=== PATIENT | female | born 1970 | race Caucasian/White ===

== ENCOUNTER 2019-03-20 18:59 | Inpatient (IN) | payer OTHER ==
--- NOTE | 2019-03-20 19:02 | PDOC ---
Rapid Medical Evaluation Time Seen by Provider: 03/20/19 19:00 Medical Evaluation: Allergies Allergy/AdvReac Type Severity Reaction Status Date / Time bacitracin Allergy Rash Verified 08/23/12 06:50 [From Neosporin ([id number])] 03/20/19 19:00 HPI: rectal bleeding PE: No gross deficits ORERS: Labs Discharge Disposition - Diagnosis GI bleed - Referrals - Patient Instructions - Post Discharge Activity
[2019-03-20] MEDS ORDERED: SODIUM CHLORIDE 1,000 ML IV STA (21:18)
[2019-03-20] MEDS ORDERED: PANTOPRAZOLE SODIUM 40 MG in SODIUM CHLORIDE 100 ML IVPB ONE (21:18)
[2019-03-20] MEDS ORDERED: PANTOPRAZOLE SODIUM 40 MG/100 ML BAG IVPB ONE (21:37)
--- NOTE | 2019-03-20 21:47 | PDOC ---
History of Present Illness - General Chief Complaint: Rectal Bleed Stated Complaint: RECTAL BLEED Time Seen by Provider: 03/20/19 19:00 History Source: Patient Exam Limitations: No Limitations - History of Present Illness Initial Comments: Andreea Jaffe is a 48 yo F with a hx of diverticulosis and hemorrhoids who presents to the [facility] via private auto with the chief complaint of bright red blood per rectum. The patient states that last night she experienced a frankly bloody bowel movement. When she looked down at the toilet there was nothing but blood in the toilet. She states this happened again today close to ten times. She states her bowel movements are not painful. She states she has a hx of hemorrhoidal bleeding but her prior experiences with hemorrhoidal bleeding are nothing like what has been happening to her over the past day as her hemorrhoidal bleeding episodes have a much lower quantity of blood and they are painful. She reports that Dr. Barakat is her GI doctor and she was told when she had her last colonoscopy that she has diverticulosis. She denies having abdominal pain, recent fevers, chills, infections, back pain, recent Abx, back pain, chest pain, SOB, difficulty breathing, headache, blurry vision, neck pain, joint pain, or decreased PO intake. PCP: Dr. Mishra GI: Dr. Barakat PSH: , bladder lift, addenoidectomy/tonsillectomy Social Hx: Denies smoking, drinking, or other substance usage. Allergies: Bacitracin per chart Past History - Past Medical History Allergies/Adverse Reactions: Allergies Allergy/AdvReac Type Severity Reaction Status Date / Time bacitracin Allergy Rash Verified 03/20/19 19:00 [From Neosporin ([id number])] Home Medications: Ambulatory Orders Aspirin/Acetaminophen/Caffeine [Excedrin Migraine Caplet] 1 each PO DAILY Fluoxetine HCl [Sarafem] 10 mg PO DAILY 03/20/19 Anemia: No Asthma: No Cancer: No Cardiac Disorders: No CVA: No COPD: No CHF: No Dementia: No Diabetes: No GI Disorders: No Disorders: No HTN: No Hypercholesterolemia: No Liver Disease: No Seizures: No Thyroid Disease: No (benign cyst) - Surgical History Abdominal Surgery: No Appendectomy: No Cardiac Surgery: No Cholecystectomy: No Lung Surgery: No Neurologic Surgery: No - Suicide/Smoking/Psychosocial Hx Smoking History: Unknown if ever smoked Have you smoked in the past 12 months: Yes Number of Cigarettes Smoked Daily: 2 'Breaking Loose' booklet given: 07/31/12 Hx Alcohol Use: Yes (SOCIAL) Substance Use Type: None Hx Substance Use Treatment: No Review of Systems - Review of Systems Able to Perform ROS?: Yes Comments:: CONSTITUTIONAL: Absent: fever, chills, diaphoresis, generalized weakness, malaise, loss of appetite HEENT: Absent: rhinorrhea, nasal congestion, throat pain, throat swelling, difficulty swallowing, mouth swelling, ear pain, eye pain, visual Changes CARDIOVASCULAR: Absent: chest pain, syncope, palpitations, irregular heart rate, lightheadedness , peripheral edema RESPIRATORY: Absent: cough, shortness of breath, dyspnea with exertion, orthopnea, wheezing, stridor, hemoptysis GASTROINTESTINAL: Present: diarrhea, hematochezia Absent: abdominal pain, abdominal distension, nausea, vomiting, constipation, melena GENITOURINARY: Absent: dysuria, frequency, urgency, hesitancy, hematuria, flank pain, genital pain MUSCULOSKELETAL: Absent: myalgia, arthralgia, joint swelling SKIN: Absent: rash, itching, pallor HEMATOLOGIC/IMMUNOLOGIC: Absent: easy bleeding, easy bruising, lymphadenopathy, frequent infections ENDOCRINE: Absent: unexplained weight gain, unexplained weight loss, heat intolerance, cold intolerance NEUROLOGIC: Absent: headache, focal weakness or paresthesias, dizziness, unsteady gait, seizure, mental status changes, bladder or bowel incontinence PSYCHIATRIC: Absent: anxiety, depression, suicidal or homicidal ideation, hallucinations. *Physical Exam - Vital Signs Last Vital Signs Temp Pulse Resp BP Pulse Ox 99.3 F 89 18 132/77 100 03/20/19 19:03 03/20/19 19:03 03/20/19 19:03 03/20/19 19:03 03/20/19 19:03 - Physical Exam Comments: GENERAL: Well developed, well nourished. Awake and alert. No acute distress. HEENT: Normocephalic, atraumatic. PERRLA, EOMI. No conjunctival pallor. Sclera are non- icteric. Moist mucous membranes. Oropharynx is clear. NECK: Supple. Full ROM. No JVD. CARDIOVASCULAR: Regular rate and rhythm. No murmurs, rubs, or gallops. Distal pulses are 2+ and symmetric. PULMONARY: No evidence of respiratory distress. Lungs clear to auscultation bilaterally. No wheezing, rales or rhonchi. ABDOMINAL: Soft. Non-tender. Non-distended. No rebound or guarding. No organomegaly. Normoactive bowel sounds. MUSCULOSKELETAL Normal range of motion at all joints. No bony deformities or tenderness. No CVA tenderness. EXTREMITIES: No cyanosis. No clubbing. No edema. No calf tenderness. SKIN: Warm and dry. Normal capillary refill. No rashes. No jaundice. NEUROLOGICAL: Alert, awake, appropriate. Cranial nerves 2-12 intact. No deficits to light touch in face, upper extremities and lower extremities. No motor deficits in the in face, upper extremities and lower extremities. Normal speech. Gait is normal without ataxia. PSYCHIATRIC: Cooperative. Good eye contact. Appropriate mood and affect. Rectal Exam: positive: normal rectal tone, heme positive stool, hemorrhoids. negative: melena, decreased tone ED Treatment Course - LABORATORY CBC & Chemistry Diagram: 03/20/19 21:10 03/20/19 21:10 Medical Decision Making - Medical Decision Making Andreea Jaffe is a 48 yo F with a hx of diverticulosis and hemorrhoids who presents to the [facility] via private auto with the chief complaint of bright red blood per rectum. The patient states that last night she experienced a frankly bloody bowel movement. When she looked down at the toilet there was nothing but blood in the toilet. She states this happened again today close to ten times. She states her bowel movements are not painful. She states she has a hx of hemorrhoidal bleeding but her prior experiences with hemorrhoidal bleeding are nothing like what has been happening to her over the past day as her hemorrhoidal bleeding episodes have a much lower quantity of blood and they are painful. She reports that Dr. Barakat is her GI doctor and she was told when she had her last colonoscopy that she has diverticulosis. Vital Signs Temp Pulse Resp BP Pulse Ox 99.3 F 89 18 132/77 100 03/20/19 19:03 03/20/19 19:03 03/20/19 19:03 03/20/19 19:03 03/20/19 19:03 DDx IBNLT: GI bleed - likely lower, less likely upper. Diverticular bleed, hemorrhoidal bleed, colon cancer, angiodysplasia, infectious colitis Plan: Labs, Urine, EKG, IV hydration, GI consult, Admit to hospital Labs: CBC - unremarkable. Normal Hb. CMP - Mild elevation in BUN Urine: 1+ ketonuria Disposition: Admit to hospital for BRBPR and further disposition and care. - Signing patient out to night resident to complete admission to hospital. *DC/Admit/Observation/Transfer Diagnosis at time of Disposition: GI bleed, BRBPR (bright red blood per rectum) - Discharge Dispostion Condition at time of disposition: Stable Decision to Admit order: Yes - Referrals - Patient Instructions Printed Discharge Instructions: DI for Rectal Bleeding - Post Discharge Activity
[2019-03-20 21:48] LABS: BASO % 0.6 % (0-2.0); EOS % 0.2 % (0-4.5); HEMOGLOBIN 12.7 GM/dL (10.7-15.3); LYMPH % 19.2 % (8-40); MCH 31.2 pg (25.7-33.7); MCHC 33.4 g/dl (32.0-36.0); MEAN CELL VOLUME 93.3 fl (80-96); MEAN PLT VOLUME 8.4 fl (7.5-11.1); MONO % 5.5 % (3.8-10.2); NEUT % 74.5 % (42.8-82.8); PLATELET COUNT 284 K/MM3 (134-434); RBC 4.07 M/mm3 (3.60-5.2); RDW 13.9 % (11.6-15.6); RETICULOCYTES 1.47 % (0.5-1.5); WHITE BLOOD COUNT 10.3 K/mm3 (4.0-10.0)
[2019-03-20 22:07] LABS: INR 1.02 (0.83-1.09)
[2019-03-20 22:21] LABS: ALBUMIN 3.9 g/dl (3.4-5.0); BILIRUBIN,TOTAL 0.8 mg/dL (0.2-1); BLOOD UREA NITROGEN 18.3 mg/dL (7-18); CALCIUM 8.7 mg/dL (8.5-10.1); CREATININE 0.9 mg/dL (0.55-1.3); POTASSIUM 3.9 mmol/L (3.5-5.1); TOT PROT 6.4 g/dl (6.4-8.2)
--- NOTE | 2019-03-20 22:27 | PDOC ---
Documentation entered by Keren Lawton SCRIBE, acting as scribe for Lucas Lucero MD. Lucas Lucero MD: This documentation has been prepared by the scribe, Keren Lawton SCRIBE, under my direction and personally reviewed by me in its entirety. I confirm that the documentation accurately reflects all work, treatment, procedures, and medical decision making performed by me. Attending Attestation - Resident Resident Name: Marcel Orozco - ED Attending Attestation I have performed the following: I have examined & evaluated the patient, The case was reviewed & discussed with the resident, I agree w/resident's findings & plan, Exceptions are as noted - HPI HPI: 03/20/19 21:37 The patient is a 48-year-old female, with a past medical history of diverticulosis and hemorrhoids, who presents to the ED with bright red blood per rectum today. The patient reports having 10 episodes with zoran blood in the toilet. Bowel movements are not painful. - Physicial Exam PE: 03/20/19 22:23 Patient is awake and alert, well-nourished, in no distress Normocephalic, atraumatic PERRLA, EOMI, conjunctiva pink CTA RRR Abdomen is soft, nontender, nondistended - Medical Decision Making 03/20/19 22:26 Patient is a 48-year-old female with history of diverticulosis and hemorrhoids in the past presents with numerous painless episodes of bright red blood and urine blood per rectum. In the ER, patient is hemodynamically stable with normal vital signs. Initial CBC reveals no evidence of significant anemia. Patient's symptoms are consistent with recurrent diverticular bleeding. Patient will be admitted for serial hematocrits and GI consultation. 03/21/19 01:42 Patient had another bloody bowel movement. Remains hemodynamically stable. No indication for packed RBCs at this time. Will continue to hydrate. Awaiting transfer to [facility] [place].
[2019-03-20 22:29] LABS: URINE APPEARANCE CLEAR; URINE BILIRUBIN NEGATIVE (NEGATIVE); URINE COLOR YELLOW; URINE GLUCOSE (UA) NEGATIVE (NEGATIVE); URINE KETONE 1+ (NEGATIVE); URINE LEUK ESTERASE NEGATIVE (NEGATIVE); URINE NITRITE NEGATIVE (NEGATIVE); URINE PROTEIN NEGATIVE (NEGATIVE); URINE UROBILINOGEN 0.2 mg/dL (0.2-1.0)
[2019-03-20 22:30] LABS: HCG,QUALITATIVE URINE Negative
--- NOTE | 2019-03-21 00:03 | PN ---
Teaching Attending Note Name of Resident: Gianni Edouard ATTENDING PHYSICIAN STATEMENT I saw and evaluated the patient. I reviewed the resident's note and discussed the case with the resident. I agree with the resident's findings and plan as documented. SUBJECTIVE: Seen and examined; please see resident note for further discussion of HPI/PMH/ PSH/FH/SH/ROS. Briefly, this is a 48 y/o female with history of hemorrhoids and diverticulosis (OP C-scope/EGD several years ago; vague hx upper GI ulcer no treatment given) presenting with multiple episodes of BRBPR w/ loose stool; H /H and HR are wnl. Follows with Dr. Barakat. OBJECTIVE: NAD, AAO, resting comfortably in bed NC AT EOMI PERRLA RRR s1/2 no mgr Lungs CTAB, w/ sym exp NT ND +BS CN2-12 wnl, no fnd Normal mood, appropriate behavior EKG reviewed CBC with very mild leukocytosis to 10.3; BMP with mildly elevated BUN to 18.3 ( ULN is 18.0) ASSESSMENT AND PLAN: Patient with history of diverticulosis presents with multiple episodes of BRBPR ; h/h stable and not tachy. Admitting to medicine with GI consult. # BRBPR # Hx Diverticulosis # Hx ?duodenal ulcer Large ddx for bleeding including diverticular, infectious diarrhea, meckles, etc. She will be placed on IV PPI (80 then 40 BID) and kept NPO and placed on isotonic fluids. Holding off on abx. Check stool studies.
[2019-03-21] MEDS ORDERED: LACTATED RINGERS SOLUTION 1,000 ML/1,000 ML INFUS.BAG IV SCH (01:00)
--- NOTE | 2019-03-21 01:14 | HP ---
CHIEF COMPLAINT: PCP: Dr Mishra HISTORY OF PRESENT ILLNESS: 48F with pmh of diverticulosis, hemorrhoids, ?gastric/duodenal ulcer presents to [facility] with complaint of bloody bowel movements x 8 with blood in the water, blood/clots in the stool. Denies straining. Denies rectal pain. Has had a colonoscopy and upper endoscopy in 2010 for abd pain. Noted diverticulosis and colonic polyps x2; gastric ulcer but did not get any antibiotics/antacids/PPI; no known history of H pylori. Has had hemorrhoids since , 9ys prior with 2 episodes of scant rectal bleed since initial dx. Denies dizziness, BRAVO. No sick contacts ER course was notable for: (1) hgb 12.7 (2) pantoprazole (3) FOBT Recent Travel: PAST MEDICAL HISTORY: diverticulosis, hemorrhoids PAST SURGICAL HISTORY: bladder lift, , addenoidectomy Social History: Smoking: denies Alcohol: social Drugs: denies Family History: mother with hiatal hernia Allergies bacitracin [From Neosporin ([id number])] Allergy (Verified 03/20/19 19:00) Rash SWELLING HOME MEDICATIONS: Home Medications Medication Instructions Recorded Aspirin/Acetaminophen/Caffeine 1 each PO DAILY 03/20/19 [Excedrin Migraine Caplet] Fluoxetine HCl [Sarafem] 10 mg PO DAILY 03/20/19 REVIEW OF SYSTEMS CONSTITUTIONAL: Absent: fever, chills, diaphoresis, generalized weakness, malaise, loss of appetite, weight change HEENT: Absent: rhinorrhea, difficulty swallowing CARDIOVASCULAR: Absent: chest pain, syncope, palpitations, irregular heart rate, lightheadedness , peripheral edema RESPIRATORY: Absent: cough, shortness of breath GASTROINTESTINAL: hematochezia Absent: abdominal pain, abdominal distension, nausea, vomiting, diarrhea, constipation, melena GENITOURINARY: Absent: dysuria, frequency, urgency, hesitancy, hematuria, flank pain, genital pain MUSCULOSKELETAL: Absent: myalgia, arthralgia, joint swelling, back pain, neck pain SKIN: Absent: rash, itching, pallor HEMATOLOGIC/IMMUNOLOGIC: Absent: easy bleeding, easy bruising, lymphadenopathy, frequent infections ENDOCRINE: Absent: unexplained weight gain, unexplained weight loss NEUROLOGIC: Absent: headache, focal weakness or paresthesias, dizziness, unsteady gait, seizure, mental status changes, bladder or bowel incontinence PSYCHIATRIC: Absent: anxiety, depression, suicidal or homicidal ideation, hallucinations. PHYSICAL EXAMINATION Vital Signs - 24 hr 03/20/19 19:03 Temperature 99.3 F Pulse Rate 89 Respiratory 18 Rate Blood Pressure 132/77 O2 Sat by Pulse 100 Oximetry (%) GENERAL: Awake, alert, and fully oriented, in no acute distress. HEAD: Normal with no signs of trauma. No temporal wasting EYES: extraocular movements intact, sclera anicteric, conjunctiva clear. EARS, NOSE, THROAT: Ears normal, nares patent. Moist mucous membranes. NECK: Normal range of motion, supple without lymphadenopathy, JVD, or masses. LUNGS: Breath sounds equal, clear to auscultation bilaterally. No wheezes, and no crackles. No accessory muscle use. HEART: Regular rate and rhythm, normal S1 and S2 without murmur, rub or gallop. ABDOMEN: Soft, nontender, not distended, no guarding, no rebound, no masses. RECTAL: excessive external mucosal folds at 12'oclock, internal hemrrhoid at 9' oclock; blood on glove MUSCULOSKELETAL: Normal range of motion at all joints. No bony deformities or tenderness. UPPER EXTREMITIES: warm, well-perfused. No cyanosis. No peripheral edema. LOWER EXTREMITIES: No peripheral edema. NEUROLOGICAL: Normal speech. Moves all four extremities spontaneously PSYCHIATRIC: Cooperative. Good eye contact. Appropriate mood and affect. SKIN: Warm, dry, normal turgor, no rashes or lesions noted, normal capillary refill. Laboratory Results - last 24 hr 03/20/19 03/20/19 03/20/19 21:10 21:10 21:10 WBC 10.3 H RBC 4.07 Hgb 12.7 Hct 38.0 MCV 93.3 MCH 31.2 MCHC 33.4 RDW 13.9 Plt Count 284 MPV 8.4 Absolute Neuts (auto) 7.7 Neutrophils % 74.5 Lymphocytes % 19.2 Monocytes % 5.5 Eosinophils % 0.2 Basophils % 0.6 Nucleated RBC % 0 Retic Count 1.47 PT with INR 12.00 INR 1.02 Sodium 139 Potassium 3.9 Chloride 108 H Carbon Dioxide 24 Anion Gap 7 L BUN 18.3 H Creatinine 0.9 Est GFR (CKD-EPI)AfAm 87.63 Est GFR (CKD-EPI)NonAf 75.61 Random Glucose 95 Calcium 8.7 Total Bilirubin 0.8 AST 17 ALT 30 Alkaline Phosphatase 49 Total Protein 6.4 Albumin 3.9 Urine Color Urine Appearance Urine pH Ur Specific [place] Urine Protein Urine Glucose (UA) Urine Ketones Urine Blood Urine Nitrite Urine Bilirubin Urine Urobilinogen Ur Leukocyte Esterase Urine HCG, Qual Blood Type Antibody Screen 03/20/19 03/20/19 21:10 22:10 WBC RBC Hgb Hct MCV MCH MCHC RDW Plt Count MPV Absolute Neuts (auto) Neutrophils % Lymphocytes % Monocytes % Eosinophils % Basophils % Nucleated RBC % Retic Count PT with INR INR Sodium Potassium Chloride Carbon Dioxide Anion Gap BUN Creatinine Est GFR (CKD-EPI)AfAm Est GFR (CKD-EPI)NonAf Random Glucose Calcium Total Bilirubin AST ALT Alkaline Phosphatase Total Protein Albumin Urine Color Yellow Urine Appearance Clear Urine pH 5.0 Ur Specific [place] 1.013 Urine Protein Negative Urine Glucose (UA) Negative Urine Ketones 1+ H Urine Blood Negative Urine Nitrite Negative Urine Bilirubin Negative Urine Urobilinogen 0.2 Ur Leukocyte Esterase Negative Urine HCG, Qual Negative Blood Type B POSITIVE Antibody Screen Negative ASSESSMENT/PLAN: 48F with pmh of diverticulosis, hemorrhoids, ?gastric/duodenal ulcer presenting with BRBPR possibly 2/2 hemrrhoids vs diverticulosis; less likely UGIB. # Blood per rectum > FOBT - pending - NPO - GI consult: r/o upper GIB - fu CT A/P - final read pending - q8 H/H - fu stool studies Gianni Boyer DO PGY-1 Medicine, PM-Float [id number] 03/21/19 Visit type - Emergency Visit Emergency Visit: Yes ED Registration Date: 03/20/19 Care time: The patient presented to the Emergency Department on the above date and was hospitalized for further evaluation of their emergent condition. - New Patient This patient is new to me today: Yes Date on this admission: 03/21/19 - Critical Care Critical Care patient: No ATTENDING PHYSICIAN STATEMENT I saw and evaluated the patient. I reviewed the resident's note and discussed the case with the resident. I agree with the resident's findings and plan as documented. SUBJECTIVE: OBJECTIVE: ASSESSMENT AND PLAN:
[2019-03-21] MEDS: PANTOPRAZOLE SODIUM 40 MG VIAL IVPUSH SCH ×2 (01:26→09:31)
[2019-03-21] MEDS ORDERED: PANTOPRAZOLE SODIUM 40 MG/100 ML BAG IVPB ONE (01:28)
[2019-03-21] MEDS ORDERED: ACETAMINOPHEN 1000 MG/100 ML VIAL (NON FORMULARY) IVPB ONE (01:42)
[2019-03-21] MEDS ORDERED: ACETAMINOPHEN INJECTION 100 ML IVPB ONE (01:48)
[2019-03-21 02:02] LABS: HEMATOCRIT 30.6 % (32.4-45.2); HEMOGLOBIN 10.3 GM/dL (10.7-15.3); MCH 31.2 pg (25.7-33.7); MCHC 33.6 g/dl (32.0-36.0); MEAN CELL VOLUME 92.8 fl (80-96); MEAN PLT VOLUME 8.1 fl (7.5-11.1); PLATELET COUNT 236 K/MM3 (134-434); RDW 14.1 % (11.6-15.6); WHITE BLOOD COUNT 9.8 K/mm3 (4.0-10.0)
[2019-03-21 03:06] VITALS: BMI 30.5
[2019-03-21 07:08] LABS: BASO % 0.6 % (0-2.0); EOS % 0.8 % (0-4.5); HEMATOCRIT 28.4 % (32.4-45.2); HEMOGLOBIN 9.5 GM/dL (10.7-15.3); LYMPH % 24.1 % (8-40); MCH 31.4 pg (25.7-33.7); MCHC 33.6 g/dl (32.0-36.0); MEAN CELL VOLUME 93.7 fl (80-96); MEAN PLT VOLUME 8.3 fl (7.5-11.1); MONO % 6.2 % (3.8-10.2); NEUT % 68.3 % (42.8-82.8); PLATELET COUNT 227 K/MM3 (134-434); RBC 3.03 M/mm3 (3.60-5.2); RDW 13.7 % (11.6-15.6); WHITE BLOOD COUNT 8.1 K/mm3 (4.0-10.0)
[2019-03-21 07:24] LABS: BILIRUBIN,TOTAL 0.6 mg/dL (0.2-1); BLOOD UREA NITROGEN 13.3 mg/dL (7-18); CALCIUM 7.6 mg/dL (8.5-10.1); CREATININE 0.7 mg/dL (0.55-1.3)
[2019-03-21] MEDS ORDERED: PANTOPRAZOLE SODIUM 40 MG VIAL IVPUSH SCH (10:00)
[2019-03-21] MEDS ORDERED: PANTOPRAZOLE 40 MG TABLET (FP) PO SCH (10:00)
--- NOTE | 2019-03-21 12:22 | CON.GI ---
Consult Consult Specialty:: GI Referred by:: Marcel Boogie Reason for Consultation:: rectal bleed - History of Present Illness Chief Complaint: blood in stool History of Present Illness: 48F with pmh of diverticulosis, hemorrhoids, ?gastric/duodenal ulcer presents to [facility] [place] with complaint of bloody bowel movements x 8 with blood in the water, blood/clots in the stool. Denies straining. Denies rectal pain. Has had a colonoscopy and upper endoscopy in 2010 for abd pain. Noted diverticulosis and colonic polyps x2; gastric ulcer but did not get any antibiotics/antacids/PPI; no known history of H pylori. Has had hemorrhoids since , 9ys prior with 2 episodes of scant rectal bleed since initial dx. Denies dizziness, BRAVO. No sick contacts all symptoms started 2 days ago around 7 pm with bright blood with stool , some dark stool and some clots , she reports 8-10 times diarrhea , she had salad that afternoon , and she had coffee latte that morning that cause her gases all day (lactose intolerance ) she denies any fever , chills, N/V , denies any chest pain , but reports some palpitation she reports acid reflux , lower and left lower quadrant abdominal pain denies any urinary symptoms denies any lower ext pain but reports worsening migraine headache last week and has been on Excedrin daily. pt reportsfamily history of acide reflux , colon cancer great aunt and rectal cancer in 2nd cousin, peptic ulcer her mother and her brother. 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 No: Ascites Renal/: No: Hematuria ...LMP: 05/24/12 Psych: Yes: Anxiety, Other (pre menstrual syndrome ) Musculoskeletal: Yes: Chronic low back pain Endocrine: Yes: Other (benign thyroid cyst ) - Past Surgical History Past Surgical History: Yes: , Cystectomy (thyroid ), Tonsillectomy Additional Surgical History: bladder lift - Alcohol/Substance Use Hx Alcohol Use: Yes (SOCIAL) Number of Drinks Daily: 2 History of Substance Use: reports: None - Smoking History Smoking history: Smoker current status UNK Have you smoked in the past 12 months: Yes Aproximately how many cigarettes per day: 2 - Social History ADL: Independent [facility] of : [facility] History of Recent Travel: Yes ([facility]) <Andrea Strickland - Last Filed: 03/21/19 16:02> Referred by:: Dr. Marcel Boogie - Past Medical History Gastrointestinal: Yes: Constipation, Diverticulosis (mild universal diverticulosis at 2012 colonoscopy), Peptic Ulcer Disease (1998 EGD suggested a DU scar), Other (hepatic flexure hyperplastic polyp rmoeved at last colonoscopy in 2011) Reproductive: Yes: Other (left ovarian cyst) - Past Surgical History Additional Surgical History: urethral diverticulum resection - Social History Usual Living Arrangement: Alone <Corona Barakat - Last Filed: 03/21/19 17:49> Home Medications <Andrea Strickland - Last Filed: 03/21/19 16:02> <Corona Barakat - Last Filed: 03/21/19 17:49> - Allergies Allergies/Adverse Reactions: Allergies Allergy/AdvReac Type Severity Reaction Status Date / Time bacitracin Allergy Rash Verified 03/20/19 19:00 [From Neosporin ([id number])] - Home Medications Home Medications: Ambulatory Orders Aspirin/Acetaminophen/Caffeine [Excedrin Migraine Caplet] 1 each PO DAILY Fluoxetine HCl [Sarafem] 10 mg PO DAILY 03/20/19 Family Disease History - Family Disease History Family Disease History: Heart Disease: Father (stent x 2 , HTN , stoke , prostate cancer , skin cancer , testicle cancer ), Other: Grandparent (great aunt colon cancer ), Mother (GERD , Gastric ulcer , hiatal hernia , 1/2 thyroid removed ), Brother (gastric ulcer from heroin over dose @ age of 45 year ) Other Family History: 2nd cousin with rectal cancer diagnosed @ 61 and @ 67 <Andrea Strickland - Last Filed: 03/21/19 16:02> - Family Disease History Family Disease History: Heart Disease: Father Other Family History: paul pham had colon cancer in her late 60s <Corona Barakat - Last Filed: 03/21/19 17:49> Review of Systems - Review of Systems Constitutional: reports: Lethargy. denies: Fever, Night Sweats Eyes: reports: No Symptoms HENT: reports: No Symptoms Neck: reports: No Symptoms Cardiovascular: reports: Palpitations. denies: Chest Pain, Edema, Shortness of Breath Respiratory: reports: No Symptoms Gastrointestinal: reports: Abdominal Pain (lower and left lower Q), Diarrhea ( 10 times since admssion bloody), Rectal Bleeding Genitourinary: reports: No Symptoms Breasts: reports: No Symptoms Reported Musculoskeletal: reports: Back Pain Neurological: reports: Headache (migrain), Other (light headedness when she get up of bed now). denies: Numbness, Parasthesia Endocrine: reports: No Symptoms, Other (thyroid cystectomy) Psychiatric: reports: Anxiety <Andrea Strickland - Last Filed: 03/21/19 16:02> Physical Exam-GI Vital Signs: Vital Signs Temperature 98.6 F 03/21/19 06:00 Pulse Rate 82 03/21/19 06:00 Respiratory Rate 20 03/21/19 06:00 Blood Pressure 108/62 03/21/19 06:00 O2 Sat by Pulse Oximetry (%) 98 03/21/19 03:31 Constitutional: Yes: Well Nourished, No Distress, Calm Eyes: Yes: Conjunctiva Clear HENT: Yes: Atraumatic, Normocephalic Neck: Yes: Supple Cardiovascular: Yes: Regular Rate and Rhythm Respiratory: Yes: CTA Bilaterally Gastrointestinal Inspection: No: Ascites, Distention ...Auscultate: Yes: Normoactive Bowel Sounds ...Palpate: Yes: Tenderness (lower abdomen and left Loweer Quadrant). No: Firm/ Rigid, Guarding ...Percussion: Yes: Tympanitic (normal sph) ...Rectal Exam: Yes: Guaiac Positive, Hemorrhoids/External, Hemorrhoids/Internal , Sphincter Tone Normal Edema: No Peripheral Pulses WNL: Yes Neurological: Yes: Alert, Oriented ...Motor Strength: WNL Psychiatric: Yes: Alert, Oriented Labs: CBC, BMP 03/21/19 06:45 03/21/19 06:45 INR, PTT INR 1.02 (0.83-1.09) 03/20/19 21:10 <Andrea Strickland - Last Filed: 03/21/19 16:02> Vital Signs: Vital Signs Temperature 99.2 F 03/21/19 15:25 Pulse Rate 88 03/21/19 15:25 Respiratory Rate 20 03/21/19 15:25 Blood Pressure 114/59 L 03/21/19 15:25 O2 Sat by Pulse Oximetry (%) 98 03/21/19 09:00 CBC,CMP WBC 9.1 K/mm3 (4.0-10.0) 03/21/19 15:10 RBC 2.61 M/mm3 (3.60-5.2) L 03/21/19 15:10 Hgb 8.3 GM/dL (10.7-15.3) L 03/21/19 15:10 Hct 24.3 % (32.4-45.2) L 03/21/19 15:10 MCV 93.1 fl (80-96) 03/21/19 15:10 MCH 31.7 pg (25.7-33.7) 03/21/19 15:10 MCHC 34.0 g/dl (32.0-36.0) 03/21/19 15:10 RDW 14.0 % (11.6-15.6) 03/21/19 15:10 Plt Count 232 K/MM3 (134-434) 03/21/19 15:10 MPV 8.4 fl (7.5-11.1) 03/21/19 15:10 Absolute Neuts (auto) 7.6 K/mm3 (1.5-8.0) 03/21/19 15:10 Neutrophils % 83.2 % (42.8-82.8) H D 03/21/19 15:10 Lymphocytes % 11.7 % (8-40) D 03/21/19 15:10 Monocytes % 4.6 % (3.8-10.2) 03/21/19 15:10 Eosinophils % 0.0 % (0-4.5) D 03/21/19 15:10 Basophils % 0.5 % (0-2.0) 03/21/19 15:10 Nucleated RBC % 0 % (0-0) 03/21/19 15:10 ESR 4 mm/hr (0-20) 03/21/19 01:50 Retic Count 1.47 % (0.5-1.5) 03/20/19 21:10 Sodium 141 mmol/L (136-145) 03/21/19 06:45 Potassium 4.0 mmol/L (3.5-5.1) 03/21/19 06:45 Chloride 112 mmol/L (98-107) H 03/21/19 06:45 Carbon Dioxide 24 mmol/L (21-32) 03/21/19 06:45 Anion Gap 4 MMOL/L (8-16) L 03/21/19 06:45 BUN 13.3 mg/dL (7-18) 03/21/19 06:45 Creatinine 0.7 mg/dL (0.55-1.3) 03/21/19 06:45 Est GFR (CKD-EPI)AfAm 118.74 03/21/19 06:45 Est GFR (CKD-EPI)NonAf 102.45 03/21/19 06:45 Random Glucose 98 mg/dL (74-106) 03/21/19 06:45 Calcium 7.6 mg/dL (8.5-10.1) L 03/21/19 06:45 Total Bilirubin 0.6 mg/dL (0.2-1) 03/21/19 06:45 AST 11 U/L (15-37) L 03/21/19 06:45 ALT 22 U/L (13-61) 03/21/19 06:45 Alkaline Phosphatase 38 U/L (45-117) L 03/21/19 06:45 C-Reactive Protein < 0.3 MG/DL (0.00-0.3) 03/21/19 01:50 Total Protein 5.0 g/dl (6.4-8.2) L 03/21/19 06:45 Albumin 3.0 g/dl (3.4-5.0) L 03/21/19 06:45 Current Medications Generic Name Dose Route Start Last Admin Trade Name Freq PRN Reason Stop Dose Admin Acetaminophen 1,000 mg 03/21/19 13:26 03/21/19 13:56 Ofirmev Injection - IVPB 1,000 mg Q6H PRN Administration HEADACHE Pantoprazole Sodium 80 mg/ 100 mls @ 10 mls/hr 03/21/19 17:30 Sodium Chloride IVPB Q10H PRASANNA 8 MG/HR Lactated Ringer's 1,000 ml in 1,000 mls @ 125 mls/hr 03/21/19 17:21 Lactated Ringers Solution IV ASDIR PRASANNA Labs: CBC, BMP 03/21/19 15:10 03/21/19 06:45 INR, PTT INR 1.02 (0.83-1.09) 03/20/19 21:10 <Corona Barakat - Last Filed: 03/21/19 17:49> Imaging - Results Cat Scan: Report Reviewed <RocriaBlaynei - Last Filed: 03/21/19 16:02> Problem List - Problems (1) BRBPR (bright red blood per rectum) Code(s): K62.5 - HEMORRHAGE OF ANUS AND RECTUM (2) GI bleed Code(s): K92.2 - GASTROINTESTINAL HEMORRHAGE, UNSPECIFIED <Marco AAndrea - Last Filed: 03/21/19 16:02> - Problems (1) Acute blood loss anemia Assessment/Plan: Differential include diverticular hemorrhage, NSAID ulcer, vascular ectasias, infectious or ischemic colitis, Meckel's diverticulum among other possibilities Code(s): D62 - ACUTE POSTHEMORRHAGIC ANEMIA (2) Hematochezia Code(s): K92.1 - MELENA (3) Diverticulosis of colon with hemorrhage Code(s): K57.31 - DVRTCLOS OF LG INT W/O PERFORATION OR ABSCESS W BLEEDING (4) Migraine Code(s): G43.909 - MIGRAINE, UNSP, NOT INTRACTABLE, WITHOUT STATUS MIGRAINOSUS (5) Ovarian cyst Code(s): N83.209 - UNSPECIFIED OVARIAN CYST, UNSPECIFIED SIDE (6) History of colon polyps Code(s): Z86.010 - PERSONAL HISTORY OF COLONIC POLYPS (7) Constipation Code(s): K59.00 - CONSTIPATION, UNSPECIFIED <Corona Barakat - Last Filed: 03/21/19 17:49> Assessment/Plan # Lower GI bleed , 2/2 diverticulosis vs internal hemorrhoids R.O upper GI bleed as pt has been on Excedrin daily during last week but less likely * NPO * Monitor H/H Q 8hr * type and screen , * 2 large IV pores * Normal transfusion threshold (Hgb below 8 ) * avoid NSAIDS : Motrin , Advil, Ibuprofen * Fobt positive * CT scan with colonic diverticulosis , umbilical hernia , , 2 cm left ovarian cyst * PPI IV 40 BID * stool cx pending ' * UCX pending * cont IV fluids RL @ 100 CC/hr * orthostatic BP * repeat cbc 8.3 will wait till next cbc at 10 pm if blow 8 will transfer her 1- 2 PRBC * Dr Avilez is division plant engineer tonight please reach out to him. * bowel prep for colonoscopy and endoscopy tomorrow by Dr Barakat . * risk and benifit was explained to the pt inculding but not limited to infection , worsening bleeding , perforation , blood transfusion and anesthesia side effects as well and pt agree to proceed for EGD/Colonscopy. <Andrea Strickland - Last Filed: 03/21/19 16:02> ATTENDING PHYSICIAN STATEMENT I saw and evaluated the patient. I reviewed the resident's note and discussed the case with the resident. I agree with the resident's findings and plan as documented. SUBJECTIVE: Rectal bleeding past 24 hours without severe cramps or fever. Has been taking extra strength excedrin daily for the past week for migraine headaches aggravated by menses. Colonoscopy in 2011 led to hyperplastic polyp removed and revealed mild universal diverticulosis. Has chronic constipation with paradoxical diarrhea. Has significant Hb drop, Had orthostatic symptoms on last trip to toilet. Had 3 bloody BMs today OBJECTIVE: Awake and alert in NAD Neck: no adenopathy Lungs: clear Cor: RR, nl S1S2 Abd: BS normoactive, nontender, healed Pfannensteil incision Rectal: no masses, hemorrhoids, zoran blood ASSESSMENT AND PLAN: -- The pattern of bleeding and symptoms are most suggestive of a diverticular bleed but a bleeding NSAID ulcer cannot be absolutely excluded. Plans for an EGD and colonoscopy will be amended to EGD only as the patient requires blood and fluid resuscitation before she can undergo a bowel prep. The prep could aggravate her bleeding at this time. She could alternatively be bleeding from vascular ectasias, infectious or ischemic colitis, a Meckels diverticulum or a small bowel NSAID induced ulcer among other considerations -- H/O Diverticulosis -- H/O Hemorrhoidal bleeding Plan: -- Transfuse -- PPI drip -- NPO, no bowel prep -- EGD tomorrow -- Colonoscopy time to be determined <Corona Barakat - Last Filed: 03/21/19 17:49>
[2019-03-21] MEDS: ACETAMINOPHEN 1000 MG/100 ML VIAL (NON FORMULARY) IVPB PRN ×2 (13:56→22:22)
--- NOTE | 2019-03-21 15:25 | PN ---
Progress Note, Physician Chief Complaint: Ms Jaffe says she feels hungry. She still is having BRBPR. Denies cp and sob. - Current Medication List Current Medications: Active Medications Acetaminophen (Ofirmev Injection -) 1,000 mg IVPB Q6H PRN PRN Reason: HEADACHE Last Admin: 03/21/19 13:56 Dose: 1,000 mg Lactated Ringer's (Lactated Ringers Solution) 1,000 ml in 1,000 mls @ 100 mls/ hr IV ASDIR [facility] Last Admin: 03/21/19 01:22 Dose: 100 mls/hr Pantoprazole Sodium (Protonix Iv) 40 mg IVPUSH BID [facility] Last Admin: 03/21/19 09:31 Dose: 40 mg - Objective Vital Signs: Vital Signs Temperature 37.0 C 03/21/19 06:00 Pulse Rate 82 03/21/19 06:00 Respiratory Rate 20 03/21/19 06:00 Blood Pressure 108/62 03/21/19 06:00 O2 Sat by Pulse Oximetry (%) 98 03/21/19 09:00 Constitutional: Yes: Well Nourished, No Distress, Calm Cardiovascular: Yes: Regular Rate and Rhythm. No: Gallop, Murmur, Rub Respiratory: Yes: Regular, CTA Bilaterally. No: Rales, Rhonchi, Wheezes Gastrointestinal: Yes: Normal Bowel Sounds, Soft. No: Distention, Tenderness Extremities: Yes: WNL Edema: No Labs: CBC, BMP 03/21/19 06:45 03/21/19 06:45 INR, PTT INR 1.02 (0.83-1.09) 03/20/19 21:10 Problem List - Problems (1) GI bleed Assessment/Plan: -suspect patient has a diverticular bleed -GI consulted -suspect will need colonoscopy, defer to Dr Barakat -has questionable history of duodenal ulcer but very low suspicion for UGIB Code(s): K92.2 - GASTROINTESTINAL HEMORRHAGE, UNSPECIFIED (2) Acute blood loss anemia Assessment/Plan: -cbc q6h -transfusion as needed Code(s): D62 - ACUTE POSTHEMORRHAGIC ANEMIA
[2019-03-21 15:36] LABS: BASO % 0.5 % (0-2.0); HEMATOCRIT 24.3 % (32.4-45.2); HEMOGLOBIN 8.3 GM/dL (10.7-15.3); LYMPH % 11.7 % (8-40); MCH 31.7 pg (25.7-33.7); MEAN CELL VOLUME 93.1 fl (80-96); MEAN PLT VOLUME 8.4 fl (7.5-11.1); MONO % 4.6 % (3.8-10.2); NEUT % 83.2 % (42.8-82.8); RBC 2.61 M/mm3 (3.60-5.2); WHITE BLOOD COUNT 9.1 K/mm3 (4.0-10.0)
[2019-03-21 15:55] LABS: PLATELET COUNT 232 K/MM3 (134-434)
[2019-03-21] MEDS ORDERED: BISACODYL 5 MG TABLET.DR (FP) PO ONE (15:58)
[2019-03-21] MEDS ORDERED: PEG 3350/NA SULF BICARB CL/KCL 4000 ML SOLN.RECON PO ONE (17:00)
--- NOTE | 2019-03-21 17:05 | EKG ---
Test Reason : Blood Pressure : / mmHG Vent. Rate : 077 BPM Atrial Rate : 077 BPM P-R Int : 142 ms QRS Dur : 068 ms QT Int : 390 ms P-R-T Axes : 052 007 000 degrees QTc Int : 441 ms NORMAL SINUS RHYTHM LOW VOLTAGE QRS BORDERLINE ECG WHEN COMPARED WITH ECG OF 31-JUL-2012 11:23, QT HAS LENGTHENED Confirmed by CIRO ROBERTSON MD ([id number]) on 03/21/2019 5:05:19 PM Referred By: Confirmed By:CIRO ROBERTSON MD
[2019-03-21] MEDS: LACTATED RINGERS SOLUTION 1,000 ML/1,000 ML INFUS.BAG IV SCH (18:19)
[2019-03-21] MEDS: PANTOPRAZOLE SODIUM 80 MG in SODIUM CHLORIDE 100 ML IVPB SCH (19:00)
[2019-03-22 01:34] LABS: BASO % 0.2 % (0-2.0); EOS % 0.3 % (0-4.5); HEMOGLOBIN 8.9 GM/dL (10.7-15.3); LYMPH % 16.2 % (8-40); MCH 31.5 pg (25.7-33.7); MCHC 34.1 g/dl (32.0-36.0); MEAN CELL VOLUME 92.2 fl (80-96); MEAN PLT VOLUME 8.5 fl (7.5-11.1); NEUT % 77.3 % (42.8-82.8); PLATELET COUNT 194 K/MM3 (134-434); RBC 2.82 M/mm3 (3.60-5.2); RDW 13.8 % (11.6-15.6); WHITE BLOOD COUNT 10.4 K/mm3 (4.0-10.0)
[2019-03-22] MEDS: PANTOPRAZOLE SODIUM 80 MG in SODIUM CHLORIDE 100 ML IVPB SCH (04:21)
[2019-03-22 07:19] LABS: BASO % 0.6 % (0-2.0); EOS % 0.3 % (0-4.5); HEMATOCRIT 24.8 % (32.4-45.2); HEMOGLOBIN 8.6 GM/dL (10.7-15.3); LYMPH % 13.9 % (8-40); MCH 31.8 pg (25.7-33.7); MCHC 34.7 g/dl (32.0-36.0); MEAN CELL VOLUME 91.9 fl (80-96); MEAN PLT VOLUME 8.3 fl (7.5-11.1); NEUT % 80.2 % (42.8-82.8); PLATELET COUNT 199 K/MM3 (134-434); RDW 13.9 % (11.6-15.6); WHITE BLOOD COUNT 10.2 K/mm3 (4.0-10.0)
[2019-03-22 07:53] LABS: BLOOD UREA NITROGEN 7.3 mg/dL (7-18); CALCIUM 7.5 mg/dL (8.5-10.1); CREATININE 0.6 mg/dL (0.55-1.3); MAGNESIUM 1.9 mg/dL (1.8-2.4); PHOSPHOROUS 2.3 mg/dL (2.5-4.9)
[2019-03-22] MEDS: ACETAMINOPHEN 1000 MG/100 ML VIAL (NON FORMULARY) IVPB PRN ×2 (08:51→21:00)
--- NOTE | 2019-03-22 10:43 | PN ---
Progress Note (short form) - Note Progress Note: GI procedure note: Please see scanned EGD report. No UGI bleeding seen. Suspect diverticular bleed. Given persistent bleeding will obtain CTA and surgical consultation. Dr. Rodriguez will be covering this weekend. Problem List - Problems (1) Acute blood loss anemia Code(s): D62 - ACUTE POSTHEMORRHAGIC ANEMIA (2) Hematochezia Code(s): K92.1 - MELENA (3) Diverticulosis of colon with hemorrhage Code(s): K57.31 - DVRTCLOS OF LG INT W/O PERFORATION OR ABSCESS W BLEEDING (4) Migraine Code(s): G43.909 - MIGRAINE, UNSP, NOT INTRACTABLE, WITHOUT STATUS MIGRAINOSUS (5) Ovarian cyst Code(s): N83.209 - UNSPECIFIED OVARIAN CYST, UNSPECIFIED SIDE (6) History of colon polyps Code(s): Z86.010 - PERSONAL HISTORY OF COLONIC POLYPS (7) Constipation Code(s): K59.00 - CONSTIPATION, UNSPECIFIED
[2019-03-22] MEDS ORDERED: ONDANSETRON 4 MG/2 ML VIAL IVPUSH ONE (14:30)
--- NOTE | 2019-03-22 15:17 | PN.GI ---
GI Progress Note Subjective: GI Note: CTA revealed a focus of bleeding in the mid-transverse colon. I discussed the finding with Dr Ceja and then with Andreea who just underwent mesenteric angiography with the intent of embolizing the bleeding focus. During angiography no overt bleeding was found however so after discussion with Dr. Ceja no no embolization was done. Andreea appears pale but tells me that her abdominal cramps have subsided. - Objective Vital Signs: Vital Signs Temperature 99.3 F 03/22/19 11:17 Pulse Rate 68 03/22/19 14:40 Respiratory Rate 16 03/22/19 14:40 Blood Pressure 108/65 03/22/19 14:40 O2 Sat by Pulse Oximetry (%) 100 03/22/19 14:40 Laboratory Tests 03/21/19 03/21/19 03/21/19 01:50 06:45 15:10 Hgb 10.3 L 9.5 L 8.3 L 03/22/19 03/22/19 00:30 06:50 Hgb 8.9 L 8.6 L Constitutional: Anxious, Other (pale) ...Auscultate: Yes: Hyperactive Bowel Sounds ...Palpate: Yes: Soft, Other (nontender) ...Percussion: Yes: Tympanitic Labs: CBC, BMP 03/22/19 06:50 03/22/19 06:50 INR, PTT INR 1.02 (0.83-1.09) 03/20/19 21:10 Assessment/Plan ASSESSMENT AND PLAN: -- Diverticular bleed is most likely given the mid-transverse colon location - appears to have stopped on angiography -- H/O Diverticulosis -- H/O Hemorrhoidal bleeding Plan: -- Discussed with Dr Latham -- Transfuse another unit PRBC -- PPI IVPB -- NPO with ice chips -- Colonoscopy time to be determined, if bleeding stops will defer to outpatient status Dr Rodriguez will be covering this weekend. Problem List - Problems (1) Acute blood loss anemia Code(s): D62 - ACUTE POSTHEMORRHAGIC ANEMIA (2) Hematochezia Code(s): K92.1 - MELENA (3) Diverticulosis of colon with hemorrhage Code(s): K57.31 - DVRTCLOS OF LG INT W/O PERFORATION OR ABSCESS W BLEEDING (4) Migraine Code(s): G43.909 - MIGRAINE, UNSP, NOT INTRACTABLE, WITHOUT STATUS MIGRAINOSUS (5) Ovarian cyst Code(s): N83.209 - UNSPECIFIED OVARIAN CYST, UNSPECIFIED SIDE (6) History of colon polyps Code(s): Z86.010 - PERSONAL HISTORY OF COLONIC POLYPS (7) Constipation Code(s): K59.00 - CONSTIPATION, UNSPECIFIED (8) Gastritis Code(s): K29.70 - GASTRITIS, UNSPECIFIED, WITHOUT BLEEDING
[2019-03-22 16:16] LABS: BASO % 0.2 % (0-2.0); HEMATOCRIT 23.4 % (32.4-45.2); HEMOGLOBIN 7.8 GM/dL (10.7-15.3); LYMPH % 8.4 % (8-40); MCH 30.9 pg (25.7-33.7); MCHC 33.4 g/dl (32.0-36.0); MEAN CELL VOLUME 92.6 fl (80-96); MEAN PLT VOLUME 8.8 fl (7.5-11.1); MONO % 4.3 % (3.8-10.2); NEUT % 87.1 % (42.8-82.8); PLATELET COUNT 211 K/MM3 (134-434); RBC 2.53 M/mm3 (3.60-5.2); RDW 13.8 % (11.6-15.6); WHITE BLOOD COUNT 11.3 K/mm3 (4.0-10.0)
--- NOTE | 2019-03-22 17:08 | CONSULT ---
Consult Consult Specialty:: General Surgery Referred by:: Louann Barakat Reason for Consultation:: LGIB - History of Present Illness Chief Complaint: bleeding per rectum History of Present Illness: 48yo F with known diverticulosis, PMS, h/o menstrual headaches requiring Excedrin migraine, h/o hemorrhoidal bleeding in past, was in [place], [place] Monday for work, when she had a [employer] latte (she is lactose-intolerant), and later started having cramps and then diarrhea. When she wiped, she saw blood , and thought she might still be menstruating (had period from 02/09 for about a week, heavy), but then looked in bowl and saw much more blood than she had ever seen before. She had several more episodes of bloody loose bowel movements that day, and again the next day, at which point, she called her GI Dr. Barakat, and made arrangements to take the train home early, as she did not want to go to an ER in [place], away from home. While going to the train, she did have an episode of lightheadedness, sweating, weakness and had to sit down early and get assistance to the train. She also had been having significant headaches, not just from the start of her menses, but continuing over the last week, even after her period stopped. She has taken an Excedrin migraine daily for the last week. She also indicates that her stools are often loose. She came to the ER here Monday night, where her initial Hb was 12, but she was still having bloody diarrhea. Since then, she was admitted to medicine, given IV fluids, and was going to be prepped for EGD and colonoscopy, but then prep for lower scope was deferred, as her Hb dropped to the 8s, and she got one unit of blood yesterday. Today she had EGD, showing only gastritis. She was sent for CT angiogram, and surgery was asked to assess. She is seen and examined in bed, on the floor, having just returned from attempted IR embolization of bleeding identifed on the CTA as being in the mid- transverse colon. On angiogram, however, no active bleeding was identified, so no embolization was actually done. She is lying flat for the next 6 hours and getting one more unit of blood, just starting. She reports no abdominal pain. She had some nausea with the angiogram, but it responded to medication. She feels a bit bloated, and still has occasional crampiness, attributed to the diarrhea from the residual blood. No BM yet since coming back upstairs, but she does feel like she could both void and defecate. Her is also at bedside. - History Source History Provided By: Patient Limitations to Obtaining History: No Limitations - Past Medical History GRINDER LAP: Yes: Migraine (menstrual headaches) Gastrointestinal: Yes: Constipation, Diverticulosis (mild universal diverticulosis at 2011 colonoscopy), Hemorrhoids, Peptic Ulcer Disease (1998 EGD suggested a DU scar), Other (hepatic flexure hyperplastic polyp removed at last colonoscopy in 2011) ...LMP: 02/09/19 (lasted about a week, heavy) ...: No Psych: Yes: Anxiety, Other (pre menstrual syndrome ) Musculoskeletal: Yes: Chronic low back pain Endocrine: Yes: Other (benign thyroid cyst ) - Past Surgical History Past Surgical History: Yes: Colonoscopy, , Cystectomy (thyroid ), Tonsillectomy (with adenoids), Upper Endoscopy Additional Surgical History: bladder sling possibly with mesh; urethral diverticulum resection - Alcohol/Substance Use Hx Alcohol Use: Yes (SOCIAL) History of Substance Use: reports: None, Marijuana (daily) - Smoking History Smoking history: Never smoked (no tobacco) Have you smoked in the past 12 months: Yes Aproximately how many cigarettes per day: 0 (marijuana only) - Social History Usual Living Arrangement: With Spouse ADL: Independent History of Recent Travel: Yes ([facility] (24 hr trip )) Home Medications - Allergies Allergies/Adverse Reactions: Allergies Allergy/AdvReac Type Severity Reaction Status Date / Time bacitracin Allergy Rash Verified 03/20/19 19:00 [From Neosporin ([id number])] - Home Medications Home Medications: Ambulatory Orders Aspirin/Acetaminophen/Caffeine [Excedrin Migraine Caplet] 1 each PO DAILY Fluoxetine HCl [Sarafem] 10 mg PO DAILY 03/20/19 Home Medications (free text): pt does not use the fluoxetine daily, has not taken in last week, takes sometimes Family Disease History - Family Disease History Family Disease History: Heart Disease: Father, Other: Grandparent (great aunt colon cancer ), Mother (GERD , Gastric ulcer , hiatal hernia , 1/2 thyroid removed ), Brother (gastric ulcer from heroin over dose @ age of 45 year ) Other Family History: great aunt had colon cancer in her late 60s Review of Systems - Review of Systems Constitutional: reports: Chills (with hpi), Diaphoresis (with hpi), Weakness ( with hpi). denies: Fever Eyes: reports: Other (contact lenses, glasses for reading and when not using contacts). denies: Blurred Vision, Recent Change in Vision HENT: denies: Difficult Swallowing, Throat Pain Neck: denies: Swollen Glands, Tenderness Cardiovascular: reports: Palpitations (gets flutter sometimes, when anxious). denies: Chest Pain Respiratory: reports: Cough (at times, chronic). denies: SOB, SOB on Exertion Gastrointestinal: reports: Bloating, Diarrhea (with hpi), Nausea (little, with hpi), Rectal Bleeding (with hpi). denies: Abdominal Pain, Constipation, Vomiting Genitourinary: denies: Burning, Dysuria Musculoskeletal: reports: Back Pain (at times). denies: Joint Pain, Muscle Pain Integumentary: reports: Other (right wrist tattoo 3 weeks ago). denies: Change in Color, Rash Neurological: reports: Headache (since onset of menses 02/09, with hpi). denies: Dizziness, Unsteady Gait Psychiatric: reports: Anxiety (at times). denies: Depression Physical Exam Vital Signs: Vital Signs Temperature 99.4 F 03/22/19 14:40 Pulse Rate 73 03/22/19 14:40 Respiratory Rate 18 03/22/19 14:40 Blood Pressure 129/59 L 03/22/19 14:40 O2 Sat by Pulse Oximetry (%) 100 03/22/19 14:40 Constitutional: Yes: Well Nourished, No Distress, Calm, Pallor (somewhat pale) Eyes: Yes: Conjunctiva Clear, EOM Intact HENT: Yes: Atraumatic, Normocephalic Neck: Yes: Supple, Trachea Midline Cardiovascular: Yes: Regular Rate and Rhythm Respiratory: Yes: Regular, CTA Bilaterally Gastrointestinal: Yes: Normal Bowel Sounds, Soft, Other (well-healed pfannenstiel scar). No: Distention, Tenderness, Tenderness, Epigastrium ...Rectal Exam: Yes: Deferred (has been documented by other providers) Renal/: No: CVA Tenderness - Left, CVA Tenderness - Right Musculoskeletal: No: Joint Stiffness, Joint Swelling Extremities: Yes: Cool (fingers/hands). No: Cyanosis Edema: No Peripheral Pulses WNL: Yes Integumentary: Yes: Body Piercing (old, healed over, supraumbilical), Tattoos ( small new one inside right wrist). No: Jaundice, Rash Wound/Incision: Yes: Dressing Dry and Intact (right groin). No: Dressing Removed Neurological: Yes: Alert, Oriented Psychiatric: Yes: Alert, Oriented Labs: CBC, BMP 03/22/19 15:45 03/22/19 06:50 CMP Sodium 141 mmol/L (136-145) 03/22/19 06:50 Potassium 4.0 mmol/L (3.5-5.1) 03/22/19 06:50 Chloride 112 mmol/L (98-107) H 03/22/19 06:50 Carbon Dioxide 22 mmol/L (21-32) 03/22/19 06:50 Anion Gap 7 MMOL/L (8-16) L 03/22/19 06:50 BUN 7.3 mg/dL (7-18) 03/22/19 06:50 Creatinine 0.6 mg/dL (0.55-1.3) 03/22/19 06:50 Est GFR (CKD-EPI)AfAm 124.92 03/22/19 06:50 Est GFR (CKD-EPI)NonAf 107.78 03/22/19 06:50 Random Glucose 74 mg/dL (74-106) 03/22/19 06:50 Calcium 7.5 mg/dL (8.5-10.1) L 03/22/19 06:50 Phosphorus 2.3 mg/dL (2.5-4.9) L 03/22/19 06:50 Magnesium 1.9 mg/dL (1.8-2.4) 03/22/19 06:50 Ferritin 24.9 ng/ml (8-388) 03/22/19 06:50 Total Bilirubin 0.6 mg/dL (0.2-1) 03/21/19 06:45 AST 11 U/L (15-37) L 03/21/19 06:45 ALT 22 U/L (13-61) 03/21/19 06:45 Alkaline Phosphatase 38 U/L (45-117) L 03/21/19 06:45 C-Reactive Protein < 0.3 MG/DL (0.00-0.3) 03/21/19 01:50 Total Protein 5.0 g/dl (6.4-8.2) L 03/21/19 06:45 Albumin 3.0 g/dl (3.4-5.0) L 03/21/19 06:45 INR, PTT INR 1.02 (0.83-1.09) 03/20/19 21:10 Urine Test Results Urine Color Yellow 03/20/19 22:10 Urine Appearance Clear 03/20/19 22:10 Urine pH 5.0 (5.0-8.0) 03/20/19 22:10 Ur Specific [place] 1.013 (1.010-1.035) 03/20/19 22:10 Urine Protein Negative (NEGATIVE) 03/20/19 22:10 Urine Glucose (UA) Negative (NEGATIVE) 03/20/19 22:10 Urine Ketones 1+ (NEGATIVE) H 03/20/19 22:10 Urine Blood Negative (NEGATIVE) 03/20/19 22:10 Urine Nitrite Negative (NEGATIVE) 03/20/19 22:10 Urine Bilirubin Negative (NEGATIVE) 03/20/19 22:10 Ur Leukocyte Esterase Negative (NEGATIVE) 03/20/19 22:10 Hb 12-10 - 8.9 - 8.3 - 8.6 - 7.8 (above) getting 1 unit PRBC now had 1 unit yesterday (total 2 so far) Imaging - Results Cat Scan: Report Reviewed, Image Reviewed (images reviewed - active extravasation of contrast on CTA noted in mid-transverse colon - possibly toward left side of middle?) Other: Report Reviewed (attempted angiographic embolization noted - no active bleeding visualized, so no embolism performed) Problem List - Problems (1) Diverticulosis of colon with hemorrhage Assessment/Plan: admitted to medicine recent events noted gastritis only on EGD known h/o pandiverticulosis and localization of bleeding in transverse colon suggests diverticular bleeding as source no bleeding at time of angiogram identified - may have stopped agree with NPO except ice chips for now transfuse as indicated maintenance IVF to continue after blood transfusion trend H/H frequently monitor Ca/lytes monitor stool output - anticipate further bloody stools until colon is evacuated would NOT advance po until Hb stable for 24 hrs AND would not give more than clears UNTIL BMs are no longer red or black avoid ASA/NSAIDs GI/DVT prophylaxis discussed with Dr. Seay and Dr. Barakat if active bleeding recurs, would recommend reattempting IR embolization discussed with pt and that surgery would be a last option, if bleeding recurred and could not be controlled with embolization or colonoscopy since transverse colon is affected, would anticipate operative intervention including extended left hemicolectomy, with possibility of ostomy also discussed pt has known diverticulosis throughout colon, however, and hemicolectomy would not necessarily protect against future bleeding from tics in residual colon Thank you for the opportunity to participate in the care of this patient. Code(s): K57.31 - DVRTCLOS OF LG INT W/O PERFORATION OR ABSCESS W BLEEDING (2) Acute blood loss anemia Code(s): D62 - ACUTE POSTHEMORRHAGIC ANEMIA (3) BRBPR (bright red blood per rectum) Code(s): K62.5 - HEMORRHAGE OF ANUS AND RECTUM (4) Headache, menstrual migraine Assessment/Plan: per pt, tylenol does not manage her headaches well pt to discuss alternatives to NSAIDs with PMD or consider referral to neurologist after d/c Code(s): G43.829 - MENSTRUAL MIGRAINE, NOT INTRACTABLE, W/O STATUS MIGRAINOSUS Qualifiers: Status migrainosus presence: without status migrainosus Intractability: intractable Qualified Code(s): G43.839 - Menstrual migraine, intractable, without status migrainosus
--- NOTE | 2019-03-22 18:43 | PN ---
Progress Note, Physician Chief Complaint: Ms Jaffe is without complaint except that she needs to use the restroom. Denies cp, sob, n/v. - Current Medication List Current Medications: Active Medications Acetaminophen (Ofirmev Injection -) 1,000 mg IVPB Q6H PRN PRN Reason: HEADACHE Last Admin: 03/21/19 22:22 Dose: 1,000 mg Lactated Ringer's (Lactated Ringers Solution) 1,000 ml in 1,000 mls @ 125 mls/ hr IV ASDIR [facility] Last Admin: 03/21/19 18:19 Dose: 125 mls/hr Pantoprazole Sodium (Protonix Iv) 40 mg IVPUSH BID PRASANNA - Objective Vital Signs: Vital Signs Temperature 37.4 C 03/22/19 14:40 Pulse Rate 73 03/22/19 14:40 Respiratory Rate 18 03/22/19 14:40 Blood Pressure 129/59 L 03/22/19 14:40 O2 Sat by Pulse Oximetry (%) 100 03/22/19 14:40 Constitutional: Yes: No Distress, Calm, Obese Cardiovascular: Yes: Regular Rate and Rhythm. No: Gallop, Murmur, Rub Respiratory: Yes: Regular, CTA Bilaterally. No: Rales, Rhonchi, Wheezes Gastrointestinal: Yes: Normal Bowel Sounds, Soft. No: Distention, Tenderness Extremities: Yes: WNL Edema: No Labs: CBC, BMP 03/22/19 15:45 03/22/19 06:50 INR, PTT INR 1.02 (0.83-1.09) 03/20/19 21:10 Problem List - Problems (1) GI bleed Code(s): K92.2 - GASTROINTESTINAL HEMORRHAGE, UNSPECIFIED (2) Acute blood loss anemia Code(s): D62 - ACUTE POSTHEMORRHAGIC ANEMIA Assessment/Plan (1) GI bleed Assessment/Plan: -case d/w Dr Barakat -EGD performed and negative -sent for CTA and was positive -d/w Dr Ceja, went for embolization -did not find a source -case d/w Dr Latham -if bleeding recurs she recommends retrial of embolization Code(s): K92.2 - GASTROINTESTINAL HEMORRHAGE, UNSPECIFIED (2) Acute blood loss anemia Assessment/Plan: -continues to decrease -transfuse today Code(s): D62 - ACUTE POSTHEMORRHAGIC ANEMIA
[2019-03-22 20:56] LABS: BASO % 0.4 % (0-2.0); EOS % 0.1 % (0-4.5); HEMOGLOBIN 8.1 GM/dL (10.7-15.3); LYMPH % 11.8 % (8-40); MCH 30.5 pg (25.7-33.7); MCHC 33.8 g/dl (32.0-36.0); MEAN CELL VOLUME 90.2 fl (80-96); MEAN PLT VOLUME 8.7 fl (7.5-11.1); NEUT % 82.7 % (42.8-82.8); PLATELET COUNT 191 K/MM3 (134-434); RBC 2.66 M/mm3 (3.60-5.2); RDW 15.5 % (11.6-15.6)
[2019-03-22 21:31] LABS: HEMATOCRIT 24.6 % (32.4-45.2); HEMOGLOBIN 8.2 GM/dL (10.7-15.3); MCH 30.1 pg (25.7-33.7); MCHC 33.2 g/dl (32.0-36.0); MEAN CELL VOLUME 90.6 fl (80-96); MEAN PLT VOLUME 8.5 fl (7.5-11.1); PLATELET COUNT 184 K/MM3 (134-434); RBC 2.72 M/mm3 (3.60-5.2); RDW 15.3 % (11.6-15.6); WHITE BLOOD COUNT 11.7 K/mm3 (4.0-10.0)
[2019-03-22] MEDS: PANTOPRAZOLE SODIUM 40 MG VIAL IVPUSH SCH (22:09)
[2019-03-23] MEDS: LACTATED RINGERS SOLUTION 1,000 ML/1,000 ML INFUS.BAG IV SCH ×2 (02:34→19:18)
[2019-03-23 04:08] LABS: SERUM IRON SATURATION 31 % (15-55); TOTAL IRON BINDING CAPACITY 258 ug/dL (250-450)
[2019-03-23 08:08] LABS: BLOOD UREA NITROGEN 5.1 mg/dL (7-18); CALCIUM 7.6 mg/dL (8.5-10.1); CREATININE 0.6 mg/dL (0.55-1.3); MAGNESIUM 1.8 mg/dL (1.8-2.4); PHOSPHOROUS 2.7 mg/dL (2.5-4.9); POTASSIUM 3.6 mmol/L (3.5-5.1)
[2019-03-23 08:17] LABS: BASO % 0.4 % (0-2.0); EOS % 0.8 % (0-4.5); HEMATOCRIT 22.2 % (32.4-45.2); HEMOGLOBIN 7.8 GM/dL (10.7-15.3); LYMPH % 13.4 % (8-40); MCH 31.2 pg (25.7-33.7); MCHC 34.9 g/dl (32.0-36.0); MEAN CELL VOLUME 89.5 fl (80-96); MEAN PLT VOLUME 8.6 fl (7.5-11.1); MONO % 4.9 % (3.8-10.2); NEUT % 80.5 % (42.8-82.8); RBC 2.48 M/mm3 (3.60-5.2); RDW 15.3 % (11.6-15.6); WHITE BLOOD COUNT 9.2 K/mm3 (4.0-10.0)
[2019-03-23 09:11] LABS: PLATELET COUNT 178 K/MM3 (134-434)
[2019-03-23] MEDS: PANTOPRAZOLE SODIUM 40 MG VIAL IVPUSH SCH ×2 (09:49→23:11)
[2019-03-23] MEDS: ACETAMINOPHEN 1000 MG/100 ML VIAL (NON FORMULARY) IVPB PRN (10:21)
--- NOTE | 2019-03-23 12:16 | PN ---
Progress Note, Physician Chief Complaint: Ms Jaffe is without complaint today. Says last bowel movement was yesterday with minimal blood. Denies cp, sob, n/v. - Current Medication List Current Medications: Active Medications Acetaminophen (Tylenol -) 325 mg PO ONCE ONE Stop: 03/23/19 12:14 Diphenhydramine HCl (Benadryl Injection -) 12.5 mg IVPUSH ONCE ONE Stop: 03/23/19 12:14 Furosemide (Lasix Injection -) 20 mg IVPUSH ONCE ONE Stop: 03/23/19 12:13 Lactated Ringer's (Lactated Ringers Solution) 1,000 ml in 1,000 mls @ 125 mls/ hr IV ASDIR [facility] Last Admin: 03/23/19 02:34 Dose: 125 mls/hr Pantoprazole Sodium (Protonix Iv) 40 mg IVPUSH BID [facility] Last Admin: 03/23/19 09:49 Dose: 40 mg - Objective Vital Signs: Vital Signs Temperature 36.8 C 03/23/19 06:28 Pulse Rate 79 03/23/19 06:28 Respiratory Rate 18 03/23/19 06:28 Blood Pressure 109/61 03/23/19 06:28 O2 Sat by Pulse Oximetry (%) 100 03/22/19 21:00 Constitutional: Yes: Well Nourished, No Distress, Calm Cardiovascular: Yes: Regular Rate and Rhythm. No: Gallop, Murmur, Rub Respiratory: Yes: Regular, CTA Bilaterally. No: Rales, Rhonchi, Wheezes Gastrointestinal: Yes: Normal Bowel Sounds, Soft. No: Distention, Tenderness Extremities: Yes: WNL Edema: No Labs: CBC, BMP 03/23/19 06:13 03/23/19 06:13 INR, PTT INR 1.02 (0.83-1.09) 03/20/19 21:10 Problem List - Problems (1) GI bleed Code(s): K92.2 - GASTROINTESTINAL HEMORRHAGE, UNSPECIFIED (2) Acute blood loss anemia Code(s): D62 - ACUTE POSTHEMORRHAGIC ANEMIA Assessment/Plan (1) GI bleed Assessment/Plan: -appears to have stopped for the moment -GI following -will await recommendations on possibility of colonoscopy -monitor for bleeding Code(s): K92.2 - GASTROINTESTINAL HEMORRHAGE, UNSPECIFIED (2) Acute blood loss anemia Assessment/Plan: -will transfuse 2 units today -stable, but lost significant amount of blood -also if bleeds again want patient to have reserve so she does not become symptomatic Code(s): D62 - ACUTE POSTHEMORRHAGIC ANEMIA
[2019-03-23] MEDS ORDERED: ACETAMINOPHEN 325 MG TABLET (FP) ONE (13:01)
[2019-03-23] MEDS ORDERED: ACETAMINOPHEN 325 MG TABLET (FP) PO ONE (13:15)
[2019-03-23] MEDS ORDERED: FUROSEMIDE 40 MG/4 ML INJECTABLE VIAL IVPUSH ONE (13:15)
--- NOTE | 2019-03-23 14:40 | PN.GI ---
GI Progress Note Subjective: coverage for Dr Barakat no rectal bleeding since 8:45 pm,patient is very hungry,HGb 7.8 , geeting transfused - Objective Vital Signs: Vital Signs Temperature 98.6 F 03/23/19 10:00 Pulse Rate 79 03/23/19 10:00 Respiratory Rate 18 03/23/19 10:00 Blood Pressure 109/56 L 03/23/19 10:00 O2 Sat by Pulse Oximetry (%) 100 03/22/19 21:00 Constitutional: Well Nourished Eyes: Yes: Conjunctiva Clear HENT: Yes: Atraumatic Neck: Yes: Supple Cardiovascular: Yes: Regular Rate and Rhythm Respiratory: Yes: CTA Bilaterally ...Palpate: Yes: Soft. No: Firm/Rigid, Guarding, Hepatomegaly, Mass, Pulsatile Mass, Splenomegaly, Tenderness Labs: CBC, BMP 03/23/19 06:13 03/23/19 06:13 INR, PTT INR 1.02 (0.83-1.09) 03/20/19 21:10 Problem List - Problems (1) Hemorrhage of large intestine due to diverticular disease Assessment/Plan: --resolving R> may have water and broth advance diet tomorrow *pm if no bleeding noted Code(s): K57.31 - DVRTCLOS OF LG INT W/O PERFORATION OR ABSCESS W BLEEDING
[2019-03-23] MEDS ORDERED: FUROSEMIDE 40 MG/4 ML INJECTABLE VIAL ONE (18:43)
[2019-03-24] MEDS: PANTOPRAZOLE SODIUM 80 MG in SODIUM CHLORIDE 100 ML IVPB SCH (07:10)
[2019-03-24] MEDS: LACTATED RINGERS SOLUTION 1,000 ML/1,000 ML INFUS.BAG IV SCH ×2 (07:35→19:30)
[2019-03-24 08:17] LABS: BASO % 0.5 % (0-2.0); EOS % 2.3 % (0-4.5); HEMATOCRIT 32.6 % (32.4-45.2); HEMOGLOBIN 11.3 GM/dL (10.7-15.3); LYMPH % 11.7 % (8-40); MCH 31.2 pg (25.7-33.7); MCHC 34.6 g/dl (32.0-36.0); MEAN CELL VOLUME 90.3 fl (80-96); MEAN PLT VOLUME 8.5 fl (7.5-11.1); MONO % 6.5 % (3.8-10.2); RBC 3.61 M/mm3 (3.60-5.2); RDW 15.5 % (11.6-15.6); WHITE BLOOD COUNT 8.4 K/mm3 (4.0-10.0)
[2019-03-24 08:39] LABS: PLATELET COUNT 203 K/MM3 (134-434)
[2019-03-24] MEDS: PANTOPRAZOLE SODIUM 40 MG VIAL IVPUSH SCH ×2 (10:37→22:22)
[2019-03-24] MEDS ORDERED: MAGNESIUM CITRATE 300 ML BOTTLE PO ONE (14:30)
[2019-03-24] MEDS ORDERED: SODIUM PHOSPHATE/NA BIPHOS 133 ML ENEMA PR ONE (15:04)
--- NOTE | 2019-03-24 15:06 | PN.GI ---
GI Progress Note Subjective: moderate rectal bleeding at 1:45 pm, repeat Hgb 11, no LOC, no CP, no syncope - Objective Vital Signs: Vital Signs Temperature 98.2 F 03/24/19 05:21 Pulse Rate 72 03/24/19 05:21 Respiratory Rate 18 03/24/19 05:21 Blood Pressure 113/61 03/24/19 05:21 O2 Sat by Pulse Oximetry (%) 96 03/23/19 21:00 Constitutional: Well Nourished, Poor Hygeine HENT: Yes: Atraumatic Neck: Yes: Supple Cardiovascular: Yes: Regular Rate and Rhythm Respiratory: Yes: CTA Bilaterally ...Palpate: Yes: Soft. No: Firm/Rigid, Guarding, Hepatomegaly, Mass, Pulsatile Mass, Splenomegaly, Tenderness Labs: CBC, BMP 03/24/19 07:00 03/23/19 06:13 INR, PTT INR 1.02 (0.83-1.09) 03/20/19 21:10 Problem List - Problems (1) Hemorrhage of large intestine due to diverticular disease Assessment/Plan: R> bowel preparation ordered, OR team informed Code(s): K57.31 - DVRTCLOS OF LG INT W/O PERFORATION OR ABSCESS W BLEEDING
--- NOTE | 2019-03-24 15:54 | PN ---
Progress Note, Physician Chief Complaint: Ms Jaffe had a bloody bowel movement. Very teary on exam. Denies cp, sob, n/ v. Patient reassured. - Current Medication List Current Medications: Active Medications Lactated Ringer's (Lactated Ringers Solution) 1,000 ml in 1,000 mls @ 125 mls/ hr IV ASDIR [facility] Last Admin: 03/24/19 07:35 Dose: 125 mls/hr Pantoprazole Sodium (Protonix Iv) 40 mg IVPUSH BID [facility] Last Admin: 03/24/19 10:37 Dose: 40 mg - Objective Vital Signs: Vital Signs Temperature 37.2 C 03/24/19 14:49 Pulse Rate 80 03/24/19 14:49 Respiratory Rate 18 03/24/19 14:49 Blood Pressure 153/74 03/24/19 14:49 O2 Sat by Pulse Oximetry (%) 96 03/23/19 21:00 Constitutional: Yes: Obese Cardiovascular: Yes: Regular Rate and Rhythm. No: Gallop, Murmur, Rub Respiratory: Yes: Regular, CTA Bilaterally. No: Rales, Rhonchi, Wheezes Gastrointestinal: Yes: Normal Bowel Sounds, Soft. No: Distention, Tenderness Extremities: Yes: WNL Edema: No Labs: CBC, BMP 03/24/19 07:00 03/23/19 06:13 INR, PTT INR 1.02 (0.83-1.09) 03/20/19 21:10 Problem List - Problems (1) GI bleed Code(s): K92.2 - GASTROINTESTINAL HEMORRHAGE, UNSPECIFIED (2) Acute blood loss anemia Code(s): D62 - ACUTE POSTHEMORRHAGIC ANEMIA Assessment/Plan (1) GI bleed Assessment/Plan: -bleeding has recurred -case d/w Dr Rodriguez -planning for colonoscopy tomorrow Code(s): K92.2 - GASTROINTESTINAL HEMORRHAGE, UNSPECIFIED (2) Acute blood loss anemia Assessment/Plan: -s/p 2 units with proper response -now bleeding -check cbc at 6pm -as above Code(s): D62 - ACUTE POSTHEMORRHAGIC ANEMIA
[2019-03-24] MEDS ORDERED: ONDANSETRON 4 MG/2 ML VIAL IVPUSH PRN (19:01)
[2019-03-25 00:16] LABS: HEMATOCRIT 34.2 % (32.4-45.2); HEMOGLOBIN 11.8 GM/dL (10.7-15.3); MCH 31.5 pg (25.7-33.7); MCHC 34.4 g/dl (32.0-36.0); MEAN CELL VOLUME 91.4 fl (80-96); MEAN PLT VOLUME 8.8 fl (7.5-11.1); PLATELET COUNT 249 K/MM3 (134-434); RBC 3.74 M/mm3 (3.60-5.2); RDW 15.7 % (11.6-15.6); WHITE BLOOD COUNT 11.8 K/mm3 (4.0-10.0)
[2019-03-25] MEDS: LACTATED RINGERS SOLUTION 1,000 ML/1,000 ML INFUS.BAG IV SCH (06:32)
--- NOTE | 2019-03-25 08:24 | PN ---
Progress Note, Physician Chief Complaint: Ms Jaffe is s/p embolization last night without complaint. No cp, sob, n/v. No further bleeding - Current Medication List Current Medications: Active Medications Ondansetron HCl (Zofran Injection) 4 mg IVPUSH Q6H PRN PRN Reason: NAUSEA AND/OR VOMITING Pantoprazole Sodium (Protonix Iv) 40 mg IVPUSH BID [facility] Last Admin: 03/24/19 22:22 Dose: 40 mg - Objective Vital Signs: Vital Signs Temperature 37.3 C 03/25/19 07:15 Pulse Rate 75 03/25/19 07:15 Respiratory Rate 20 03/25/19 07:15 Blood Pressure 94/42 L 03/25/19 07:15 O2 Sat by Pulse Oximetry (%) 95 03/24/19 21:00 Constitutional: Yes: Well Nourished, No Distress, Calm Cardiovascular: Yes: Regular Rate and Rhythm. No: Gallop, Murmur, Rub Respiratory: Yes: Regular, CTA Bilaterally. No: Rales, Rhonchi, Wheezes Gastrointestinal: Yes: Normal Bowel Sounds, Soft. No: Distention, Tenderness Extremities: Yes: WNL Edema: No Labs: INR, PTT INR 1.02 (0.83-1.09) 03/20/19 21:10 Problem List - Problems (1) GI bleed Code(s): K92.2 - GASTROINTESTINAL HEMORRHAGE, UNSPECIFIED (2) Acute blood loss anemia Code(s): D62 - ACUTE POSTHEMORRHAGIC ANEMIA Assessment/Plan (1) GI bleed Assessment/Plan: -s/p embolization -advance diet -observe over 24 hours -recheck cbc in am -if no bleeding and stable, discharge tomorrow Code(s): K92.2 - GASTROINTESTINAL HEMORRHAGE, UNSPECIFIED (2) Acute blood loss anemia Assessment/Plan: -no longer bleeding -stable Code(s): D62 - ACUTE POSTHEMORRHAGIC ANEMIA
[2019-03-25 08:25] LABS: BASO % 0.3 % (0-2.0); HEMATOCRIT 30.4 % (32.4-45.2); HEMOGLOBIN 10.6 GM/dL (10.7-15.3); MCH 31.5 pg (25.7-33.7); MCHC 34.9 g/dl (32.0-36.0); MEAN CELL VOLUME 90.3 fl (80-96); MONO % 4.3 % (3.8-10.2); NEUT % 87.4 % (42.8-82.8); PLATELET COUNT 255 K/MM3 (134-434); RBC 3.37 M/mm3 (3.60-5.2); RDW 15.5 % (11.6-15.6); WHITE BLOOD COUNT 9.6 K/mm3 (4.0-10.0)
[2019-03-25 09:07] LABS: CALCIUM 8.2 mg/dL (8.5-10.1); CREATININE 0.6 mg/dL (0.55-1.3); MAGNESIUM 2.3 mg/dL (1.8-2.4); PHOSPHOROUS 3.3 mg/dL (2.5-4.9)
[2019-03-25 09:20] LABS: BLOOD UREA NITROGEN 2.6 mg/dL (7-18)
[2019-03-25] MEDS: PANTOPRAZOLE SODIUM 40 MG VIAL IVPUSH SCH ×2 (11:19→22:14)
--- NOTE | 2019-03-25 12:28 | PN.GI ---
GI Progress Note Subjective: GI NOte: No bleeding since Dr Rodriguez endoclipped the tx colon bleeding diverticulum. His efforts are greatly appreciated. - Objective Vital Signs: Vital Signs Temperature 99.1 F 03/25/19 10:00 Pulse Rate 75 03/25/19 10:00 Respiratory Rate 20 03/25/19 10:00 Blood Pressure 94/42 L 03/25/19 10:00 O2 Sat by Pulse Oximetry (%) 95 03/24/19 21:00 Laboratory Tests 03/23/19 03/24/19 03/24/19 06:13 07:00 23:00 Hgb 7.8 L 11.3 11.8 03/25/19 08:05 Hgb 10.6 L Constitutional: Calm ...Auscultate: Yes: Normoactive Bowel Sounds ...Palpate: Yes: Soft, Other (nontender) Labs: CBC, BMP 03/25/19 08:05 03/25/19 08:05 INR, PTT INR 1.02 (0.83-1.09) 03/20/19 21:10 Assessment/Plan ASSESSMENT AND PLAN: -- Diverticular bleed from proximal-transverse colon location appears to have been controlled by Dr Rodriguez's endoclipping -- H/O Diverticulosis -- H/O Hemorrhoidal bleeding Plan: -- Agree with trial of solids -- Colonoscopy time to be determined on followup in the office to remove the polyp seen by Dr Rodriguez. -- NO GI objections to discharge in AM if no further bleeding. Problem List - Problems (1) Acute blood loss anemia Code(s): D62 - ACUTE POSTHEMORRHAGIC ANEMIA (2) Hematochezia Code(s): K92.1 - MELENA (3) Diverticulosis of colon with hemorrhage Code(s): K57.31 - DVRTCLOS OF LG INT W/O PERFORATION OR ABSCESS W BLEEDING (4) Migraine Code(s): G43.909 - MIGRAINE, UNSP, NOT INTRACTABLE, WITHOUT STATUS MIGRAINOSUS (5) Ovarian cyst Code(s): N83.209 - UNSPECIFIED OVARIAN CYST, UNSPECIFIED SIDE (6) History of colon polyps Code(s): Z86.010 - PERSONAL HISTORY OF COLONIC POLYPS (7) Constipation Code(s): K59.00 - CONSTIPATION, UNSPECIFIED (8) Gastritis Code(s): K29.70 - GASTRITIS, UNSPECIFIED, WITHOUT BLEEDING
--- NOTE | 2019-03-25 14:19 | PN ---
Progress Note, Physician History of Present Illness: Pt with diverticular bleeding, weekend events noted. She was stable Monday, but had recurrence of bleeding yesterday. She was quickly prepped and taken for colonoscopy with Dr. Rodriguez, where a bleeding diverticulum was endoclipped with cessation of bleeding. She has since had several bowel movements without blood in them, and just started regular diet for lunch today, which she is tolerating. Hb after transfusions over the weekend was up to 11.8, now 10.6. Hemodynamics have been stable. She is seen and examined in bed, with cousin at bedside. She feels much better, headache has resolved, and she is ambulating better as well. - Current Medication List Current Medications: Active Medications Melatonin (Melatonin) 3 mg PO HS PRASANNA Ondansetron HCl (Zofran Injection) 4 mg IVPUSH Q6H PRN PRN Reason: NAUSEA AND/OR VOMITING Pantoprazole Sodium (Protonix Iv) 40 mg IVPUSH BID PRASANNA Last Admin: 03/25/19 11:19 Dose: 40 mg - Objective Vital Signs: Vital Signs Temperature 99.1 F 03/25/19 10:00 Pulse Rate 75 03/25/19 10:00 Respiratory Rate 20 03/25/19 10:00 Blood Pressure 94/42 L 03/25/19 10:00 O2 Sat by Pulse Oximetry (%) 95 03/24/19 21:00 Constitutional: Yes: Well Nourished, No Distress, Calm. No: Pallor (more color in her face) Eyes: Yes: Conjunctiva Clear, EOM Intact HENT: Yes: Atraumatic, Normocephalic Gastrointestinal: Yes: Soft, Distention (mild). No: Tenderness ...Rectal Exam: Yes: Deferred Extremities: No: Cool, Cyanosis Integumentary: No: Jaundice, Rash Neurological: Yes: Alert, Oriented Labs: CBC, BMP 03/25/19 08:05 03/25/19 08:05 Hb 7.8 - 2 units - 11.3 - 11.8 - 10.6 (today) - ....Imaging Other: Report Reviewed (endoscopy report and images reviewed - clipping noted), Image Reviewed Problem List - Problems (1) Diverticulosis of colon with hemorrhage Assessment/Plan: diverticular recurrent bleeding, now controlled with endoscopic clipping BMs with no further bleeding just starting regular diet Hb stable trend tonight and in am if no bleeding in 24 hrs, agree with GI on likely ok for d/c home to f/u with PMD and GI no surgical followup needed at this time discussed with Dr. Seay Code(s): K57.31 - DVRTCLOS OF LG INT W/O PERFORATION OR ABSCESS W BLEEDING (2) Acute blood loss anemia Assessment/Plan: resolved Code(s): D62 - ACUTE POSTHEMORRHAGIC ANEMIA (3) BRBPR (bright red blood per rectum) Assessment/Plan: resolved Code(s): K62.5 - HEMORRHAGE OF ANUS AND RECTUM (4) Headache, menstrual migraine Assessment/Plan: per pt, tylenol does not manage her headaches well pt to discuss alternatives to NSAIDs with PMD or consider referral to neurologist after d/c currently resolved Code(s): G43.829 - MENSTRUAL MIGRAINE, NOT INTRACTABLE, W/O STATUS MIGRAINOSUS Qualifiers: Status migrainosus presence: without status migrainosus Intractability: intractable Qualified Code(s): G43.839 - Menstrual migraine, intractable, without status migrainosus
--- NOTE | 2019-03-25 14:25 | PN ---
HC Provider Note Provider Note: Anesthesia Post Op Note Pt seen s/p GA for colonoscopy Pt awake and alert in bed, reports feeling well Pt denies n/v, h/a, SOB, puritis, urinary retention VSS no apparent anesthesia complications Candelaria Layton.
--- NOTE | 2019-03-25 18:12 | PATH ---
Surgical Pathology Report Patient Name: PATRICIO ANDRE Med. Rec. #: [id number] /Age/Gender: 1970 (Age: 48) / F Account: [id number] Location: [address] [place] [address] Taken: 03/22/2019 Received: 03/22/2019 Reported: 03/25/2019 Physicians: Corona Barakat M.D. Specimen(s) Received A: DUODENUM, SECOND PORTION AND BULB B: ANTRUM Clinical History GI bleed, rule out ulcer Postoperative diagnosis: erosive gastritis Final Diagnosis A. DUODENUM, SECOND PORTION AND BULB, BIOPSY: DUODENAL MUCOSA WITHOUT SIGNIFICANT PATHOLOGIC FINDINGS. B. STOMACH, ANTRUM, BIOPSY: GASTRIC ANTRAL MUCOSA WITH MILD CHRONIC GASTRITIS. IMMUNOHISTOCHEMICAL STAIN FOR H. PYLORI IS NEGATIVE. Electronically Signed Radha Gambino M.D. Gross Description A. Received in formalin, labeled "biopsy second portion of duodenum and bulb" are 3 altamirano, irregular portions of soft tissue averaging 0.4 cm. in greatest dimension. The specimens are submitted in toto in one cassette. B. Received in formalin, labeled "biopsy antrum" are 2 altamirano, irregular portions of soft tissue measuring 0.2 and 0.3 cm. in greatest dimension. The specimens are submitted in toto in one cassette. /03/22/2019 [facility]03/22/2019
[2019-03-25 20:32] LABS: HEMATOCRIT 31.5 % (32.4-45.2); HEMOGLOBIN 10.8 GM/dL (10.7-15.3); MCH 31.5 pg (25.7-33.7); MCHC 34.4 g/dl (32.0-36.0); MEAN CELL VOLUME 91.7 fl (80-96); MEAN PLT VOLUME 8.4 fl (7.5-11.1); PLATELET COUNT 310 K/MM3 (134-434); RBC 3.43 M/mm3 (3.60-5.2); RDW 16.1 % (11.6-15.6); WHITE BLOOD COUNT 9.3 K/mm3 (4.0-10.0)
[2019-03-25] MEDS ORDERED: MELATONIN 1 MG TABLET PO SCH (22:00)
[2019-03-26 07:46] LABS: HEMATOCRIT 32.4 % (32.4-45.2); HEMOGLOBIN 11.1 GM/dL (10.7-15.3); MCH 31.5 pg (25.7-33.7); MCHC 34.2 g/dl (32.0-36.0); MEAN PLT VOLUME 8.1 fl (7.5-11.1); RBC 3.52 M/mm3 (3.60-5.2); RDW 15.9 % (11.6-15.6); WHITE BLOOD COUNT 7.8 K/mm3 (4.0-10.0)
[2019-03-26] MEDS ORDERED: ACETAMINOPHEN 325 MG TABLET (FP) PO PRN (08:33)
[2019-03-26 09:13] LABS: PLATELET COUNT 282 K/MM3 (134-434)
[2019-03-26 09:58] VITALS: BP 114/68; PULSE 73; TEMP 98.6
[2019-03-26] MEDS: PANTOPRAZOLE SODIUM 40 MG VIAL IVPUSH SCH (10:33)
--- NOTE | 2019-03-26 12:14 | PN ---
Progress Note, Physician History of Present Illness: Pt with diverticular bleeding, s/p endoclipping Monday with cessation of bleeding. She is having nonbloody BMs and tolerating regular diet. H/H 11.1, hemodynamics have been stable. She is seen and examined in bed, c/o sore throat today. Overall feeling better. - Current Medication List Current Medications: Active Medications Acetaminophen (Tylenol -) 650 mg PO Q6H PRN PRN Reason: FEVER Last Admin: 03/26/19 08:51 Dose: 650 mg Melatonin (Melatonin) 3 mg PO HS [facility] Last Admin: 03/25/19 22:53 Dose: 3 mg Ondansetron HCl (Zofran Injection) 4 mg IVPUSH Q6H PRN PRN Reason: NAUSEA AND/OR VOMITING Pantoprazole Sodium (Protonix Iv) 40 mg IVPUSH BID [facility] Last Admin: 03/26/19 10:33 Dose: 40 mg - Objective Vital Signs: Vital Signs Temperature 98.6 F 03/26/19 09:00 Pulse Rate 73 03/26/19 09:00 Respiratory Rate 18 03/26/19 09:00 Blood Pressure 114/68 03/26/19 09:00 O2 Sat by Pulse Oximetry (%) 99 03/25/19 21:00 Constitutional: Yes: Well Nourished, No Distress, Calm. No: Pallor Eyes: Yes: Conjunctiva Clear, EOM Intact HENT: Yes: Atraumatic, Normocephalic Gastrointestinal: Yes: Soft. No: Distention, Tenderness ...Rectal Exam: Yes: Deferred Extremities: No: Cool, Cyanosis Integumentary: No: Jaundice, Rash Neurological: Yes: Alert, Oriented Labs: CBC, BMP 03/26/19 06:20 03/25/19 08:05 Hb from 10.8 yesterday Problem List - Problems (1) Diverticulosis of colon with hemorrhage Assessment/Plan: diverticular recurrent bleeding, controlled with endoscopic clipping normal BMs with no further bleeding tolerating regular diet Hb stable, asymptomatic ok for d/c home to f/u with PMD and GI no surgical followup needed at this time Code(s): K57.31 - DVRTCLOS OF LG INT W/O PERFORATION OR ABSCESS W BLEEDING (2) Acute blood loss anemia Assessment/Plan: resolved Code(s): D62 - ACUTE POSTHEMORRHAGIC ANEMIA (3) BRBPR (bright red blood per rectum) Assessment/Plan: resolved Code(s): K62.5 - HEMORRHAGE OF ANUS AND RECTUM (4) Headache, menstrual migraine Assessment/Plan: per pt, tylenol does not manage her headaches well pt to discuss alternatives to NSAIDs with PMD or consider referral to neurologist after d/c currently resolved Code(s): G43.829 - MENSTRUAL MIGRAINE, NOT INTRACTABLE, W/O STATUS MIGRAINOSUS Qualifiers: Status migrainosus presence: without status migrainosus Intractability: intractable Qualified Code(s): G43.839 - Menstrual migraine, intractable, without status migrainosus
--- NOTE | 2019-03-26 13:23 | DS ---
Physical Exam: SUBJECTIVE: Patient seen and examined, reports some sore throat, tolerating diet well. no dark or bloody stools, had 1 BM overnight. OBJECTIVE: Vital Signs Period Temp Pulse Resp BP Sys/Ren Pulse Ox Last 24 Hr 98.2 F-98.7 F 70-90 18-20 94-114/47-78 99 Intake & Output 03/23/19 03/24/19 03/25/19 03/26/19 23:59 23:59 23:59 23:59 Intake Total 3150 3625 1200 Balance 3150 3625 1200 PHYSICAL EXAM GENERAL:sitting in bed in no acuter distress HEENT: no pallor, EOMI, no pharyngeal erythema, discharge or swelling noted Neck: soft, supple, no JVD Chest: CTAB, no rales or wheezing Abdomen:Soft, NT, ND, pos bowel sounds Extremities: no edema LABS Laboratory Results - last 24 hr 03/20/19 03/25/19 03/26/19 21:10 19:25 06:20 WBC 9.3 7.8 RBC 3.43 L 3.52 L Hgb 10.8 11.1 Hct 31.5 L 32.4 MCV 91.7 92.0 MCH 31.5 31.5 MCHC 34.4 34.2 RDW 16.1 H 15.9 H Plt Count 310 D 282 MPV 8.4 8.1 Blood Type B POSITIVE Antibody Screen Negative Crossmatch See Detail CT A/ 03/21/2019: IMPRESSION: Diverticulosis coli without evidence of acute diverticulitis. 2 cm left ovarian cyst/dominant follicle. Small fat-containing umbilical hernia. Otherwise, there is no CT evidence of an acute process in the abdomen and pelvis. L5-S1 minimal central disc bulge without gross nerve root impingement. CTA A/P:03/22/2019 FINDINGS: Active extravasation of contrast media into the mid transverse colon was noted on arterial and delayed images. The appendix appears normal. Bowel loops are normal caliber. There is no evidence of bowel obstruction. No free air /fluid is identified. Diverticulosis throughout the colon noted with no evidence to suggest acute diverticulitis. Fat-containing paraumbilical hernia is present with no stranding. The heart appears normal size. Lung bases are clear with some dependent atelectasis noted. The liver appears homogeneous. No gallstones seen. Bile ducts are not dilated. The pancreas, spleen, adrenals, and kidneys appear unremarkable. There is symmetrical renal enhancement. The abdominal aorta is normal caliber with no dissection or aneurysm. Separate origin of the hepatic artery and splenic artery noted. SMA and AUBRIE are patent. No retroperitoneal adenopathy is seen. A left adnexal cyst is noted measuring 3.2 cm. The uterus was identified. The bladder is physiologically distended. No aggressive bone lesions seen. IMPRESSION: Active extravasation in the mid transverse colon as described above. Additional comments noted above. XA embolization VAS: IMPRESSION: Selective catheterization of the SMA. Subselective catheterization of the middle colic artery with no active extravasation as was seen on CT. No embolization was performed. HOSPITAL COURSE: Date of Admission:03/20/19 Date of Discharge: 03/26/19 Minutes to complete discharge: 40 Discharge Summary Reason For Visit: GASTROINTESTINAL HEMORRHAGE,BRIGHT RED BLOOD PER Current Active Problems Acute blood loss anemia (Acute) BRBPR (bright red blood per rectum) (Acute) Constipation (Acute) Diverticulosis of colon with hemorrhage (Acute) GI bleed (Acute) Gastritis (Acute) Headache, menstrual migraine (Acute) Hematochezia (Acute) Hemorrhage of large intestine due to diverticular disease (Acute) History of colon polyps (Acute) Migraine (Acute) Ovarian cyst (Acute) Hospital Course: 48 yof with PMHx of Diverticulosis, haemorrhoids, vague h/o ?Gastric ulcer admitted with hematochezia. She had EGD with gastritis but no active bleed. She had CT abdomen/pelvis as above showing active extravasation in mid tranverse colon. She had IR guided catheterization of SMA and middle colic artery with no active extravasation, so no embolization was done. She had colonscopy with bleeding diverticula in transverse colon that was endoclipped, she was also noted with polyp which will need repeat colonoscopy outpatient. She received 2 units PRBC. Her CBC is stable with no further bleed concerns. She is tolerating diet well and will be discharged in stable condition with outpatient GI follow up.She is advised to avoid ASA or NSAIDs and continue protonix. Condition: Stable - Instructions Diet, Activity, Other Instructions: You were admitted with diverticular bleeding in the colon and had endoclipping down. You also had upper endoscopy showing gastritis. 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 Maintain high fiber diet and laxatives as needed as constipation can increase risk of diverticular bleed Avoid Aspirin, or any other NSAIDs including ibuprofen, motrin etc. Protonix 40 mg daily till further instructed You will need repeat outpatient colonoscopy with Dr. Barakat to address the polyp that was seen. FOLLOW UP: With Dr. Barakat in 1 week (discuss timing for repeat colonoscopy) Blood test CBC in 1 week with your doctor With Dr. Acosta in 1 week. If you notice new belly pain, dark or bloody stools, dizziness or any new concerns, please call 911 or come to ED right away. Referrals: Corona Barakat MD [Staff Physician] - Steve Acosta MD [Staff Physician] - - Home Medications Comprehensive Discharge Medication List: Ambulatory Orders Fluoxetine HCl [Sarafem] 10 mg PO DAILY 03/20/19 Pantoprazole Sodium [Protonix] 40 mg PO DAILY #30 tablet. 03/26/19 This patient is new to me today: Yes Date on this admission: 03/26/19 Emergency Visit: Yes ED Registration Date: 03/20/19 Care time: The patient presented to the Emergency Department on the above date and was hospitalized for further evaluation of their emergent condition. Critical Care patient: No - Discharge Referral Referred to [facility] No
== END 2019-03-26 14:30 | disposition home or self-care (01) | DRG 378 ==
LOC: JER 18:59 → JERBED 22:16 → J5S 03-21 02:37
PROVIDERS: ADMIT Internal Medicine; ATTEND Hospitalist
PROC: 30233N1 Transfusion of Nonautologous Red Blood Cells into Peripheral Vein, Percutaneous Approach (ICD-10-PCS; 2019-03-21)
PROC: 04H Lower Arteries, Insertion (ICD-10-PCS; 2019-03-22)
PROC: 0W3P8ZZ Control Bleeding in Gastrointestinal Tract, Via Natural or Artificial Opening Endoscopic (ICD-10-PCS; principal; 2019-03-24 17:00)
PROC: 0DB68ZX Excision of Stomach, Via Natural or Artificial Opening Endoscopic, Diagnostic (ICD-10-PCS; 2019-03-25)
DX: K57.31 Diverticulosis of large intestine without perforation or abscess with bleeding (principal); D62 Acute posthemorrhagic anemia; E04.1 Nontoxic single thyroid nodule; K21.9 Gastro-esophageal reflux disease without esophagitis; M54.5 Low back pain; K44.9 Diaphragmatic hernia without obstruction or gangrene; K64.8 Other hemorrhoids; K59.00 Constipation, unspecified; N83.209 Unspecified ovarian cyst, unspecified side; Z86.010 Personal history of colon polyps; K29.70 Gastritis, unspecified, without bleeding; F41.9 Anxiety disorder, unspecified; G43.839 Menstrual migraine, intractable, without status migrainosus
CPT/HCPCS: 36415; 36430; 36511; 37244; 74174-TC; 74176-TC; 76937-TC; 80048; 80053; 81003; 82272; 82728; 83540; 83550; 83631; 83735; 84100; 84703; 85025; 85027; 85044; 85610; 85651; 86140; 86850; 86900; 86901; 86922; 87045; 87046; 87086; 87186; 87205; 88305-TC; 93005; 93010; 94760; 99284-25; C1769; C1887; C1894; J0131; J7030; P9038; P9058

== ENCOUNTER 2019-07-22 08:02 | Day surgery (SDC) | payer OTHER ==
[2019-07-19 16:09] VITALS: BMI 31.1
[2019-07-22 08:30] VITALS: TEMP 97.7
[2019-07-22 10:24] VITALS: BP 109/65; PULSE 60
--- NOTE | 2019-07-22 12:12 | CON.GI ---
Consult Consult Specialty:: Gastroenterology Referred by:: Dr. Acosta Reason for Consultation:: postcolonoscopy pain - History of Present Illness Chief Complaint: abdominal pain of sudden onset after colonoscopy History of Present Illness: 49F underwent an ambulatory colonoscopy with me today to remove a descending colon polyp that was seen during her 03/24/[address] Rodriguez to control a diverticular bleed. She had three polyp removed today : a 1.5cm mid- distal transverse colon sessile polyp and 1.2cm and 1mm descending colon polyps. The larger polyps were removed using snare electrocautery. The procedure also revealed universal diverticulosis and a residual endoclip in the proximal transverse colon. She had no pain after the procedure and was able to eat a bran muffin. She developed pain over 1 hour after the procedure when at home. It is central in location. No vomiting or chills. The pain is persistent. She presented to [facility] with GI bleeding on 03/22/19 with hematemesis that required 4 units of PRBCs and and had EGD that revealed nonbleeding erosive gastritis. When she continued to bleed on the weekend with Dr Rodriguez was covering he did an emergent colonoscopy that revealed a bleeding proximal transverse colon diverticulum which he endoclipped. - History Source History Provided By: Patient Limitations to Obtaining History: No Limitations - Past Medical History METABOLIC SPECIALIST: Yes: Migraine (menstrual headaches) Gastrointestinal: Yes: Constipation, Diverticulosis (mild universal diverticulosis at 2011 colonoscopy), Hemorrhoids, Peptic Ulcer Disease (1998 EGD suggested a DU scar), Other (hepatic flexure hyperplastic polyp removed at last colonoscopy in 2011) ...LMP: 02/09/19 ...: No Psych: Yes: Anxiety, Other (pre menstrual syndrome ) Musculoskeletal: Yes: Chronic low back pain Endocrine: Yes: Other (benign thyroid cyst ) - Past Surgical History Past Surgical History: Yes: Colonoscopy, , Cystectomy (thyroid ), Tonsillectomy (with adenoids), Upper Endoscopy - Alcohol/Substance Use Hx Alcohol Use: Yes (SOCIAL) Number of Drinks Daily: 2 History of Substance Use: reports: None, Marijuana (daily) - Smoking History Smoking history: Never smoked Have you smoked in the past 12 months: No Aproximately how many cigarettes per day: 0 - Social History Usual Living Arrangement: With Spouse ADL: Independent 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 03/26/19 Family Medical History Family Hx Cardiac Disorders: Father (OR) Family Hx Gastrointestinal Disorder: Mother (gastroparesis, GB surgery) Other Family History: great aunt had colon cancer Review of Systems - Review of Systems Constitutional: reports: Diaphoresis Eyes: reports: No Symptoms HENT: reports: No Symptoms Neck: reports: No Symptoms Cardiovascular: reports: No Symptoms Respiratory: reports: No Symptoms Gastrointestinal: reports: Abdominal Pain Physical Exam-GI Vital Signs: Vital Signs Temperature 97.7 F 07/22/19 09:24 Pulse Rate 60 07/22/19 10:23 Respiratory Rate 14 07/22/19 10:23 Blood Pressure 109/65 07/22/19 10:23 O2 Sat by Pulse Oximetry (%) 100 07/22/19 10:23 Constitutional: Yes: Anxious, Moderate Distress Eyes: Yes: Conjunctiva Clear HENT: Yes: Atraumatic Neck: Yes: Trachea Midline Cardiovascular: Yes: Tachycardia Respiratory: Yes: CTA Bilaterally Gastrointestinal Inspection: Yes: Distention, Scars (healed Pfannensteil incision) ...Auscultate: Yes: Hypoactive Bowel Sounds ...Palpate: Yes: Tenderness (epigastrium and periumbilically) Problem List - Problems (1) Abdominal pain Code(s): R10.9 - UNSPECIFIED ABDOMINAL PAIN (3) Hemorrhage of large intestine due to diverticular disease Code(s): K57.31 - DVRTCLOS OF LG INT W/O PERFORATION OR ABSCESS W BLEEDING (4) History of colon polyps Code(s): Z86.010 - PERSONAL HISTORY OF COLONIC POLYPS Assessment/Plan Assessment: - The delayed but early onset of pain suggests a perforation at the transverse colon polypectomy site given that she is just s/p colonoscopic polypectomy with cautery. This could alternatively be serositis at the cautery site - Diverticular disease, s/p recent bleed - H/O erosive gastritis Plan: - Referred to the ER for stat bloods and CT scan. I discussed the case with the ER physician and with Dr. Acosta her PMD. I await the results which will dictate further decisions.
--- NOTE | 2019-07-23 08:46 | PN ---
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 POD#1 vss, aaox3, pain well controlled with sewing teacher, no complaints. No anesthesia complications. Will continue sewing teacher.
--- NOTE | 2019-07-24 10:48 | PATH ---
Surgical Pathology Report Patient Name: PATRICIO ANDRE [facility]. Rec. #: [id number] /Age/Gender: 1970 (Age: 49) / F Account: [id number] Location: ASU-ENDOSCOPY Taken: 07/22/2019 Received: 07/22/2019 Reported: 07/24/2019 Physicians: Corona Barakat M.D. Specimen(s) Received A: BX DESCENDING COLON POLYP #1 B: DISTAL TRANSVERSE COLON POLYP C: DESCENDING COLON POLYP #2 (HOT SNARE) Clinical History History of colon polyp Postoperative diagnosis: Diverticulosis, polyp Final Diagnosis A. DESCENDING COLON, POLYP #1, BIOPSY: HYPERPLASTIC POLYP. B. DISTAL TRANSVERSE COLON, POLYP, POLYPECTOMY: HYPERPLASTIC POLYP WITH BENIGN/REACTIVE LYMPHOID AGGREGATE, AND MARKED CAUTERY ARTIFACT. C. DESCENDING COLON, POLYP #2, POLYPECTOMY: HYPERPLASTIC POLYP, WITH MARKED CAUTERY ARTIFACT. (SEE NOTE). Note: Scant portion of smooth muscle and fibroadipose tissue is present. Electronically Signed Nae Hung M.D. Addendum Reported: 07/25/2019 Addendum Diagnosis Case discussed with on 07/25/19. Nae Hung M.D. Gross Description A. Received in formalin, labeled "biopsy descending colon polyp #1" is a altamirano, irregular portion of soft tissue measuring 0.3 cm. in greatest dimension. The specimen is submitted in toto in one cassette. B. Received in formalin, labeled "distal transverse colon polyp" is a altamirano, polypoid portion of soft tissue measuring 0.8 cm. in greatest dimension. The specimen is submitted in toto in one cassette. C. Received in formalin, labeled "descending colon polyp #2" are 2 altamirano, irregular portions of soft tissue measuring 0.3 and 0.4 cm. in greatest dimension. The specimens are submitted in toto in one cassette. 07/22/201907/22/2019
== END 2019-07-22 10:24 | disposition home or self-care (01) ==
LOC: JASU-ENDO 08:02
PROVIDERS: ATTEND Internal Medicine Gastroenterology
PROC: 0DBL8ZX Excision of Transverse Colon, Via Natural or Artificial Opening Endoscopic, Diagnostic (ICD-10-PCS; 2019-07-22)
PROC: 0DBM8ZX Excision of Descending Colon, Via Natural or Artificial Opening Endoscopic, Diagnostic (ICD-10-PCS; principal; 2019-07-22 08:45)
DX: D12.4 Benign neoplasm of descending colon (principal); D12.3 Benign neoplasm of transverse colon; K57.30 Diverticulosis of large intestine without perforation or abscess without bleeding; K64.8 Other hemorrhoids
CPT/HCPCS: 81025; 88305-TC

== ENCOUNTER 2019-07-22 12:16 | Inpatient (IN) | payer OTHER ==
[2019-07-22] MEDS ORDERED: morphine CARPU-JECT 4 MG/1 ML DISP.SYRIN IVPUSH ONE (12:40)
--- NOTE | 2019-07-22 12:40 | PDOC ---
History of Present Illness - General Stated Complaint: PAIN Time Seen by Provider: 07/22/19 12:32 - History of Present Illness Initial Comments: 07/22/19 13:20 49F with p,h of diverticulitis coming in today following recent colonoscopic polypectomy with cautery today which ended 2 hours before presentation. Patient states that she was having breakfast after the procedure and felt a sudden 10/ 10 abdominal pain that made her "double over" with profuse sweating. The pain has not remitted since then. Dr. Barakat sent her to [facility] Emergency Department with the note "delayed but early onset of pain suggests a perforation at the transverse colon polypectomy site given that she is just s/p colonoscopic polypectomy with cautery. This could alternatively be serositis at the cautery site." Patient is very uncomfortable and vomited once in our ED. Past History - Past Medical History Allergies/Adverse Reactions: Allergies Allergy/AdvReac Type Severity Reaction Status Date / Time bacitracin Allergy Rash Verified 07/22/19 12:44 [From Neosporin ([id number])] Home Medications: Ambulatory Orders Pantoprazole Sodium [Protonix] 40 mg PO DAILY #30 tablet. 03/26/19 Anemia: No Asthma: No Cancer: No Cardiac Disorders: No CVA: No COPD: No CHF: No Dementia: No Diabetes: No GI Disorders: Yes (Diverticular hemorrhage, Erosive NSAID gastritis, Hemorrhoids ) Disorders: No HTN: No Hypercholesterolemia: No Liver Disease: No Seizures: No Thyroid Disease: No (benign cyst) - Surgical History Abdominal Surgery: No Appendectomy: No Cardiac Surgery: No Cholecystectomy: No Lung Surgery: No Neurologic Surgery: No - Psycho Social/Smoking Cessation Hx Smoking History: Never smoked Have you smoked in the past 12 months: Yes Number of Cigarettes Smoked Daily: 0 'Breaking Loose' booklet given: 07/31/12 Hx Alcohol Use: Yes (SOCIAL) Drug/Substance Use Hx: No Substance Use Type: None Hx Substance Use Treatment: No Review of Systems - Review of Systems Able to Perform ROS?: Yes Is the patient limited Bur[place]ian proficient: No Constitutional: No: Symptoms Reported HEENTM: No: Symptoms Reported Respiratory: No: Symptoms reported Cardiac (ROS): No: Symptoms Reported ABD/GI: Yes: See HPI : No: Symptoms Reported Musculoskeletal: No: Symptoms Reported All Other Systems: Reviewed and Negative *Physical Exam - Physical Exam General Appearance: Yes: Nourished, Appropriately Dressed, Severe Distress HEENT: positive: EOMI, DEWAYNE, Normal ENT Inspection Respiratory/Chest: positive: Lungs Clear, Normal Breath Sounds. negative: Chest Tender, Respiratory Distress Cardiovascular: positive: Regular Rhythm, Regular Rate, S1, S2 Gastrointestinal/Abdominal: positive: Tender (diffuse, exquisitely tender, worse in lower abdomen. ), Soft. negative: Distended Extremity: positive: Normal Capillary Refill, Normal Inspection, Normal Range of Motion Integumentary: positive: Normal Color, Dry, Warm Neurologic: positive: Fully Oriented, Alert, Normal Mood/Affect ED Treatment Course - LABORATORY CBC & Chemistry Diagram: 07/22/19 13:30 07/22/19 13:30 Medical Decision Making - Medical Decision Making 07/22/19 13:30 49F with pmh of diverticulitis coming in today with abdominal pain following recent colonoscopic polypectomy with cautery today. - Will give pain control - xray to rule out perforation. - Pre-op labs - Confirmatory Ct abdomen and pelvis pending. - Surgery consult. 07/22/19 13:57 No sign of pneumoperitoneum on xray. Labs and scan pending. 07/22/19 17:18 CT read: In comparison to an exam of 03/22/2019 development of a 2 x 1 cm focus of pneumoperitoneum is seen abutting the posterior inferior border of the mid transverse colon. There is contiguous mild surrounding mesenteric edema. Interval development of a small amount of free fluid is seen within the cul-de- sac and right pericolic space. Spoke to Dr. Child who will come see the patient 07/22/19 18:02 Patient admitted to Med/Surg Discharge - Discharge Information Problems reviewed: Yes Clinical Impression/Diagnosis: Perforation of colon as colonoscopy complication - Admission Yes - Follow up/Referral Referrals: Steve Acosta MD [Primary Care Provider] - - Patient Discharge Instructions - Post Discharge Activity
[2019-07-22 12:44] VITALS: BMI 30.6
[2019-07-22] MEDS ORDERED: morphine SULFATE 4 MG/ML VIAL ONE (12:48)
[2019-07-22] MEDS ORDERED: ONDANSETRON 4 MG/2 ML VIAL IVPUSH ONE (13:34)
[2019-07-22] MEDS ORDERED: ONDANSETRON 4 MG/2 ML VIAL ONE (13:37)
[2019-07-22] MEDS ORDERED: LACTATED RINGERS SOLUTION 1,000 ML/1,000 ML INFUS.BAG IV SCH ×2 (13:45→22:02)
[2019-07-22 13:46] LABS: BASO % 0.7 % (0-2.0); EOS % 0.3 % (0-4.5); HEMATOCRIT 40.8 % (32.4-45.2); HEMOGLOBIN 13.2 GM/dL (10.7-15.3); MCH 26.2 pg (25.7-33.7); MCHC 32.4 g/dl (32.0-36.0); MEAN CELL VOLUME 80.8 fl (80-96); MEAN PLT VOLUME 8.3 fl (7.5-11.1); MONO % 3.7 % (3.8-10.2); NEUT % 85.3 % (42.8-82.8); PLATELET COUNT 350 K/MM3 (134-434); RBC 5.05 M/mm3 (3.60-5.2); RDW 18.4 % (11.6-15.6); WHITE BLOOD COUNT 9.8 K/mm3 (4.0-10.0)
[2019-07-22 14:02] LABS: INR 0.99 (0.83-1.09); PROTHROMBIN TIME (PATIENT) 11.7 SEC (9.7-13.0)
[2019-07-22 14:05] LABS: ACTIVATED PTT 27.2 SECONDS (25.2-36.5)
[2019-07-22 14:15] LABS: ALBUMIN 4.2 g/dl (3.4-5.0); BILIRUBIN,TOTAL 0.6 mg/dL (0.2-1); BLOOD UREA NITROGEN 8.8 mg/dL (7-18); CALCIUM 9.1 mg/dL (8.5-10.1); CREATININE 0.9 mg/dL (0.55-1.3); POTASSIUM 3.4 mmol/L (3.5-5.1); TOT PROT 7.4 g/dl (6.4-8.2)
[2019-07-22] MEDS ORDERED: LACTATED RINGERS SOLUTION 1,000 ML/1,000 ML INFUS.BAG IV STA (17:19)
[2019-07-22] MEDS ORDERED: PROPOFOL 20 ML ONE ×3 (17:48)
[2019-07-22 17:49] LABS: EPI CELLS 1.3 /HPF (0-5/HPF); HYALINE CASTS 0 /lpf (0-8); URINE APPEARANCE CLEAR; URINE BILIRUBIN NEGATIVE (NEGATIVE); URINE COLOR YELLOW; URINE GLUCOSE (UA) TRACE (NEGATIVE); URINE KETONE 1+ (NEGATIVE); URINE LEUK ESTERASE NEGATIVE (NEGATIVE); URINE NITRITE NEGATIVE (NEGATIVE); URINE PROTEIN NEGATIVE (NEGATIVE); URINE RBC 3 /hpf (0-4); URINE UROBILINOGEN 0.2 mg/dL (0.2-1.0); URINE WBC 1 /hpf (0-5)
[2019-07-22] MEDS ORDERED: ROCURONIUM BROMIDE 50 MG/5 ML SYRINGE ONE ×2 (17:49→20:44)
[2019-07-22] MEDS ORDERED: MIDAZOLAM HCL 2 MG/2 ML SINGLE DOSE VIAL ONE (17:49)
--- NOTE | 2019-07-22 17:51 | PN ---
Teaching Attending Note Name of Resident: Gianni Boyer ATTENDING PHYSICIAN STATEMENT I saw and evaluated the patient. I reviewed the resident's note and discussed the case with the resident. I agree with the resident's findings and plan as documented with exceptions below. SUBJECTIVE: 49 yof with PMhx of Diverticulosis, haemorrhoids, erosive gastritis, Diverticular bleed/blood loss anemia 03/2019, s/p endoclipping of bleeding diverticulum, also EGD with erosive gastritis, had ambulatory colonoscopy with Dr. Barakat today s/p 3 polyp removal and larger polyp with snare electrocautery. 1 hour after procedure, she started reporting worsening generalized abdominal pain, and was sent to ED by Dr. Barakat with concerns for perforation. In ED, she had CT A/P showing 2x1 cm colonic perforation in posterior inferior aspect of mid transverse colon, surgeon notified. Currently patient with generalized abdominal pain, asking if can drink. 12 point ROS done, no c/o nausea/vomiting, fevers, chills, chest pain, palpitations, exertional chest pain or dsypnea, orthopnea, PND, leg swelling Actively working with good functional capacity at baseline. OBJECTIVE: Vital Signs Period Temp Pulse Resp BP Sys/Ren Pulse Ox Last 24 Hr 97.1 F 58-73 16-24 136-139/71-78 100-100 Intake & Output 07/19/19 07/20/19 07/21/19 07/22/19 23:59 23:59 23:59 23:59 Weight 162 lb GENERAL: Awake, alert, and fully oriented, in no acute distress,well groomed, no acute distress. HEAD: Normal with no signs of trauma. EYES: Pupils equal, round and reactive to light, extraocular movements intact, sclera anicteric, conjunctiva clear. No lid lag. EARS, NOSE, THROAT: Ears normal, nares patent, oropharynx clear without exudates. Mildy dry mucous membranes. NECK: Normal range of motion, supple, no JVD noted LUNGS: Breath sounds equal, clear to auscultation bilaterally. No wheezes, and no crackles. No accessory muscle use. HEART: Regular rate and rhythm, normal S1 and S2 , no murmur, rub or gallop ABDOMEN: Soft, obese, generalized abdominal tenderness, voluntary guarding in per-umbilical region LUQ/epigastrium/Right lateral quadrant, no rigidity appreciated, pos bowel sounds MUSCULOSKELETAL: Normal range of motion at all joints. No bony deformities or tenderness. No CVA tenderness. UPPER EXTREMITIES: 2+ pulses, warm, well-perfused. No cyanosis. No clubbing. No peripheral edema. LOWER EXTREMITIES: 2+ pulses, warm, well-perfused. No calf tenderness. No peripheral edema. NEUROLOGICAL: AAOx3, Cranial nerves II-XII intact. Normal speech. gait not observed PSYCHIATRIC: Cooperative. Good eye contact. Appropriate mood and affect. SKIN: Warm, dry, normal turgor, no rashes or lesions noted, normal capillary refill. Home Medications Medication Instructions Recorded Pantoprazole Sodium [Protonix] 40 mg PO DAILY #30 tablet. 03/26/19 Active Medications Lactated Ringer's (Lactated Ringers Solution) 1,000 ml in 1,000 mls @ 125 mls/ hr IV ASDIR [facility] Last Admin: 07/22/19 13:42 Dose: 125 mls/hr Lactated Ringer's (Lactated Ringers Solution) 1,000 ml in 1,000 mls @ 1,000 mls /hr IV ONCE STA Stop: 07/22/19 18:18 Last Admin: 07/22/19 17:45 Dose: 1,000 mls/hr Dextrose/Lactated Ringer's (D5-Lr -) 1,000 mls @ 150 mls/hr IV ASDIR [facility] Piperacillin Sod/Tazobactam (Sod 4.5 gm/ Dextrose) 100 mls @ 200 mls/hr IVPB ONCE ONE; Protocol Stop: 07/22/19 18:21 Pantoprazole Sodium (Protonix Iv) 40 mg IVPUSH DAILY [facility] Laboratory Results - last 24 hr 07/22/19 07/22/19 07/22/19 13:30 13:30 13:30 WBC 9.8 RBC 5.05 Hgb 13.2 Hct 40.8 D MCV 80.8 MCH 26.2 D MCHC 32.4 RDW 18.4 H Plt Count 350 D MPV 8.3 Absolute Neuts (auto) 8.4 H Neutrophils % 85.3 H Lymphocytes % 10.0 D Monocytes % 3.7 L Eosinophils % 0.3 D Basophils % 0.7 Nucleated RBC % 0 PT with INR INR PTT (Actin FS) Sodium 141 Potassium 3.4 L Chloride 109 H Carbon Dioxide 24 Anion Gap 8 BUN 8.8 Creatinine 0.9 Est GFR (CKD-EPI)AfAm 87.02 Est GFR (CKD-EPI)NonAf 75.08 Random Glucose 113 H Lactic Acid 2.3 H* Calcium 9.1 Total Bilirubin 0.6 AST 12 L ALT 16 Alkaline Phosphatase 68 Total Protein 7.4 Albumin 4.2 Urine Color Urine Appearance Urine pH Ur Specific [place] Urine Protein Urine Glucose (UA) Urine Ketones Urine Blood Urine Nitrite Urine Bilirubin Urine Urobilinogen Ur Leukocyte Esterase Urine WBC (Auto) Urine RBC (Auto) Urine Casts (Auto) U Epithel Cells (Auto) Urine Bacteria (Auto) Urine HCG, Qual Blood Type Antibody Screen 07/22/19 07/22/19 07/22/19 13:30 13:30 17:20 WBC RBC Hgb Hct MCV MCH MCHC RDW Plt Count MPV Absolute Neuts (auto) Neutrophils % Lymphocytes % Monocytes % Eosinophils % Basophils % Nucleated RBC % PT with INR 11.70 INR 0.99 PTT (Actin FS) 27.2 Sodium Potassium Chloride Carbon Dioxide Anion Gap BUN Creatinine Est GFR (CKD-EPI)AfAm Est GFR (CKD-EPI)NonAf Random Glucose Lactic Acid Calcium Total Bilirubin AST ALT Alkaline Phosphatase Total Protein Albumin Urine Color Yellow Urine Appearance Clear Urine pH 8.0 D Ur Specific [place] 1.030 Urine Protein Negative Urine Glucose (UA) Trace Urine Ketones 1+ H Urine Blood 2+ H Urine Nitrite Negative Urine Bilirubin Negative Urine Urobilinogen 0.2 Ur Leukocyte Esterase Negative Urine WBC (Auto) 1 Urine RBC (Auto) 3 Urine Casts (Auto) 0 U Epithel Cells (Auto) 1.3 Urine Bacteria (Auto) 49.0 Urine HCG, Qual Blood Type B POSITIVE Antibody Screen Negative 07/22/19 17:20 WBC RBC Hgb Hct MCV MCH MCHC RDW Plt Count MPV Absolute Neuts (auto) Neutrophils % Lymphocytes % Monocytes % Eosinophils % Basophils % Nucleated RBC % PT with INR INR PTT (Actin FS) Sodium Potassium Chloride Carbon Dioxide Anion Gap BUN Creatinine Est GFR (CKD-EPI)AfAm Est GFR (CKD-EPI)NonAf Random Glucose Lactic Acid Calcium Total Bilirubin AST ALT Alkaline Phosphatase Total Protein Albumin Urine Color Urine Appearance Urine pH Ur Specific [place] Urine Protein Urine Glucose (UA) Urine Ketones Urine Blood Urine Nitrite Urine Bilirubin Urine Urobilinogen Ur Leukocyte Esterase Urine WBC (Auto) Urine RBC (Auto) Urine Casts (Auto) U Epithel Cells (Auto) Urine Bacteria (Auto) Urine HCG, Qual Negative Blood Type Antibody Screen CT A/P results reviewed ASSESSMENT AND PLAN: 49 yof with PMhx of Diverticulosis, haemorrhoids, erosive gastritis, Diverticular bleed/blood loss anemia 03/2019, s/p endoclipping of bleeding diverticulum, also EGD with erosive gastritis, admitted with mid tranverse colonic perforation, after ambulatory colonoscopy today. -Mid transverse colonic perforation post colonoscopy -Colonic polyps s/p resection and larger polyp with snare/electrocautery -Dehydration -lactic acidosis -Colonic diverticulosis -Haemorrhoids -Diverticular bleed/blood loss anemia 03/2019, s/p endoclipping of bleeding diverticulum -Erosive gastritis Plan: Dr. Barakat input noted Surgeon Dr. Child contacted, waiting final plan, follow up recs. Pain control, NPO, aggressive IV hydration, serial abdominal exam Emperic zosyn Protonix IV DVTPPX per surgery Dispo admit to med surgery Plan discussed with patient and at bedside in detail, all questions answered Dr. Child contacted, care co-ordinated with ED total admit time spent 65 min.
[2019-07-22] MEDS ORDERED: PIPERACILLIN/TAZOB 4.5 GM 4.5 GM in DEXTROSE 5%-WATER 100 ML IVPB ONE (17:52)
[2019-07-22] MEDS ORDERED: PIPERACILLIN/TAZOB 4.5 GM 4.5 GM/100 ML BAG IVPB ONE (17:58)
[2019-07-22] MEDS ORDERED: PANTOPRAZOLE SODIUM 40 MG VIAL IVPUSH SCH ×2 (18:00→22:00)
[2019-07-22] MEDS ORDERED: DEXTROSE 5%-LACTATED RINGERS 1,000 ML IV SCH (18:00)
[2019-07-22] MEDS ORDERED: PIPERACILLIN/TAZOB 4.5 GM 4.5 GM in DEXTROSE 5%-WATER 100 ML IVPB SCH (18:15)
[2019-07-22] MEDS ORDERED: PANTOPRAZOLE SODIUM 40 MG VIAL ONE (18:16)
--- NOTE | 2019-07-22 18:41 | HP ---
CHIEF COMPLAINT: diffuse abdominal pain PCP: Karla HISTORY OF PRESENT ILLNESS: 49F w/ pmh of diverticulosis, hemorrhoids, colonic polyps sent in to [facility]ED by GI(Yuval) s/p colonoscopy(07/22/19) complicated by possible intraoperative perforation during polypectomy. Complains of diffuse abdominal pain w/o radiation. Endorses thirst, nausea, vomiting in ED. Denies fever, chills, appetite. Had hospitalization in March 2019 for LGIB that prompted colonoscopy finding a bleeding diverticula in the proximal transverse colon s/p clipping, descending colon polyp noted with plan for fu colonoscopy in Jul 2019. Received IR cath(03/22/19) of SMA and middle colic artery but no bleeding was noted, no embolization was done. 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 ER course was notable for: (1) EKG: NSR, QTc 422 (2) morphine 4mg, zofran 4mg, LR 1L x2 (3) CXR w/o acute path (4) upright KUB w/o pneumoperitoneum (5) CT A/P w/ IV contrast(07/22/19): extraluminal air abutting midtransverse colon, free fluid in pelvis and Right paracolic space; Left hepatic lobe cyst ~ 1.3cm (6) lactate 2.6 Recent Travel: none PAST MEDICAL HISTORY: diverticulosis, hemorrhoids, colonic polyps PAST SURGICAL HISTORY: bladder lift, , addenoidectomy Social History: Smoking: denies Alcohol: social Drugs: denies Allergies bacitracin [From Neosporin ([id number])] Allergy (Verified 07/22/19 12:44) Rash SWELLING HOME MEDICATIONS: Home Medications Medication Instructions Recorded Pantoprazole Sodium [Protonix] 40 mg PO DAILY #30 tablet. 03/26/19 REVIEW OF SYSTEMS CONSTITUTIONAL: loss of appetite Absent: fever, chills, diaphoresis, generalized weakness, malaise, weight change CARDIOVASCULAR: Absent: chest pain, palpitations, irregular heart rate RESPIRATORY: Absent: cough, shortness of breath, dyspnea with exertion, orthopnea GASTROINTESTINAL: abdominal pain, nausea, vomiting Absent: abdominal distension, diarrhea, constipation, melena, hematochezia GENITOURINARY: Absent: dysuria, frequency, urgency, hesitancy, hematuria, flank pain, genital pain PHYSICAL EXAMINATION Vital Signs - 24 hr 07/22/19 07/22/19 07/22/19 12:20 12:45 13:35 Temperature 97.1 F L Pulse Rate 58 L Pulse Rate [ 73 Left Radial] Respiratory 16 24 H Rate Blood Pressure 139/78 Blood Pressure 136/71 [Left Arm] O2 Sat by Pulse 100 100 100 Oximetry (%) GENERAL: Mild distress. Cooperative HEAD: NC/AT EYES: sclera anicteric, conjunctiva clear EARS, NOSE, THROAT: Ears normal, nares patent. Moist mucous membranes. NECK: Normal range of motion, supple without lymphadenopathy LUNGS: Breath sounds equal, clear to auscultation bilaterally. No wheezes, and no crackles. No accessory muscle use. HEART: Regular rate and rhythm, normal S1 and S2 without murmur, rub or gallop. ABDOMEN: normal bowel softs. Soft, ND, diffusely TTP in all four quadrants, involuntary guarding w/ palpation UPPER EXTREMITIES: 2+ pulses, warm, well-perfused. No cyanosis. No clubbing. No peripheral edema. LOWER EXTREMITIES: 2+ pulses, warm, well-perfused. No calf tenderness. No peripheral edema. NEUROLOGICAL: Normal speech SKIN: Warm, dry, normal turgor, no rashes or lesions noted, normal capillary refill. Laboratory Results - last 24 hr 07/22/19 07/22/19 07/22/19 13:30 13:30 13:30 WBC 9.8 RBC 5.05 Hgb 13.2 Hct 40.8 D MCV 80.8 MCH 26.2 D MCHC 32.4 RDW 18.4 H Plt Count 350 D MPV 8.3 Absolute Neuts (auto) 8.4 H Neutrophils % 85.3 H Lymphocytes % 10.0 D Monocytes % 3.7 L Eosinophils % 0.3 D Basophils % 0.7 Nucleated RBC % 0 PT with INR INR PTT (Actin FS) Sodium 141 Potassium 3.4 L Chloride 109 H Carbon Dioxide 24 Anion Gap 8 BUN 8.8 Creatinine 0.9 Est GFR (CKD-EPI)AfAm 87.02 Est GFR (CKD-EPI)NonAf 75.08 Random Glucose 113 H Lactic Acid 2.3 H* Calcium 9.1 Total Bilirubin 0.6 AST 12 L ALT 16 Alkaline Phosphatase 68 Total Protein 7.4 Albumin 4.2 Urine Color Urine Appearance Urine pH Ur Specific [place] Urine Protein Urine Glucose (UA) Urine Ketones Urine Blood Urine Nitrite Urine Bilirubin Urine Urobilinogen Ur Leukocyte Esterase Urine WBC (Auto) Urine RBC (Auto) Urine Casts (Auto) U Epithel Cells (Auto) Urine Bacteria (Auto) Urine HCG, Qual Blood Type Antibody Screen 07/22/19 07/22/19 07/22/19 13:30 13:30 17:20 WBC RBC Hgb Hct MCV MCH MCHC RDW Plt Count MPV Absolute Neuts (auto) Neutrophils % Lymphocytes % Monocytes % Eosinophils % Basophils % Nucleated RBC % PT with INR 11.70 INR 0.99 PTT (Actin FS) 27.2 Sodium Potassium Chloride Carbon Dioxide Anion Gap BUN Creatinine Est GFR (CKD-EPI)AfAm Est GFR (CKD-EPI)NonAf Random Glucose Lactic Acid Calcium Total Bilirubin AST ALT Alkaline Phosphatase Total Protein Albumin Urine Color Yellow Urine Appearance Clear Urine pH 8.0 D Ur Specific [place] 1.030 Urine Protein Negative Urine Glucose (UA) Trace Urine Ketones 1+ H Urine Blood 2+ H Urine Nitrite Negative Urine Bilirubin Negative Urine Urobilinogen 0.2 Ur Leukocyte Esterase Negative Urine WBC (Auto) 1 Urine RBC (Auto) 3 Urine Casts (Auto) 0 U Epithel Cells (Auto) 1.3 Urine Bacteria (Auto) 49.0 Urine HCG, Qual Blood Type B POSITIVE Antibody Screen Negative 07/22/19 17:20 WBC RBC Hgb Hct MCV MCH MCHC RDW Plt Count MPV Absolute Neuts (auto) Neutrophils % Lymphocytes % Monocytes % Eosinophils % Basophils % Nucleated RBC % PT with INR INR PTT (Actin FS) Sodium Potassium Chloride Carbon Dioxide Anion Gap BUN Creatinine Est GFR (CKD-EPI)AfAm Est GFR (CKD-EPI)NonAf Random Glucose Lactic Acid Calcium Total Bilirubin AST ALT Alkaline Phosphatase Total Protein Albumin Urine Color Urine Appearance Urine pH Ur Specific [place] Urine Protein Urine Glucose (UA) Urine Ketones Urine Blood Urine Nitrite Urine Bilirubin Urine Urobilinogen Ur Leukocyte Esterase Urine WBC (Auto) Urine RBC (Auto) Urine Casts (Auto) U Epithel Cells (Auto) Urine Bacteria (Auto) Urine HCG, Qual Negative Blood Type Antibody Screen ASSESSMENT/PLAN: 49F w/ pmh of diverticulosis, hemorrhoids, colonic polyps sent in to [facility]-ED by [facility]) s/p colonoscopy(07/22/19) complicated by possible intraoperative perforation during polypectomy. CT A/P showing extraluminal free air consistent with perforation. # severe abdominal pain --likely 2/2 perforated colon > upright KUB(07/22/19): pneumoperitoneum > CT A/P w/ IV contrast(07/22/19): extraluminal air abutting midtransverse colon , free fluid in pelvis and Right paracolic space; Left hepatic lobe cyst ~1.3cm > lactate 2.3 - s/p morphine 4mg, zofran 4mg, LR 1L x2 - pain control: morphine 2mg q4h - Surgery(Child) consulted - NPO - zosyn - mIVF - fu lactate # elevated lactic acid --likely 2/2 dehydration from colonoscopy - IVF(s/p LR 1L x2, mIVF) - fu rpt lactic acid # Left hepatic lobe cyst ~1.3cm - fu as outpt FEN - D5LR @150 - NPO DVT - hold DVT ppx in case of surgery Family Medical History Family Hx Congestive Heart Failure: Father (stroke, CT) Family Hx Gastrointestinal Disorder: Mother (gastritis, hiatal hernia) Visit type - Emergency Visit Emergency Visit: Yes ED Registration Date: 07/22/19 Care time: The patient presented to the Emergency Department on the above date and was hospitalized for further evaluation of their emergent condition. - New Patient This patient is new to me today: Yes Date on this admission: 07/22/19 - Critical Care Critical Care patient: No ATTENDING PHYSICIAN STATEMENT I saw and evaluated the patient. I reviewed the resident's note and discussed the case with the resident. I agree with the resident's findings and plan as documented. SUBJECTIVE: OBJECTIVE: ASSESSMENT AND PLAN:
--- NOTE | 2019-07-22 18:53 | PDOC ---
Documentation entered by Ubaldo Slade SCRIBE, acting as scribe for Kristel Solares MD. Kristel Solares MD: This documentation has been prepared by the [place] goldstein Daniel, SCRIBE, under my direction and personally reviewed by me in its entirety. I confirm that the documentation accurately reflects all work, treatment, procedures, and medical decision making performed by me. Attending Attestation - Resident Resident Name: Kathy Alleny - ED Attending Attestation I have performed the following: I have examined & evaluated the patient, The case was reviewed & discussed with the resident, I agree w/resident's findings & plan, Exceptions are as noted - HPI HPI: 07/22/19 17:00 The patient is a 49 year old female with a past medical history of diverticulosis c/b hemorrhage 1 year ago sent to the ED by Dr. Griggs for evaluation of abdominal pain. The patient reports that she received a colonoscopy today around 9:15 AM and had a large polyp removed. After recovery, she reports that she was eating an egg in the cafeteria when she had a sudden onset of extreme diffuse abdominal pain. She also notes associated nausea, 4 episodes of NBNB vomiting, and diaphoresis. Per Dr. Barakat patient had a large polyp removed from her transverse colon. She is sent to the emergency department to rule out post procedural pneumoperitoneum Patient denies headache, lightheadedness. Denies fever, chills. Denies chest pain, shortness of breath. Denies diarrhea. Allergies: bacitracin PCP: Steve Acosta - Physicial Exam PE: 07/22/19 17:03 GENERAL: Awake, alert, and fully oriented, in no acute distress EYES: PERRLA, EOMI, sclera anicteric, conjunctiva clear ENT: Oropharynx clear without exudates. Moist mucosa NECK: Normal ROM, supple, no lymphadenopathy, JVD, or masses LUNGS: Breath sounds equal, clear to auscultation bilaterally. No wheezes, and no crackles HEART: Regular rate and rhythm, normal S1 and S2, no murmurs, rubs or gallops ABDOMEN: +diffusely tender to mild palpation. Soft, normoactive bowel sounds. No guarding, no rebound. No masses EXTREMITIES: Normal range of motion, no edema. No cords, erythema, or tenderness NEUROLOGICAL: Normal speech, cranial nerves intact, equal strength and sensation b/l SKIN: Warm, Dry, normal turgor, no rashes or lesions noted. - Medical Decision Making 07/22/19 18:50 49-year-old female presents to the emergency department with sudden onset diffuse abdominal pain after colonoscopy this morning. Exam with soft, nonacute abdomen, but diffuse mild tenderness to palpation. Patient was taken to x-ray immediately which was negative for pneumoperitoneum. Pain responded to morphine. Labs within normal limits. CT scan was obtained due to persistent mild pain and clinical history, which revealed a 2 cm perforation in the transverse colon. Patient was given Zosyn and surgery was consulted. Pt has been seen by Dr. Child and will be taken to the OR today. Dr. Barakat from GI has been updated. Patient is NPO. She has been admitted to the hospitalist Dr. Brink for further mgmt. Case discussed in detail with admitting physician including history, physical exam and ancillary studies by Dr. Allen. Admitting physician has assumed care for the patient, will follow all pending diagnostics and will complete the evaluation and treatment. Heart Score/ECG Review #1 07/22/19 18:49 Twelve-lead EKG was performed and reviewed by me. Normal sinus rhythm, rate 62. Normal axis and intervals. No ST elevations. Isolated T wave inversion in lead III.
[2019-07-22] MEDS ORDERED: MORPHINE SULFATE 2 MG/ML VIAL IVPUSH PRN (18:57)
--- NOTE | 2019-07-22 19:14 | CONSULT ---
- Consultation REQUESTING PROVIDER: Yuval ATKINSON CONSULT REQUEST: We have been asked to surgically evaluate this patient for a colonic perforation after colonoscopy and polypectomy. PCP:Demarcus Brink MD HISTORY OF PRESENT ILLNESS: 49 y/o W/female had colonoscopy and polypectomy and after eating developed acute onsent of generalized abdominal pain; she was sent to the ER and imaging w/u rvealed pneumoperitoneum most likely from the site of the polypectomy in the transverse colon; she c/o pain; she vomited up all the food she had after the colonoscopy. PMHx: LGIB/GERD PSHx: C-S Home Medications Medication Instructions Recorded Pantoprazole Sodium [Protonix] 40 mg PO DAILY #30 tablet. 03/26/19 Allergies Allergy/AdvReac Type Severity Reaction Status Date / Time bacitracin Allergy Rash Verified 07/22/19 12:44 [From Neosporin ([id number])] REVIEW OF SYSTEMS: CONSTITUTIONAL: Absent: fever, chills, diaphoresis, generalized weakness, malaise, loss of appetite, weight change CARDIOVASCULAR: Absent: chest pain, syncope, palpitations, irregular heart rate, lightheadedness , peripheral edema RESPIRATORY: Absent: cough, shortness of breath, dyspnea with exertion, wheezing, stridor, hemoptysis GASTROINTESTINAL: Present: abdominal pain, abdominal distension, nausea, vomiting, hematochezia GENITOURINARY: Absent: dysuria, frequency, urgency, hesitancy, hematuria, flank pain, genital pain MUSCULOSKELETAL: Absent: myalgia, arthralgia, joint swelling, back pain, neck pain SKIN: Absent: rash, itching, pallor HEMATOLOGIC/IMMUNOLOGIC: Absent: easy bleeding, easy bruising, lymphadenopathy NEUROLOGIC: Absent: headache, focal weakness, paresthesias, dizziness, unsteady gait, seizure, mental status changes, bladder or bowel incontinence PSYCHIATRIC: Absent: anxiety, depression, suicidal or homicidal ideation, hallucinations. PHYSICAL EXAM: GENERAL: Awake, alert, and fully oriented, in no acute distress. HEAD: Normal with no signs of trauma. EYES: PERRL, sclera anicteric, conjunctiva clear. NECK: Normal ROM, supple without lymphadenopathy, JVD, or masses. ABDOMEN: Soft, tender, distended, absent bowel sounds, guarding and rebound are present, no masses. No organomegaly. No hernias. Healed C-S scar. MUSCULOSKELETAL: Normal ROM at all joints. No bony deformities or tenderness. No CVA tenderness. UPPER EXTREMITIES: 2+ pulses, warm, well-perfused. No cyanosis. Cap refill <2 seconds. No peripheral edema. LOWER EXTREMITIES: 2+ pulses, warm, well-perfused. No calf tenderness. No peripheral edema. NEUROLOGICAL: Normal speech, gait not observed. PSYCH: Cooperative. Good eye contact. Appropriate mood and affect. SKIN: Warm, dry, normal turgor, no rashes or lesions noted. Vital Signs Temperature 99 F 07/22/19 18:11 Pulse Rate 78 07/22/19 18:11 Respiratory Rate 18 07/22/19 18:11 Blood Pressure 116/65 07/22/19 18:11 O2 Sat by Pulse Oximetry (%) 99 07/22/19 18:11 Lab Results WBC 9.8 K/mm3 (4.0-10.0) 07/22/19 13:30 RBC 5.05 M/mm3 (3.60-5.2) 07/22/19 13:30 Hgb 13.2 GM/dL (10.7-15.3) 07/22/19 13:30 Hct 40.8 % (32.4-45.2) D 07/22/19 13:30 MCV 80.8 fl (80-96) 07/22/19 13:30 MCHC 32.4 g/dl (32.0-36.0) 07/22/19 13:30 RDW 18.4 % (11.6-15.6) H 07/22/19 13:30 Plt Count 350 K/MM3 (134-434) D 07/22/19 13:30 Sodium 141 mmol/L (136-145) 07/22/19 13:30 Potassium 3.4 mmol/L (3.5-5.1) L 07/22/19 13:30 Chloride 109 mmol/L (98-107) H 07/22/19 13:30 Carbon Dioxide 24 mmol/L (21-32) 07/22/19 13:30 Anion Gap 8 MMOL/L (8-16) 07/22/19 13:30 BUN 8.8 mg/dL (7-18) 07/22/19 13:30 Creatinine 0.9 mg/dL (0.55-1.3) 07/22/19 13:30 Random Glucose 113 mg/dL (74-106) H 07/22/19 13:30 Calcium 9.1 mg/dL (8.5-10.1) 07/22/19 13:30 Blood Type B POSITIVE 07/22/19 13:30 Antibody Screen Negative 07/22/19 13:30 INR 0.99 (0.83-1.09) 07/22/19 13:30 CT scan a/p reviewed; case d/w Dr. Brad Barakat; findings c/w perforation at the site of the transverse colon polypectomy. IMP: colon perforation; most likely at the site of the transverse colon polypectomy PLAN: Patient will need exploration in the OR and resection of the site of the polypectomy and ostomy; r/b/t/a's d/w the patient and her and informed consent obtained; explained why the perforation cannot simply be closed. All questions answered. Silvano Child MD FACS
[2019-07-22] MEDS ORDERED: fentaNYL CITRATE 250 MCG/5 ML VIAL ONE (19:35)
[2019-07-22] MEDS ORDERED: BUPIVACAINE HCL/PF 0.25% (2.5MG/ML) 10 ML VIAL ONE (19:38)
[2019-07-22] MEDS ORDERED: HYDROmorphone HCl 2 MG/ML VIAL ONE (21:02)
[2019-07-22] MEDS ORDERED: NEOSTIGMINE METHYLSULFATE 0.5 MG/ML - 10 ML MDV ONE (21:33)
--- NOTE | 2019-07-22 21:55 | OP ---
Operative Note - Note: Operative Date: 07/22/19 Pre-Operative Diagnosis: pneumoperitoneum Operation: segmental transverse colon resection and end colostomy Findings: transverse colon perforation Post-Operative Diagnosis: Same as Pre-op Surgeon: Silvano Child Flipping Machine Operator: Leonor Perkins Anesthesiologist/SECURITY SYSTEM ENGINEER: Js Palumbo Anesthesia: General Specimens Removed: portion of transverse colon Estimated Blood Loss (mls): 150
[2019-07-22] MEDS ORDERED: ONDANSETRON 4 MG/2 ML VIAL IVPUSH PRN ×2 (22:02→22:08)
--- NOTE | 2019-07-22 22:04 | SURG ---
Surgery Peer Financial Counselor Note Peer Financial Counselor: Leonor Perkins PA-C (Suzy) Date of Service: 07/22/19 Diagnosis: pneumoperitoneum Procedure: Operation: segmental transverse colon resection and end colostomy I was present for the entirety of the operative procedure. For further detail, please refer to operative report. Visit type - Case Type Case Type: ED Admission - Emergency Emergency Visit: Yes ED Registration Date: 07/22/19 Care time: The patient presented to the Emergency Department on the above date and was hospitalized for further evaluation of their emergent condition. - New patient This patient is new to me today: Yes Date on this admission: 07/22/19 - Critical Care Critical Care patient: No
[2019-07-22] MEDS ORDERED: HYDROmorphone *PCA* 10MG/50ML DISP.SYRIN ONE (22:05)
[2019-07-22] MEDS: HYDROmorphone *PCA* 10MG/50ML DISP.SYRIN PCA SCH ×2 (22:10→22:15)
[2019-07-22] MEDS ORDERED: ACETAMINOPHEN 1000 MG/100 ML VIAL (NON FORMULARY) IVPB PRN (22:15)
--- NOTE | 2019-07-22 22:30 | PN ---
Progress Note (short form) - Note Progress Note: GI NOte: Please see earlier consultation note ( done this AM). Findings discussed earlier with Dr Child. His intervention is appreciated. Andreea is awake in the PACU. NG in place. Aware that she has a colostomy. Getting analgesia. Postop care as per Dr Child.
[2019-07-22] MEDS ORDERED: ACETAMINOPHEN INJECTION 100 ML IVPB ONE (22:47)
[2019-07-22] MEDS ORDERED: ACETAMINOPHEN 1000 MG/100 ML VIAL (NON FORMULARY) IVPB ONE (22:50)
[2019-07-22] MEDS: LACTATED RINGERS SOLUTION 1,000 ML IV SCH (23:39)
[2019-07-23] MEDS ORDERED: DEXTROSE 5%-WATER 100 ML IVPB ONE ×2 (01:47→09:29)
[2019-07-23] MEDS ORDERED: PIPERACILLIN/TAZOBACTAM 4.5 GM VIAL IVPB ONE ×2 (01:47→09:28)
[2019-07-23] MEDS: PIPERACILLIN/TAZOB 4.5 GM 4.5 GM in DEXTROSE 5%-WATER 100 ML IVPB SCH ×2 (01:55→09:34)
[2019-07-23] MEDS: HEPARIN NA (PORCINE) 5,000 UNITS/ML 1ML VIAL SQ SCH ×3 (06:40→21:21)
[2019-07-23] MEDS: LACTATED RINGERS SOLUTION 1,000 ML IV SCH (06:56)
[2019-07-23 08:42] LABS: BASO % 0.2 % (0-2.0); HEMATOCRIT 34.3 % (32.4-45.2); HEMOGLOBIN 11.1 GM/dL (10.7-15.3); LYMPH % 5.5 % (8-40); MCH 26.4 pg (25.7-33.7); MCHC 32.5 g/dl (32.0-36.0); MEAN CELL VOLUME 81.3 fl (80-96); MEAN PLT VOLUME 8.6 fl (7.5-11.1); MONO % 5.2 % (3.8-10.2); NEUT % 89.1 % (42.8-82.8); PLATELET COUNT 294 K/MM3 (134-434); RBC 4.22 M/mm3 (3.60-5.2); RDW 17.9 % (11.6-15.6); WHITE BLOOD COUNT 16.8 K/mm3 (4.0-10.0)
--- NOTE | 2019-07-23 08:56 | PN ---
Progress Note (short form) - Note Progress Note: SURGERY 49yo F s/p Mcdaniels's POD 1, Pt seen and examined at bedside. Pt denies fever, chills, n/v, cp, sob. Denies any gas or stool in her colostomy. Last Vital Signs Temp Pulse Resp BP Pulse Ox 98.3 F 76 18 100/57 L 96 07/23/19 05:39 07/23/19 05:39 07/23/19 05:39 07/23/19 05:39 07/23/19 01:00 CBC, BMP 07/23/19 08:10 PE Gen: A&O x3 Resp: breathing comfortably Abd: soft, nondistended, mild diffuse tenderness, Colostomy in place no gas or stool, midline dressing in place. Ext: no edema Problem List - Problems (1) Perforation of colon as colonoscopy complication Assessment/Plan: Plan -keep NPO until flatus or stool in bag, will continue NGT for now, will reevaluate output later today. -abx -IVF -DVT and GI ppx -encourage OOB/ambulate Case discussed with Dr. Child who agrees with plan Code(s): K63.1 - PERFORATION OF INTESTINE (NONTRAUMATIC); K91.71 - ACCIDENTAL PNCTR & LAC OF A DGSTV SYS ORG DUR DGSTV SYS PROC
[2019-07-23 09:07] LABS: BLOOD UREA NITROGEN 6.3 mg/dL (7-18); CREATININE 0.7 mg/dL (0.55-1.3); POTASSIUM 3.4 mmol/L (3.5-5.1); TOT PROT 5.5 g/dl (6.4-8.2)
[2019-07-23] MEDS: PANTOPRAZOLE SODIUM 40 MG VIAL IVPUSH SCH (09:34)
--- NOTE | 2019-07-23 09:53 | EKG ---
Test Reason : Blood Pressure : / mmHG Vent. Rate : 062 BPM Atrial Rate : 062 BPM P-R Int : 144 ms QRS Dur : 074 ms QT Int : 416 ms P-R-T Axes : 048 029 009 degrees QTc Int : 422 ms NORMAL SINUS RHYTHM NORMAL ECG WHEN COMPARED WITH ECG OF 20-MAR-2019 23:08, NO SIGNIFICANT CHANGE WAS FOUND Confirmed by MD BERNICE, FARZANA ([id number]) on 07/23/2019 9:53:35 AM Referred By: Confirmed By:FARZANA QUEEN MD
[2019-07-23 11:11] LABS: MAGNESIUM 1.7 mg/dL (1.8-2.4); PHOSPHOROUS 3.1 mg/dL (2.5-4.9)
[2019-07-23] MEDS ORDERED: TETRACAINE/BENZOCAINE/BUTAMBEN 20 GM SPR TP PRN (11:25)
[2019-07-23] MEDS: KCL 10 MEQ IVPB 10 MEQ/100 ML INFUS.BAG IVPB SCH ×4 (11:51→22:52)
[2019-07-23] MEDS ORDERED: BENZOCAINE/MENTH/CETYLPYRD CL 1 EACH LOZENGE MM PRN (12:40)
[2019-07-23] MEDS ORDERED: MAGNESIUM SULF 50% (8.12 MEQ/2 ML-1 GM VIAL) IVPB ONE ×2 (15:50→21:00)
--- NOTE | 2019-07-23 15:51 | PN ---
Teaching Attending Note Name of Resident: Gianni Boyer ATTENDING PHYSICIAN STATEMENT I saw and evaluated the patient. I reviewed the resident's note and discussed the case with the resident. I agree with the resident's findings and plan as documented with exceptions below. SUBJECTIVE: Patient seen and examined. reports throat discomfort from the NG tube. No nausea , vomiting. Abdominal pain around surgical site. No gas or BM in the colostomy. OBJECTIVE: Vital Signs Period Temp Pulse Resp BP Sys/Ren Pulse Ox Last 24 Hr 98.0 F-99 F 57-79 12-18 100-128/54-70 96-100 Intake & Output 07/20/19 07/21/19 07/22/19 07/23/19 23:59 23:59 23:59 23:59 Intake Total 2800 800 Output Total 1150 Balance 1650 800 Weight 162 lb 162 lb General: lying in bed, no acute distress HEENT: NG tube in place Neck: soft, supple Chest: decreased effort, no rales or wheezing Abdomen:Soft, midline surgical dressing, right colostomy with pink stoma, no stool noted, pos bowel sounds, tenderness around the surgical site Extremities: no edema Home Medications Medication Instructions Recorded Pantoprazole Sodium [Protonix] 40 mg PO DAILY #30 tablet. 03/26/19 Active Medications Acetaminophen (Ofirmev Injection -) 1,000 mg IVPB Q6H PRN PRN Reason: PAIN Benzocaine/Butamben/Tetracaine HCl (Cetacaine [place] -) 1 spray TP DAILY PRN PRN Reason: PAIN Benzocaine/Menthol (Cepacol Lozenge -) 1 each MM Q6H PRN PRN Reason: SORE THROAT Heparin Sodium (Porcine) (Heparin -) 5,000 unit SQ TID [facility] Last Admin: 07/23/19 14:59 Dose: 5,000 unit Hydromorphone HCl (Hydromorphone 10 Mg/50 Ml-Ns) 10 mg MACHINE WELDER MACHINE WELDER [facility]; Protocol Stop: 07/23/19 22:14 Last Admin: 07/22/19 22:10 Dose: 10 mg Lactated Ringer's (Lactated Ringers Solution) 1,000 mls @ 125 mls/hr IV ASDIR [facility] Last Admin: 07/23/19 06:56 Dose: 125 mls/hr Piperacillin Sod/Tazobactam (Sod 3.375 gm/ Dextrose) 50 mls @ 100 mls/hr IVPB Q8H-IV PRASANNA; Protocol Potassium Chloride (Potassium Chloride 10 Meq Premix Ivpb -) 10 meq in 100 mls @ 100 mls/hr IVPB Q60M PRASANNA Stop: 07/23/19 18:59 Magnesium Sulfate (Magnesium Sulfate) 1 gm IVPB ONCE ONE Stop: 07/23/19 15:51 Ondansetron HCl (Zofran Injection) 4 mg IVPUSH Q6H PRN PRN Reason: NAUSEA Ondansetron HCl (Zofran Injection) 4 mg IVPUSH Q6H PRN PRN Reason: NAUSEA AND/OR VOMITING Pantoprazole Sodium (Protonix Iv) 40 mg IVPUSH DAILY PRASANNA Last Admin: 07/23/19 09:34 Dose: 40 mg Laboratory Results - last 24 hr 07/22/19 07/22/19 07/22/19 17:20 17:20 18:45 WBC RBC Hgb Hct MCV MCH MCHC RDW Plt Count MPV Absolute Neuts (auto) Neutrophils % Lymphocytes % Monocytes % Eosinophils % Basophils % Nucleated RBC % Sodium Potassium Chloride Carbon Dioxide Anion Gap BUN Creatinine Est GFR (CKD-EPI)AfAm Est GFR (CKD-EPI)NonAf Random Glucose Lactic Acid 3.1 H* Calcium Phosphorus Magnesium Total Bilirubin AST ALT Alkaline Phosphatase Total Protein Albumin Urine Color Yellow Urine Appearance Clear Urine pH 8.0 D Ur Specific [place] 1.030 Urine Protein Negative Urine Glucose (UA) Trace Urine Ketones 1+ H Urine Blood 2+ H Urine Nitrite Negative Urine Bilirubin Negative Urine Urobilinogen 0.2 Ur Leukocyte Esterase Negative Urine WBC (Auto) 1 Urine RBC (Auto) 3 Urine Casts (Auto) 0 U Epithel Cells (Auto) 1.3 Urine Bacteria (Auto) 49.0 Urine HCG, Qual Negative 07/23/19 07/23/19 07/23/19 08:10 08:10 09:00 WBC 16.8 H RBC 4.22 Hgb 11.1 Hct 34.3 D MCV 81.3 MCH 26.4 MCHC 32.5 RDW 17.9 H Plt Count 294 MPV 8.6 Absolute Neuts (auto) 15.0 H Neutrophils % 89.1 H Lymphocytes % 5.5 L D Monocytes % 5.2 Eosinophils % 0.0 D Basophils % 0.2 Nucleated RBC % 0 Sodium 137 Potassium 3.4 L Chloride 106 Carbon Dioxide 24 Anion Gap 6 L BUN 6.3 L Creatinine 0.7 Est GFR (CKD-EPI)AfAm 117.91 Est GFR (CKD-EPI)NonAf 101.74 Random Glucose 120 H Lactic Acid 1.0 Calcium 8.0 L Phosphorus 3.1 Magnesium 1.7 L Total Bilirubin 1.0 AST 13 L ALT 11 L Alkaline Phosphatase 48 Total Protein 5.5 L Albumin 3.0 L Urine Color Urine Appearance Urine pH Ur Specific [place] Urine Protein Urine Glucose (UA) Urine Ketones Urine Blood Urine Nitrite Urine Bilirubin Urine Urobilinogen Ur Leukocyte Esterase Urine WBC (Auto) Urine RBC (Auto) Urine Casts (Auto) U Epithel Cells (Auto) Urine Bacteria (Auto) Urine HCG, Qual ASSESSMENT AND PLAN: 49 yof with PMhx of Diverticulosis, haemorrhoids, erosive gastritis, Diverticular bleed/blood loss anemia 03/2019, s/p endoclipping of bleeding diverticulum, also EGD with erosive gastritis, admitted with mid tranverse colonic perforation, after ambulatory colonoscopy today. -Mid transverse colonic perforation post colonoscopy s/p emergent ex-lap with mid transerve resection/right colostomy 07/22 -Colonic polyps s/p resection and larger polyp with snare/electrocautery -Leucocytosis, ?Stress induced from above, monitor for infection -Dehydration -Lactic acidosis -Hypomagnesemia -Colonic diverticulosis -Haemorrhoids -Diverticular bleed/blood loss anemia 03/2019, s/p endoclipping of bleeding diverticulum -Erosive gastritis Plan: NPO, NG drainage, serial abdominal exam. Surgery input noted, plan for PO once +gas or BM in colostomy. On dilaudid MACHINE WELDER Incentive spirometry, patient advised OOB and ambulation with assist as able. Emperic zosyn per surgery recs. ID input. Lactate normalized. Replete K/Mg. Monitor WBC/h/h DVTPPX per surgery PPI IV Dispo pending clinical improvement and per surgery Plan discussed with patient in detail, all questions answered.
--- NOTE | 2019-07-23 16:24 | PROC ---
Procedure Note Procedure: NGT tube removed by surgery team. Patient tolerated the procedure well.
[2019-07-23] MEDS ORDERED: ACETAMINOPHEN 1000 MG/100 ML VIAL (NON FORMULARY) IVPB PRN (16:26)
--- NOTE | 2019-07-23 16:29 | PN ---
Physical Exam: SUBJECTIVE: Patient seen and examined POD#1. Endorses burning sensation in throat. dull midline abd pain, worse with sitting upright, moving around. Denies flatus. No appetite. OBJECTIVE: Vital Signs Period Temp Pulse Resp BP Sys/Ren Pulse Ox Last 24 Hr 98.0 F-99 F 57-79 12-18 100-128/54-70 96-100 GENERAL: A&Ox3, NAD, . HEAD: NC/AT. EYES: sclera anicteric, conjunctiva clear. No ptosis. ENT: Ears normal, moist mucous membranes. NGT in place w/ bright bilious fluid NECK: Trachea midline, full range of motion, supple. LUNGS: Breath sounds equal, clear to auscultation bilaterally, no wheezes, no crackles, no accessory muscle use. HEART: Regular rate and rhythm, S1, S2 without murmur, rub or gallop. ABDOMEN: Midline surgical dressing in place with overlying ABD pad, no strikethrough. RLQ with pink, patent stoma. Ostomy bag w/o gas in bag, scant ss fluid. Hypoactive BS throughout abd. Mild paraincisional TTP. EXTREMITIES: 2+ pulses, warm, well-perfused, no edema. NEUROLOGICAL: Normal speech, gait not observed. PSYCH: mildly upset SKIN: Warm, dry, normal turgor, no rashes or lesions noted Laboratory Results - last 24 hr 07/22/19 07/22/19 07/22/19 17:20 17:20 18:45 WBC RBC Hgb Hct MCV MCH MCHC RDW Plt Count MPV Absolute Neuts (auto) Neutrophils % Lymphocytes % Monocytes % Eosinophils % Basophils % Nucleated RBC % Sodium Potassium Chloride Carbon Dioxide Anion Gap BUN Creatinine Est GFR (CKD-EPI)AfAm Est GFR (CKD-EPI)NonAf Random Glucose Lactic Acid 3.1 H* Calcium Phosphorus Magnesium Total Bilirubin AST ALT Alkaline Phosphatase Total Protein Albumin Urine Color Yellow Urine Appearance Clear Urine pH 8.0 D Ur Specific [place] 1.030 Urine Protein Negative Urine Glucose (UA) Trace Urine Ketones 1+ H Urine Blood 2+ H Urine Nitrite Negative Urine Bilirubin Negative Urine Urobilinogen 0.2 Ur Leukocyte Esterase Negative Urine WBC (Auto) 1 Urine RBC (Auto) 3 Urine Casts (Auto) 0 U Epithel Cells (Auto) 1.3 Urine Bacteria (Auto) 49.0 Urine HCG, Qual Negative 07/23/19 07/23/19 07/23/19 08:10 08:10 09:00 WBC 16.8 H RBC 4.22 Hgb 11.1 Hct 34.3 D MCV 81.3 MCH 26.4 MCHC 32.5 RDW 17.9 H Plt Count 294 MPV 8.6 Absolute Neuts (auto) 15.0 H Neutrophils % 89.1 H Lymphocytes % 5.5 L D Monocytes % 5.2 Eosinophils % 0.0 D Basophils % 0.2 Nucleated RBC % 0 Sodium 137 Potassium 3.4 L Chloride 106 Carbon Dioxide 24 Anion Gap 6 L BUN 6.3 L Creatinine 0.7 Est GFR (CKD-EPI)AfAm 117.91 Est GFR (CKD-EPI)NonAf 101.74 Random Glucose 120 H Lactic Acid 1.0 Calcium 8.0 L Phosphorus 3.1 Magnesium 1.7 L Total Bilirubin 1.0 AST 13 L ALT 11 L Alkaline Phosphatase 48 Total Protein 5.5 L Albumin 3.0 L Urine Color Urine Appearance Urine pH Ur Specific [place] Urine Protein Urine Glucose (UA) Urine Ketones Urine Blood Urine Nitrite Urine Bilirubin Urine Urobilinogen Ur Leukocyte Esterase Urine WBC (Auto) Urine RBC (Auto) Urine Casts (Auto) U Epithel Cells (Auto) Urine Bacteria (Auto) Urine HCG, Qual Active Medications Generic Name Dose Route Start Last Admin Trade Name Ladarius PRN Reason Stop Dose Admin Acetaminophen 1,000 mg 07/22/19 22:15 Ofirmev Injection - IVPB Q6H PRN PAIN Benzocaine/Butamben/Tetracaine HCl 1 spray 07/23/19 11:25 Cetacaine [place] - TP DAILY PRN PAIN Benzocaine/Menthol 1 each 07/23/19 12:40 Cepacol Lozenge - MM Q6H PRN SORE THROAT Heparin Sodium (Porcine) 5,000 unit 07/23/19 06:00 07/23/19 14:59 Heparin - SQ 5,000 unit TID PRASANNA Administration Hydromorphone HCl 10 mg 07/22/19 22:15 07/22/19 22:10 Hydromorphone 10 Mg/50 Ml-Ns DIRECTOR OF SOCIAL WORK 07/23/19 22:14 10 mg DIRECTOR OF SOCIAL WORK PRASANNA Administration Protocol Lactated Ringer's 1,000 mls @ 125 mls/hr 07/22/19 22:15 07/23/19 06:56 Lactated Ringers Solution IV 125 mls/hr ASDIR PRASANNA Administration Piperacillin Sod/Tazobactam 50 mls @ 100 mls/hr 07/23/19 18:00 Sod 3.375 gm/ Dextrose IVPB Q8H-IV PRASANNA Protocol Potassium Chloride 10 meq in 100 mls @ 100 mls/hr 07/23/19 16:00 Potassium Chloride 10 Meq Premix Ivpb - IVPB 07/23/19 18:59 Q60M PRASANNA Magnesium Sulfate 1 gm 07/23/19 15:50 Magnesium Sulfate IVPB 07/23/19 15:51 ONCE ONE Ondansetron HCl 4 mg 07/22/19 22:02 Zofran Injection IVPUSH Q6H PRN NAUSEA Ondansetron HCl 4 mg 07/22/19 22:08 Zofran Injection IVPUSH Q6H PRN NAUSEA AND/OR VOMITING Pantoprazole Sodium 40 mg 07/23/19 10:00 07/23/19 09:34 Protonix Iv IVPUSH 40 mg DAILY PRASANNA Administration ASSESSMENT/PLAN: 49F w/ pmh of diverticulosis, hemorrhoids, colonic polyps sent in to [facility] by [facility]) s/p colonoscopy(07/22/19) complicated by possible intraoperative perforation during polypectomy. CT A/P showing extraluminal free air consistent with perforation. S/p ex-lap, partial transverse colon resection w/ creation of end colostomy([facility], 07/22/19). POD#1. Pain control via dPCA. Awaiting ROBF. # severe abdominal pain --likely 2/2 perforated colon --s/p ex-lap, partial transverse colon resection w/ creation of end colostomy([facility], 07/22/19) > upright KUB(07/22/19): pneumoperitoneum > CT A/P w/ IV contrast(07/22/19): extraluminal air abutting midtransverse colon , free fluid in pelvis and Right paracolic space; Left hepatic lobe cyst ~1.3cm - s/p morphine 4mg, zofran 4mg, LR 1L x2 - pain control: dPCA 0.2mg q6min, ofirmev - NPO - zosyn - mIVF # leukocystosis --likely 2/2 reactive > WBC 16 - monitor # end colostomy --awaiting ROBF - monitor ostomy output - may require fluid replacements # throat pain --2/2 to NGT - cepacol lozenge PRN - cetacaine PRN # elevated lactic acid --likely 2/2 dehydration from colonoscopy --resolved > lactate 2.3, 3.1, 1.0 - IVF(s/p LR 1L x2, mIVF) # Left hepatic lobe cyst ~1.3cm - fu as outpt - #2 - LR @125 - NPO DVT - subqHep Visit type - Emergency Visit Emergency Visit: No - New Patient This patient is new to me today: No - Critical Care Critical Care patient: No ATTENDING PHYSICIAN STATEMENT I saw and evaluated the patient. I reviewed the resident's note and discussed the case with the resident. I agree with the resident's findings and plan as documented. SUBJECTIVE: OBJECTIVE: ASSESSMENT AND PLAN:
--- NOTE | 2019-07-23 16:35 | CON.ID ---
Consult Reason for Consultation:: antibiotic prophylaxis following pneumoperitoneum and colon resection - History of Present Illness Chief Complaint: abdominal pain History of Present Illness: Ms. Jaffe is a 49y/o female with diverticulosis, hemorrhoids, and colonic polyps who presents following polypectomy. Pt experienced abdominal pain and vomiting while eating following procedure and was found to have pneumoperitoneum on CT. A transverse colectomy with colostomy placement was performed, and pt was placed on Zosyn. She currently denies fever, chills, nausea, or vomiting. She is having abdominal "soreness" that is 8/10 but is controlled with pain medication. - History Source History Provided By: Patient Limitations to Obtaining History: No Limitations - Past Medical History IMAGING SERVICES DIRECTOR: Yes: Migraine (menstrual headaches) Gastrointestinal: Yes: Constipation, Diverticulosis (mild universal diverticulosis at 2011 colonoscopy), GI Bleed (summer 2018, required 4 units blood), Hemorrhoids, Peptic Ulcer Disease (1998 EGD suggested a DU scar), Other (hepatic flexure hyperplastic polyp removed at last colonoscopy in 2011) ...LMP: 07/18/19 ...: No Psych: Yes: Anxiety, Other (pre menstrual syndrome ) Musculoskeletal: Yes: Chronic low back pain Endocrine: Yes: Other (benign thyroid cyst ) - Past Surgical History Past Surgical History: Yes: Colonoscopy, , Cystectomy (thyroid ), Tonsillectomy (with adenoids), Upper Endoscopy - Alcohol/Substance Use Hx Alcohol Use: Yes (SOCIAL) Number of Drinks Daily: 2 History of Substance Use: reports: None, Marijuana (daily) - Smoking History Smoking history: Never smoked Have you smoked in the past 12 months: No Aproximately how many cigarettes per day: 0 - Social History Usual Living Arrangement: With Spouse ADL: Independent History of Recent Travel: Yes ([facility] (24 hr trip )) Home Medications - Allergies Allergies/Adverse Reactions: Allergies Allergy/AdvReac Type Severity Reaction Status Date / Time bacitracin Allergy Rash Verified 07/22/19 12:44 [From Neosporin ([id number])] - Home Medications Home Medications: Ambulatory Orders Pantoprazole Sodium [Protonix] 40 mg PO DAILY #30 tablet. 03/26/19 Family Medical History Other Family History: family hx of colonic polyps Review of Systems - Review of Systems Constitutional: denies: Chills, Fever Cardiovascular: denies: Chest Pain Gastrointestinal: reports: Abdominal Pain. denies: Nausea, Vomiting Physical Exam Vital Signs: Vital Signs Temperature 98.5 F 07/23/19 13:34 Pulse Rate 57 L 07/23/19 13:34 Respiratory Rate 18 07/23/19 13:34 Blood Pressure 116/63 07/23/19 13:34 O2 Sat by Pulse Oximetry (%) 96 07/23/19 09:00 Constitutional: Yes: Well Nourished, No Distress Eyes: Yes: Conjunctiva Clear, EOM Intact HENT: Yes: Atraumatic, Normocephalic Neck: Yes: Supple, Trachea Midline Cardiovascular: Yes: Regular Rate and Rhythm. No: Murmur Respiratory: Yes: CTA Bilaterally Gastrointestinal: Yes: Normal Bowel Sounds, Tenderness, Other (colostomy with no stool or gas, pink stoma, no erythema surrounding) Labs: CBC, BMP 07/23/19 08:10 07/23/19 08:10 Imaging - Results Cat Scan: Report Reviewed (2cm x 1cm focus of pneumoperitoneum abutting posterior inferior border of mid transverse colon with surrounding edema and small amount of free air), Image Reviewed EKG: Report Reviewed (NSR HR 62 QTc 422), Image Reviewed Assessment/Plan Ms. Jaffe is a 49y/o female with diverticulosis, hemorrhoids, and colonic polyps who presents following polypectomy. Pt experienced abdominal pain and vomiting while eating following procedure and was found to have pneumoperitoneum on CT and lactic acidosis. POD 1 from transverse colon resection with right colostomy placement. Pt is hemodynamically stable, afebrile , with leukocytosis. #sepsis -continue Zosyn 3.375mg Q8H -blood cultures for leukocytosis, although most likely reactive -CBC
--- NOTE | 2019-07-23 17:26 | PN ---
Teaching Attending Note Name of Resident: Celine Gordon ATTENDING PHYSICIAN STATEMENT I saw and evaluated the patient. I reviewed the resident's note and discussed the case with the resident. I agree with the resident's findings and plan as documented. SUBJECTIVE: OBJECTIVE: ASSESSMENT AND PLAN: POST OP HEMICOLECTOMY/ COLOSTOMY LEUKOCYTOSIS OBTAIN BC EMPIRIC ZOSYN
[2019-07-23] MEDS ORDERED: PIPERACILLIN/TAZOB 3.375 GM 3.375 GM in DEXTROSE 5%-WATER - 50 ML IVPB SCH (18:00)
[2019-07-23] MEDS ORDERED: DEXTROSE 5%-WATER - 50 ML IVPB ONE (18:12)
[2019-07-23] MEDS ORDERED: PIPERACILLIN/TAZOBACTAM 3.375 GM VIAL IVPB ONE (18:12)
[2019-07-23] MEDS: PIPERACILLIN/TAZOB 3.375 GM 3.375 GM in DEXTROSE 5%-WATER - 50 ML IVPB SCH (18:27)
--- NOTE | 2019-07-23 19:56 | PN.GI ---
GI Progress Note Subjective: GI NOte: Having the expected postop pain. NG is out. No colostomy gas yet. I answered Andreea's and her 's questions. - Objective Vital Signs: Vital Signs Temperature 99.1 F 07/23/19 19:02 Pulse Rate 71 07/23/19 19:02 Respiratory Rate 18 07/23/19 13:34 Blood Pressure 118/78 07/23/19 19:02 O2 Sat by Pulse Oximetry (%) 96 07/23/19 09:00 Laboratory Tests 07/22/19 07/22/19 07/22/19 13:30 13:30 18:45 WBC 9.8 Hgb 13.2 Potassium Lactic Acid 3.1 H* Total Bilirubin Albumin 4.2 07/23/19 07/23/19 07/23/19 08:10 08:10 09:00 WBC 16.8 H Hgb 11.1 Potassium 3.4 L Lactic Acid 1.0 Total Bilirubin 1.0 Albumin 3.0 L Constitutional: Anxious Gastrointestinal Inspection: Yes: Other (inactive RUQ colostomy, bandage midline incision ( not removed)) ...Auscultate: Yes: Hypoactive Bowel Sounds Labs: CBC, BMP 07/23/19 08:10 07/23/19 08:10 INR, PTT INR 0.99 (0.83-1.09) 07/22/19 13:30 Assessment/Plan Assessment; - Stable day #1 postop with RUQ colostomy and anticipated ileus - Polyp pathologies pending - Diverticular disease Plan: - ID consult appreciated - Postop care as per Dr Child Case discussed briefly with Dr Acosta, her PMD who visited today Problem List - Problems (1) Colostomy present Code(s): Z93.3 - COLOSTOMY STATUS (2) S/P partial colectomy Code(s): Z90.49 - ACQUIRED ABSENCE OF OTHER SPECIFIED PARTS OF DIGESTIVE TRACT (3) Colon polyps Code(s): K63.5 - POLYP OF COLON (4) Perforation of colon as colonoscopy complication Code(s): K63.1 - PERFORATION OF INTESTINE (NONTRAUMATIC); K91.71 - ACCIDENTAL PNCTR & LAC OF A DGSTV SYS ORG DUR DGSTV SYS PROC
[2019-07-23] MEDS: D5-1/2NS+10 MEQ KCL - 10 MEQ/1,000 ML INFUS.BAG IV SCH (20:14)
[2019-07-24] MEDS: KCL 10 MEQ IVPB 10 MEQ/100 ML INFUS.BAG IVPB SCH ×3 (00:10→08:17)
[2019-07-24] MEDS ORDERED: PIPERACILLIN/TAZOBACTAM 3.375 GM VIAL IVPB ONE ×3 (01:23→17:46)
[2019-07-24] MEDS ORDERED: DEXTROSE 5%-WATER - 50 ML IVPB ONE ×3 (01:23→17:47)
[2019-07-24] MEDS: PIPERACILLIN/TAZOB 3.375 GM 3.375 GM in DEXTROSE 5%-WATER - 50 ML IVPB SCH ×3 (01:48→18:02)
[2019-07-24] MEDS: D5-1/2NS+10 MEQ KCL - 10 MEQ/1,000 ML INFUS.BAG IV SCH ×2 (05:45→14:40)
[2019-07-24] MEDS: HEPARIN NA (PORCINE) 5,000 UNITS/ML 1ML VIAL SQ SCH ×3 (05:46→21:26)
[2019-07-24 08:26] LABS: BASO % 0.3 % (0-2.0); EOS % 0.2 % (0-4.5); HEMATOCRIT 33.9 % (32.4-45.2); HEMOGLOBIN 11.2 GM/dL (10.7-15.3); LYMPH % 7.9 % (8-40); MCH 26.9 pg (25.7-33.7); MCHC 32.9 g/dl (32.0-36.0); MEAN CELL VOLUME 81.7 fl (80-96); MEAN PLT VOLUME 8.8 fl (7.5-11.1); MONO % 5.9 % (3.8-10.2); NEUT % 85.7 % (42.8-82.8); PLATELET COUNT 275 K/MM3 (134-434); RBC 4.15 M/mm3 (3.60-5.2); RDW 17.9 % (11.6-15.6); WHITE BLOOD COUNT 9.7 K/mm3 (4.0-10.0)
[2019-07-24 08:51] LABS: BLOOD UREA NITROGEN 3.6 mg/dL (7-18); CALCIUM 7.9 mg/dL (8.5-10.1); CREATININE 0.6 mg/dL (0.55-1.3); PHOSPHOROUS 1.9 mg/dL (2.5-4.9)
--- NOTE | 2019-07-24 08:55 | PN ---
Progress Note (short form) - Note Progress Note: GENERAL SURGERY POD #2 Alert. Supine in bed. Hasn't been oob yet. C/o incisional tenderness. Adequate pain control via CASING IN LINE FEEDER . Denies n/v/f/c, CP, palpitatios, SOB or ARRIAGA. Denies any flatus in the bag. Last Vital Signs Temp Pulse Resp BP Pulse Ox 98.9 F 76 18 127/73 95 07/24/19 06:19 07/24/19 06:19 07/24/19 06:19 07/24/19 06:19 07/23/19 21:00 CBC, BMP 07/24/19 07:26 07/24/19 07:26 Gen: nad ABD: midline incision open from below xiphoid to periumbilicus (umbilcal miguelito for approximation. Wound irriagted, deep fascia intact. RUQ ostomy viable (pink, slight protrusion, not producing yet) : Hoang (UOP>30mL/hr) LE: SCDs bilat. Soft. NT. Negative swelling/edema Problem List - Problems (1) Perforation of colon as colonoscopy complication Assessment/Plan: POD #2 s/p s/p segmental transverse colon resection and end colostomy GOALS FOR TODAY DC hoang and begin TOV OOB to chair as well as begin ambulating Incentive spirometer CASING IN LINE FEEDER --> begin to transition to PO pain meds tomorrow CBC, BMP in AM Dressing changed while on rounds. --> daily dressing changes ordered Surgery to cont following Code(s): K63.1 - PERFORATION OF INTESTINE (NONTRAUMATIC); K91.71 - ACCIDENTAL PNCTR & LAC OF A DGSTV SYS ORG DUR DGSTV SYS PROC (2) Colon polyps Code(s): K63.5 - POLYP OF COLON
[2019-07-24] MEDS ORDERED: SODIUM PHOSPHATE - 20 MM in DEXTROSE 5%-WATER - 250 ML IVPB ONE (10:00)
[2019-07-24] MEDS: PANTOPRAZOLE SODIUM 40 MG VIAL IVPUSH SCH (10:26)
--- NOTE | 2019-07-24 11:44 | PN ---
Teaching Attending Note Name of Resident: Gianni Boyer ATTENDING PHYSICIAN STATEMENT I saw and evaluated the patient. I reviewed the resident's note and discussed the case with the resident. I agree with the resident's findings and plan as documented with exceptions below. SUBJECTIVE: Patient seen and examined. still with abdominal pain, no nausea, vomiting, fevers or chills, no flatus or BM in the colostomy yet. OBJECTIVE: Vital Signs Period Temp Pulse Resp BP Sys/Ren Pulse Ox Last 24 Hr 98.3 F-99.1 F 57-78 16-18 116-127/62-78 95 Intake & Output 07/21/19 07/22/19 07/23/19 07/24/19 23:59 23:59 23:59 23:59 Intake Total 2800 2875 1750 Output Total 1150 2000 1100 Balance 1650 875 650 Weight 162 lb 162 lb General: sitting in chair, no acute distress chest: CTAB, no rales or wheezing Abdomen:soft, distension around the surgical site, no voluntary or involuntary guarding or rigidity, pink stoma with no stool, pos bowel sounds Extremities: no edema Home Medications Medication Instructions Recorded Pantoprazole Sodium [Protonix] 40 mg PO DAILY #30 tablet. 03/26/19 Active Medications Acetaminophen (Ofirmev Injection -) 1,000 mg IVPB Q6H PRN PRN Reason: PAIN LEVEL 6-10 Benzocaine/Butamben/Tetracaine HCl (Cetacaine [place] -) 1 spray TP DAILY PRN PRN Reason: PAIN Benzocaine/Menthol (Cepacol Lozenge -) 1 each MM Q6H PRN PRN Reason: SORE THROAT Heparin Sodium (Porcine) (Heparin -) 5,000 unit SQ TID PRASANNA Last Admin: 07/24/19 05:46 Dose: 5,000 unit Piperacillin Sod/Tazobactam (Sod 3.375 gm/ Dextrose) 50 mls @ 100 mls/hr IVPB Q8H-IV PRASANNA; Protocol Last Admin: 07/24/19 10:26 Dose: 100 mls/hr Potassium Chloride/Dextrose/Sod Cl (D5-1/2ns+10 Meq Kcl -) 10 meq in 1,000 mls @ 125 mls/hr IV ASDIR PRASANNA Last Admin: 07/24/19 05:45 Dose: 125 mls/hr Sodium Phosphate 20 mm/ (Dextrose) 256.6667 mls @ 64.16 mls/hr IVPB ONCE ONE Stop: 07/24/19 14:00 Ondansetron HCl (Zofran Injection) 4 mg IVPUSH Q6H PRN PRN Reason: NAUSEA Ondansetron HCl (Zofran Injection) 4 mg IVPUSH Q6H PRN PRN Reason: NAUSEA AND/OR VOMITING Pantoprazole Sodium (Protonix Iv) 40 mg IVPUSH DAILY PRASANNA Last Admin: 07/24/19 10:26 Dose: 40 mg Laboratory Results - last 24 hr 07/24/19 07/24/19 07:26 07:26 WBC 9.7 RBC 4.15 Hgb 11.2 Hct 33.9 MCV 81.7 MCH 26.9 MCHC 32.9 RDW 17.9 H Plt Count 275 MPV 8.8 Absolute Neuts (auto) 8.3 H Neutrophils % 85.7 H Lymphocytes % 7.9 L D Monocytes % 5.9 Eosinophils % 0.2 D Basophils % 0.3 Nucleated RBC % 0 Sodium 137 Potassium 4.0 Chloride 107 Carbon Dioxide 26 Anion Gap 4 L BUN 3.6 L Creatinine 0.6 Est GFR (CKD-EPI)AfAm 124.05 Est GFR (CKD-EPI)NonAf 107.03 Random Glucose 115 H Calcium 7.9 L Phosphorus 1.9 L Magnesium 2.0 Microbiology 07/22/19 17:20 Urine - Urine Clean Catch Urine Culture - Final NO GROWTH OBTAINED ASSESSMENT AND PLAN: 49 yof with PMhx of Diverticulosis, haemorrhoids, erosive gastritis, Diverticular bleed/blood loss anemia 03/2019, s/p endoclipping of bleeding diverticulum, also EGD with erosive gastritis, admitted with mid tranverse colonic perforation, after ambulatory colonoscopy today. -Mid transverse colonic perforation post colonoscopy s/p emergent ex-lap with mid transerve resection/right colostomy 07/22 -Colonic polyps s/p resection and larger polyp with snare/electrocautery -Leucocytosis, ?Stress induced from above, monitor for infection -Dehydration -Lactic acidosis -Hypomagnesemia -Colonic diverticulosis -Haemorrhoids -Diverticular bleed/blood loss anemia 03/2019, s/p endoclipping of bleeding diverticulum -Erosive gastritis Plan: NPO, serial abdominal exam. NG tube removed, plan per surgery. Surgery input noted, Plan for PO once +gas or BM in colostomy. 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 Incentive spirometry, patient advised aggressive OOB and ambulation with assist as able. JASMIN Arzola input noted. WBC normalized. Replete K/Mg prn. DVTPPX per surgery PPI IV Dispo pending clinical improvement and per surgery Plan discussed with patient in detail, all questions answered.
--- NOTE | 2019-07-24 11:55 | PN ---
Physical Exam: SUBJECTIVE: Patient seen and examined NAEON. Had NGT removed by surgical team. Endorses midline abd pain, overlying dressing in place w/o strikethrough. Denies appetite. Denies flatus. dPCA at bedside OBJECTIVE: Vital Signs Period Temp Pulse Resp BP Sys/Ren Pulse Ox Last 24 Hr 98.3 F-99.1 F 57-78 16-18 116-127/62-78 95 GENERAL: A&Ox3, NAD HEAD: NC/AT. EYES: sclera anicteric, conjunctiva clear. No ptosis. ENT: Ears normal, moist mucous membranes. NECK: Trachea midline, full range of motion, supple. LUNGS: Breath sounds equal, clear to auscultation bilaterally, no wheezes, no crackles, no accessory muscle use. IS ~1200ml HEART: Regular rate and rhythm, S1, S2 without murmur, rub or gallop. ABDOMEN: Midline surgical dressing in place with overlying ABD pad, no strikethrough. RLQ with pink, patent stoma. Ostomy bag w/o gas in bag, scant ss fluid. Hypoactive BS throughout abd. Mild paraincisional TTP. EXTREMITIES: 2+ pulses, warm, well-perfused, no edema. NEUROLOGICAL: Normal speech, gait not observed. PSYCH: mildly upset SKIN: Warm, dry, normal turgor, no rashes or lesions noted Laboratory Results - last 24 hr 07/24/19 07/24/19 07:26 07:26 WBC 9.7 RBC 4.15 Hgb 11.2 Hct 33.9 MCV 81.7 MCH 26.9 MCHC 32.9 RDW 17.9 H Plt Count 275 MPV 8.8 Absolute Neuts (auto) 8.3 H Neutrophils % 85.7 H Lymphocytes % 7.9 L D Monocytes % 5.9 Eosinophils % 0.2 D Basophils % 0.3 Nucleated RBC % 0 Sodium 137 Potassium 4.0 Chloride 107 Carbon Dioxide 26 Anion Gap 4 L BUN 3.6 L Creatinine 0.6 Est GFR (CKD-EPI)AfAm 124.05 Est GFR (CKD-EPI)NonAf 107.03 Random Glucose 115 H Calcium 7.9 L Phosphorus 1.9 L Magnesium 2.0 Active Medications Generic Name Dose Route Start Last Admin Trade Name Freq PRN Reason Stop Dose Admin Acetaminophen 1,000 mg 07/23/19 16:26 Ofirmev Injection - IVPB Q6H PRN PAIN LEVEL 6-10 Benzocaine/Butamben/Tetracaine HCl 1 spray 07/23/19 11:25 Cetacaine [place] - TP DAILY PRN PAIN Benzocaine/Menthol 1 each 07/23/19 12:40 Cepacol Lozenge - MM Q6H PRN SORE THROAT Heparin Sodium (Porcine) 5,000 unit 07/23/19 06:00 07/24/19 05:46 Heparin - SQ 5,000 unit TID PRASANNA Administration Piperacillin Sod/Tazobactam 50 mls @ 100 mls/hr 07/23/19 18:00 07/24/19 10:26 Sod 3.375 gm/ Dextrose IVPB 100 mls/hr Q8H-IV PRASANNA Administration Protocol Potassium Chloride/Dextrose/Sod Cl 10 meq in 1,000 mls @ 125 mls/hr 07/23/19 20:00 07/24/19 05:45 D5-1/2ns+10 Meq Kcl - IV 125 mls/hr ASDIR PRASANNA Administration Sodium Phosphate 20 mm/ 256.6667 mls @ 64.16 mls/hr 07/24/19 10:00 Dextrose IVPB 07/24/19 14:00 ONCE ONE 20 MM/4 HR Ondansetron HCl 4 mg 07/22/19 22:02 Zofran Injection IVPUSH Q6H PRN NAUSEA Ondansetron HCl 4 mg 07/22/19 22:08 Zofran Injection IVPUSH Q6H PRN NAUSEA AND/OR VOMITING Pantoprazole Sodium 40 mg 07/23/19 10:00 07/24/19 10:26 Protonix Iv IVPUSH 40 mg DAILY PRASANNA Administration ASSESSMENT/PLAN: 49F w/ pmh of diverticulosis, hemorrhoids, colonic polyps sent in to [facility] by GI(Yuval) s/p colonoscopy(07/22/19) complicated by possible intraoperative perforation during polypectomy. CT A/P showing extraluminal free air consistent with perforation. S/p ex-lap, partial transverse colon resection w/ creation of end colostomy(Danyell, 07/22/19). POD#2. Pain control via dPCA, will transition to dilaudid IV PRN then possible PO tomorrow. Awaiting ROBF. # severe abdominal pain --likely 2/2 perforated colon --s/p ex-lap, partial transverse colon resection w/ creation of end colostomy(Child, 07/22/19) > upright KUB(07/22/19): pneumoperitoneum > CT A/P w/ IV contrast(07/22/19): extraluminal air abutting midtransverse colon , free fluid in pelvis and Right paracolic space; Left hepatic lobe cyst ~1.3cm - s/p morphine 4mg, zofran 4mg, LR 1L x2 - pain control: dPCA 0.2mg q6min, ofirmev --> dilaudid 2mg q4h PRN, ofirmev PRN - PT eval --pending - Activity: OOB, activity as tolerated - NPO - IV abx: --ID(Sky) consult: --cw zosyn --day 3 > fu BCX(07/23/19) --NGTD - mIVF # leukocystosis --likely 2/2 reactive to surgery --resolved > WBC 16, 9.7 - monitor # end colostomy --awaiting ROBF - monitor ostomy output - may require fluid replacements # throat pain --2/2 to NGT - cepacol lozenge PRN - cetacaine PRN # elevated lactic acid --likely 2/2 dehydration from colonoscopy --resolved > lactate 2.3, 3.1, 1.0 - IVF(s/p LR 1L x2, mIVF) # Left hepatic lobe cyst ~1.3cm - fu as outpt - day #2 -- to be dc'd today - D5 1/2NS @125 - NPO DVT - subqHep TID Visit type - Emergency Visit Emergency Visit: No - New Patient This patient is new to me today: No - Critical Care Critical Care patient: No ATTENDING PHYSICIAN STATEMENT I saw and evaluated the patient. I reviewed the resident's note and discussed the case with the resident. I agree with the resident's findings and plan as documented. SUBJECTIVE: OBJECTIVE: ASSESSMENT AND PLAN:
[2019-07-24] MEDS ORDERED: HYDROmorphone HCl 2 MG/ML VIAL IVPUSH PRN (13:23)
[2019-07-24] MEDS ORDERED: PT OWN MED DRAWER 7, Y5N ONE (13:45)
[2019-07-24] MEDS ORDERED: ACETAMINOPHEN 1000 MG/100 ML VIAL (NON FORMULARY) IVPB PRN (14:10)
--- NOTE | 2019-07-24 14:38 | PN ---
Progress Note (short form) - Note Progress Note: ANesthesia /pain management follow up DIABETES EDUCATOR discontinued, patient doing well.
[2019-07-24] MEDS ORDERED: HYDROmorphone HCl 2 MG/ML VIAL IVPB PRN (15:18)
--- NOTE | 2019-07-24 16:03 | PN ---
<Celine Gordon - Last Filed: 07/24/19 18:08> Progress Note, Physician Chief Complaint: colon resection with colectomy History of Present Illness: Ms. Jaffe is a 49y/o female with diverticulosis, hemorrhoids, and colonic polyps who presents following polypectomy. Pt experienced abdominal pain and vomiting while eating following procedure and was found to have pneumoperitoneum on CT. A transverse colectomy with colostomy placement was performed, and pt was placed on Zosyn. She currently denies fever, chills, nausea, or vomiting. Her abdominal pain is improving (6/10) and is more prominent on the lateral aspects of the abdomen. She reports being ambulatory. - Current Medication List Current Medications: Active Medications Acetaminophen (Ofirmev Injection -) 1,000 mg IVPB Q6H PRN PRN Reason: PAIN LEVEL 1-5 Benzocaine/Butamben/Tetracaine HCl (Cetacaine [place] -) 1 spray TP DAILY PRN PRN Reason: PAIN Benzocaine/Menthol (Cepacol Lozenge -) 1 each MM Q6H PRN PRN Reason: SORE THROAT Heparin Sodium (Porcine) (Heparin -) 5,000 unit SQ TID [facility] Last Admin: 07/24/19 14:40 Dose: 5,000 unit Hydromorphone HCl (Dilaudid Vial -) 1 mg IVPB Q4H PRN PRN Reason: PAIN LEVEL 6-10 Piperacillin Sod/Tazobactam (Sod 3.375 gm/ Dextrose) 50 mls @ 100 mls/hr IVPB Q8H-IV PRASANNA; Protocol Last Admin: 07/24/19 10:26 Dose: 100 mls/hr Potassium Chloride/Dextrose/Sod Cl (D5-1/2ns+10 Meq Kcl -) 10 meq in 1,000 mls @ 125 mls/hr IV ASDIR [facility] Last Admin: 07/24/19 14:40 Dose: 125 mls/hr Ondansetron HCl (Zofran Injection) 4 mg IVPUSH Q6H PRN PRN Reason: NAUSEA Ondansetron HCl (Zofran Injection) 4 mg IVPUSH Q6H PRN PRN Reason: NAUSEA AND/OR VOMITING Pantoprazole Sodium (Protonix Iv) 40 mg IVPUSH DAILY [facility] Last Admin: 07/24/19 10:26 Dose: 40 mg - Objective Vital Signs: Vital Signs Temperature 98.0 F 07/24/19 14:00 Pulse Rate 85 07/24/19 14:00 Respiratory Rate 18 07/24/19 14:00 Blood Pressure 123/69 07/24/19 14:00 O2 Sat by Pulse Oximetry (%) 98 07/24/19 09:00 Constitutional: Yes: Well Nourished, No Distress Eyes: Yes: Conjunctiva Clear, EOM Intact HENT: Yes: Atraumatic, Normocephalic Neck: Yes: Supple, Trachea Midline Cardiovascular: Yes: Regular Rate and Rhythm. No: Murmur Respiratory: Yes: CTA Bilaterally Gastrointestinal: Yes: Normal Bowel Sounds, Soft, Other (right side ostomy with small amount clear/brown fluid) Edema: No Wound/Incision: Yes: Other (pink stoma with no erythema surrounding stoma or incision) Neurological: Yes: Alert, Oriented Labs: CBC, BMP 07/24/19 07:26 07/24/19 07:26 INR, PTT INR 0.99 (0.83-1.09) 07/22/19 13:30 Impression/Plan Impression/Plan: Ms. Jaffe is a 49y/o female with diverticulosis, hemorrhoids, and colonic polyps who presents following polypectomy. Pt experienced abdominal pain and vomiting while eating following procedure and was found to have pneumoperitoneum on CT and lactic acidosis. POD 2 from transverse colon resection with right colostomy placement. Afebrile. Leukocytosis resolved, most likely from stress reaction. Lactic acidosis resolved. #sepsis, resolved #post-op prophylaxis -Zosyn 3.375mg Q8H (day 2) -blood cultures pending -CBC Visit type - Emergency Visit Emergency Visit: Yes ED Registration Date: 07/22/19 Care time: The patient presented to the Emergency Department on the above date and was hospitalized for further evaluation of their emergent condition. - New Patient This patient is new to me today: No - Critical Care Critical Care patient: No - Discharge Referral Referred to [facility] Med P.C.: No ATTENDING PHYSICIAN STATEMENT I saw and evaluated the patient. I reviewed the resident's note and discussed the case with the resident. I agree with the resident's findings and plan as documented. SUBJECTIVE: OBJECTIVE: ASSESSMENT AND PLAN: <Rg Swanson - Last Filed: 07/25/19 00:10> Progress Note, Physician - Current Medication List Current Medications: Active Medications Acetaminophen (Ofirmev Injection -) 1,000 mg IVPB Q6H PRN PRN Reason: PAIN LEVEL 1-5 Last Admin: 07/24/19 18:52 Dose: 1,000 mg Benzocaine/Butamben/Tetracaine HCl (Cetacaine [place] -) 1 spray TP DAILY PRN PRN Reason: PAIN Benzocaine/Menthol (Cepacol Lozenge -) 1 each MM Q6H PRN PRN Reason: SORE THROAT Heparin Sodium (Porcine) (Heparin -) 5,000 unit SQ TID PRASANNA Last Admin: 07/24/19 21:26 Dose: 5,000 unit Hydromorphone HCl (Dilaudid Vial -) 0.5 mg IVPB Q4H PRN PRN Reason: PAIN LEVEL 6-10 Last Admin: 07/24/19 20:07 Dose: 0.5 mg Piperacillin Sod/Tazobactam (Sod 3.375 gm/ Dextrose) 50 mls @ 100 mls/hr IVPB Q8H-IV PRASANNA; Protocol Last Admin: 07/24/19 18:02 Dose: 100 mls/hr Potassium Chloride/Dextrose/Sod Cl (D5-1/2ns+10 Meq Kcl -) 10 meq in 1,000 mls @ 125 mls/hr IV ASDIR PRASANNA Last Admin: 07/24/19 14:40 Dose: 125 mls/hr Ondansetron HCl (Zofran Injection) 4 mg IVPUSH Q6H PRN PRN Reason: NAUSEA Ondansetron HCl (Zofran Injection) 4 mg IVPUSH Q6H PRN PRN Reason: NAUSEA AND/OR VOMITING Pantoprazole Sodium (Protonix Iv) 40 mg IVPUSH DAILY [facility] Last Admin: 07/24/19 10:26 Dose: 40 mg - Objective Vital Signs: Vital Signs Temperature 98.0 F 07/24/19 14:00 Pulse Rate 85 07/24/19 14:00 Respiratory Rate 18 07/24/19 14:00 Blood Pressure 123/69 07/24/19 14:00 O2 Sat by Pulse Oximetry (%) 98 07/24/19 09:00 Labs: CBC, BMP 07/24/19 07:26 07/24/19 07:26 INR, PTT INR 0.99 (0.83-1.09) 07/22/19 13:30 ATTENDING PHYSICIAN STATEMENT I saw and evaluated the patient. I reviewed the resident's note and discussed the case with the resident. I agree with the resident's findings and plan as documented. SUBJECTIVE: OBJECTIVE: ASSESSMENT AND PLAN: S/P TRANSVERSE COLON RESECTION, COLOSTOMY LEUKOCYTOSIS IMPROVED LACTIC ACIDOSIS RESOLVED AWAIT C/S CONTINUE EMPIRIC ZOSYN
--- NOTE | 2019-07-24 19:18 | PN.GI ---
GI Progress Note Subjective: GI NOte: Got up and walked and climbed stairs today./ Viera out. No ostomy output however. CARE ASST stopped. I informed Andreea that her polyp path was benign - Objective Vital Signs: Vital Signs Temperature 98.0 F 07/24/19 14:00 Pulse Rate 85 07/24/19 14:00 Respiratory Rate 18 07/24/19 14:00 Blood Pressure 123/69 07/24/19 14:00 O2 Sat by Pulse Oximetry (%) 98 07/24/19 09:00 Laboratory Tests 07/23/19 07/24/19 07/24/19 08:10 07:26 07:26 WBC 16.8 H 9.7 Potassium 4.0 Constitutional: Calm Gastrointestinal Inspection: Yes: Other (no ostomy output) ...Auscultate: Yes: Hypoactive Bowel Sounds ...Palpate: Yes: Other Labs: CBC, BMP 07/24/19 07:26 07/24/19 07:26 INR, PTT INR 0.99 (0.83-1.09) 07/22/19 13:30 Assessment/Plan Assessment; - Stable day #2 postop with RUQ colostomy. Ileus improving - Polyp pathologies pending - Diverticular disease Plan: - Postop care as per Dr Child Problem List - Problems (1) Colostomy present Code(s): Z93.3 - COLOSTOMY STATUS (2) S/P partial colectomy Code(s): Z90.49 - ACQUIRED ABSENCE OF OTHER SPECIFIED PARTS OF DIGESTIVE TRACT (3) Colon polyps Code(s): K63.5 - POLYP OF COLON (4) Perforation of colon as colonoscopy complication Code(s): K63.1 - PERFORATION OF INTESTINE (NONTRAUMATIC); K91.71 - ACCIDENTAL PNCTR & LAC OF A DGSTV SYS ORG DUR DGSTV SYS PROC
[2019-07-24] MEDS: HYDROmorphone HCl 2 MG/ML VIAL IVPB PRN (20:07)
[2019-07-25] MEDS ORDERED: DEXTROSE 5%-WATER - 50 ML IVPB ONE ×3 (01:54→17:21)
[2019-07-25] MEDS ORDERED: PIPERACILLIN/TAZOBACTAM 3.375 GM VIAL IVPB ONE ×3 (01:54→17:21)
[2019-07-25] MEDS: PIPERACILLIN/TAZOB 3.375 GM 3.375 GM in DEXTROSE 5%-WATER - 50 ML IVPB SCH ×3 (01:56→17:22)
[2019-07-25] MEDS: HYDROmorphone HCl 2 MG/ML VIAL IVPB PRN ×3 (03:14→21:49)
[2019-07-25] MEDS: HEPARIN NA (PORCINE) 5,000 UNITS/ML 1ML VIAL SQ SCH ×3 (06:36→21:54)
[2019-07-25 08:57] LABS: BASO % 0.3 % (0-2.0); HEMATOCRIT 34.4 % (32.4-45.2); HEMOGLOBIN 11.2 GM/dL (10.7-15.3); LYMPH % 12.2 % (8-40); MCH 26.3 pg (25.7-33.7); MCHC 32.5 g/dl (32.0-36.0); MEAN CELL VOLUME 81.1 fl (80-96); MEAN PLT VOLUME 8.4 fl (7.5-11.1); MONO % 5.1 % (3.8-10.2); NEUT % 81.4 % (42.8-82.8); PLATELET COUNT 319 K/MM3 (134-434); RBC 4.24 M/mm3 (3.60-5.2); WHITE BLOOD COUNT 6.5 K/mm3 (4.0-10.0)
--- NOTE | 2019-07-25 09:09 | PN ---
Progress Note (short form) - Note Progress Note: POD 3, s/p segmental transverse colon resection and end colostomy Pt seen and examined. Reports she is feeling "okay". Has some pain, controlled by current pain regimen. Was oob to restroom multiple times yesterday. NPO. Voiding without issue. Denies cp/sob, n/v/d. Vital Signs Temp 98.4 F 07/25/19 05:38 Pulse 72 07/25/19 05:38 Resp 18 07/25/19 05:38 BP 133/74 07/25/19 05:38 Pulse Ox 97 07/24/19 21:00 Intake & Output 07/24/19 07/24/19 07/25/19 11:59 23:59 11:59 Intake Total 1750 1225 600 Output Total 1100 1400 Balance 650 -175 600 Intake: IV 1500 875 500 D5-1/2NS+10 MEQ KCL - 10 1500 875 500 meq In 1,000 ml @ 125 mls /hr IV ASDIR PRASANNA Rx#: [id number] IVPB 250 350 100 Oral 0 0 0 Output: Urine 1100 1400 Viera 1100 Void 1400 Other: Voiding Method Indwelling Catheter Toilet # Unmeasured Voids Void 1 2 Bowel Movement No CBC, BMP 07/25/19 08:10 Gen: awake, alert, nad Resp: Unlabored on RA ABdo: soft, +ttp diffusely, no rebound or guarding. Dressing removed. Proximal portion of wound intact, miguelito intact, distal incision with granulation tissue present, no erythema. Scant serous drainage. No foul odor. Repacked with damp to dry gauze, covered with 4x4s and abd pads. Colostomy viable with small amount of liquid stool in bag. A/P: 49 y/o F w/ PMHx diverticulosis, hemorrhoids, colonic polyps admitted on after being sent by [facility]) s/p colonoscopy(07/22/19) complicated by intraoperative perforation during polypectomy, now POD 3, s/p segmental transverse colon resection and end colostomy. Afebrile, VSS Labs stable -Continue oob and ambulating -Incentive spirometer -Pain regimen per anesthesia -Ostomy care per orders -Continue NPO, minimal function of ostomy, will likely advance diet to clears tomorrow pending ostomy output -Monitor i&os -VS per protocol -Remainder of care per primary team pt seen and examined with attending Dr Child
[2019-07-25 09:19] LABS: BLOOD UREA NITROGEN 3.9 mg/dL (7-18); CALCIUM 8.3 mg/dL (8.5-10.1); CREATININE 0.6 mg/dL (0.55-1.3); MAGNESIUM 2.2 mg/dL (1.8-2.4); POTASSIUM 3.6 mmol/L (3.5-5.1)
[2019-07-25] MEDS: PANTOPRAZOLE SODIUM 40 MG VIAL IVPUSH SCH (09:29)
[2019-07-25] MEDS ORDERED: HYDROmorphone HCl 2 MG/ML VIAL IVPUSH PRN (10:09)
[2019-07-25] MEDS ORDERED: HYDROmorphone HCl 2 MG/ML VIAL IVPB PRN (10:26)
--- NOTE | 2019-07-25 10:50 | OP ---
DATE OF OPERATION: 07/22/2019 PREOPERATIVE DIAGNOSIS: Pneumoperitoneum. POSTOPERATIVE DIAGNOSIS: Pneumoperitoneum secondary to iatrogenic transverse colon perforation during colonoscopy and polypectomy. PROCEDURE: Segmental transverse colon resection and end colostomy. SURGEON: Silvano Child MD JAVA WEB ARCHITECT: ALONSO Finn ANESTHESIA: General. OPERATIVE FINDINGS: There was an anterior perforation at the mid transverse colon consisting of a thermal injury by history from polypectomy. There was extension of the injury into the mesentery for a short distance. There was no evidence of intra-abdominal abscess. There was minimal contamination. The rest of the findings were unremarkable. DESCRIPTION OF PROCEDURE: The patient was placed on the operating room table in supine position. After the induction of general anesthesia and placement of a Viera catheter and sequential compression devices on the patient's lower extremities, the abdomen was prepped with ChloraPrep and draped in a sterile fashion. A time- out was taken, and the peritoneal cavity was entered through a midline incision. The previously noted findings were observed. The greater omentum proximal and distal and at the perforation were mobilized and excised using the LigaSure device. The colon was then isolated proximally and distally and resected using ISIAH stapling device. The mesentery was subsequently divided using a LigaSure device. The excised portion of the colon was sent for pathological examination. Next, the right colon and hepatic flexure were mobilized using the LigaSure device until enough length was obtained to bring up the proximal transverse colon through the right side of the abdominal wall for the colostomy. Next, an opening in the abdominal wall was made below the right costal margin and the proximal colon brought through this and temporarily held in place with [place] clamps. Hemostasis was checked for and noted to be good and then the abdomen was copiously irrigated and the distal segment involving the distal transverse colon and remainder of the left colon were dropped back into the peritoneal cavity. The peritoneal cavity was then closed in a single layer using continuous looped Maxon suture. The area around the umbilicus was reapproximated with surgical miguelito are the wound was copiously irrigated with sterile saline. The colostomy was then matured by excising the suture line and suturing the end of the colon to the abdominal wall with interrupted 3-0 Vicryl sutures. At this point, the mucosa was noted to be viable. The ostomy appliance and bag were placed, and the wound was packed with iodoform gauze and dressed with 4 x 4's and Medipore tape and the patient aroused from general anesthesia and transferred to the post anesthesia care unit in stable condition awake and alert. ESTIMATED BLOOD LOSS: 150 mL. REPLACEMENTS: Crystalloid. DRAINS: None. SPECIMEN: Segmental portion of transverse colon to Pathology. I, Silvano Child, was physically present in the operating room from the time the patient was placed on the operating room table until she was transferred to the post anesthesia care unit in [employer] MD DON Whittaker/[id number] MTDD
[2019-07-25] MEDS: D5-1/2NS+10 MEQ KCL - 10 MEQ/1,000 ML INFUS.BAG IV SCH ×2 (12:00→20:00)
--- NOTE | 2019-07-25 15:00 | PN ---
Teaching Attending Note Name of Resident: Gianni Boyer ATTENDING PHYSICIAN STATEMENT I saw and evaluated the patient. I reviewed the resident's note and discussed the case with the resident. I agree with the resident's findings and plan as documented with exceptions below. SUBJECTIVE: Patient seen and examined. still with no gas or BM in colostomy. No nausea, vomiting, fevers, chills or concerns. OBJECTIVE: Vital Signs Period Temp Pulse Resp BP Sys/Ren Pulse Ox Last 24 Hr 97.8 F-99.4 F 70-79 18-20 129-139/71-81 96-97 Intake & Output 07/22/19 07/23/19 07/24/19 07/25/19 23:59 23:59 23:59 23:59 Intake Total 2800 2875 2975 600 Output Total 1150 2000 2500 Balance 1650 875 475 600 Weight 162 lb 162 lb General: sitting in chair in no acute distress Chest: CTAB, no rales or wheezing Abdomen:soft, mild tenderness around surgical site, stoma pink, pos bowel sounds Extremities: no edema Home Medications Medication Instructions Recorded Pantoprazole Sodium [Protonix] 40 mg PO DAILY #30 tablet. 03/26/19 Active Medications Acetaminophen (Ofirmev Injection -) 1,000 mg IVPB Q6H PRN PRN Reason: PAIN LEVEL 1-5 Last Admin: 07/24/19 18:52 Dose: 1,000 mg Benzocaine/Butamben/Tetracaine HCl (Cetacaine [place] -) 1 spray TP DAILY PRN PRN Reason: PAIN Benzocaine/Menthol (Cepacol Lozenge -) 1 each MM Q6H PRN PRN Reason: SORE THROAT Heparin Sodium (Porcine) (Heparin -) 5,000 unit SQ TID PRASANNA Last Admin: 07/25/19 13:57 Dose: 5,000 unit Hydromorphone HCl (Dilaudid Vial -) 0.5 mg IVPB Q4H PRN PRN Reason: PAIN LEVEL 6-10 Last Admin: 07/25/19 11:59 Dose: 0.5 mg Piperacillin Sod/Tazobactam (Sod 3.375 gm/ Dextrose) 50 mls @ 100 mls/hr IVPB Q8H-IV PRASANNA; Protocol Last Admin: 07/25/19 09:29 Dose: 100 mls/hr Potassium Chloride/Dextrose/Sod Cl (D5-1/2ns+10 Meq Kcl -) 10 meq in 1,000 mls @ 125 mls/hr IV ASDIR [facility] Last Admin: 07/25/19 12:00 Dose: 125 mls/hr Ondansetron HCl (Zofran Injection) 4 mg IVPUSH Q6H PRN PRN Reason: NAUSEA Ondansetron HCl (Zofran Injection) 4 mg IVPUSH Q6H PRN PRN Reason: NAUSEA AND/OR VOMITING Pantoprazole Sodium (Protonix Iv) 40 mg IVPUSH DAILY [facility] Last Admin: 07/25/19 09:29 Dose: 40 mg Laboratory Results - last 24 hr 07/25/19 07/25/19 08:10 08:10 WBC 6.5 RBC 4.24 Hgb 11.2 Hct 34.4 MCV 81.1 MCH 26.3 MCHC 32.5 RDW 18.0 H Plt Count 319 MPV 8.4 Absolute Neuts (auto) 5.3 Neutrophils % 81.4 Lymphocytes % 12.2 D Monocytes % 5.1 Eosinophils % 1.0 D Basophils % 0.3 Nucleated RBC % 0 Sodium 139 Potassium 3.6 Chloride 106 Carbon Dioxide 27 Anion Gap 6 L BUN 3.9 L Creatinine 0.6 Est GFR (CKD-EPI)AfAm 124.05 Est GFR (CKD-EPI)NonAf 107.03 Random Glucose 92 Calcium 8.3 L Phosphorus 3.0 Magnesium 2.2 Microbiology 07/23/19 21:00 Blood - Peripheral Venous Blood Culture - Preliminary NO GROWTH OBTAINED AFTER 24 HOURS, INCUBATION TO CONTINUE FOR 4 DAYS. 07/23/19 18:30 Blood - Peripheral Venous Blood Culture - Preliminary NO GROWTH OBTAINED AFTER 24 HOURS, INCUBATION TO CONTINUE FOR 4 DAYS. 07/22/19 17:20 Urine - Urine Clean Catch Urine Culture - Final NO GROWTH OBTAINED ASSESSMENT AND PLAN: 49 yof with PMhx of Diverticulosis, haemorrhoids, erosive gastritis, Diverticular bleed/blood loss anemia 03/2019, s/p endoclipping of bleeding diverticulum, also EGD with erosive gastritis, admitted with mid tranverse colonic perforation, after ambulatory colonoscopy today. -Mid transverse colonic perforation post colonoscopy s/p emergent ex-lap with mid transerve resection/right colostomy 07/22 -Colonic polyps s/p resection and larger polyp with snare/electrocautery -Leucocytosis, ?Stress induced from above, monitor for infection -Dehydration -Lactic acidosis -Hypomagnesemia -Colonic diverticulosis -Haemorrhoids -Diverticular bleed/blood loss anemia 03/2019, s/p endoclipping of bleeding diverticulum -Erosive gastritis Plan: NPO, serial abdominal exam. NG tube removed, no c/o nausea/vomiting or abdominal distension. Surgery input noted, Plan for PO once +gas or BM in colostomy. Off Dilaudid PORTER USED CAR LOT. Dilaudid IV prn low dose, transition to PO as bowels recover. Incentive spirometry, patient advised aggressive OOB and ambulation with assist as able,working with PT. JASMIN Arzola input noted. WBC normalized. Replete K/Mg prn. DVTPPX per surgery PPI IV Dispo pending clinical improvement and per surgery Plan discussed with patient in detail, all questions answered.
[2019-07-25] MEDS ORDERED: ACETAMINOPHEN 1000 MG/100 ML VIAL (NON FORMULARY) IVPB PRN (15:26)
--- NOTE | 2019-07-25 15:28 | PN ---
<Celine Gordon - Last Filed: 07/25/19 18:23> Progress Note, Physician Chief Complaint: colon resection with colectomy History of Present Illness: Ms. Jaffe is a 49y/o female with diverticulosis, hemorrhoids, and colonic polyps who presents following polypectomy. Pt experienced abdominal pain and vomiting while eating following procedure and was found to have pneumoperitoneum on CT. A transverse colectomy with colostomy placement was performed, and pt was placed on Zosyn. She currently denies fever, chills, nausea, vomiting, cough, or wheezing. Her abdominal pain is still moderate but pt is comfortable. She is able to ambulate. - Current Medication List Current Medications: Active Medications Acetaminophen (Ofirmev Injection -) 1,000 mg IVPB Q6H PRN PRN Reason: PAIN LEVEL 1-5 Last Admin: 07/24/19 18:52 Dose: 1,000 mg Benzocaine/Butamben/Tetracaine HCl (Cetacaine [place] -) 1 spray TP DAILY PRN PRN Reason: PAIN Benzocaine/Menthol (Cepacol Lozenge -) 1 each MM Q6H PRN PRN Reason: SORE THROAT Heparin Sodium (Porcine) (Heparin -) 5,000 unit SQ TID PRASANNA Last Admin: 07/25/19 13:57 Dose: 5,000 unit Hydromorphone HCl (Dilaudid Vial -) 0.5 mg IVPB Q4H PRN PRN Reason: PAIN LEVEL 6-10 Last Admin: 07/25/19 11:59 Dose: 0.5 mg Piperacillin Sod/Tazobactam (Sod 3.375 gm/ Dextrose) 50 mls @ 100 mls/hr IVPB Q8H-IV PRASANNA; Protocol Last Admin: 07/25/19 09:29 Dose: 100 mls/hr Potassium Chloride/Dextrose/Sod Cl (D5-1/2ns+10 Meq Kcl -) 10 meq in 1,000 mls @ 125 mls/hr IV ASDIR PRASANNA Last Admin: 07/25/19 12:00 Dose: 125 mls/hr Ondansetron HCl (Zofran Injection) 4 mg IVPUSH Q6H PRN PRN Reason: NAUSEA Ondansetron HCl (Zofran Injection) 4 mg IVPUSH Q6H PRN PRN Reason: NAUSEA AND/OR VOMITING Pantoprazole Sodium (Protonix Iv) 40 mg IVPUSH DAILY PRASANNA Last Admin: 07/25/19 09:29 Dose: 40 mg - Objective Vital Signs: Vital Signs Temperature 98.0 F 07/25/19 13:00 Pulse Rate 70 07/25/19 13:00 Respiratory Rate 20 07/25/19 13:00 Blood Pressure 139/81 07/25/19 13:00 O2 Sat by Pulse Oximetry (%) 96 07/25/19 09:00 Constitutional: Yes: Well Nourished, No Distress Eyes: Yes: Conjunctiva Clear, EOM Intact HENT: Yes: Atraumatic, Normocephalic Neck: Yes: Supple, Trachea Midline Cardiovascular: Yes: Regular Rate and Rhythm. No: Murmur Respiratory: Yes: CTA Bilaterally Gastrointestinal: Yes: Soft, Hypoactive Bowel Sounds (R>L), Other (colostomy with small amount of brownish/clear stool; abdominal incision bandaged). No: Distention, Tenderness Edema: No Neurological: Yes: Alert, Oriented Labs: CBC, BMP 07/25/19 08:10 07/25/19 08:10 INR, PTT INR 0.99 (0.83-1.09) 07/22/19 13:30 Impression/Plan Impression/Plan: Ms. Jaffe is a 49y/o female with diverticulosis, hemorrhoids, and colonic polyps who presents following polypectomy. Pt experienced abdominal pain and vomiting while eating following procedure and was found to have pneumoperitoneum on CT and lactic acidosis. POD 3 from transverse colon resection with right colostomy placement. Afebrile. Leukocytosis resolved, most likely from stress reaction. Lactic acidosis resolved. #sepsis, resolved #post-op prophylaxis -Zosyn 3.375mg Q8H (day 3) -blood cultures prelim negative -CBC Visit type - Emergency Visit Emergency Visit: Yes ED Registration Date: 07/22/19 Care time: The patient presented to the Emergency Department on the above date and was hospitalized for further evaluation of their emergent condition. - New Patient This patient is new to me today: No - Critical Care Critical Care patient: No - Discharge Referral Referred to [facility] No ATTENDING PHYSICIAN STATEMENT I saw and evaluated the patient. I reviewed the resident's note and discussed the case with the resident. I agree with the resident's findings and plan as documented. SUBJECTIVE: OBJECTIVE: ASSESSMENT AND PLAN: <Rg Swanson Ventura - Last Filed: 07/26/19 17:52> Progress Note, Physician - Current Medication List Current Medications: Active Medications Acetaminophen (Tylenol -) 1,000 mg PO Q6H PRN PRN Reason: PAIN Benzocaine/Butamben/Tetracaine HCl (Cetacaine [place] -) 1 spray TP DAILY PRN PRN Reason: PAIN Benzocaine/Menthol (Cepacol Lozenge -) 1 each MM Q6H PRN PRN Reason: SORE THROAT Heparin Sodium (Porcine) (Heparin -) 5,000 unit SQ TID PRASANNA Last Admin: 07/26/19 14:05 Dose: 5,000 unit Piperacillin Sod/Tazobactam (Sod 3.375 gm/ Dextrose) 50 mls @ 100 mls/hr IVPB Q8H-IV PRASANNA; Protocol Last Admin: 07/26/19 17:18 Dose: 100 mls/hr Potassium Chloride/Dextrose/Sod Cl (D5-1/2ns+10 Meq Kcl -) 10 meq in 1,000 mls @ 125 mls/hr IV ASDIR PRASANNA Last Admin: 07/26/19 14:59 Dose: 125 mls/hr Ondansetron HCl (Zofran Injection) 4 mg IVPUSH Q6H PRN PRN Reason: NAUSEA Pantoprazole Sodium (Protonix -) 40 mg PO DAILY PRASANNA Tramadol HCl (Ultram -) 50 mg PO Q4H PRN PRN Reason: PAIN LEVEL 4 - 6 - Objective Vital Signs: Vital Signs Temperature 98.7 F 07/26/19 14:00 Pulse Rate 69 07/26/19 14:00 Respiratory Rate 20 07/26/19 14:00 Blood Pressure 118/76 07/26/19 14:00 O2 Sat by Pulse Oximetry (%) 95 07/26/19 09:00 Labs: CBC, BMP 07/26/19 07:15 07/26/19 07:15 INR, PTT INR 0.99 (0.83-1.09) 07/22/19 13:30 ATTENDING PHYSICIAN STATEMENT I saw and evaluated the patient. I reviewed the resident's note and discussed the case with the resident. I agree with the resident's findings and plan as documented. SUBJECTIVE: OBJECTIVE: ASSESSMENT AND PLAN: POST OP TRANSVERSE COLON RESECTION/ COLOSTOMY S/P PNEUMOPERITONEUM CONTINUE ZOSYN
--- NOTE | 2019-07-25 16:49 | PATH ---
Surgical Pathology Report Patient Name: PATRICIO ANDRE Med. Rec. #: [id number] /Age/Gender: 1970 (Age: 49) / F Account: [id number] Location: [address] [place] [address]/[facility] Taken: 07/22/2019 Received: 07/23/2019 Reported: 07/25/2019 Physicians: Silvano Child MD Specimen(s) Received PORTION OF TRANSVERSE COLON Clinical History Perforated bowel Final Diagnosis PORTION OF TRANSVERSE COLON, RESECTION: PORTION OF COLON WITH SEROSAL DISCONTINUATION, MUCOSAL NECROSIS WITH HEMORRHAGE AND ACUTE INFLAMMATION, AND ACUTE SEROSITIS, CONSISTENT WITH CLINICAL IMPRESSION OF PERFORATED BOWEL. VIABLE MARGINS WITH FOCAL SUBMUCOSAL EDEMA. Electronically Signed Robert Blandon M.D. Gross Description Received in formalin labeled "portion of transverse colon," is a 3.3 cm in length portion of bowel with 2 stapled mucosal margins and abundant attached pericolonic adipose tissue. The serosa is altamirano-pink with a focal transmural defect, which measures 0.2cm in greatest dimension. The mucosa is alt[place]ano with normal folds. No mucosal masses are identified. [employer] sections are submitted in 4 cassettes as follows: 2-7-[id number] stapled mucosal margins; 1-0-fggrqqoj from defect. /07/23/2019 saudi07/23/2019
--- NOTE | 2019-07-25 18:26 | PN ---
Physical Exam: SUBJECTIVE: Patient seen and examined NAEON: Pain in midline abd. Getting dilaudid IVPB. Had wound dressing changed by Surgical PAs. Walked with PT, walked independently to bathroom. Endorses thirst. No appetite. No output in colostomy bag. No mucus per rectum OBJECTIVE: Vital Signs Period Temp Pulse Resp BP Sys/Ren Pulse Ox Last 24 Hr 97.8 F-99.4 F 70-79 18-20 129-139/71-81 96-97 GENERAL: A&Ox3, NAD HEAD: NC/AT. EYES: sclera anicteric, conjunctiva clear. No ptosis. ENT: Ears normal, moist mucous membranes. NECK: Trachea midline, full range of motion, supple. LUNGS: Breath sounds equal, clear to auscultation bilaterally, no wheezes, no crackles, no accessory muscle use. IS ~1500ml HEART: Regular rate and rhythm, S1, S2 without murmur, rub or gallop. ABDOMEN: Midline surgical dressing in place with overlying ABD pad, no strikethrough. Midline surgical wound closed with miguelito, loosely approximated in upper incision, WTD guaze in place. RUQ with pink, patent stoma. Ostomy bag w /o gas in bag, scant ss fluid. Hypoactive BS throughout abd. Mild paraincisional TTP. EXTREMITIES: 2+ pulses, warm, well-perfused, no edema. NEUROLOGICAL: Normal speech, gait not observed. PSYCH: mildly upset SKIN: Warm, dry, normal turgor, no rashes or lesions noted Laboratory Results - last 24 hr 07/25/19 07/25/19 08:10 08:10 WBC 6.5 RBC 4.24 Hgb 11.2 Hct 34.4 MCV 81.1 MCH 26.3 MCHC 32.5 RDW 18.0 H Plt Count 319 MPV 8.4 Absolute Neuts (auto) 5.3 Neutrophils % 81.4 Lymphocytes % 12.2 D Monocytes % 5.1 Eosinophils % 1.0 D Basophils % 0.3 Nucleated RBC % 0 Sodium 139 Potassium 3.6 Chloride 106 Carbon Dioxide 27 Anion Gap 6 L BUN 3.9 L Creatinine 0.6 Est GFR (CKD-EPI)AfAm 124.05 Est GFR (CKD-EPI)NonAf 107.03 Random Glucose 92 Calcium 8.3 L Phosphorus 3.0 Magnesium 2.2 Active Medications Generic Name Dose Route Start Last Admin Trade Name Freq PRN Reason Stop Dose Admin Acetaminophen 1,000 mg 07/25/19 15:26 07/25/19 15:45 Ofirmev Injection - IVPB 1,000 mg Q6H PRN Administration PAIN LEVEL 4 - 6 Benzocaine/Butamben/Tetracaine HCl 1 spray 07/23/19 11:25 Cetacaine [place] - TP DAILY PRN PAIN Benzocaine/Menthol 1 each 07/23/19 12:40 Cepacol Lozenge - MM Q6H PRN SORE THROAT Heparin Sodium (Porcine) 5,000 unit 07/23/19 06:00 07/25/19 13:57 Heparin - SQ 5,000 unit TID PRASANNA Administration Hydromorphone HCl 0.5 mg 07/25/19 15:26 Dilaudid Vial - IVPB Q4H PRN PAIN LEVEL 7 - 10 Piperacillin Sod/Tazobactam 50 mls @ 100 mls/hr 07/23/19 18:00 07/25/19 17:22 Sod 3.375 gm/ Dextrose IVPB 100 mls/hr Q8H-IV PRASANNA Administration Protocol Potassium Chloride/Dextrose/Sod Cl 10 meq in 1,000 mls @ 125 mls/hr 07/23/19 20:00 07/25/19 12:00 D5-1/2ns+10 Meq Kcl - IV 125 mls/hr ASDIR PRASANNA Administration Ondansetron HCl 4 mg 07/22/19 22:02 Zofran Injection IVPUSH Q6H PRN NAUSEA Ondansetron HCl 4 mg 07/22/19 22:08 Zofran Injection IVPUSH Q6H PRN NAUSEA AND/OR VOMITING Pantoprazole Sodium 40 mg 07/23/19 10:00 07/25/19 09:29 Protonix Iv IVPUSH 40 mg DAILY PRASANNA Administration ASSESSMENT/PLAN: 49F w/ pmh of diverticulosis, hemorrhoids, colonic polyps sent in to [facility] by GI(Yuval) s/p colonoscopy(07/22/19) complicated by possible intraoperative perforation during polypectomy. CT A/P showing extraluminal free air consistent with perforation. S/p ex-lap, partial transverse colon resection w/ creation of end colostomy(Danyell, 07/22/19). POD#3. Pain control via dilaudid IVPG, plan to transition to PO. Awaiting ROBF. # severe abdominal pain --likely 2/2 perforated colon # s/p ex-lap, partial transverse colon resection w/ creation of end colostomy( Child, 07/22/19) > upright KUB(07/22/19): pneumoperitoneum > CT A/P w/ IV contrast(07/22/19): extraluminal air abutting midtransverse colon , free fluid in pelvis and Right paracolic space; Left hepatic lobe cyst ~1.3cm > pathology: -- 0.2cm defect w/ transverse colon - s/p morphine 4mg, zofran 4mg, LR 1L x2 - pain control: dPCA 0.2mg q6min, ofirmev --> dilaudid 2mg q4h PRN, ofirmev PRN - PT eval --pending - Activity: OOB, activity as tolerated - NPO - IV abx: --ID(Sky) consult: --cw zosyn --day 4 > fu BCX(07/23/19) --NGTD - mIVF # leukocystosis --likely 2/2 reactive to surgery --resolved > WBC 16, 9.7 - monitor # end colostomy --awaiting ROBF - Surgery: -- possible CLD, pending ostomy output - monitor ostomy output - may require fluid replacements # throat pain --2/2 to NGT --resolved - cepacol lozenge PRN - cetacaine PRN # elevated lactic acid --likely 2/2 dehydration from colonoscopy --resolved > lactate 2.3, 3.1, 1.0 - IVF(s/p LR 1L x2, mIVF) # Left hepatic lobe cyst ~1.3cm - fu as outpt FEN - Viera --dc'd on Day 2 - D5 1/2NS @125 - NPO DVT - subqHep TID Visit type - Emergency Visit Emergency Visit: No - New Patient This patient is new to me today: No - Critical Care Critical Care patient: No ATTENDING PHYSICIAN STATEMENT I saw and evaluated the patient. I reviewed the resident's note and discussed the case with the resident. I agree with the resident's findings and plan as documented. SUBJECTIVE: OBJECTIVE: ASSESSMENT AND PLAN:
--- NOTE | 2019-07-25 21:09 | PN.GI ---
GI Progress Note Subjective: GI NOte: Has been up and walking. Hear some gas from her ostomy. Afebrile. - Objective Vital Signs: Vital Signs Temperature 98.0 F 07/25/19 13:00 Pulse Rate 70 07/25/19 13:00 Respiratory Rate 20 07/25/19 13:00 Blood Pressure 139/81 07/25/19 13:00 O2 Sat by Pulse Oximetry (%) 96 07/25/19 09:00 Constitutional: Calm Gastrointestinal Inspection: Yes: Other (ostomy has some gaseous distension and sersanguinous fluid) ...Auscultate: Yes: Normoactive Bowel Sounds ...Palpate: Yes: Soft, Other Labs: CBC, BMP 07/25/19 08:10 07/25/19 08:10 INR, PTT INR 0.99 (0.83-1.09) 07/22/19 13:30 Assessment/Plan Assessment; - Stable day #3 postop with RUQ colostomy. Ileus improving , BC are NG - Polyp pathologies are benign= hyperplastic - Diverticular disease Plan: - Postop care as per Dr Child Problem List - Problems (1) Colostomy present Code(s): Z93.3 - COLOSTOMY STATUS (2) S/P partial colectomy Code(s): Z90.49 - ACQUIRED ABSENCE OF OTHER SPECIFIED PARTS OF DIGESTIVE TRACT (3) Colon polyps Code(s): K63.5 - POLYP OF COLON (4) Perforation of colon as colonoscopy complication Code(s): K63.1 - PERFORATION OF INTESTINE (NONTRAUMATIC); K91.71 - ACCIDENTAL PNCTR & LAC OF A DGSTV SYS ORG DUR DGSTV SYS PROC
[2019-07-26] MEDS ORDERED: DEXTROSE 5%-WATER - 50 ML IVPB ONE ×3 (02:02→17:11)
[2019-07-26] MEDS ORDERED: PIPERACILLIN/TAZOBACTAM 3.375 GM VIAL IVPB ONE ×3 (02:02→17:11)
[2019-07-26] MEDS: D5-1/2NS+10 MEQ KCL - 10 MEQ/1,000 ML INFUS.BAG IV SCH ×3 (02:11→20:00)
[2019-07-26] MEDS: PIPERACILLIN/TAZOB 3.375 GM 3.375 GM in DEXTROSE 5%-WATER - 50 ML IVPB SCH ×3 (02:12→17:18)
[2019-07-26] MEDS: HYDROmorphone HCl 2 MG/ML VIAL IVPB PRN ×2 (02:12→08:02)
[2019-07-26] MEDS: HEPARIN NA (PORCINE) 5,000 UNITS/ML 1ML VIAL SQ SCH ×3 (06:35→22:02)
--- NOTE | 2019-07-26 08:20 | PN ---
Progress Note (short form) - Note Progress Note: POD 4, s/p segmental transverse colon resection and end colostomy Pt seen and examined. Reports she is feeling "okay". Has some pain, controlled by current pain regimen. Was oob to restroom multiple times yesterday. NPO. Voiding without issue. Reports lots of gas from below as well as ostomy output. Denies cp/sob, n/v/d. Vital Signs Temp 98.9 F 07/26/19 05:51 Pulse 65 07/26/19 05:51 Resp 18 07/26/19 05:51 BP 115/66 07/26/19 05:51 Pulse Ox 96 07/25/19 21:00 Intake & Output 07/25/19 07/25/19 07/26/19 11:59 23:59 11:59 Intake Total 650 0 1500 Balance 650 0 1500 Intake: IV 500 1500 D5-1/2NS+10 MEQ KCL - 10 500 1500 meq In 1,000 ml @ 125 mls /hr IV ASDIR PRASANNA Rx#: [id number] IVPB 150 Oral 0 0 Other: Voiding Method Toilet Toilet # Unmeasured Voids Void 2 1 Bowel Movement No CBC, BMP 07/25/19 08:10 07/25/19 08:10 Gen: awake, alert, nad Resp: Unlabored on RA ABdo: soft, +ttp diffusely, no rebound or guarding. Dressing removed. Proximal portion of wound intact, miguelito intact, distal incision with granulation tissue present, no erythema. Scant serous drainage. No foul odor. Repacked with Iodoform, covered with 4x4s and abd pads. Colostomy viable with moderate amount of liquid stool in bag. A/P: 49 y/o F w/ PMHx diverticulosis, hemorrhoids, colonic polyps admitted on after being sent by GI (Yuval) s/p colonoscopy(07/22/19) complicated by intraoperative perforation during polypectomy, now POD 4, s/p segmental transverse colon resection and end colostomy. Afebrile, VSS -Advance to clears this morning (ordered) -Continue oob and ambulating -Incentive spirometer -Pain regimen per anesthesia -Ostomy care per orders -Monitor i&os -VS per protocol -IV abx -Remainder of care per primary team pt seen and examined with attending Dr Child
[2019-07-26 08:30] LABS: HEMATOCRIT 33.4 % (32.4-45.2); HEMOGLOBIN 10.8 GM/dL (10.7-15.3); MCH 26.1 pg (25.7-33.7); MCHC 32.2 g/dl (32.0-36.0); MEAN CELL VOLUME 80.9 fl (80-96); MEAN PLT VOLUME 8.1 fl (7.5-11.1); PLATELET COUNT 313 K/MM3 (134-434); RBC 4.13 M/mm3 (3.60-5.2); RDW 17.4 % (11.6-15.6); WHITE BLOOD COUNT 4.4 K/mm3 (4.0-10.0)
[2019-07-26 08:49] LABS: BLOOD UREA NITROGEN 4.3 mg/dL (7-18); CALCIUM 8.4 mg/dL (8.5-10.1); CREATININE 0.6 mg/dL (0.55-1.3); MAGNESIUM 2.2 mg/dL (1.8-2.4); PHOSPHOROUS 3.1 mg/dL (2.5-4.9); POTASSIUM 3.6 mmol/L (3.5-5.1)
[2019-07-26] MEDS: PANTOPRAZOLE SODIUM 40 MG VIAL IVPUSH SCH (09:27)
[2019-07-26] MEDS ORDERED: ACETAMINOPHEN 325 MG TABLET (FP) PO PRN (10:25)
[2019-07-26] MEDS ORDERED: oxyCODONE HCL 5 MG TABLET PO PRN (10:26)
--- NOTE | 2019-07-26 10:28 | PN ---
Teaching Attending Note Name of Resident: Gianni Boyer ATTENDING PHYSICIAN STATEMENT I saw and evaluated the patient. I reviewed the resident's note and discussed the case with the resident. I agree with the resident's findings and plan as documented with exceptions below. SUBJECTIVE: Patient seen and examined. ongoing green stool in colostomy bag, pain better, no nausea, vomiting or new complaints. Working with PT. OBJECTIVE: Vital Signs Period Temp Pulse Resp BP Sys/Ren Pulse Ox Last 24 Hr 98.0 F-98.9 F 65-73 18-20 115-141/66-81 96 Intake & Output 07/23/19 07/24/19 07/25/19 07/26/19 23:59 23:59 23:59 23:59 Intake Total 2875 2975 650 1500 Output Total 2000 2500 Balance 875 732 884 7016 Weight 162 lb General: sitting in bed in no acute distress Neck: soft, supple Chest: CTAB, no rales or wheezing Abdomen: soft, tenderness around surgical site, colostomy with with greenish watery stool, pos bowel sounds Extremities: no edema Home Medications Medication Instructions Recorded Pantoprazole Sodium [Protonix] 40 mg PO DAILY #30 tablet. 03/26/19 Active Medications Acetaminophen (Tylenol -) 650 mg PO Q4H PRN PRN Reason: PAIN LEVEL 1-5 Benzocaine/Butamben/Tetracaine HCl (Cetacaine [place] -) 1 spray TP DAILY PRN PRN Reason: PAIN Benzocaine/Menthol (Cepacol Lozenge -) 1 each MM Q6H PRN PRN Reason: SORE THROAT Heparin Sodium (Porcine) (Heparin -) 5,000 unit SQ TID PRASANNA Last Admin: 07/26/19 06:35 Dose: 5,000 unit Piperacillin Sod/Tazobactam (Sod 3.375 gm/ Dextrose) 50 mls @ 100 mls/hr IVPB Q8H-IV PRASANNA; Protocol Last Admin: 07/26/19 09:27 Dose: 100 mls/hr Potassium Chloride/Dextrose/Sod Cl (D5-1/2ns+10 Meq Kcl -) 10 meq in 1,000 mls @ 125 mls/hr IV ASDIR PRASANNA Last Admin: 07/26/19 02:11 Dose: 125 mls/hr Ondansetron HCl (Zofran Injection) 4 mg IVPUSH Q6H PRN PRN Reason: NAUSEA Oxycodone HCl (Roxicodone -) 5 mg PO Q6H PRN PRN Reason: PAIN LEVEL 6-10 Pantoprazole Sodium (Protonix -) 40 mg PO DAILY [facility] Laboratory Results - last 24 hr 07/26/19 07/26/19 07/26/19 07:15 07:15 07:15 WBC 4.4 RBC 4.13 Hgb 10.8 Hct 33.4 MCV 80.9 MCH 26.1 MCHC 32.2 RDW 17.4 H Plt Count 313 MPV 8.1 Sodium 138 Potassium 3.6 Chloride 106 Carbon Dioxide 26 Anion Gap 6 L BUN 4.3 L Creatinine 0.6 Est GFR (CKD-EPI)AfAm 124.05 Est GFR (CKD-EPI)NonAf 107.03 Random Glucose 97 Calcium 8.4 L Phosphorus 3.1 Magnesium 2.2 Iron 22 L TIBC 280 Iron Saturation 7 L Unsaturated IBC 258 Ferritin 57.0 Microbiology 07/23/19 21:00 Blood - Peripheral Venous Blood Culture - Preliminary NO GROWTH OBTAINED AFTER 48 HOURS, INCUBATION TO CONTINUE FOR 3 DAYS. 07/23/19 18:30 Blood - Peripheral Venous Blood Culture - Preliminary NO GROWTH OBTAINED AFTER 48 HOURS, INCUBATION TO CONTINUE FOR 3 DAYS. 07/22/19 17:20 Urine - Urine Clean Catch Urine Culture - Final NO GROWTH OBTAINED ASSESSMENT AND PLAN: 49 yof with PMhx of Diverticulosis, haemorrhoids, erosive gastritis, Diverticular bleed/blood loss anemia 03/2019, s/p endoclipping of bleeding diverticulum, also EGD with erosive gastritis, admitted with mid tranverse colonic perforation, after ambulatory colonoscopy today. -Mid transverse colonic perforation post colonoscopy s/p emergent ex-lap with mid transerve resection/right colostomy 07/22 -Colonic polyps s/p resection and larger polyp with snare/electrocautery -Leucocytosis, suspect Stress induced from above, resolved -Dehydration, resolved -Lactic acidosis, resolved -Hypomagnesemia -Colonic diverticulosis -Haemorrhoids -Diverticular bleed/blood loss anemia 03/2019, s/p endoclipping of bleeding diverticulum -Erosive gastritis Plan: Pos BM, surgery input noted. PO clears Advance as tolerated Change meds to PO. Ongoing incentive spirometry, ambulation. Emperic rosa cordero in 24 hours if no concerns. discussed with CM, plan for home VNS for colostomy care education replete jez prn Dispo dc in 24-48 hours if tolerating diet well, no new concerns Discussed with patient, all questions answered.
--- NOTE | 2019-07-26 10:37 | PN ---
Physical Exam: SUBJECTIVE: Patient seen and examined NAEON Ambulated w/ PT(100ft). IS ~1500. Endorses gas and thin output via colostomy. Endorses thirst, no appetite. Has burping, no NV. OBJECTIVE: Vital Signs Period Temp Pulse Resp BP Sys/Ren Pulse Ox Last 24 Hr 98.0 F-98.9 F 65-73 18-20 115-141/66-81 96 GENERAL: A&Ox3, NAD HEAD: NC/AT. EYES: sclera anicteric, conjunctiva clear. No ptosis. ENT: Ears normal, moist mucous membranes. NECK: Trachea midline, full range of motion, supple. LUNGS: Breath sounds equal, clear to auscultation bilaterally, no wheezes, no crackles, no accessory muscle use. IS ~1500ml HEART: Regular rate and rhythm, S1, S2 without murmur, rub or gallop. ABDOMEN: Midline surgical dressing in place with overlying ABD pad, no strikethrough. Midline surgical wound closed with miguelito, loosely approximated in upper incision, WTD guaze in place. RUQ with pink, patent stoma. Ostomy bag w / gas in bag, thin-watery dark green fluid. Hypoactive BS throughout abd. Mild paraincisional TTP. EXTREMITIES: 2+ pulses, warm, well-perfused, no edema. NEUROLOGICAL: Normal speech, gait not observed. PSYCH: mildly upset SKIN: Warm, dry, normal turgor, no rashes or lesions noted Laboratory Results - last 24 hr 07/26/19 07/26/19 07/26/19 07:15 07:15 07:15 WBC 4.4 RBC 4.13 Hgb 10.8 Hct 33.4 MCV 80.9 MCH 26.1 MCHC 32.2 RDW 17.4 H Plt Count 313 MPV 8.1 Sodium 138 Potassium 3.6 Chloride 106 Carbon Dioxide 26 Anion Gap 6 L BUN 4.3 L Creatinine 0.6 Est GFR (CKD-EPI)AfAm 124.05 Est GFR (CKD-EPI)NonAf 107.03 Random Glucose 97 Calcium 8.4 L Phosphorus 3.1 Magnesium 2.2 Iron 22 L TIBC 280 Iron Saturation 7 L Unsaturated IBC 258 Ferritin 57.0 Active Medications Generic Name Dose Route Start Last Admin Trade Name Freq PRN Reason Stop Dose Admin Acetaminophen 650 mg 07/26/19 10:25 Tylenol - PO Q4H PRN PAIN LEVEL 1-5 Benzocaine/Butamben/Tetracaine HCl 1 spray 07/23/19 11:25 Cetacaine [place] - TP DAILY PRN PAIN Benzocaine/Menthol 1 each 07/23/19 12:40 Cepacol Lozenge - MM Q6H PRN SORE THROAT Heparin Sodium (Porcine) 5,000 unit 07/23/19 06:00 07/26/19 06:35 Heparin - SQ 5,000 unit TID PRASANNA Administration Piperacillin Sod/Tazobactam 50 mls @ 100 mls/hr 07/23/19 18:00 07/26/19 09:27 Sod 3.375 gm/ Dextrose IVPB 100 mls/hr Q8H-IV PRASANNA Administration Protocol Potassium Chloride/Dextrose/Sod Cl 10 meq in 1,000 mls @ 125 mls/hr 07/23/19 20:00 07/26/19 02:11 D5-1/2ns+10 Meq Kcl - IV 125 mls/hr ASDIR PRASANNA Administration Ondansetron HCl 4 mg 07/22/19 22:02 Zofran Injection IVPUSH Q6H PRN NAUSEA Oxycodone HCl 5 mg 07/26/19 10:26 Roxicodone - PO Q6H PRN PAIN LEVEL 6-10 Pantoprazole Sodium 40 mg 07/27/19 10:00 Protonix - PO DAILY PRASANNA ASSESSMENT/PLAN: 49F w/ pmh of diverticulosis, hemorrhoids, colonic polyps sent in to [facility] by [facility]) s/p colonoscopy(07/22/19) complicated by possible intraoperative perforation during polypectomy. CT A/P showing extraluminal free air consistent with perforation. S/p ex-lap, partial transverse colon resection w/ creation of end colostomy([facility], 07/22/19). POD#4. Pain control via dilaudid IVPG, then oxycodone 5mg. PO started on POD4 after ostomy output. Started CLD, with # severe abdominal pain --likely 2/2 perforated colon # s/p ex-lap, partial transverse colon resection w/ creation of end colostomy( [facility], 07/22/19) > upright KUB(07/22/19): pneumoperitoneum > CT A/P w/ IV contrast(07/22/19): extraluminal air abutting midtransverse colon , free fluid in pelvis and Right paracolic space; Left hepatic lobe cyst ~1.3cm > pathology: -- 0.2cm defect w/ transverse colon - s/p morphine 4mg, zofran 4mg, LR 1L x2 - pain control: dPCA 0.2mg q6min, ofirmev --> dilaudid 2mg q4h PRN, ofirmev PRN --> acetaminophen, oxycodone - PT eval --100Ft + stairs - Activity: OOB, activity as tolerated - Diet: CLD - IV abx: --ID(Sky) consult: --cw zosyn --day 5 > fu BCX(07/23/19) --NGTD # leukocystosis --likely 2/2 reactive to surgery --resolved > WBC 16, 9.7 - monitor # end colostomy --awaiting ROBF - Surgery: -- CLD -- daily midline dressing changes as per Surgery - monitor ostomy output - may require fluid replacements # throat pain --2/2 to NGT --resolved - cepacol lozenge PRN - cetacaine PRN # elevated lactic acid --likely 2/2 dehydration from colonoscopy --resolved > lactate 2.3, 3.1, 1.0 - IVF(s/p LR 1L x2, mIVF) # Left hepatic lobe cyst ~1.3cm - fu as outpt FEN - Viera --dc'd on Day 2 - D5 1/2NS @125 --will reduce once adequate PO - CLD DVT - subqHep TID Visit type - Emergency Visit Emergency Visit: No - New Patient This patient is new to me today: No - Critical Care Critical Care patient: No ATTENDING PHYSICIAN STATEMENT I saw and evaluated the patient. I reviewed the resident's note and discussed the case with the resident. I agree with the resident's findings and plan as documented. SUBJECTIVE: OBJECTIVE: ASSESSMENT AND PLAN:
[2019-07-26] MEDS ORDERED: traMADol HCL 50 MG TABLET PO PRN ×2 (14:33→14:55)
--- NOTE | 2019-07-26 16:57 | PN ---
<Celine Gordon - Last Filed: 07/26/19 17:02> Progress Note, Physician Chief Complaint: colon resection with colectomy History of Present Illness: Ms. Jaffe is a 49y/o female with diverticulosis, hemorrhoids, and colonic polyps who presents following polypectomy. Pt experienced abdominal pain and vomiting while eating following procedure and was found to have pneumoperitoneum on CT. A transverse colectomy with colostomy placement was performed, and pt was placed on Zosyn. She currently denies fever, chills, nausea, vomiting, cough, wheezing, or difficulty urinating. Pt tolerating liquid diet. Pain is well-controlled with medication. She is able to ambulate. - Current Medication List Current Medications: Active Medications Acetaminophen (Tylenol -) 1,000 mg PO Q6H PRN PRN Reason: PAIN Benzocaine/Butamben/Tetracaine HCl (Cetacaine [place] -) 1 spray TP DAILY PRN PRN Reason: PAIN Benzocaine/Menthol (Cepacol Lozenge -) 1 each MM Q6H PRN PRN Reason: SORE THROAT Heparin Sodium (Porcine) (Heparin -) 5,000 unit SQ TID PRASANNA Last Admin: 07/26/19 14:05 Dose: 5,000 unit Piperacillin Sod/Tazobactam (Sod 3.375 gm/ Dextrose) 50 mls @ 100 mls/hr IVPB Q8H-IV PRASANNA; Protocol Last Admin: 07/26/19 09:27 Dose: 100 mls/hr Potassium Chloride/Dextrose/Sod Cl (D5-1/2ns+10 Meq Kcl -) 10 meq in 1,000 mls @ 125 mls/hr IV ASDIR PRASANNA Last Admin: 07/26/19 14:59 Dose: 125 mls/hr Ondansetron HCl (Zofran Injection) 4 mg IVPUSH Q6H PRN PRN Reason: NAUSEA Pantoprazole Sodium (Protonix -) 40 mg PO DAILY PRASANNA Tramadol HCl (Ultram -) 50 mg PO Q4H PRN PRN Reason: PAIN LEVEL 4 - 6 - Objective Vital Signs: Vital Signs Temperature 98.7 F 07/26/19 14:00 Pulse Rate 69 07/26/19 14:00 Respiratory Rate 20 07/26/19 14:00 Blood Pressure 118/76 07/26/19 14:00 O2 Sat by Pulse Oximetry (%) 95 07/26/19 09:00 Constitutional: Yes: Well Nourished, No Distress Eyes: Yes: Conjunctiva Clear, EOM Intact HENT: Yes: Atraumatic, Normocephalic Neck: Yes: Supple, Trachea Midline Cardiovascular: Yes: Regular Rate and Rhythm. No: Murmur Respiratory: Yes: CTA Bilaterally Gastrointestinal: Yes: Normal Bowel Sounds, Other (colostomy in place with brown /green liquid stool). No: Tenderness Edema: No Neurological: Yes: Alert, Oriented Labs: CBC, BMP 07/26/19 07:15 07/26/19 07:15 INR, PTT INR 0.99 (0.83-1.09) 07/22/19 13:30 Impression/Plan Impression/Plan: Ms. Jaffe is a 49y/o female with diverticulosis, hemorrhoids, and colonic polyps who presents following polypectomy. Pt experienced abdominal pain and vomiting while eating following procedure and was found to have pneumoperitoneum on CT and lactic acidosis. POD 4 from transverse colon resection with right colostomy placement. Afebrile. Leukocytosis resolved, most likely from stress reaction. Lactic acidosis resolved. #sepsis, resolved #post-op prophylaxis -Zosyn 3.375mg Q8H (day 4) -blood cultures negative -when tolerating solid diet, will switch to PO- Augmentin Visit type - Emergency Visit Emergency Visit: Yes ED Registration Date: 07/22/19 Care time: The patient presented to the Emergency Department on the above date and was hospitalized for further evaluation of their emergent condition. - New Patient This patient is new to me today: No - Critical Care Critical Care patient: No - Discharge Referral Referred to [facility] No ATTENDING PHYSICIAN STATEMENT I saw and evaluated the patient. I reviewed the resident's note and discussed the case with the resident. I agree with the resident's findings and plan as documented. SUBJECTIVE: OBJECTIVE: ASSESSMENT AND PLAN: <Rg Swanson - Last Filed: 07/26/19 17:49> Progress Note, Physician - Current Medication List Current Medications: Active Medications Acetaminophen (Tylenol -) 1,000 mg PO Q6H PRN PRN Reason: PAIN Benzocaine/Butamben/Tetracaine HCl (Cetacaine [place] -) 1 spray TP DAILY PRN PRN Reason: PAIN Benzocaine/Menthol (Cepacol Lozenge -) 1 each MM Q6H PRN PRN Reason: SORE THROAT Heparin Sodium (Porcine) (Heparin -) 5,000 unit SQ TID PRASANNA Last Admin: 07/26/19 14:05 Dose: 5,000 unit Piperacillin Sod/Tazobactam (Sod 3.375 gm/ Dextrose) 50 mls @ 100 mls/hr IVPB Q8H-IV PRASANNA; Protocol Last Admin: 07/26/19 17:18 Dose: 100 mls/hr Potassium Chloride/Dextrose/Sod Cl (D5-1/2ns+10 Meq Kcl -) 10 meq in 1,000 mls @ 125 mls/hr IV ASDIR PRASANNA Last Admin: 07/26/19 14:59 Dose: 125 mls/hr Ondansetron HCl (Zofran Injection) 4 mg IVPUSH Q6H PRN PRN Reason: NAUSEA Pantoprazole Sodium (Protonix -) 40 mg PO DAILY PRASANNA Tramadol HCl (Ultram -) 50 mg PO Q4H PRN PRN Reason: PAIN LEVEL 4 - 6 - Objective Vital Signs: Vital Signs Temperature 98.7 F 07/26/19 14:00 Pulse Rate 69 07/26/19 14:00 Respiratory Rate 20 07/26/19 14:00 Blood Pressure 118/76 07/26/19 14:00 O2 Sat by Pulse Oximetry (%) 95 07/26/19 09:00 Labs: CBC, BMP 07/26/19 07:15 07/26/19 07:15 INR, PTT INR 0.99 (0.83-1.09) 07/22/19 13:30 ATTENDING PHYSICIAN STATEMENT I saw and evaluated the patient. I reviewed the resident's note and discussed the case with the resident. I agree with the resident's findings and plan as documented. SUBJECTIVE: FEELING BETTER NO C/O ABDOMINAL PAIN TOLERATING LIQUIDS OSTOMY FUNCTIONING NO F/C OBJECTIVE: COR S1S2 LUNGS CLEAR ABDO SOFT MILD TENDERNESS OSTOMY WITH LIQUID STOOL ASSESSMENT AND PLAN: POST OP TRANSVERSE COLECTOMY/ COLOSTOMY CONTINUE ZOSYN SUBSTITUTE PO AUGMENTIN NEXT 24-48H
--- NOTE | 2019-07-26 17:07 | PN.GI ---
GI Progress Note Subjective: GI NOte: Colostomy is functioning. Tolerated clear liquids. - Objective Vital Signs: Vital Signs Temperature 98.7 F 07/26/19 14:00 Pulse Rate 69 07/26/19 14:00 Respiratory Rate 20 07/26/19 14:00 Blood Pressure 118/76 07/26/19 14:00 O2 Sat by Pulse Oximetry (%) 95 07/26/19 09:00 Constitutional: Calm Gastrointestinal Inspection: Yes: Other (healing incision is clean, RUQ colostomy is functioning) ...Auscultate: Yes: Hypoactive Bowel Sounds ...Palpate: Yes: Other (nontender) Labs: CBC, BMP 07/26/19 07:15 07/26/19 07:15 INR, PTT INR 0.99 (0.83-1.09) 07/22/19 13:30 Assessment/Plan Assessment; - Stable day #4 postop with RUQ colostomy. Ileus resolved - Polyp pathologies are benign= hyperplastic - Diverticular disease Plan: - Postop care as per Dr Danyell Avilez is covering. Please call him as needed./ Problem List - Problems (1) Colostomy present Code(s): Z93.3 - COLOSTOMY STATUS (2) S/P partial colectomy Code(s): Z90.49 - ACQUIRED ABSENCE OF OTHER SPECIFIED PARTS OF DIGESTIVE TRACT (3) Colon polyps Code(s): K63.5 - POLYP OF COLON (4) Perforation of colon as colonoscopy complication Code(s): K63.1 - PERFORATION OF INTESTINE (NONTRAUMATIC); K91.71 - ACCIDENTAL PNCTR & LAC OF A DGSTV SYS ORG DUR DGSTV SYS PROC
[2019-07-26] MEDS: KCL 10 MEQ IVPB 10 MEQ/100 ML INFUS.BAG IVPB SCH ×3 (18:13→22:30)
[2019-07-26] MEDS: traMADol HCL 50 MG TABLET PO PRN (22:01)
[2019-07-27] MEDS ORDERED: PIPERACILLIN/TAZOBACTAM 3.375 GM VIAL IVPB ONE ×2 (01:29→09:20)
[2019-07-27] MEDS: PIPERACILLIN/TAZOB 3.375 GM 3.375 GM in DEXTROSE 5%-WATER - 50 ML IVPB SCH ×2 (01:30→09:22)
[2019-07-27] MEDS ORDERED: DEXTROSE 5%-WATER - 50 ML IVPB ONE ×2 (01:30→09:20)
[2019-07-27] MEDS: ACETAMINOPHEN 500 MG TABLET (FP) PO PRN ×4 (01:36→21:12)
[2019-07-27] MEDS: HEPARIN NA (PORCINE) 5,000 UNITS/ML 1ML VIAL SQ SCH ×3 (06:31→21:13)
[2019-07-27] MEDS: traMADol HCL 50 MG TABLET PO PRN (08:08)
[2019-07-27 09:14] LABS: BASO % 0.8 % (0-2.0); EOS % 6.5 % (0-4.5); HEMATOCRIT 33.5 % (32.4-45.2); HEMOGLOBIN 10.9 GM/dL (10.7-15.3); MCH 26.2 pg (25.7-33.7); MCHC 32.5 g/dl (32.0-36.0); MEAN CELL VOLUME 80.5 fl (80-96); MEAN PLT VOLUME 8.1 fl (7.5-11.1); MONO % 7.3 % (3.8-10.2); NEUT % 68.4 % (42.8-82.8); PLATELET COUNT 339 K/MM3 (134-434); RBC 4.16 M/mm3 (3.60-5.2); RDW 17.5 % (11.6-15.6); WHITE BLOOD COUNT 5.5 K/mm3 (4.0-10.0)
[2019-07-27] MEDS: PANTOPRAZOLE 40 MG TABLET (FP) PO SCH (09:22)
[2019-07-27] MEDS: D5-1/2NS+10 MEQ KCL - 10 MEQ/1,000 ML INFUS.BAG IV SCH (09:29)
[2019-07-27 09:40] LABS: BLOOD UREA NITROGEN 4.2 mg/dL (7-18); CALCIUM 8.8 mg/dL (8.5-10.1); CREATININE 0.7 mg/dL (0.55-1.3); PHOSPHOROUS 2.9 mg/dL (2.5-4.9); POTASSIUM 3.8 mmol/L (3.5-5.1)
--- NOTE | 2019-07-27 11:51 | PN ---
Progress Note (short form) - Note Progress Note: Atending Surgeon POD#5 No c/o; tolerated clear liquids VSS AF abdo-soft; flat and non tender; wound open and granulating; ostomy viable and functioning. WBC normal IMP: doing well PLAN: d/c IV; advance diet; wound care. Silvano Child MD FACS
--- NOTE | 2019-07-27 14:09 | PN ---
Physical Exam: SUBJECTIVE: Patient seen and examined, tolerating liquids well, pain better, ongoing Bowel movements, ambulating, no new complaints. OBJECTIVE: Vital Signs Period Temp Pulse Resp BP Sys/Ren Pulse Ox Last 24 Hr 97.8 F-98.1 F 58-77 20-20 120-137/50-81 95-96 Intake & Output 07/24/19 07/25/19 07/26/19 07/27/19 23:59 23:59 23:59 23:59 Intake Total 2975 2100 4550 300 Output Total 2500 1550 50 Balance 475 2100 3000 250 GENERAL: sitting in bed in no acute distress neck: soft, supple HEENT: PERRL, EOMI CVS:S1S2 regular Chest: CTAB, no rales or wheezing Abdomen:soft, improved tenderness around surgical site, colostomy with greenish stool, pos bowel sounds Extremities: no edema Laboratory Results - last 24 hr 07/27/19 07/27/19 06:00 08:40 WBC 5.5 RBC 4.16 Hgb 10.9 Hct 33.5 MCV 80.5 MCH 26.2 MCHC 32.5 RDW 17.5 H Plt Count 339 MPV 8.1 Absolute Neuts (auto) 3.7 Neutrophils % 68.4 Lymphocytes % 17.0 D Monocytes % 7.3 Eosinophils % 6.5 H D Basophils % 0.8 Nucleated RBC % 0 Sodium 138 Potassium 3.8 Chloride 108 H Carbon Dioxide 22 Anion Gap 8 BUN 4.2 L Creatinine 0.7 Est GFR (CKD-EPI)AfAm 117.91 Est GFR (CKD-EPI)NonAf 101.74 Random Glucose 147 H Calcium 8.8 Phosphorus 2.9 Magnesium 2.0 Active Medications Generic Name Dose Route Start Last Admin Trade Name Freq PRN Reason Stop Dose Admin Acetaminophen 1,000 mg 07/26/19 18:35 07/27/19 09:24 Tylenol - PO 1,000 mg Q6H PRN Administration PAIN Benzocaine/Butamben/Tetracaine HCl 1 spray 07/23/19 11:25 Cetacaine [place] - TP DAILY PRN PAIN Benzocaine/Menthol 1 each 07/23/19 12:40 Cepacol Lozenge - MM Q6H PRN SORE THROAT Heparin Sodium (Porcine) 5,000 unit 07/23/19 06:00 07/27/19 06:31 Heparin - SQ 5,000 unit TID PRASANNA Administration Piperacillin Sod/Tazobactam 50 mls @ 100 mls/hr 07/23/19 18:00 07/27/19 09:22 Sod 3.375 gm/ Dextrose IVPB 100 mls/hr Q8H-IV PRASANNA Administration Protocol Ondansetron HCl 4 mg 07/22/19 22:02 Zofran Injection IVPUSH Q6H PRN NAUSEA Pantoprazole Sodium 40 mg 07/27/19 10:00 07/27/19 09:22 Protonix - PO 40 mg DAILY PRASANNA Administration Tramadol HCl 50 mg 07/27/19 14:07 Ultram - PO Q6H PRN PAIN LEVEL 7 - 10 Microbiology 07/23/19 21:00 Blood - Peripheral Venous Blood Culture - Preliminary NO GROWTH OBTAINED AFTER 72 HOURS, INCUBATION TO CONTINUE FOR 2 DAYS. 07/23/19 18:30 Blood - Peripheral Venous Blood Culture - Preliminary NO GROWTH OBTAINED AFTER 72 HOURS, INCUBATION TO CONTINUE FOR 2 DAYS. 07/22/19 17:20 Urine - Urine Clean Catch Urine Culture - Final NO GROWTH OBTAINED ASSESSMENT/PLAN: 49 yof with PMhx of Diverticulosis, haemorrhoids, erosive gastritis, Diverticular bleed/blood loss anemia 03/2019, s/p endoclipping of bleeding diverticulum, also EGD with erosive gastritis, admitted with mid tranverse colonic perforation, after ambulatory colonoscopy today. -Mid transverse colonic perforation post colonoscopy s/p emergent ex-lap with mid transerve resection/right colostomy 07/22 -Colonic polyps s/p resection and larger polyp with snare/electrocautery -Leucocytosis, suspect Stress induced from above, resolved -Dehydration, resolved -Lactic acidosis, resolved -Hypomagnesemia -Colonic diverticulosis -Haemorrhoids -Diverticular bleed/blood loss anemia 03/2019, s/p endoclipping of bleeding diverticulum -Erosive gastritis Plan: Tolerating clears, improved Surgery input noted Advance to full liquids, dc IVF Discuss with ID to transition to PO augmentin. Ongoing incentive spirometry, ambulation. discussed with CM, plan for home VNS for colostomy care education replete lytes prn Dispo dc in 24-48 hours if tolerating diet well, no new concerns Discussed with patient and nursing, all questions answered. Visit type - Emergency Visit Emergency Visit: Yes ED Registration Date: 07/22/19 Care time: The patient presented to the Emergency Department on the above date and was hospitalized for further evaluation of their emergent condition. - New Patient This patient is new to me today: No - Critical Care Critical Care patient: No - Discharge Referral Referred to [facility] No
[2019-07-27] MEDS ORDERED: MELATONIN 5 MG TABLETS PO ONE (21:31)
[2019-07-28] MEDS: traMADol HCL 50 MG TABLET PO PRN ×2 (06:20→18:08)
[2019-07-28] MEDS: HEPARIN NA (PORCINE) 5,000 UNITS/ML 1ML VIAL SQ SCH ×3 (06:21→22:00)
[2019-07-28 07:56] LABS: BASO % 0.9 % (0-2.0); EOS % 2.7 % (0-4.5); HEMATOCRIT 35.3 % (32.4-45.2); HEMOGLOBIN 11.4 GM/dL (10.7-15.3); LYMPH % 15.7 % (8-40); MCH 26.1 pg (25.7-33.7); MCHC 32.4 g/dl (32.0-36.0); MEAN CELL VOLUME 80.8 fl (80-96); MEAN PLT VOLUME 8.1 fl (7.5-11.1); MONO % 7.4 % (3.8-10.2); NEUT % 73.3 % (42.8-82.8); PLATELET COUNT 344 K/MM3 (134-434); RBC 4.37 M/mm3 (3.60-5.2); RDW 17.4 % (11.6-15.6); WHITE BLOOD COUNT 5.5 K/mm3 (4.0-10.0)
[2019-07-28] MEDS ORDERED: ACETAMINOPHEN 1000 MG/100 ML VIAL (NON FORMULARY) IVPB ONE (09:11)
[2019-07-28] MEDS: PANTOPRAZOLE 40 MG TABLET (FP) PO SCH (09:43)
--- NOTE | 2019-07-28 11:17 | PN ---
Teaching Attending Note Name of Resident: Linda Wheat ATTENDING PHYSICIAN STATEMENT I saw and evaluated the patient. I reviewed the resident's note and discussed the case with the resident. I agree with the resident's findings and plan as documented with exceptions below. SUBJECTIVE: Patient seen and examined, more pain around the incisional site today. No nausea , vomiting, tolerating full liquid well. OBJECTIVE: Vital Signs Period Temp Pulse Resp BP Sys/Ren Pulse Ox Last 24 Hr 97.9 F-98.5 F 60-73 16-20 110-125/56-76 96 Intake & Output 07/25/19 07/26/19 07/27/19 07/28/19 23:59 23:59 23:59 23:59 Intake Total 2100 4550 1395 Output Total 1550 550 100 Balance 2100 3000 845 -100 General: sitting in bed in no acute distress Chest: CTAB, no rales or wheezing Abdomen: soft, right colostomy with greenish stool, incision wound with dressing , wound with some discharge, no foul smell, minimal surrounding erythema, pos bowel sounds, no voluntary or involuntary guarding or rigidity Extremities: no edema Home Medications Medication Instructions Recorded Pantoprazole Sodium [Protonix] 40 mg PO DAILY #30 tablet. 03/26/19 Active Medications Acetaminophen (Tylenol -) 1,000 mg PO Q6H PRN PRN Reason: PAIN Last Admin: 07/27/19 21:12 Dose: 1,000 mg Benzocaine/Butamben/Tetracaine HCl (Cetacaine [place] -) 1 spray TP DAILY PRN PRN Reason: PAIN Benzocaine/Menthol (Cepacol Loz[place] -) 1 each MM Q6H PRN PRN Reason: SORE THROAT Heparin Sodium (Porcine) (Heparin -) 5,000 unit SQ TID [facility] Last Admin: 07/28/19 06:21 Dose: 5,000 unit Ondansetron HCl (Zofran Injection) 4 mg IVPUSH Q6H PRN PRN Reason: NAUSEA Pantoprazole Sodium (Protonix -) 40 mg PO DAILY [facility] Last Admin: 07/28/19 09:43 Dose: 40 mg Tramadol HCl (Ultram -) 50 mg PO Q6H PRN PRN Reason: PAIN LEVEL 7 - 10 Last Admin: 07/28/19 06:20 Dose: 50 mg Laboratory Results - last 24 hr 07/28/19 07:05 WBC 5.5 RBC 4.37 Hgb 11.4 Hct 35.3 MCV 80.8 MCH 26.1 MCHC 32.4 RDW 17.4 H Plt Count 344 MPV 8.1 Absolute Neuts (auto) 4.0 Neutrophils % 73.3 Lymphocytes % 15.7 Monocytes % 7.4 Eosinophils % 2.7 Basophils % 0.9 Nucleated RBC % 0 ASSESSMENT AND PLAN: 49 yof with PMhx of Diverticulosis, haemorrhoids, erosive gastritis, Diverticular bleed/blood loss anemia 03/2019, s/p endoclipping of bleeding diverticulum, also EGD with erosive gastritis, admitted with mid tranverse colonic perforation, after ambulatory colonoscopy today. -Mid transverse colonic perforation post colonoscopy s/p emergent ex-lap with mid transerve resection/right colostomy 07/22 -Colonic polyps s/p resection and larger polyp with snare/electrocautery -Leucocytosis, suspect Stress induced from above, resolved -Dehydration, resolved -Lactic acidosis, resolved -Hypomagnesemia -Colonic diverticulosis -Haemorrhoids -Diverticular bleed/blood loss anemia 03/2019, s/p endoclipping of bleeding diverticulum -Erosive gastritis Plan: Tolerating full liquids Overnight events noted, more pain around incisional site Dr. Child notified, will follow up recs. Discussed with consuelo Owen d/sandra, monitor clinically for now. Ongoing incentive spirometry, ambulation. discussed with CM, plan for home VNS for colostomy care education replete lytes prn Dispo dc in 24-48 hours if tolerating diet well, no new concerns Discussed with patient and nursing, all questions answered.
--- NOTE | 2019-07-28 11:34 | PN ---
Progress Note (short form) - Note Progress Note: Attending Surgeon POD#6 Some wound pain today; tolerating diet VSS AF abdo-soft; ostomy viable and functioning ; wound intact; open and packed. IMP: improving PLAN: Advance diet/wound care/ostomy teaching. Silvano Child MD FACS
--- NOTE | 2019-07-28 12:29 | PN ---
Physical Exam: SUBJECTIVE: Patient seen and examined. No acute events overnight. Pin has increased pain surrounding incision site. Denies fevers, nausea, vomiting. Tolerating full liquid diet well. OBJECTIVE: Vital Signs Period Temp Pulse Resp BP Sys/Ren Pulse Ox Last 24 Hr 97.9 F-98.5 F 60-73 16-20 110-125/56-76 96 GENERAL: The patient is awake, alert, and fully oriented, in no acute distress. HEAD: Normal with no signs of trauma. NECK: Trachea midline, full range of motion, supple. LUNGS: Breath sounds equal, clear to auscultation bilaterally, no wheezes, no crackles, no accessory muscle use. HEART: Regular rate and rhythm, S1, S2 without murmur, rub or gallop. ABDOMEN: Midline surgical dressing in place with overlying ABD pad, no strikethrough. Midline surgical wound closed with miguelito, loosely approximated in upper incision, WTD guaze in place. RUQ with pink, patent stoma. Ostomy bag w / gas in bag, thin-watery dark green fluid. Hypoactive BS throughout abd. Mild paraincisional TTP. EXTREMITIES: 2+ pulses, warm, well-perfused, no edema. NEUROLOGICAL: Cranial nerves II through XII grossly intact. Normal speech, gait not observed. PSYCH: Normal mood, normal affect. SKIN: Warm, dry, normal turgor, no rashes or lesions noted Laboratory Results - last 24 hr 07/28/19 07:05 WBC 5.5 RBC 4.37 Hgb 11.4 Hct 35.3 MCV 80.8 MCH 26.1 MCHC 32.4 RDW 17.4 H Plt Count 344 MPV 8.1 Absolute Neuts (auto) 4.0 Neutrophils % 73.3 Lymphocytes % 15.7 Monocytes % 7.4 Eosinophils % 2.7 Basophils % 0.9 Nucleated RBC % 0 Active Medications Acetaminophen (Tylenol -) 1,000 mg PO Q6H PRN PRN Reason: PAIN Last Admin: 07/27/19 21:12 Dose: 1,000 mg Benzocaine/Butamben/Tetracaine HCl (Cetacaine [place] -) 1 spray TP DAILY PRN PRN Reason: PAIN Benzocaine/Menthol (Cepacol [place]oz[place] -) 1 each MM Q6H PRN PRN Reason: SORE THROAT Heparin Sodium (Porcine) (Heparin -) 5,000 unit SQ TID [facility] Last Admin: 07/28/19 06:21 Dose: 5,000 unit Ondansetron HCl (Zofran Injection) 4 mg IVPUSH Q6H PRN PRN Reason: NAUSEA Pantoprazole Sodium (Protonix -) 40 mg PO DAILY [facility] Last Admin: 07/28/19 09:43 Dose: 40 mg Tramadol HCl (Ultram -) 50 mg PO Q6H PRN PRN Reason: PAIN LEVEL 7 - 10 Last Admin: 07/28/19 06:20 Dose: 50 mg ASSESSMENT/PLAN: Patient is a 49 year old female with PMH of diverticulosis, hemorrhoids, colonic polyps sent in [facility] by [facility]val) s/p colonoscopy(07/22/19) complicated by possible intraoperative perforation during polypectomy. CT A/P showing extraluminal free air consistent with perforation. S/p ex-lap, partial transverse colon resection w/ creation of end colostomy ([facility], 07/22/19). # S/p ex-lap, partial transverse colon resection w/creation of end colostomy ( [facility], 07/22/19) Upright KUB (07/22/19): pneumoperitoneum CTAP w/ IV contrast (07/22/19): extraluminal air abutting midtransverse colon , free fluid in pelvis and Right paracolic space; Left hepatic lobe cyst ~1.3cm Pathology: 0.2cm defect w/ transverse colon S/p morphine 4mg, zofran 4mg, LR 1L x2 Pain control: tramadol and tylenol Activity: OOB, activity as tolerated Diet: full liquid, advance as tolerated ID following (Dr. Swanson/Mark): d/c zosyn and monitor clinically Blood cx: NGTD Incentive spirometry Monitor ostomy outpout #Throat pain, likely 2/2 to NGT - resolved Cepacol lozenge PRN Cetacaine PRN #Elevated lactic acid, likely 2/2 dehydration from colonoscopy - resolved Lactate 2.3, 3.1, 1.0 IVF (s/p LR 1L x2, mIVF) #Left hepatic lobe cyst ~1.3cm F/u as outpatient #FEN Viera --dc'd on Day 2 Oral hydraton Full liquid diet, advance as tolerated #DVT ppx Heparin #Dispo Med-surg Visit type Visit type - Emergency Visit Emergency Visit: No - New Patient This patient is new to me today: No - Critical Care Critical Care patient: No ATTENDING PHYSICIAN STATEMENT I saw and evaluated the patient. I reviewed the resident's note and discussed the case with the resident. I agree with the resident's findings and plan as documented. SUBJECTIVE: OBJECTIVE: ASSESSMENT AND PLAN:
[2019-07-28] MEDS: ACETAMINOPHEN 500 MG TABLET (FP) PO PRN (21:57)
[2019-07-29] MEDS ORDERED: MELATONIN 5 MG TABLETS PO ONE (00:13)
[2019-07-29] MEDS: HEPARIN NA (PORCINE) 5,000 UNITS/ML 1ML VIAL SQ SCH ×3 (06:45→22:08)
[2019-07-29] MEDS: traMADol HCL 50 MG TABLET PO PRN ×2 (07:57→18:14)
[2019-07-29 08:15] LABS: HEMATOCRIT 36.5 % (32.4-45.2); HEMOGLOBIN 11.7 GM/dL (10.7-15.3); MCH 26.2 pg (25.7-33.7); MCHC 32.1 g/dl (32.0-36.0); MEAN CELL VOLUME 81.6 fl (80-96); MEAN PLT VOLUME 8.2 fl (7.5-11.1); PLATELET COUNT 358 K/MM3 (134-434); RBC 4.48 M/mm3 (3.60-5.2); RDW 17.7 % (11.6-15.6); WHITE BLOOD COUNT 5.9 K/mm3 (4.0-10.0)
[2019-07-29 08:45] LABS: BLOOD UREA NITROGEN 8.5 mg/dL (7-18); CALCIUM 9.2 mg/dL (8.5-10.1); CREATININE 0.7 mg/dL (0.55-1.3); POTASSIUM 4.1 mmol/L (3.5-5.1)
--- NOTE | 2019-07-29 09:33 | PN ---
Progress Note (short form) - Note Progress Note: POD 7, s/p segmental transverse colon resection and end colostomy Pt seen and examined. Tearful regarding current situation. Support provided. Pain controlled with current regimen. Tolerating liquids. Ostomy functioning. Denies cp/sob, n/v/d. Vital Signs Temp 97.8 F 07/29/19 05:41 Pulse 63 07/29/19 05:41 Resp 18 07/29/19 05:41 BP 110/62 07/29/19 05:41 Pulse Ox 96 07/28/19 21:00 Intake & Output 07/28/19 07/28/19 07/29/19 11:59 23:59 11:59 Intake Total 710 Output Total 100 300 100 Balance -100 410 -100 Intake: Oral 350 Oral Supplement 360 Output: Colostomy 100 300 100 Other: Voiding Method Toilet Toilet # Unmeasured Voids Void 1 1 1 Bowel Movement Yes No # Bowel Movements 1 CBC, BMP 07/29/19 07:15 07/29/19 07:15 Gen: awake, alert, nad Resp: Unlabored on RA Abdo: soft, +ttp diffusely, no rebound or guarding. Dressing removed. Proximal portion of wound intact, miguelito intact, distal incision with granulation tissue present, no erythema. Incision nearly closed. Scant serous drainage. No foul odor. Covered with dry 4x4s and ABDs. Colostomy viable with moderate amount of liquid stool in bag. A/P: 49 y/o F w/ PMHx diverticulosis, hemorrhoids, colonic polyps admitted on after being sent by GI [facility]) s/p colonoscopy(07/22/19) complicated by intraoperative perforation during polypectomy, now POD 7, s/p segmental transverse colon resection and end colostomy. Afebrile, VSS Labs stable, ostomy producing -Advance to regular diet -Continue oob and ambulating -Incentive spirometer -Pain regimen per anesthesia -Ostomy care per orders -Monitor i&os -VS per protocol -Remainder of care per primary team -Should be cleared for d/c tomorrow 07/21 pending VNS services d/w attending Dr Child
[2019-07-29] MEDS: PANTOPRAZOLE 40 MG TABLET (FP) PO SCH (09:39)
[2019-07-29] MEDS: ACETAMINOPHEN 500 MG TABLET (FP) PO PRN ×2 (11:55→22:38)
--- NOTE | 2019-07-29 16:21 | PN ---
Physical Exam: SUBJECTIVE: Patient seen and examined at the bedside. Stated she continue to have pain at the ostomy site but is relatively well controlled with PO pain medications. Stated is tolerating full liquid diet well and will be transitioned to regular diet and observed. Has been urinating well and denies other pains. Denies, cp, sob, fever, chills, n/v. OBJECTIVE: Vital Signs Period Temp Pulse Resp BP Sys/Ren Pulse Ox Last 24 Hr 97.8 F-99.6 F 63-82 18-18 110-133/62-73 96-97 GENERAL: The patient is awake, alert, and fully oriented, in mild acute distress regarding her current change of lifestyle due to ostomy bag. HEAD: Normal with no signs of trauma. NECK: Trachea midline, full range of motion, supple. LUNGS: Breath sounds equal, clear to auscultation bilaterally, no wheezes, no crackles, no accessory muscle use. HEART: Regular rate and rhythm, S1, S2 without murmur, rub or gallop. ABDOMEN: Midline surgical dressing in place with overlying ABD pad. Midline surgical wound closed with miguelito, loosely approximated in upper incision. RUQ with pink, patent stoma. Ostomy bag w/ gas in bag, and stool present. Normoactive bowel sounds. EXTREMITIES: 2+ pulses, warm, well-perfused, no edema. NEUROLOGICAL: Cranial nerves II through XII grossly intact. Normal speech, gait not observed. PSYCH: Normal mood, normal affect. SKIN: Warm, dry, normal turgor, no rashes or lesions noted Laboratory Results - last 24 hr 07/29/19 07/29/19 07:15 07:15 WBC 5.9 RBC 4.48 Hgb 11.7 Hct 36.5 MCV 81.6 MCH 26.2 MCHC 32.1 RDW 17.7 H Plt Count 358 MPV 8.2 Sodium 139 Potassium 4.1 Chloride 106 Carbon Dioxide 27 Anion Gap 6 L BUN 8.5 Creatinine 0.7 Est GFR (CKD-EPI)AfAm 117.91 Est GFR (CKD-EPI)NonAf 101.74 Random Glucose 80 Calcium 9.2 Active Medications Generic Name Dose Route Start Last Admin Trade Name Freq PRN Reason Stop Dose Admin Acetaminophen 1,000 mg 07/26/19 18:35 07/29/19 11:55 Tylenol - PO 1,000 mg Q6H PRN Administration PAIN Benzocaine/Butamben/Tetracaine HCl 1 spray 07/23/19 11:25 Cetacaine [place] - TP DAILY PRN PAIN Benzocaine/Menthol 1 each 07/23/19 12:40 Cepacol Lozenge - MM Q6H PRN SORE THROAT Heparin Sodium (Porcine) 5,000 unit 07/23/19 06:00 07/29/19 13:13 Heparin - SQ 5,000 unit TID PRASANNA Administration Ondansetron HCl 4 mg 07/22/19 22:02 Zofran Injection IVPUSH Q6H PRN NAUSEA Pantoprazole Sodium 40 mg 07/27/19 10:00 07/29/19 09:39 Protonix - PO 40 mg DAILY PRASANNA Administration Tramadol HCl 50 mg 07/27/19 14:07 07/29/19 07:57 Ultram - PO 50 mg Q6H PRN Administration PAIN LEVEL 7 - 10 ASSESSMENT/PLAN: Andreea Jaffe is a 49 year old female with PMH of diverticulosis, hemorrhoids, colonic polyps sent in to [facility] by GI(Yuval) s/p colonoscopy(07/22/19) complicated by possible intraoperative perforation during polypectomy. CT A/P showing extraluminal free air consistent with perforation. S/p ex-lap, partial transverse colon resection w/ creation of end colostomy (Danyell, 07/22/19). S/p ex-lap, partial transverse colon resection w/creation of end colostomy - performed by Dr. Child, 07/22/19 - CTAP w/ IV contrast (07/22/19): extraluminal air abutting midtransverse colon , free fluid in pelvis and Right paracolic space; Left hepatic lobe cyst ~1.3cm - Pathology: 0.2cm defect w/ transverse colon - Pain control: tramadol and tylenol - Activity: OOB, activity as tolerated - ID following (Dr. Swanson/Mark), recs appreciated, d/c zosyn and monitor clinically - Blood cx negative - encourage Incentive spirometry - Monitor ostomy output - ostomy bag education Throat pain, likely 2/2 to NGT - Cepacol lozenge PRN - Cetacaine PRN Elevated lactic acid, likely 2/2 dehydration from colonoscopy - resolved - Lactate 2.3--> 3.0--> 1.0 - oral hydration, no IVF Left hepatic lobe cyst - F/u as outpatient FEN - no standing fluids - continue to monitor electrolytes and replete as necessary - Regular diet, observe if tolerating DVT ppx - Heparin 5000 units tid Dispo - continue to monitor on Med-surg - will likely be d/c in the morning as per surgery team with VNS. Visit type - Emergency Visit Emergency Visit: No - New Patient This patient is new to me today: Yes Date on this admission: 07/29/19 - Critical Care Critical Care patient: No
--- NOTE | 2019-07-29 18:20 | PN ---
Teaching Attending Note Name of Resident: Selvin Godwin ATTENDING PHYSICIAN STATEMENT I saw and evaluated the patient. I reviewed the resident's note and discussed the case with the resident. I agree with the resident's findings and plan as documented with exceptions below. SUBJECTIVE: patient seen and examined, abdominal pain currently. Tolerating diet well, no new concerns. OBJECTIVE: Vital Signs Period Temp Pulse Resp BP Sys/Ren Pulse Ox Last 24 Hr 97.8 F-99.6 F 63-82 18-18 110-133/62-73 96-97 Intake & Output 07/26/19 07/27/19 07/28/19 07/29/19 23:59 23:59 23:59 23:59 Intake Total 4550 1395 710 560 Output Total 1550 550 400 100 Balance 3000 845 310 460 General: sitting in bed, in no acute distress Chest: CTAB, no rales or wheezing Abdomen:Soft, surgical dressing clean, mild tenderness around incisional site, right colostomy with greenish stool, no voluntary or involuntary guarding or rigidity, pos bowel sounds Extremities: no edema Home Medications Medication Instructions Recorded Pantoprazole Sodium [Protonix] 40 mg PO DAILY #30 tablet. 03/26/19 Active Medications Acetaminophen (Tylenol -) 1,000 mg PO Q6H PRN PRN Reason: PAIN Last Admin: 07/29/19 11:55 Dose: 1,000 mg Benzocaine/Butamben/Tetracaine HCl (Cetacaine [place] -) 1 spray TP DAILY PRN PRN Reason: PAIN Benzocaine/Menthol (Cepacol Lozenge -) 1 each MM Q6H PRN PRN Reason: SORE THROAT Heparin Sodium (Porcine) (Heparin -) 5,000 unit SQ TID [facility] Last Admin: 07/29/19 13:13 Dose: 5,000 unit Ondansetron HCl (Zofran Injection) 4 mg IVPUSH Q6H PRN PRN Reason: NAUSEA Pantoprazole Sodium (Protonix -) 40 mg PO DAILY [facility] Last Admin: 07/29/19 09:39 Dose: 40 mg Tramadol HCl (Ultram -) 50 mg PO Q6H PRN PRN Reason: PAIN LEVEL 7 - 10 Last Admin: 07/29/19 18:14 Dose: 50 mg Laboratory Results - last 24 hr 07/29/19 07/29/19 07:15 07:15 WBC 5.9 RBC 4.48 Hgb 11.7 Hct 36.5 MCV 81.6 MCH 26.2 MCHC 32.1 RDW 17.7 H Plt Count 358 MPV 8.2 Sodium 139 Potassium 4.1 Chloride 106 Carbon Dioxide 27 Anion Gap 6 L BUN 8.5 Creatinine 0.7 Est GFR (CKD-EPI)AfAm 117.91 Est GFR (CKD-EPI)NonAf 101.74 Random Glucose 80 Calcium 9.2 Microbiology 07/23/19 21:00 Blood - Peripheral Venous Blood Culture - Final NO GROWTH AFTER 5 DAYS INCUBATION 07/23/19 18:30 Blood - Peripheral Venous Blood Culture - Final NO GROWTH AFTER 5 DAYS INCUBATION 07/22/19 17:20 Urine - Urine Clean Catch Urine Culture - Final NO GROWTH OBTAINED ASSESSMENT AND PLAN: 49 yof with PMhx of Diverticulosis, haemorrhoids, erosive gastritis, Diverticular bleed/blood loss anemia 03/2019, s/p endoclipping of bleeding diverticulum, also EGD with erosive gastritis, admitted with mid tranverse colonic perforation, after ambulatory colonoscopy with Dr. Barakat. -Mid transverse colonic perforation post colonoscopy s/p emergent ex-lap with mid transerve resection/right colostomy 07/22 -Colonic polyps s/p resection and larger polyp with snare/electrocautery -Leucocytosis, suspect Stress induced from above, resolved -Dehydration, resolved -Lactic acidosis, resolved -Hypomagnesemia -Colonic diverticulosis -Haemorrhoids -Diverticular bleed/blood loss anemia 03/2019, s/p endoclipping of bleeding diverticulum -Erosive gastritis Plan: Tolerating full liquids, discussed with Dr. Child, transition to solids today. s/p 5 days of zosyn, abx dced 07/28, no new concerns, ID input noted. Ongoing colostomy care teaching, plan for home VNS. Incentive spirometry, ambulation. dispo dc in 24 hours with home VNS for ongoing colostomy care/teaching if no new concerns and cleared by surgery. Plan discussed with patient in detail, all questions answered.
--- NOTE | 2019-07-29 19:23 | PN.GI ---
GI Progress Note Subjective: GI NOte: Has been tolerating solids but eating carefully. Colostomy functional. Anticipate colostomy training today . Iron indices are low - Objective Vital Signs: Vital Signs Temperature 98.2 F 07/29/19 14:04 Pulse Rate 82 07/29/19 14:04 Respiratory Rate 18 07/29/19 14:04 Blood Pressure 133/68 07/29/19 14:04 O2 Sat by Pulse Oximetry (%) 97 07/29/19 09:00 Laboratory Tests 07/26/19 07/29/19 07:15 07:15 WBC 5.9 Hgb 11.7 Iron 22 L TIBC 280 Iron Saturation 7 L Unsaturated IBC 258 Ferritin 57.0 Laboratory Tests 07/22/19 07/29/19 13:30 07:15 Hgb 13.2 11.7 Constitutional: Calm Gastrointestinal Inspection: Yes: Other (would bandaged- did not lift) ...Auscultate: Yes: Normoactive Bowel Sounds, Other Labs: CBC, BMP 07/29/19 07:15 07/29/19 07:15 INR, PTT INR 0.99 (0.83-1.09) 07/22/19 13:30 Assessment/Plan Assessment; - Stable postop with RUQ colostomy. - Iron deficiency due to GI bleed in 03/29 and current surgical losses - Polyp pathologies are benign= hyperplastic - Diverticular disease Plan: - Venofer - Postop care as per Dr Child Problem List - Problems (1) Colostomy present Code(s): Z93.3 - COLOSTOMY STATUS (2) S/P partial colectomy Code(s): Z90.49 - ACQUIRED ABSENCE OF OTHER SPECIFIED PARTS OF DIGESTIVE TRACT (3) Colon polyps Code(s): K63.5 - POLYP OF COLON (4) Perforation of colon as colonoscopy complication Code(s): K63.1 - PERFORATION OF INTESTINE (NONTRAUMATIC); K91.71 - ACCIDENTAL PNCTR & LAC OF A DGSTV SYS ORG DUR DGSTV SYS PROC (6) Iron deficiency Code(s): E61.1 - IRON DEFICIENCY
[2019-07-30] MEDS: HEPARIN NA (PORCINE) 5,000 UNITS/ML 1ML VIAL SQ SCH ×2 (05:41→14:05)
[2019-07-30] MEDS: ACETAMINOPHEN 500 MG TABLET (FP) PO PRN ×2 (06:00→16:04)
[2019-07-30] MEDS: traMADol HCL 50 MG TABLET PO PRN (06:00)
--- NOTE | 2019-07-30 08:43 | PN ---
Progress Note (short form) - Note Progress Note: SURGERY 49yo F s/p [place] for perforated transverse colon after colonoscopy, pt seen and examined at bedside. Pt denies n/v, fever, chills. Pt states that she is tolerating PO and abd pain is controlled. Pt states that she wants to go home. Last Vital Signs Temp Pulse Resp BP Pulse Ox 98.3 F 70 18 131/66 97 07/30/19 06:00 07/30/19 06:00 07/30/19 06:00 07/30/19 06:00 07/29/19 21:00 CBC, BMP 07/29/19 07:15 07/29/19 07:15 PE: Gen: A&O x3 Resp: breathing comfortably Abd: soft, nondistended, nontender, Incision clean, no erythema, ostomy has gas in the bag. Ext: no edema Problem List - Problems (1) Perforation of colon as colonoscopy complication Assessment/Plan: Plan -pt is cleared for discharge home, from surgical standpoint. -pt will need colostomy training -follow up with Dr. Child in the office in 1 week Code(s): K63.1 - PERFORATION OF INTESTINE (NONTRAUMATIC); K91.71 - ACCIDENTAL PNCTR & LAC OF A DGSTV SYS ORG DUR DGSTV SYS PROC
[2019-07-30] MEDS ORDERED: IRON SUCROSE INJECTION 300 MG in SODIUM CHLORIDE 235 ML IVPB ONE (09:00)
[2019-07-30] MEDS: PANTOPRAZOLE 40 MG TABLET (FP) PO SCH (09:30)
[2019-07-30 14:30] VITALS: BP 127/86; PULSE 76; TEMP 97.9
--- NOTE | 2019-07-30 16:21 | DS ---
Physical Exam: SUBJECTIVE: Patient seen and examined at the bedside. She stated that she continued to have some post-surgical pain but was overall doing better. She stated that she was ready to go home. Stated she was urinating well. She currently denied any cp, sob, n/v, numbness, tingling, fever, chills. OBJECTIVE: Vital Signs Period Temp Pulse Resp BP Sys/Ren Pulse Ox Last 24 Hr 97.8 F-99.0 F 65-77 18-19 116-131/65-86 97-97 PHYSICAL EXAM GENERAL: The patient is awake, alert, and fully oriented. HEAD: Normal with no signs of trauma. NECK: Trachea midline, full range of motion, supple. LUNGS: Breath sounds equal, clear to auscultation bilaterally, no wheezes, no crackles, no accessory muscle use. HEART: Regular rate and rhythm, S1, S2 without murmur, rub or gallop. ABDOMEN: Midline surgical dressing in place with overlying ABD pad. Midline surgical wound closed with miguelito, loosely approximated in upper incision. RUQ with pink, patent stoma. Ostomy bag w/ gas in bag, and stool present. Normoactive bowel sounds. EXTREMITIES: 2+ pulses, warm, well-perfused, no edema. NEUROLOGICAL: Cranial nerves II through XII grossly intact. Normal speech, gait not observed. PSYCH: Normal mood, normal affect. SKIN: Warm, dry, normal turgor, no rashes or lesions noted LABS CBC, BMP 07/29/19 07:15 07/29/19 07:15 HOSPITAL COURSE: Patricio Andre is a 49 year old female with a past medical history of diverticulosis, hemorrhoids, colonic polyps sent in to [facility] by [facility]) s/ p colonoscopy(07/22/19) complicated by possible intraoperative perforation during polypectomy. Surgery was consulted and the patient underwent a segmental transverse colon resection and end colostomy. Post-surgery the patient had an NG tube placed and was later removed succesfully. The patient was seen by infectious disease who started Zosyn. Patient completed a 6 day course of Zosyn and was later observed off antibiotics with good results. Patient's post- surgical pain was managed with IV [employer] pump and transitioned to oral pain medications. Diet was advanced for patient as tolerated and by day of discharge patient was able to tolerate regular diet. While hospitalized, the patient had an elevation in her lactic acid likely from dehydration after colonoscopy and was rehydrated with good results and resolution of the lactic acidosis. Incidentally, the patient had a left hepatic lobe cyst for which she is to follow up outpatient with GI. Patient was found with iron deficiency anemia and received one dose of Venefor while inpatient and will continue to be followed up for iron deficiency as an outpatient with GI in the setting of the colostomy bag. Patient was educated on colostomy bag and local wounds care. VNS services were provided. All questions were answered. Patient was discharged in stable condition. Date of Admission:07/22/19 Date of Discharge: 07/30/19 Minutes to complete discharge: 35 Discharge Summary Problems reviewed: Yes Reason For Visit: PERFORATION OF COLON COLONOSCOPY COMPLICATION Current Active Problems Colostomy present (Chronic) Iron deficiency (Chronic) Perforation of colon as colonoscopy complication (Chronic) S/P partial colectomy (Chronic) Condition: Improved - Instructions Diet, Activity, Other Instructions: Dr. Child Discharge Instructions Dear PATRICIO ANDRE, Post Operative Instructions Physical activity Resume your normal everyday activity as tolerated no heavy lifting or exercise until seen by your surgeon. You may walk unlimited amounts of and climb stairs. You may resume driving the car when you feel safe and comfortable behind the wheel. Wound care No baths, Sponge bath only. VNS for colosctomy care and wound check. Colostomy will need 70mm wafers and bags. Midline incision dry gauze and cover. Diet There are no dietary restrictions. Eat healthy, high-fiber foods. Drink 6 to 8 glasses of liquid each day. This will assist in keeping your bowels are regular. Pain management You may take Tylenol or acetaminophen or Ibuprofen (for example, Motrin, Advil etc.) Any pain prescription medication ordered should be taken as prescribed for moderate to severe pain. Call Dr. Child for any of the following: Severe pain not relieved by medication Fever of 101 or higher Excessive bleeding or drainage on dressing Inability to urinate Call the office at [phone] for a post operative appointment in 7 - 10 days. Other Referrals Please follow up with your primary care physician, Dr. Dietrich, within 1 week. Please follow up with your exchange specialist, Dr. Barakat, within 1 week. Referrals: Silvano Child MD [Staff Physician] - 1 Week Steve Acosta MD [Primary Care Provider] - 1 Week Disposition: HOME - Home Medications Comprehensive Discharge Medication List: Ambulatory Orders Pantoprazole Sodium [Protonix] 40 mg PO DAILY #30 tablet. 03/26/19 Problem List - Problems (1) Colostomy present Code(s): Z93.3 - COLOSTOMY STATUS (2) Iron deficiency Code(s): E61.1 - IRON DEFICIENCY (3) Perforation of colon as colonoscopy complication Code(s): K63.1 - PERFORATION OF INTESTINE (NONTRAUMATIC); K91.71 - ACCIDENTAL PNCTR & LAC OF A DGSTV SYS ORG DUR DGSTV SYS PROC (4) S/P partial colectomy Code(s): Z90.49 - ACQUIRED ABSENCE OF OTHER SPECIFIED PARTS OF DIGESTIVE TRACT (5) History of colon polyps Code(s): Z86.010 - PERSONAL HISTORY OF COLONIC POLYPS (6) Abdominal pain Code(s): R10.9 - UNSPECIFIED ABDOMINAL PAIN (7) GI bleed Code(s): K92.2 - GASTROINTESTINAL HEMORRHAGE, UNSPECIFIED This patient is new to me today: No Emergency Visit: No Critical Care patient: No - Discharge Referral Referred to [facility] No
--- NOTE | 2019-07-30 17:14 | PN ---
Teaching Attending Note Name of Resident: Selvin Godwin ATTENDING PHYSICIAN STATEMENT I saw and evaluated the patient. I reviewed the resident's note and discussed the case with the resident. I agree with the resident's findings and plan as documented. SUBJECTIVE: Feeling well. tolerating oral intake. Colostomy working. OBJECTIVE: Afebrile, Hemodynamically Stable. Last Vital Signs Temp Pulse Resp BP Pulse Ox 97.9 F 76 18 127/86 97 07/30/19 14:27 07/30/19 14:27 07/30/19 09:00 07/30/19 14:27 07/30/19 09:00 HEENT - Atraumatic, Normocephalic. Heart - S1, S2, RRR Lungs - clear to auscultation Abdomen -Surgical incision dressed. Abdomen soft. colostomy working. Extremities - no edema, no calf tenderness. Laboratory Tests 07/22/19 07/22/19 07/22/19 13:30 13:30 13:30 WBC 9.8 RBC 5.05 Hgb 13.2 Hct 40.8 D MCV 80.8 MCH 26.2 D MCHC 32.4 RDW 18.4 H Plt Count 350 D MPV 8.3 Absolute Neuts (auto) 8.4 H Neutrophils % 85.3 H Lymphocytes % 10.0 D Monocytes % 3.7 L Eosinophils % 0.3 D Basophils % 0.7 Nucleated RBC % 0 PT with INR INR PTT (Actin FS) Sodium 141 Potassium 3.4 L Chloride 109 H Carbon Dioxide 24 Anion Gap 8 BUN 8.8 Creatinine 0.9 Est GFR (CKD-EPI)AfAm 87.02 Est GFR (CKD-EPI)NonAf 75.08 Random Glucose 113 H Lactic Acid 2.3 H* Calcium 9.1 Phosphorus Magnesium Iron TIBC Iron Saturation Unsaturated IBC Ferritin Total Bilirubin 0.6 AST 12 L ALT 16 Alkaline Phosphatase 68 Total Protein 7.4 Albumin 4.2 Urine Color Urine Appearance Urine pH Ur Specific Earth Urine Protein Urine Glucose (UA) Urine Ketones Urine Blood Urine Nitrite Urine Bilirubin Urine Urobilinogen Ur Leukocyte Esterase Urine WBC (Auto) Urine RBC (Auto) Urine Casts (Auto) U Epithel Cells (Auto) Urine Bacteria (Auto) Urine HCG, Qual Blood Type Antibody Screen 07/22/19 07/22/19 07/22/19 13:30 13:30 17:20 WBC RBC Hgb Hct MCV MCH MCHC RDW Plt Count MPV Absolute Neuts (auto) Neutrophils % Lymphocytes % Monocytes % Eosinophils % Basophils % Nucleated RBC % PT with INR 11.70 INR 0.99 PTT (Actin FS) 27.2 Sodium Potassium Chloride Carbon Dioxide Anion Gap BUN Creatinine Est GFR (CKD-EPI)AfAm Est GFR (CKD-EPI)NonAf Random Glucose Lactic Acid Calcium Phosphorus Magnesium Iron TIBC Iron Saturation Unsaturated IBC Ferritin Total Bilirubin AST ALT Alkaline Phosphatase Total Protein Albumin Urine Color Yellow Urine Appearance Clear Urine pH 8.0 D Ur Specific Earth 1.030 Urine Protein Negative Urine Glucose (UA) Trace Urine Ketones 1+ H Urine Blood 2+ H Urine Nitrite Negative Urine Bilirubin Negative Urine Urobilinogen 0.2 Ur Leukocyte Esterase Negative Urine WBC (Auto) 1 Urine RBC (Auto) 3 Urine Casts (Auto) 0 U Epithel Cells (Auto) 1.3 Urine Bacteria (Auto) 49.0 Urine HCG, Qual Blood Type B POSITIVE Antibody Screen Negative 07/22/19 07/22/19 07/23/19 17:20 18:45 08:10 WBC 16.8 H RBC 4.22 Hgb 11.1 Hct 34.3 D MCV 81.3 MCH 26.4 MCHC 32.5 RDW 17.9 H Plt Count 294 MPV 8.6 Absolute Neuts (auto) 15.0 H Neutrophils % 89.1 H Lymphocytes % 5.5 L D Monocytes % 5.2 Eosinophils % 0.0 D Basophils % 0.2 Nucleated RBC % 0 PT with INR INR PTT (Actin FS) Sodium Potassium Chloride Carbon Dioxide Anion Gap BUN Creatinine Est GFR (CKD-EPI)AfAm Est GFR (CKD-EPI)NonAf Random Glucose Lactic Acid 3.1 H* Calcium Phosphorus Magnesium Iron TIBC Iron Saturation Unsaturated IBC Ferritin Total Bilirubin AST ALT Alkaline Phosphatase Total Protein Albumin Urine Color Urine Appearance Urine pH Ur Specific Earth Urine Protein Urine Glucose (UA) Urine Ketones Urine Blood Urine Nitrite Urine Bilirubin Urine Urobilinogen Ur Leukocyte Esterase Urine WBC (Auto) Urine RBC (Auto) Urine Casts (Auto) U Epithel Cells (Auto) Urine Bacteria (Auto) Urine HCG, Qual Negative Blood Type Antibody Screen 07/23/19 07/23/19 07/24/19 08:10 09:00 07:26 WBC 9.7 RBC 4.15 Hgb 11.2 Hct 33.9 MCV 81.7 MCH 26.9 MCHC 32.9 RDW 17.9 H Plt Count 275 MPV 8.8 Absolute Neuts (auto) 8.3 H Neutrophils % 85.7 H Lymphocytes % 7.9 L D Monocytes % 5.9 Eosinophils % 0.2 D Basophils % 0.3 Nucleated RBC % 0 PT with INR INR PTT (Actin FS) Sodium 137 Potassium 3.4 L Chloride 106 Carbon Dioxide 24 Anion Gap 6 L BUN 6.3 L Creatinine 0.7 Est GFR (CKD-EPI)AfAm 117.91 Est GFR (CKD-EPI)NonAf 101.74 Random Glucose 120 H Lactic Acid 1.0 Calcium 8.0 L Phosphorus 3.1 Magnesium 1.7 L Iron TIBC Iron Saturation Unsaturated IBC Ferritin Total Bilirubin 1.0 AST 13 L ALT 11 L Alkaline Phosphatase 48 Total Protein 5.5 L Albumin 3.0 L Urine Color Urine Appearance Urine pH Ur Specific Earth Urine Protein Urine Glucose (UA) Urine Ketones Urine Blood Urine Nitrite Urine Bilirubin Urine Urobilinogen Ur Leukocyte Esterase Urine WBC (Auto) Urine RBC (Auto) Urine Casts (Auto) U Epithel Cells (Auto) Urine Bacteria (Auto) Urine HCG, Qual Blood Type Antibody Screen 07/24/19 07/25/19 07/25/19 07:26 08:10 08:10 WBC 6.5 RBC 4.24 Hgb 11.2 Hct 34.4 MCV 81.1 MCH 26.3 MCHC 32.5 RDW 18.0 H Plt Count 319 MPV 8.4 Absolute Neuts (auto) 5.3 Neutrophils % 81.4 Lymphocytes % 12.2 D Monocytes % 5.1 Eosinophils % 1.0 D Basophils % 0.3 Nucleated RBC % 0 PT with INR INR PTT (Actin FS) Sodium 137 139 Potassium 4.0 3.6 Chloride 107 106 Carbon Dioxide 26 27 Anion Gap 4 L 6 L BUN 3.6 L 3.9 L Creatinine 0.6 0.6 Est GFR (CKD-EPI)AfAm 124.05 124.05 Est GFR (CKD-EPI)NonAf 107.03 107.03 Random Glucose 115 H 92 Lactic Acid Calcium 7.9 L 8.3 L Phosphorus 1.9 L 3.0 Magnesium 2.0 2.2 Iron TIBC Iron Saturation Unsaturated IBC Ferritin Total Bilirubin AST ALT Alkaline Phosphatase Total Protein Albumin Urine Color Urine Appearance Urine pH Ur Specific Earth Urine Protein Urine Glucose (UA) Urine Ketones Urine Blood Urine Nitrite Urine Bilirubin Urine Urobilinogen Ur Leukocyte Esterase Urine WBC (Auto) Urine RBC (Auto) Urine Casts (Auto) U Epithel Cells (Auto) Urine Bacteria (Auto) Urine HCG, Qual Blood Type Antibody Screen 07/26/19 07/26/19 07/26/19 07:15 07:15 07:15 WBC 4.4 RBC 4.13 Hgb 10.8 Hct 33.4 MCV 80.9 MCH 26.1 MCHC 32.2 RDW 17.4 H Plt Count 313 MPV 8.1 Absolute Neuts (auto) Neutrophils % Lymphocytes % Monocytes % Eosinophils % Basophils % Nucleated RBC % PT with INR INR PTT (Actin FS) Sodium 138 Potassium 3.6 Chloride 106 Carbon Dioxide 26 Anion Gap 6 L BUN 4.3 L Creatinine 0.6 Est GFR (CKD-EPI)AfAm 124.05 Est GFR (CKD-EPI)NonAf 107.03 Random Glucose 97 Lactic Acid Calcium 8.4 L Phosphorus 3.1 Magnesium 2.2 Iron 22 L TIBC 280 Iron Saturation 7 L Unsaturated IBC 258 Ferritin 57.0 Total Bilirubin AST ALT Alkaline Phosphatase Total Protein Albumin Urine Color Urine Appearance Urine pH Ur Specific Earth Urine Protein Urine Glucose (UA) Urine Ketones Urine Blood Urine Nitrite Urine Bilirubin Urine Urobilinogen Ur Leukocyte Esterase Urine WBC (Auto) Urine RBC (Auto) Urine Casts (Auto) U Epithel Cells (Auto) Urine Bacteria (Auto) Urine HCG, Qual Blood Type Antibody Screen 07/27/19 07/27/19 07/28/19 06:00 08:40 07:05 WBC 5.5 5.5 RBC 4.16 4.37 Hgb 10.9 11.4 Hct 33.5 35.3 MCV 80.5 80.8 MCH 26.2 26.1 MCHC 32.5 32.4 RDW 17.5 H 17.4 H Plt Count 339 344 MPV 8.1 8.1 Absolute Neuts (auto) 3.7 4.0 Neutrophils % 68.4 73.3 Lymphocytes % 17.0 D 15.7 Monocytes % 7.3 7.4 Eosinophils % 6.5 H D 2.7 Basophils % 0.8 0.9 Nucleated RBC % 0 0 PT with INR INR PTT (Actin FS) Sodium 138 Potassium 3.8 Chloride 108 H Carbon Dioxide 22 Anion Gap 8 BUN 4.2 L Creatinine 0.7 Est GFR (CKD-EPI)AfAm 117.91 Est GFR (CKD-EPI)NonAf 101.74 Random Glucose 147 H Lactic Acid Calcium 8.8 Phosphorus 2.9 Magnesium 2.0 Iron TIBC Iron Saturation Unsaturated IBC Ferritin Total Bilirubin AST ALT Alkaline Phosphatase Total Protein Albumin Urine Color Urine Appearance Urine pH Ur Specific Earth Urine Protein Urine Glucose (UA) Urine Ketones Urine Blood Urine Nitrite Urine Bilirubin Urine Urobilinogen Ur Leukocyte Esterase Urine WBC (Auto) Urine RBC (Auto) Urine Casts (Auto) U Epithel Cells (Auto) Urine Bacteria (Auto) Urine HCG, Qual Blood Type Antibody Screen 07/29/19 07/29/19 07:15 07:15 WBC 5.9 RBC 4.48 Hgb 11.7 Hct 36.5 MCV 81.6 MCH 26.2 MCHC 32.1 RDW 17.7 H Plt Count 358 MPV 8.2 Absolute Neuts (auto) Neutrophils % Lymphocytes % Monocytes % Eosinophils % Basophils % Nucleated RBC % PT with INR INR PTT (Actin FS) Sodium 139 Potassium 4.1 Chloride 106 Carbon Dioxide 27 Anion Gap 6 L BUN 8.5 Creatinine 0.7 Est GFR (CKD-EPI)AfAm 117.91 Est GFR (CKD-EPI)NonAf 101.74 Random Glucose 80 Lactic Acid Calcium 9.2 Phosphorus Magnesium Iron TIBC Iron Saturation Unsaturated IBC Ferritin Total Bilirubin AST ALT Alkaline Phosphatase Total Protein Albumin Urine Color Urine Appearance Urine pH Ur Specific Earth Urine Protein Urine Glucose (UA) Urine Ketones Urine Blood Urine Nitrite Urine Bilirubin Urine Urobilinogen Ur Leukocyte Esterase Urine WBC (Auto) Urine RBC (Auto) Urine Casts (Auto) U Epithel Cells (Auto) Urine Bacteria (Auto) Urine HCG, Qual Blood Type Antibody Screen Current Medications Generic Name Dose Route Start Last Admin Trade Name Freq PRN Reason Stop Dose Admin Acetaminophen 1,000 mg 07/26/19 18:35 07/30/19 16:04 Tylenol - PO 1,000 mg Q6H PRN Administration PAIN Benzocaine/Butamben/Tetracaine HCl 1 spray 07/23/19 11:25 Cetacaine [place] - TP DAILY PRN PAIN Benzocaine/Menthol 1 each 07/23/19 12:40 Cepacol Lozenge - MM Q6H PRN SORE THROAT Heparin Sodium (Porcine) 5,000 unit 07/23/19 06:00 07/30/19 14:05 Heparin - SQ Not Given TID PRASANNA Ondansetron HCl 4 mg 07/22/19 22:02 Zofran Injection IVPUSH Q6H PRN NAUSEA Pantoprazole Sodium 40 mg 07/27/19 10:00 07/30/19 09:30 Protonix - PO 40 mg DAILY PRASANNA Administration Tramadol HCl 50 mg 07/27/19 14:07 07/30/19 06:00 Ultram - PO 50 mg Q6H PRN Administration PAIN LEVEL 7 - 10 Home Medications Medication Instructions Recorded Pantoprazole Sodium [Protonix] 40 mg PO DAILY #30 tablet. 03/26/19 ASSESSMENT AND PLAN: 49 year old female with history of Diverticulosis s/p diverticlar bleed 03/29 s/ p endoclipping of bleeding diverticulum, Haemorrhoids, Erosive gastritis, admitted with mid tranverse colonic perforation s/p elective colonoscopy with Dr. Barakat. 1. POD 8 s/p emergent mid-transverse colon resection/right colostomy 07/22 due to transverse colonic perforation during colonoscopy Recovering well. colostomy working tolerating oral intake. Cleared by Surgery for discharge. completed Zosyn course. Afebrile, Hemodynamically stable. Home VNS/Colostomy Care training. 2. History of Hyperplastic polyps - GI follow up on discharge.
--- NOTE | 2019-07-30 17:40 | PN.GI ---
GI Progress Note Subjective: GI NOte: Andreea did receive colostomy training and feels that she can manage it. She is having incisional discomfort but it is manageable. Dressed to go home. - Objective Vital Signs: Vital Signs Temperature 97.9 F 07/30/19 14:27 Pulse Rate 76 07/30/19 14:27 Respiratory Rate 18 07/30/19 09:00 Blood Pressure 127/86 07/30/19 14:27 O2 Sat by Pulse Oximetry (%) 97 07/30/19 09:00 Constitutional: Calm Gastrointestinal Inspection: Yes: Other (healing midline incision, functional RUQ colostomy) ...Auscultate: Yes: Normoactive Bowel Sounds ...Palpate: Yes: Soft Labs: CBC, BMP 07/29/19 07:15 07/29/19 07:15 INR, PTT INR 0.99 (0.83-1.09) 07/22/19 13:30 Assessment/Plan Assessment; - Stable postop with RUQ colostomy. - Iron deficiency due to GI bleed in 03/29 and current surgical losses - Hyperplastic polyps - Diverticular disease Plan: - Venofer given - Advised to continue Pantoprazole - NO GI objections to discharge with postop followup with Dr Child Problem List - Problems (1) Colostomy present Code(s): Z93.3 - COLOSTOMY STATUS (2) S/P partial colectomy Code(s): Z90.49 - ACQUIRED ABSENCE OF OTHER SPECIFIED PARTS OF DIGESTIVE TRACT (3) Colon polyps Code(s): K63.5 - POLYP OF COLON (4) Perforation of colon as colonoscopy complication Code(s): K63.1 - PERFORATION OF INTESTINE (NONTRAUMATIC); K91.71 - ACCIDENTAL PNCTR & LAC OF A DGSTV SYS ORG DUR DGSTV SYS PROC (6) Iron deficiency Code(s): E61.1 - IRON DEFICIENCY
== END 2019-07-30 17:56 | disposition home or self-care (01) | DRG 329 ==
LOC: JER 12:16 → JERBED 17:28 → J6S 07-23 00:04
PROVIDERS: ADMIT Hospitalist
PROC: 0DBL0ZZ Excision of Transverse Colon, Open Approach (ICD-10-PCS; principal; 2019-07-23)
PROC: 0D1L0Z4 Bypass Transverse Colon to Cutaneous, Open Approach (ICD-10-PCS; 2019-07-23)
DX: K91.89 Other postprocedural complications and disorders of digestive system (principal); K63.1 Perforation of intestine (nontraumatic); E87.2 Acidosis; K91.71 Accidental puncture and laceration of a digestive system organ or structure during a digestive system procedure; K91.30 Postprocedural intestinal obstruction, unspecified as to partial versus complete; Y83.8 Other surgical procedures as the cause of abnormal reaction of the patient, or of later complication, without mention of misadventure at the time of the procedure; K57.90 Diverticulosis of intestine, part unspecified, without perforation or abscess without bleeding; K64.9 Unspecified hemorrhoids; K29.60 Other gastritis without bleeding; E86.0 Dehydration; K76.89 Other specified diseases of liver; D72.829 Elevated white blood cell count, unspecified; R07.0 Pain in throat; D50.9 Iron deficiency anemia, unspecified; F41.9 Anxiety disorder, unspecified; K63.5 Polyp of colon; E83.42 Hypomagnesemia; M54.5 Low back pain; G43.909 Migraine, unspecified, not intractable, without status migrainosus; E04.1 Nontoxic single thyroid nodule; Z93.3 Colostomy status; Z90.49 Acquired absence of other specified parts of digestive tract
CPT/HCPCS: 36415; 71045-TC-FY; 74019-TC-FY; 74177-TC; 80048; 80053; 81003; 82728; 83540; 83550; 83605; 83735; 84100; 84703; 85025; 85027; 85610; 85730; 86850; 86900; 86901; 87040; 87086; 93005; 93010; 94760; 97116-GP; 97161-GP; 99284-25; J0131; J1644; J1756

== ENCOUNTER 2019-08-30 11:04 | Emergency (ER) | payer OTHER ==
--- NOTE | 2019-08-30 11:13 | PDOC ---
History of Present Illness - General Chief Complaint: Wound Stated Complaint: infected surg wound Time Seen by Provider: 08/30/19 11:06 History Source: Patient Exam Limitations: No Limitations - History of Present Illness Initial Comments: 08/30/19 11:14 PCP: Karla HISTORY OF PRESENT ILLNESS: Ms. Jaffe is a 49 yo F w/ pmh of diverticulosis, hemorrhoids, colonic polyps s /p colonoscopy(07/22/19) complicated by colonic perforation during polypectomy, now s/p segmental transverse colon resection and end colostomy. Pt was treated with Zosyn and discharged home without antibiotics Pt had been in her usual state of health There was one area on the superior portion of the wound which had opened up but had actually closed by secondary intention Two days ago, she notes swelling and a color change of the area inferior to that prior open area She then noted last night that the midline incision opening up and began draining no fevers or chills Pt has mild surrounding erythema around the open area of the wound No vomiting, no increased or decreased stool output PAST MEDICAL HISTORY: diverticulosis, hemorrhoids, colonic polyps PAST SURGICAL HISTORY: bladder lift, , addenoidectomy, colon resection and colonostomy Social History: Smoking: denies Alcohol: social Drugs: denies Allergies bacitracin -- > Rash, Swelling ROS: GENERAL/CONSTITUTIONAL: No: fever, chills, weakness, loss of appetite. HEAD, EYES, EARS, NOSE AND THROAT: No: change in vision, ear pain, discharge, sore throat, throat swelling. CARDIOVASCULAR: No: chest pain, lightheadedness, palpitations, syncope RESPIRATORY: No: cough, shortness of breath, wheezing, hemoptysis, stridor. GASTROINTESTINAL: No: nausea, vomiting, abdominal cramping, diarrhea, rectal bleeding, constipation. GENITOURINARY: No: dysuria, hematuria, frequency, urgency, flank pain. MUSCULOSKELETAL: No: back pain, neck pain, joint pain, muscle swelling or pain SKIN: Yes: incisional wound No: lesions, pallor, rash or easy bruising. NEUROLOGIC: No: headache, vertigo, paresthesias, weakness ENDOCRINE: No: unexplained weight gain or loss HEMATOLOGIC/LYMPHATIC: No: anemia, easy bleeding, swelling nodes Physical Exam GENERAL: The patient is in no acute distress. HEAD: Normal EYES: PERRLA, EOMI, sclera anicteric, conjunctiva clear. ENT: Ears normal, nares patent, oropharynx clear without exudates. Moist mucous membranes. NECK: Normal range of motion, supple LUNGS: Breath sounds equal, clear to auscultation bilaterally. No wheezes, and no crackles. HEART:Regular rate and rhythm, normal S1 and S2 without murmur, rub or gallop. ABDOMEN: Soft, nontender, normoactive bowel sounds. No guarding, no rebound. EXTREMITIES: Normal range of motion, no edema. No clubbing or cyanosis. No erythema, or tenderness. NEUROLOGICAL: Cranial nerves II through XII grossly intact. Normal speech. No focal neurological deficits. MUSCULOSKELETAL: Back non-tender to palpation, no CVA tenderness SKIN: Midline surgical scar with one area, (+) drainage on dressing, half dollar area around opening is erythematous Past History - Past Medical History Allergies/Adverse Reactions: Allergies Allergy/AdvReac Type Severity Reaction Status Date / Time bacitracin Allergy Rash Verified 08/30/19 11:05 [From Neosporin ([id number])] Home Medications: Ambulatory Orders Pantoprazole Sodium [Protonix] 40 mg PO DAILY #30 tablet. 03/26/19 Amoxicillin/Potassium Clav [Augmentin 875-125 Tablet] 1 each PO BID #14 tablet 08/30/19 Bifidobacterium Infantis [Align] 10.5 mg PO DAILY #30 tab.chew 08/30/19 Anemia: No Asthma: No Cancer: No Cardiac Disorders: No CVA: No COPD: No CHF: No Dementia: No Diabetes: No GI Disorders: Yes (Diverticular hemorrhage, Erosive NSAID gastritis, Hemorrhoids ) Disorders: No HTN: No Hypercholesterolemia: No Liver Disease: No Seizures: No Thyroid Disease: (benign cyst) - Surgical History Abdominal Surgery: No Appendectomy: No Cardiac Surgery: No Cholecystectomy: No Lung Surgery: No Neurologic Surgery: No - Psycho Social/Smoking Cessation Hx Smoking History: Never smoked Have you smoked in the past 12 months: No Number of Cigarettes Smoked Daily: 0 'Breaking Loose' booklet given: 07/31/12 Hx Alcohol Use: Yes (SOCIAL) Drug/Substance Use Hx: No Substance Use Type: None Hx Substance Use Treatment: No Medical Decision Making - Medical Decision Making 08/30/19 11:[address] Child Surgical consultation pending 08/30/19 12:[address] Child He has seen pictures of her wound Recommends antibiotics no labs necessary He believes this to be a reaction to the suture material Will outline erythema Call placed to Dr Caba for antibiotic recommendations He recommends Augmentin Will give now Discharge - Discharge Information Problems reviewed: Yes Clinical Impression/Diagnosis: Wound infection after surgery Condition: Stable Disposition: HOME - Admission No - Additional Discharge Information Prescription Drug Monitoring Program (I-STOP) results: I-STOP not reviewed - Follow up/Referral Referrals: Silvano Child MD [Staff Physician] - - Patient Discharge Instructions Patient Printed Discharge Instructions: DI for Wound Infection Additional Instructions: Ms Jaffe Thank you for coming in to the ER today Please be sure to take pictures of your wound to keep track of the changes Please follow up with Dr. Child on MondaySEPTEMBER 02 Return immediately to the ER for fevers, chills, vomiting, inability to tolerate foods or liquids, abdominal pain or anything that makes you concerned - Post Discharge Activity
[2019-08-30 11:40] VITALS: BP 141/76; PULSE 71; TEMP 98.3; BMI 29.2
[2019-08-30] MEDS ORDERED: AMOX TR/POT CLAV 875MG/125MG TABLETS (FP) PO ONE (12:08)
[2019-08-30] MEDS ORDERED: AMOX TR/POT CLAV 875MG/125MG TABLETS (FP) ONE (12:19)
== END 2019-08-30 12:30 | disposition home or self-care (01) ==
LOC: FER 11:04
DX: T81.41XA Infection following a procedure, superficial incisional surgical site, initial encounter (principal); B99.8 Other infectious disease; Y83.8 Other surgical procedures as the cause of abnormal reaction of the patient, or of later complication, without mention of misadventure at the time of the procedure; Y92.9 Unspecified place or not applicable
CPT/HCPCS: 99282-25

== ENCOUNTER 2019-10-29 05:14 | Inpatient (IN) | payer OTHER ==
[2019-10-29] MEDS ORDERED: ALVIMOPAN 12 MG CAP PO ONE ×3 (06:36→08:00)
[2019-10-29] MEDS ORDERED: ERTAPENEM SODIUM 1 GM VIAL ONE (06:36)
[2019-10-29] MEDS ORDERED: ERTAPENEM SODIUM 1 GM in SODIUM CHLORIDE 50 ML IVPB ONE (07:00)
[2019-10-29] MEDS ORDERED: PROPOFOL 20 ML ONE ×2 (07:32→10:47)
[2019-10-29] MEDS ORDERED: ROCURONIUM BROMIDE 50 MG/5 ML SYRINGE ONE (07:32)
[2019-10-29] MEDS ORDERED: MIDAZOLAM HCL 2 MG/2 ML SINGLE DOSE VIAL ONE ×3 (07:32→07:51)
[2019-10-29] MEDS ORDERED: SUCCINYLCHOLINE CHLORIDE 200 MG/10 ML SYRINGE ONE (07:32)
[2019-10-29] MEDS ORDERED: KETOROLAC TROMETHAMINE 30 MG/1 ML VIAL ONE (07:35)
[2019-10-29] MEDS ORDERED: DEXAMETHASONE SOD PHOSPHATE 4 MG/1 ML VIAL ONE (07:35)
[2019-10-29] MEDS ORDERED: BUPIVACAINE HCL/PF 0.25% (2.5MG/ML) 10 ML VIAL ONE (07:50)
[2019-10-29] MEDS ORDERED: BUPIVACAINE LIPOSOME/PF (EXPAREL) 266 MG/20 ML VIAL ONE (07:50)
--- NOTE | 2019-10-29 07:59 | HP ---
History & Physical Update - History History: No Change - Physical Physical: No Change - Assessment Assessment: No Change - Plan Plan: No Change (for temple of colonic continuity after limited transverse colon resection a few months ago for perforation during colonoscopy; r/b/t/a's d /w the patient in the office and informed consent obtained this AM.)
[2019-10-29] MEDS ORDERED: ERTAPENEM SODIUM 1 GM VIAL IVPB ONE ×2 (08:20→09:06)
[2019-10-29] MEDS ORDERED: HYDROmorphone HCl 2 MG/ML VIAL ONE (08:47)
[2019-10-29] MEDS ORDERED: ONDANSETRON 4 MG/2 ML VIAL IVPUSH PRN (11:02)
[2019-10-29] MEDS ORDERED: HYDROmorphone *PCA* 10MG/50ML DISP.SYRIN PCA SCH (11:15)
[2019-10-29] MEDS: LACTATED RINGERS SOLUTION 1,000 ML IV SCH ×3 (11:30→22:21)
[2019-10-29] MEDS ORDERED: HYDROmorphone *PCA* 10MG/50ML DISP.SYRIN ONE (11:41)
--- NOTE | 2019-10-29 11:41 | OP ---
Operative Note - Note: Operative Date: 10/29/19 Pre-Operative Diagnosis: bahai of colonic continuity after limited transverse colon resection Operation: Laparotomy, lysis of adhesions, bahai of colonic continuity with primary anastamosis (end-to-end) Findings: Retained portion of electrocautery instrument from previous GI procedure Post-Operative Diagnosis: Same as Pre-op Surgeon: Silvano Child Orthotic Assistant: Omar Cox Anesthesiologist/BRAND ADVISOR: Bean Layton Anesthesia: General Specimens Removed: portion of transverses colon and retained foreign body Estimated Blood Loss (mls): 50 Drains, Volume Out (mls): 400 Fluid Volume Replaced (mls): 1,000 Operative Report Dictated: Yes
--- NOTE | 2019-10-29 11:43 | SURG ---
Surgery Automotive Airconditioning Mechanic Note Automotive Airconditioning Mechanic: Omar Cox PA-C Date of Service: 10/29/19 Diagnosis: Confucianism of colonic continuity after limited transverse colon resection s/p colonic perforation during colonosocpy Operation: Laparotomy, lysis of adhesions, sikh of colonic continuity with primary anastamosis (end-to-end) Procedure: Laparotomy, lysis of adhesions, sikh of colonic continuity with primary anastamosis (end-to-end) I was present for the entirety of the operative procedure. For further detail, please refer to operative report. Visit type - Case Type Case Type: Scheduled - New patient This patient is new to me today: Yes Date on this admission: 10/29/19
[2019-10-29] MEDS: ACETAMINOPHEN 1000 MG/100 ML VIAL (NON FORMULARY) IVPB SCH ×2 (12:01→22:16)
[2019-10-29] MEDS ORDERED: ACETAMINOPHEN INJECTION 100 ML IVPB ONE (12:02)
--- NOTE | 2019-10-29 19:11 | CONSULT ---
Consultation: REQUESTING PROVIDER: Dr. Child CONSULT REQUEST: We have been asked to medically evaluate this patient for post op management. HISTORY OF PRESENT ILLNESS: Patient is a 49 y/o female with a history of diverticulosis, hemorrhoids, and colonic polyps who is admitted for colon surgery. Patient had a colonoscpy on and at that time during a polypectomy there was a perforation. Patient had an ex-lap, partial transverse colon resection w/ creation of end colostomy with Dr. Child a 07/22/19. Patient came back for surgery today for mandaen of colonic continuity. Patient has no complaints. REVIEW OF SYSTEMS: CONSTITUTIONAL: Absent: fever, chills, diaphoresis, generalized weakness, malaise, loss of appetite, weight change HEENT: Absent: rhinorrhea, nasal congestion, throat pain, throat swelling, difficulty swallowing, mouth swelling, ear pain, eye pain, visual changes CARDIOVASCULAR: Absent: chest pain, syncope, palpitations, irregular heart rate, lightheadedness , peripheral edema RESPIRATORY: Absent: cough, shortness of breath, dyspnea with exertion, orthopnea, wheezing, stridor, hemoptysis GASTROINTESTINAL: abdominal pain Absent: abdominal distension, nausea, vomiting, diarrhea, constipation, melena , hematochezia GENITOURINARY: abdominal pain Absent: dysuria, frequency, urgency, hesitancy, hematuria, flank pain, genital pain MUSCULOSKELETAL: Absent: myalgia, arthralgia, joint swelling, back pain, neck pain SKIN: Absent: rash, itching, pallor HEMATOLOGIC/IMMUNOLOGIC: Absent: easy bleeding, easy bruising, lymphadenopathy, frequent infections ENDOCRINE: Absent: unexplained weight gain, unexplained weight loss, heat intolerance, cold intolerance NEUROLOGIC: Absent: headache, focal weakness or paresthesias, dizziness, unsteady gait, seizure, mental status changes, bladder or bowel incontinence PSYCHIATRIC: Absent: anxiety, depression, suicidal or homicidal ideation, hallucinations. PHYSICAL EXAMINATION Vital Signs - 24 hr 10/29/19 10/29/19 10/29/19 06:45 11:27 11:30 Temperature 98.6 F 97.5 F L Pulse Rate 72 79 69 Respiratory 18 10 12 Rate Blood Pressure 119/72 136/87 137/75 O2 Sat by Pulse 98 98 99 Oximetry (%) GENERAL: Awake, alert, and fully oriented, in no acute distress. HEAD: Normal with no signs of trauma. EYES: Pupils equal, round and reactive to light, extraocular movements intact, EARS, NOSE, THROAT: Moist mucous membranes. LUNGS: Breath sounds equal, clear to auscultation bilaterally. No wheezes, and no crackles. No accessory muscle use. HEART: Regular rate and rhythm, normal S1 and S2 without murmur, rub or gallop. ABDOMEN: larger dressing over middle of abdomen MUSCULOSKELETAL: Normal range of motion at all joints. LOWER EXTREMITIES: 2+ pulses, warm, well-perfused. NEUROLOGICAL: Cranial nerves II-XII intact SKIN: Warm, dry, normal turgor, no rashes or lesions noted. Laboratory Results - last 24 hr 10/29/19 06:10 Urine HCG, Qual Negative Active Medications Acetaminophen (Ofirmev Injection -) 1,000 mg IVPB Q6H [facility] Last Admin: 10/29/19 12:01 Dose: 1,000 mg Alvimopan (Entereg Capsule (Restricted) -) 12 mg PO BID [facility] Chlorhexidine Gluconate (Hibiclens For Decolonization -) 1 applic TP HS [facility] Diphenhydramine HCl (Benadryl Injection -) 12.5 mg IVPUSH ONCE PRN PRN Reason: FOR ITCHING Enoxaparin Sodium (Lovenox -) 40 mg SQ DAILY [facility] Hydromorphone HCl (Hydromorphone 10 Mg/50 Ml-Ns) 10 mg AUDIO SPECIALIST AUDIO SPECIALIST [facility]; Protocol Stop: 10/30/19 11:14 Last Admin: 10/29/19 11:49 Dose: 10 mg Lactated Ringer's (Lactated Ringers Solution) 1,000 mls @ 125 mls/hr IV ASDIR [facility] Mupirocin (Bactroban Ointment (For Decolonization) -) 1 applic NS BID [facility] Stop: 11/03/19 21:59 Ondansetron HCl (Zofran Injection) 4 mg IVPUSH Q4H PRN PRN Reason: NAUSEA AND/OR VOMITING Pantoprazole Sodium (Protonix Iv) 40 mg IVPUSH DAILY [facility] ASSESSMENT/PLAN: Patient is a 49 y/o female with a history of diverticulosis, hemorrhoids, and colonic polyps who is admitted for mandaen of colonic continuity. #Neuro - A&O x3 #Cardio - stable, monitor for any hypotensive events post op #Pulm - stable - continue supplemental oxygen as needed to maintain O2 > 90 % #GI - POD 0 for mandaen of colonic continuity - pain control with dilaudid AUDIO SPECIALIST - continue LR - zofran q4h prn - protonix 40 daily gi ppx #DVT ppx - lovenox 40 sq daily FEN - continue LR - NPO until surgery clears Dispo: We will continue to follow the patient. Thank you for this consultative opportunity. ATTENDING PHYSICIAN STATEMENT I saw and evaluated the patient. I reviewed the resident's note and discussed the case with the resident. I agree with the resident's findings and plan as documented. SUBJECTIVE: OBJECTIVE: ASSESSMENT AND PLAN:
[2019-10-29] MEDS: ONDANSETRON 4 MG/2 ML VIAL IVPUSH PRN (19:37)
[2019-10-29] MEDS: CHLORHEXIDINE GLUCONATE 4% CLEANSER FOR DECOLONIZATION TP SCH (21:27)
[2019-10-29] MEDS: MUPIROCIN 2% TOPICAL OINTMENT FOR DECOLONIZATION NS SCH (22:15)
[2019-10-30] MEDS: ACETAMINOPHEN 1000 MG/100 ML VIAL (NON FORMULARY) IVPB SCH ×4 (05:30→23:36)
[2019-10-30] MEDS: LACTATED RINGERS SOLUTION 1,000 ML IV SCH ×2 (05:33→22:12)
[2019-10-30 06:32] LABS: HEMATOCRIT 34.7 % (32.4-45.2); HEMOGLOBIN 11.5 GM/dL (10.7-15.3); MCH 28.9 pg (25.7-33.7); MCHC 33.3 g/dl (32.0-36.0); MEAN CELL VOLUME 86.8 fl (80-96); MEAN PLT VOLUME 8.4 fl (7.5-11.1); PLATELET COUNT 259 K/MM3 (134-434); RDW 14.9 % (11.6-15.6); WHITE BLOOD COUNT 11.6 K/mm3 (4.0-10.0)
[2019-10-30 06:40] LABS: BLOOD UREA NITROGEN 7.6 mg/dL (7-18); CALCIUM 8.3 mg/dL (8.5-10.1); CREATININE 0.6 mg/dL (0.55-1.3); MAGNESIUM 1.9 mg/dL (1.8-2.4); PHOSPHOROUS 2.9 mg/dL (2.5-4.9); POTASSIUM 4.6 mmol/L (3.5-5.1)
--- NOTE | 2019-10-30 08:00 | PN ---
Progress Note (short form) - Note Progress Note: GENERAL SURGERY POD #1 s/p Laparotomy, lysis of adhesions, nondenominational of colonic continuity with primary anastamosis (end-to-end) No acute events per RN notes. Alert. C/o mild incisional tenderness. Adequate pain control via Dilaudid FORCE DISPATCHER Hasn't been OOB yet. Denies n/v/f/c, CP, palpitations, SOB or ARRIAGA. Last Vital Signs Temp Pulse Resp BP Pulse Ox 98.4 F 54 L 13 105/56 L 96 10/30/19 05:00 10/30/19 06:00 10/30/19 06:00 10/30/19 06:00 10/29/19 20:11 CBC, BMP 10/30/19 05:20 10/30/19 06:00 Gen: nad ABD: dressing c/d/i. periumbilical miguelito intact. Midline wound as well as RUQ transverse incisons are both open and packed with iodophor. : hoang to gravity LE: All compartments soft. NT. Bilat SCDs. Feet warm. 2+ DP bilat Problem List - Problems (1) Perforation of colon as colonoscopy complication Assessment/Plan: POD #1 s/p Laparotomy, lysis of adhesions, nondenominational of colonic continuity with primary anastamosis (end-to-end) GOALS FOR TODAY: 1. OOB to chair, ambulate if comfortable. 2. Once OOB, may remove hoang and begin TOV 3. Incentive spirometer 4. Cont FORCE DISPATCHER for pain management 5. Entereg 12 mg PO BID (dc once passes flatus or max of 15 doses administered) 6. NPO until bowel function resumes 7. CBC, BMP in AM 8. Replete elytes PRN Above plan discussed with Dr. Child and agrees Code(s): K63.1 - PERFORATION OF INTESTINE (NONTRAUMATIC); K91.71 - ACCIDENTAL PNCTR & LAC OF A DGSTV SYS ORG DUR DGSTV SYS PROC (2) S/P partial colectomy Code(s): Z90.49 - ACQUIRED ABSENCE OF OTHER SPECIFIED PARTS OF DIGESTIVE TRACT
[2019-10-30] MEDS: ENOXAPARIN NA (PORCINE) 40 MG/0.4 ML DISP.SYRIN SQ SCH (09:31)
[2019-10-30] MEDS: PANTOPRAZOLE SODIUM 40 MG VIAL IVPUSH SCH (09:39)
[2019-10-30] MEDS: MUPIROCIN 2% TOPICAL OINTMENT FOR DECOLONIZATION NS SCH ×2 (09:45→22:00)
[2019-10-30] MEDS: ALVIMOPAN 12 MG CAP PO SCH ×3 (09:45→22:49)
[2019-10-30] MEDS: HYDROmorphone *PCA* 10MG/50ML DISP.SYRIN PCA SCH (15:30)
--- NOTE | 2019-10-30 15:54 | PN ---
Progress Note (short form) - Note Progress Note: 49F POD#1 for colostomy secondary to bowel perforation under GA. No anesthesia related complications. Pt. on IV BIOINFORMATICS ANALYST. Pain adequately controlled. No evidence of increased sedation. Will continue with IV BIOINFORMATICS ANALYST otherwise management per primary team.
[2019-10-30] MEDS: CHLORHEXIDINE GLUCONATE 4% CLEANSER FOR DECOLONIZATION TP SCH (22:00)
[2019-10-30] MEDS ORDERED: PT OWN MED DRAWER 7, Y5N ONE (22:00)
[2019-10-31] MEDS: ACETAMINOPHEN 1000 MG/100 ML VIAL (NON FORMULARY) IVPB SCH ×5 (05:36→23:15)
[2019-10-31] MEDS: LACTATED RINGERS SOLUTION 1,000 ML IV SCH ×2 (06:11→17:46)
[2019-10-31] MEDS: ENOXAPARIN NA (PORCINE) 40 MG/0.4 ML DISP.SYRIN SQ SCH (09:48)
[2019-10-31] MEDS: ALVIMOPAN 12 MG CAP PO SCH (09:48)
[2019-10-31] MEDS: PANTOPRAZOLE SODIUM 40 MG VIAL IVPUSH SCH (09:48)
[2019-10-31] MEDS: MUPIROCIN 2% TOPICAL OINTMENT FOR DECOLONIZATION NS SCH (09:48)
--- NOTE | 2019-10-31 11:01 | PN ---
Progress Note (short form) - Note Progress Note: Attending Surgeon POD #1 Passed flatus; some indcisional pain VSS AF T max 99.7 abdo-soft; non distended; dressing intact and to be changed; o/w negative UO good IMP: doing well PLAN: D/c hoang catheter which was left in while she was in the ICU; start clear liquids; OOB; pulmonary toilet; d/c Entereg. Silvano Child MD FACS
--- NOTE | 2019-10-31 11:45 | PN ---
Progress Note (short form) - Note Progress Note: Anesthesia postop note 49 y/o F s/p GA for reversal of colostomy POD#1 vss, aaox3 on MICROFILM MACHINE OPERATOR, not taking po fluids yet. will continue twx operator until tolerating fluids.
--- NOTE | 2019-10-31 17:44 | PATH ---
Surgical Pathology Report Patient Name: PATRICIO ANDRE [facility]. Rec. #: [id number] /Age/Gender: 1970 (Age: 49) / F Account: [id number] Location: [address] [place] [address] Taken: 10/29/2019 Received: 10/29/2019 Reported: 10/31/2019 Physicians: Silvano Child MD Specimen(s) Received A: FOREIGN BODY COLON B: COLOSTOMY C: OMENTUM D: SCAR TISSUE E: ANASTOMOSIS Clinical History Colostomy Final Diagnosis A. FOREIGN BODY, COLON, REMOVAL: FOREIGN BODY MATERIAL. MACROSCOPIC DIAGNOSIS. B. COLOSTOMY, EXCISION: ENTEROCUTANEOUS FISTULA CONSISTENT WITH COLOSTOMY. SURGICAL MARGIN IS VIABLE. C. OMENTUM, OMENTECTOMY: BENIGN OMENTAL ADIPOSE TISSUE WITHOUT SIGNIFICANT PATHOLOGIC FINDINGS. D. SCAR, EXCISION: SKIN WITH DERMAL FIBROSIS CONSISTENT WITH SCAR. E. ANASTOMOSIS, EXCISION: SEGMENTS OF COLON WITH PROMINENT LYMPHOID AGGREGATES (2). Electronically Signed Radha Gambino M.D. Gross Description A. Received fresh labeled "foreign body of the colon," is a 1.5 x 0.2 x 0.2 cm cylindrical, metallic foreign body, consistent with a clip. No soft tissue is present. No sections are submitted, gross only. B. Received in formalin labeled "colostomy," is a 4.7 x 2.8 cm altamirano, elliptical, unoriented portion of skin with a central os, consistent with a colostomy site. There is a 4.4 cm in length portion of bowel contiguous with the colostomy site. The bowel displays an open mucosal margin. Sectioning reveals an unremarkable mucosa with normal folds. No lesions are identified. Corporate Coordinator sections are submitted in 2 cassettes as follows: 1-section from colostomy site; 2-open mucosal margin. C. Received in formalin labeled "omentum," is a 22.5 x 10.0 x 2.8 cm portion of yellow, lobulated adipose tissue, consistent with omentum. No lesions are identified. A bilingual inside sales representative portion is submitted in one cassette. D. Received in formalin labeled "scar," is an 8.5 x 0.5 cm altamirano, unoriented portion of skin excised to a depth of 0.9 cm. The epidermal surface displays a central, linear, well-healed scar. Corporate Coordinator sections are submitted in one cassette. E. Received in formalin labeled "donuts from anastomosis," are 2 altamirano, annular, unoriented and undesignated portions of bowel measuring 1.6 and 1.8 cm in diameter, consistent with donuts. Corporate Coordinator sections are submitted in one cassette. 10/30/2019 [facility]10/30/2019
--- NOTE | 2019-10-31 17:48 | PN ---
Progress Note (short form) - Note Progress Note: Surgery POD #2 doing well. Incisions irrigated with NS, wounds clean with surrounding tissue intact and no tracking erythema edema or active d/c.packed with iodoform with 4x4x and ABD at skin. Patient tolerated the dressing change and remained stable.
[2019-11-01] MEDS: ACETAMINOPHEN 1000 MG/100 ML VIAL (NON FORMULARY) IVPB SCH ×4 (05:30→22:14)
[2019-11-01] MEDS: HYDROmorphone *PCA* 10MG/50ML DISP.SYRIN PCA SCH ×2 (07:41→16:52)
[2019-11-01] MEDS: LACTATED RINGERS SOLUTION 1,000 ML IV SCH ×3 (08:52→16:41)
[2019-11-01] MEDS: PANTOPRAZOLE SODIUM 40 MG VIAL IVPUSH SCH (10:30)
[2019-11-01] MEDS: ENOXAPARIN NA (PORCINE) 40 MG/0.4 ML DISP.SYRIN SQ SCH (10:30)
[2019-11-01] MEDS: ONDANSETRON 4 MG/2 ML VIAL IVPUSH PRN (11:21)
[2019-11-01] MEDS: SIMETHICONE 80 MG TAB.CHEW (FP) PO PRN ×2 (14:10→21:37)
--- NOTE | 2019-11-01 17:04 | PN ---
Progress Note (short form) - Note Progress Note: POD #3 reversal of hartmans, patient seen and examined at bedside c/o gas pain. She is passing gas but has not moved her bowels yet today. The patient is tolerating clears and has had some nausea related to the pain but denies any Vomiting, CP, SOB, fever or chills. Vital Signs Temp 98.3 F 11/01/19 15:28 Pulse 97 H 11/01/19 15:28 Resp 19 11/01/19 15:28 BP 152/83 11/01/19 15:28 Pulse Ox 98 11/01/19 09:00 Intake & Output 10/31/19 11/01/19 11/01/19 23:59 11:59 23:59 Intake Total 1880 1450 1600 Output Total 1100 Balance 780 1450 1600 Intake: IV 1200 1350 1500 Lactated Ringers Solution 1200 1350 1500 1,000 ml @ 125 mls/hr IV ASDIR [facility] Rx#: [id number] IVPB 200 100 100 Oral 480 Output: Urine 1100 Viera 1100 Other: Voiding Method Toilet Toilet # Unmeasured Voids Viera 2 3 Bowel Movement No CBC, BMP 10/30/19 05:20 10/30/19 06:00 PE: A&Ox3, NAD Unlabored resp on RA ABD: soft, with diffuse TTP throughout appropriate to status, ND, Dressing with scant drainage otherwise intact, hypoactive bowel sounds. Problem List - Problems (1) History of colostomy reversal Assessment/Plan: POD #3 hartmans reversal tolerating clear diet and moving bowels x2 -Encourage ambulation and OOB to meals will help with gas -simethicone for gas pain -encourage ID -continue wound care as ordered -DVT and GI prophylaxis -d/c planning for home with VNS Evaluation and plan discussed with Dr Child Code(s): Z98.890 - OTHER SPECIFIED POSTPROCEDURAL STATES
[2019-11-02] MEDS: LACTATED RINGERS SOLUTION 1,000 ML IV SCH ×3 (01:04→21:11)
[2019-11-02] MEDS: ACETAMINOPHEN 1000 MG/100 ML VIAL (NON FORMULARY) IVPB SCH ×4 (04:23→22:27)
[2019-11-02] MEDS: PANTOPRAZOLE SODIUM 40 MG VIAL IVPUSH SCH (09:50)
[2019-11-02] MEDS: ENOXAPARIN NA (PORCINE) 40 MG/0.4 ML DISP.SYRIN SQ SCH (09:50)
[2019-11-02] MEDS: ONDANSETRON 4 MG/2 ML VIAL IVPUSH PRN ×2 (10:20→16:29)
--- NOTE | 2019-11-02 10:49 | PN ---
Progress Note (short form) - Note Progress Note: Attending Surgeon POD #4 Feels better than yesterday; passing flatus; tolerating clear liquids; on FLAT EXAMINER VSS AF T max 100.2 abdo-soft; minimal tenderness; wound open and granulating extrems-calfs soft; non tender IMP: stable post op PLAN: OOB walking; pulmonary toilet; wound care; check CBC/lytes; decrease IV fluid. Silvano Child MD FACS
[2019-11-02] MEDS: HYDROmorphone *PCA* 10MG/50ML DISP.SYRIN PCA SCH (14:02)
[2019-11-03] MEDS: ACETAMINOPHEN 1000 MG/100 ML VIAL (NON FORMULARY) IVPB SCH ×4 (04:56→23:14)
[2019-11-03] MEDS ORDERED: ACETAMINOPHEN 325 MG TABLET (FP) PO PRN (05:40)
[2019-11-03] MEDS: SIMETHICONE 80 MG TAB.CHEW (FP) PO PRN (07:32)
[2019-11-03 08:45] LABS: BASO % 0.3 % (0-2.0); EOS % 0.2 % (0-4.5); HEMATOCRIT 34.5 % (32.4-45.2); HEMOGLOBIN 11.5 GM/dL (10.7-15.3); LYMPH % 4.2 % (8-40); MCHC 33.4 g/dl (32.0-36.0); MEAN CELL VOLUME 86.9 fl (80-96); MEAN PLT VOLUME 8.1 fl (7.5-11.1); NEUT % 91.3 % (42.8-82.8); PLATELET COUNT 304 K/MM3 (134-434); RBC 3.97 M/mm3 (3.60-5.2); RDW 14.8 % (11.6-15.6); WHITE BLOOD COUNT 10.9 K/mm3 (4.0-10.0)
[2019-11-03] MEDS: LACTATED RINGERS SOLUTION 1,000 ML IV SCH ×2 (09:12→23:16)
[2019-11-03] MEDS: PANTOPRAZOLE SODIUM 40 MG VIAL IVPUSH SCH (09:12)
[2019-11-03] MEDS: ENOXAPARIN NA (PORCINE) 40 MG/0.4 ML DISP.SYRIN SQ SCH (09:12)
[2019-11-03 09:19] LABS: EPI CELLS 2.5 /HPF (0-5/HPF); HYALINE CASTS 4 /lpf (0-8); URINE APPEARANCE CLEAR; URINE BACTERIA 135.1 /hpf (NEGATIVE); URINE BILIRUBIN NEGATIVE (NEGATIVE); URINE COLOR YELLOW; URINE GLUCOSE (UA) NEGATIVE (NEGATIVE); URINE KETONE 4+ (NEGATIVE); URINE LEUK ESTERASE NEGATIVE (NEGATIVE); URINE NITRITE NEGATIVE (NEGATIVE); URINE PROTEIN 1+ (NEGATIVE); URINE RBC 6 /hpf (0-4); URINE UROBILINOGEN 0.2 mg/dL (0.2-1.0); URINE WBC 1 /hpf (0-5)
[2019-11-03 09:29] LABS: BLOOD UREA NITROGEN 4.8 mg/dL (7-18); CALCIUM 8.4 mg/dL (8.5-10.1); CREATININE 0.6 mg/dL (0.55-1.3); POTASSIUM 3.6 mmol/L (3.5-5.1)
--- NOTE | 2019-11-03 10:55 | PN ---
Progress Note (short form) - Note Progress Note: Attending Surgeon POD#5 Passing flatus and had bowel movement VSS Tmax 101.8 abdo-soft and w/o evidence of an acute surgical abdomen; incision c/d/i at both sites and granulating well; active BS labs-WBC 10.9; lactic acid normal; lytes ok CXR-? of residual pneumoperitoneum ? IMP: stable w/post op fever; w/u in progress PLAN: NPO/IVF/monitor fever curve; possible CT scan a/p if spikes again. Silvano Child MD FACS
[2019-11-03 12:00] LABS: PLATELET ESTIMATE ADEQUATE
--- NOTE | 2019-11-03 14:17 | OP ---
DATE OF OPERATION: 10/29/2019 PREOPERATIVE DIAGNOSIS: Status post transverse colon perforation and transverse colon resection and colostomy. POSTOPERATIVE DIAGNOSIS: Status post transverse colon perforation and transverse colon resection and colostomy. PROCEDURE: Quaker of colonic continuity (colocolostomy). SURGEONS: Silvano Child MD DRAW STRING KNOTTER: Omar Cox PA-C ANESTHESIA: General. OPERATIVE FINDINGS: There was a right upper quadrant colostomy and a defunctionalized left transverse colon, left colon, and sigmoid defunctionalized loop. There was a small metallic foreign body just proximal to the colostomy, which was removed and was consistent with a prior clip from colonoscopy and polypectomy. The rest of the findings were unremarkable. PROCEDURE: The patient was placed on the operating table in supine position, and after the induction of general anesthesia and placement of a Viera catheter and sequential compression devices on the patient's lower extremities, the abdomen was prepped with Betadine and draped in sterile fashion with the colostomy covered. The peritoneal cavity was entered through the previous midline incision after excising the skin scar, which was sent to Pathology. There were adhesions within the peritoneal cavity, which were minimal in nature and they were taken down using a combination of blunt and sharp dissection and electrocautery. The distal aspect of the colon was identified with the previous stapled suture line. Next, the colostomy was taken down by creating an elliptical incision around it, freeing up the colostomy through the subcutaneous tissue and fascia and the proximal colon brought into the wound. It was next decided that the orthodox of colonic continuity would be carried out in and end-to-end fashion using a circular stapling device. A pursestring suture device was placed on the proximal colon, well proximal to the previous ostomy and, after firing the pursestring device, the colostomy and skin were excised and sent for pathologic examination. Distally, an area on the transverse colon was identified, where a transverse colotomy was made. The pursestring suture was opened, and then using sizers, it was determined that a 25 EEA stapling device would be used. The anvil of the stapling device was placed into the proximal colon and the pursestring tied. Next, the 25 EEA stapler was introduced through the distal colon and brought to the corner of the suture line and stapler fired and an end-to-end anastomosis created. The stapler was removed and examination revealed 2 intact anastomotic doughnuts. Next, the colotomy was closed with a TA 60 stapling device. Prior to this, the anastomosis was visually inspected and found to be widely patent. Next, some bleeding from the TA suture line was controlled with clips and 3-0 silk feuuic-dw-dbema sutures. There was no defect in the mesentery to close , and at this point hemostasis was checked for and noted to be good. Copious irrigation was carried out and then omentum was brought down towards the pelvis and the abdomen was closed by first closing the old colostomy site with continuous 0 Maxon suture from within the peritoneal cavity. Next, the midline incision was similarly closed with continuous 0 looped Maxon suture. The subcutaneous tissue was irrigated with normal saline, as was the old colostomy site, and then the wound packed with iodoform gauze and the colostomy site with iodoform gauze. The distal aspect of the midline incision below the umbilicus was loosely approximated with surgical miguelito, as were the 2 corners of the previous ostomy site. Prior to closure of the abdominal cavity, needle, instrument, and sponge count were verified as correct. Dry sterile dressings were placed and the patient aroused from general anesthesia and transferred to the post-anesthesia care unit in stable condition, awake and alert. ESTIMATED BLOOD LOSS: 50 mL. FLUID REPLACEMENT: Crystalloid. DRAINS: None. SPECIMEN: Skin scar and old colostomy site and anastomotic doughnuts to Pathology. I, Silvano Child, was physically present in the operating room from the time the patient was placed on the operating table until she was transferred to the post-anesthesia care unit in [facility]. MD DON Whittaker/[id number] MTDD
[2019-11-04] MEDS: ACETAMINOPHEN 1000 MG/100 ML VIAL (NON FORMULARY) IVPB SCH ×4 (05:00→22:32)
[2019-11-04 08:55] LABS: BASO % 0.4 % (0-2.0); EOS % 1.5 % (0-4.5); HEMATOCRIT 34.1 % (32.4-45.2); HEMOGLOBIN 11.4 GM/dL (10.7-15.3); LYMPH % 6.4 % (8-40); MCH 28.8 pg (25.7-33.7); MCHC 33.3 g/dl (32.0-36.0); MEAN CELL VOLUME 86.3 fl (80-96); MEAN PLT VOLUME 8.2 fl (7.5-11.1); NEUT % 86.7 % (42.8-82.8); PLATELET COUNT 341 K/MM3 (134-434); RBC 3.95 M/mm3 (3.60-5.2); RDW 15.2 % (11.6-15.6); WHITE BLOOD COUNT 9.4 K/mm3 (4.0-10.0)
[2019-11-04 09:19] LABS: BLOOD UREA NITROGEN 8.6 mg/dL (7-18); CALCIUM 8.4 mg/dL (8.5-10.1); CREATININE 0.4 mg/dL (0.55-1.3); POTASSIUM 3.6 mmol/L (3.5-5.1)
--- NOTE | 2019-11-04 09:49 | PN ---
Progress Note (short form) - Note Progress Note: SURGERY 49yo F s/p goodwin's reversal, pt seen and examined at bedside. Pt spiked fever over the weekend 101.8 and continues to have low grade fevers. Pt denies any worsening abd pain. Pt continues to pass flatus and have BMs. Pt tolerating clears. Pt denies n/v, sob, or CP. Last Vital Signs Temp Pulse Resp BP Pulse Ox 99.9 F H 107 H 18 145/82 98 11/04/19 05:00 11/04/19 05:00 11/04/19 05:00 11/04/19 05:00 11/03/19 21:40 CBC, BMP 11/04/19 08:05 11/04/19 08:05 PE; Gen: A&O X3 Resp: breathing comfortably Abd: soft ,nondistended, mild diffuse tenderness, dressing clean. Ext: no edema Problem List - Problems (1) History of colostomy reversal Assessment/Plan: Plan -preliminary blood cultures show gram positive cocci, will follow up final culture -will plan for CT abd/pel today -consider abx once cultures finalized. -will follow Pt discussed with Dr. Child who agrees with plan Code(s): Z98.890 - OTHER SPECIFIED POSTPROCEDURAL STATES
[2019-11-04] MEDS: PANTOPRAZOLE SODIUM 40 MG VIAL IVPUSH SCH (09:54)
[2019-11-04] MEDS: ENOXAPARIN NA (PORCINE) 40 MG/0.4 ML DISP.SYRIN SQ SCH (09:54)
[2019-11-04] MEDS: LACTATED RINGERS SOLUTION 1,000 ML IV SCH (10:55)
[2019-11-04] MEDS: HYDROmorphone *PCA* 10MG/50ML DISP.SYRIN PCA SCH ×2 (16:50→22:12)
[2019-11-05] MEDS: LACTATED RINGERS SOLUTION 1,000 ML IV SCH ×2 (04:56→16:36)
[2019-11-05] MEDS: ACETAMINOPHEN 1000 MG/100 ML VIAL (NON FORMULARY) IVPB SCH ×4 (05:39→23:00)
[2019-11-05 09:53] LABS: BASO % 0.5 % (0-2.0); EOS % 2.8 % (0-4.5); HEMATOCRIT 33.1 % (32.4-45.2); HEMOGLOBIN 10.8 GM/dL (10.7-15.3); LYMPH % 7.2 % (8-40); MCH 28.5 pg (25.7-33.7); MCHC 32.8 g/dl (32.0-36.0); MEAN CELL VOLUME 86.8 fl (80-96); MEAN PLT VOLUME 7.5 fl (7.5-11.1); MONO % 7.8 % (3.8-10.2); NEUT % 81.7 % (42.8-82.8); PLATELET COUNT 360 K/MM3 (134-434); RBC 3.81 M/mm3 (3.60-5.2); RDW 14.9 % (11.6-15.6); WHITE BLOOD COUNT 7.1 K/mm3 (4.0-10.0)
[2019-11-05] MEDS: ENOXAPARIN NA (PORCINE) 40 MG/0.4 ML DISP.SYRIN SQ SCH (09:56)
[2019-11-05] MEDS: PANTOPRAZOLE SODIUM 40 MG VIAL IVPUSH SCH (09:57)
[2019-11-05] MEDS: SIMETHICONE 80 MG TAB.CHEW (FP) PO PRN ×2 (10:00→17:12)
[2019-11-05 10:21] LABS: ALBUMIN 2.3 g/dl (3.4-5.0); BILIRUBIN,TOTAL 0.7 mg/dL (0.2-1); BLOOD UREA NITROGEN 6.5 mg/dL (7-18); CALCIUM 8.6 mg/dL (8.5-10.1); CREATININE 0.4 mg/dL (0.55-1.3); POTASSIUM 3.4 mmol/L (3.5-5.1); TOT PROT 5.6 g/dl (6.4-8.2)
--- NOTE | 2019-11-05 10:53 | PN ---
Progress Note (short form) - Note Progress Note: Attending Surgeon POD#7 No c/o today; states she feels much better; passing flatus and having bowels movements; hungry and thirsty VSS AF T max 100.6 11/04/2019 17:30 abdo-soft; non tender; wound care in progress; non tympanitic WBC nl today 1 set of Blood cultures positive; results noted IMP: stable PLAN: NPO/IVF/ID consult; continue conservative tx. at this time; d/w the patient in depth this AM and last PM. Silvano Child MD FACS
[2019-11-05] MEDS: HYDROmorphone *PCA* 10MG/50ML DISP.SYRIN PCA SCH (16:35)
--- NOTE | 2019-11-05 17:00 | PN ---
Progress Note (short form) - Note Progress Note: ID CONSULT DICTATED +BC GRP D STREP/ ENTEROCOCCUS ?GI SOURCE R/O INTRA ABDOMINAL ABSCESS POD # 7 REVERSAL OF COLOSTOMY POST OP FEVER AWAIT C/S EMPIRIC UNASYN/VANCOMYCIN
[2019-11-05] MEDS ORDERED: AMPICILLIN NA/SULBACTAM NA 1.5 GM VIAL ONE ×2 (17:51→21:23)
[2019-11-05] MEDS ORDERED: SODIUM CHLORIDE 100 ML IVPB ONE ×2 (17:51→21:23)
[2019-11-05] MEDS: AMPICILLIN NA/SULBACTAM NA 1.5 GM in SODIUM CHLORIDE 100 ML IVPB SCH ×2 (17:57→21:29)
[2019-11-05] MEDS: VANCOMYCIN 1 GRAM (PRE-DOCKED) 1,000 MG/250 ML BAG IVPB SCH (18:08)
--- NOTE | 2019-11-05 18:11 | CONS ---
INFECTIOUS DISEASE CONSULTATION DATE OF CONSULTATION: DATE OF DICTATION: 11/05/2019 HISTORY: The patient is a 49-year-old female who was evaluated for positive blood culture. The patient underwent a colostomy procedure in July 2019, after a colon perforation. She is now admitted on October 29, 2019, for a reversal of colostomy. She underwent reversal procedure with lysis of adhesions. On postop day number 5, she developed fever to 101.8. She felt feverish, however, she denies any shaking chills. Cultures were obtained and are now presumed group D strep versus enterococcus. The patient at the present time is comfortable. She is supine in bed. She complains of hunger pain. She denies any abdominal pain. No nausea, vomiting. She has been having bowel movements and has been passing flatus. A CAT scan of the abdomen and pelvis was performed and showed pneumoperitoneum with an air-fluid collection in the anterior abdominal wall as well as 2 collections in the left upper quadrant. She is presently comfortable, supine in bed. Offers no complaints of abdominal pain. PAST MEDICAL HISTORY: As above. ALLERGIES: BACITRACIN, CODEINE, AND HYDROCODONE. SOCIAL HISTORY: Negative for tobacco. Occasional ETOH. SYSTEMS REVIEW: Neurologic: No loss of consciousness, seizure activity, focal weakness. Cardiac: Negative chest pain or palpitations. Respiratory: Negative cough or sputum production. Gastrointestinal: As per HPI. Genitourinary: Negative for urinary tract infection. LABORATORY DATA: White count 7.1, hematocrit 33.1, platelets 360, creatinine 0.4. Liver enzymes normal. Urinalysis; 1 white cell. Blood cultures; 1 anaerobic bottle. Group D strep versus enterococcus. Chest x-ray, negative for acute infiltrate. CAT scans reviewed with radiologist. PHYSICAL EXAMINATION: General: She is awake and alert. She is supine in bed in no acute distress. Vital Signs: Temperature 98.1, maximum temperature 100.6, blood pressure 130/78, pulse 80 regular, respirations 18 per minute. HEENT: Sclerae anicteric. Heart: Sounds S1, S2. Lungs: Clear. Diminished breath sounds at the bases. Abdomen: Slightly distended. There are positive bowel sounds. Surgical wounds present. There is packing in place. There is no surrounding erythema or purulent drainage noted. Extremities: Negative for edema. Negative Homans sign. IMPRESSION: 1. Positive blood culture, group D streptococcus versus enterococcus, rule out gastrointestinal source. 2. Rule out intra-abdominal abscesses. 3. Postoperative day number 7 reversal of colostomy. 4. Postoperative fever. PLAN: Await cultures. Empiric antibiotic coverage with Unasyn and vancomycin. Further recommendations pending culture results. Surgical follow up. Thank you for the kind referral. MERARI FERNANDEZ M.D. [facility]/[id number]
[2019-11-06] MEDS: LACTATED RINGERS SOLUTION 1,000 ML IV SCH ×2 (03:45→15:21)
[2019-11-06] MEDS ORDERED: AMPICILLIN NA/SULBACTAM NA 1.5 GM VIAL ONE ×4 (04:01→20:24)
[2019-11-06] MEDS ORDERED: SODIUM CHLORIDE 100 ML IVPB ONE ×4 (04:02→20:24)
[2019-11-06] MEDS: AMPICILLIN NA/SULBACTAM NA 1.5 GM in SODIUM CHLORIDE 100 ML IVPB SCH ×4 (04:05→20:43)
[2019-11-06] MEDS: ACETAMINOPHEN 1000 MG/100 ML VIAL (NON FORMULARY) IVPB SCH ×4 (05:00→22:40)
[2019-11-06] MEDS: VANCOMYCIN 1 GRAM (PRE-DOCKED) 1,000 MG/250 ML BAG IVPB SCH (05:34)
[2019-11-06] MEDS: PANTOPRAZOLE SODIUM 40 MG VIAL IVPUSH SCH (09:16)
--- NOTE | 2019-11-06 10:18 | PN ---
Progress Note, Physician History of Present Illness: AWAKE, ALERT IN BED REPORTS FEVER OVERNIGHT NO C/O ABDOMINAL PAIN, N/V + FLATUS, SMALL FORMED BM NPO - Current Medication List Current Medications: Active Medications Acetaminophen (Ofirmev Injection -) 1,000 mg IVPB Q6H [facility] Last Admin: 11/06/19 05:00 Dose: 1,000 mg Acetaminophen (Tylenol -) 650 mg PO Q6H PRN PRN Reason: FEVER Diphenhydramine HCl (Benadryl Injection -) 12.5 mg IVPUSH ONCE PRN PRN Reason: FOR ITCHING Last Admin: 10/30/19 19:54 Dose: 12.5 mg Hydromorphone HCl (Hydromorphone 10 Mg/50 Ml-Ns) 10 mg CANDY WRAPPING MACHINE OPERATOR CANDY WRAPPING MACHINE OPERATOR PRASANNA; Protocol Stop: 11/06/19 15:55 Last Admin: 11/05/19 16:35 Dose: 10 mg Lactated Ringer's (Lactated Ringers Solution) 1,000 mls @ 75 mls/hr IV ASDIR [facility] Last Admin: 11/06/19 03:45 Dose: 75 mls/hr Ampicillin Sodium/Sulbactam (Sodium 1.5 gm/ Sodium Chloride) 100 mls @ 200 mls/ hr IVPB Q6H-IV [facility] Last Admin: 11/06/19 10:05 Dose: 200 mls/hr Vancomycin HCl (Vancomycin (Pre-Docked)) 1,000 mg in 250 mls @ 166.667 mls/hr IVPB Q12H [facility]; Protocol Last Admin: 11/06/19 05:34 Dose: 166.667 mls/hr Pantoprazole Sodium (Protonix Iv) 40 mg IVPUSH DAILY [facility] Last Admin: 11/06/19 09:16 Dose: 40 mg Simethicone (Mylicon -) 80 mg PO Q4H PRN PRN Reason: GAS Last Admin: 11/05/19 17:12 Dose: 80 mg - Objective Vital Signs: Vital Signs Temperature 98.4 F 11/06/19 08:44 Pulse Rate 76 11/06/19 08:44 Respiratory Rate 18 11/06/19 09:00 Blood Pressure 144/79 11/06/19 08:44 O2 Sat by Pulse Oximetry (%) 98 11/06/19 09:00 Constitutional: Yes: No Distress Eyes: Yes: Conjunctiva Clear Cardiovascular: Yes: Regular Rate and Rhythm, S1, S2 Respiratory: Yes: CTA Bilaterally Gastrointestinal: Yes: Normal Bowel Sounds, Soft, Other (SURGICAL WOUNDS WITH PACKING IN PLACE). No: Tenderness Labs: CBC, BMP 11/05/19 09:24 11/05/19 09:24 Assessment/Plan POST OP FEVER + BC ENTEROCOCCUS ? ABDOMINAL ABSCESS POD #8 REVERSAL OF COLOSTOMY AWAIT REPEAT BC CONTINUE UNASYN ECHOCARDIOGRAM
--- NOTE | 2019-11-06 13:04 | PN ---
Progress Note (short form) - Note Progress Note: Attending Surgeon POD#8 No c/o today e/f problems w/her IV access; on antibiotics; states she feels much better; passing flatus and having bowels movements; hungry and thirsty VSS AF T max 100.1 11/06/2019 02:00 abdo-soft; non tender; wound care in progress; wound granulating well; non tympanitic WBC pending today 1 set of Blood cultures positive; results noted; remaining cultures pending ID Consult reviewed IMP: stable PLAN: Trial of clear liquids/IVF; continue IVAB's ; check CBC. Silvano Child MD FACS
[2019-11-06 13:32] LABS: BASO % 0.5 % (0-2.0); EOS % 5.3 % (0-4.5); HEMATOCRIT 33.4 % (32.4-45.2); LYMPH % 8.6 % (8-40); MCH 28.4 pg (25.7-33.7); MEAN CELL VOLUME 86.1 fl (80-96); MEAN PLT VOLUME 7.7 fl (7.5-11.1); MONO % 8.1 % (3.8-10.2); NEUT % 77.5 % (42.8-82.8); PLATELET COUNT 436 K/MM3 (134-434); RBC 3.88 M/mm3 (3.60-5.2); RDW 15.4 % (11.6-15.6); WHITE BLOOD COUNT 7.4 K/mm3 (4.0-10.0)
[2019-11-07] MEDS ORDERED: AMPICILLIN NA/SULBACTAM NA 1.5 GM VIAL ONE ×2 (01:06→09:28)
[2019-11-07] MEDS ORDERED: SODIUM CHLORIDE 100 ML IVPB ONE ×2 (01:06→09:28)
[2019-11-07] MEDS: AMPICILLIN NA/SULBACTAM NA 1.5 GM in SODIUM CHLORIDE 100 ML IVPB SCH ×3 (02:30→20:38)
[2019-11-07] MEDS: ACETAMINOPHEN 1000 MG/100 ML VIAL (NON FORMULARY) IVPB SCH (05:14)
[2019-11-07] MEDS ORDERED: traMADol HCL 50 MG TABLET PO PRN (09:19)
[2019-11-07] MEDS: PANTOPRAZOLE SODIUM 40 MG VIAL IVPUSH SCH (09:32)
--- NOTE | 2019-11-07 11:54 | PN ---
Progress Note (short form) - Note Progress Note: Attending Surgeon POD#9 After being seen earlier today and w/a benign exam patient developed pain and discharge from the superior pole of the incision c/w air and stool; she was started on clear liquids yesterday and has been having bowel movements and passing flatus; she had free air in imaging earlier this week and b/o a benign abdominal exam and normal WBC counts was being managed conservatively. Recent blood cultures have been negative after 1 positive culture and she has been on antibiotics. VSS AF abdo-soft and non tender; visible stool at the superior aspect of the open midline incision; o/w ostomy site healing well. IMP: anastamotic leak PLAN: Return to OR for ex-lap and AOSDN including but not limited to rection and anastomosis and possible ostomy; informed consent obtained from the patient ; r/b/t/a's d/w her. Silvano Child MD FACS
[2019-11-07] MEDS ORDERED: fentaNYL CITRATE 250 MCG/5 ML VIAL ONE (12:47)
[2019-11-07] MEDS ORDERED: PROPOFOL 20 ML ONE ×3 (12:47→17:20)
[2019-11-07] MEDS ORDERED: ROCURONIUM BROMIDE 50 MG/5 ML SYRINGE ONE ×2 (12:47→15:31)
[2019-11-07] MEDS ORDERED: MIDAZOLAM HCL 2 MG/2 ML SINGLE DOSE VIAL ONE (12:48)
[2019-11-07] MEDS ORDERED: LIDOCAINE HCL/PF 2% SDV 5ML VIAL ONE (12:56)
[2019-11-07] MEDS ORDERED: ERTAPENEM SODIUM 1 GM VIAL ONE (14:01)
[2019-11-07] MEDS ORDERED: ERTAPENEM SODIUM 1 GM VIAL IVPB ONE (14:03)
[2019-11-07] MEDS ORDERED: HYDROmorphone HCl 2 MG/ML VIAL ONE ×2 (14:18→17:54)
[2019-11-07] MEDS ORDERED: ACETAMINOPHEN INJECTION 100 ML IVPB ONE (14:25)
[2019-11-07] MEDS ORDERED: ONDANSETRON 4 MG/2 ML VIAL IVPUSH PRN (14:28)
[2019-11-07] MEDS ORDERED: ACETAMINOPHEN 325 MG TABLET (FP) PO PRN (14:28)
[2019-11-07] MEDS ORDERED: LACTATED RINGERS SOLUTION 1,000 ML IV SCH (14:30)
[2019-11-07] MEDS ORDERED: NEOSTIGMINE METHYLSULFATE 0.5 MG/ML - 10 ML MDV ONE (16:45)
[2019-11-07] MEDS ORDERED: HYDROmorphone *PCA* 10MG/50ML DISP.SYRIN ONE (17:08)
[2019-11-07] MEDS: HYDROmorphone HCl 2 MG/ML VIAL IVPUSH PRN ×5 (17:56→18:40)
[2019-11-07] MEDS: HYDROmorphone *PCA* 10MG/50ML DISP.SYRIN PCA SCH ×2 (18:30→18:31)
[2019-11-07] MEDS: LACTATED RINGERS SOLUTION 1,000 ML IV SCH (18:30)
--- NOTE | 2019-11-07 19:24 | CONSULT ---
Consultation: REQUESTING PROVIDER: Dr. Child CONSULT REQUEST: We have been asked to medically evaluate this patient for post op anastamonic leak. HISTORY OF PRESENT ILLNESS: Patient is a 48 y/o with a history diverticulosis, hemorrhoids who was admitted to the hospital 07/22 with perforation from a colonoscopy. Patient had a reanastamosis 10/29, on 11/07 the patient was found to have anastamonic leak. Patient went back for surgery today. Patient reports earlier in the day she had a bowel movement and when she pushed she felt a pressure and then noticed debris leaking form the site. Patient seen post surgery and only complains of pain. REVIEW OF SYSTEMS: CONSTITUTIONAL: Absent: fever, chills, diaphoresis, generalized weakness, malaise, loss of appetite, weight change HEENT: Absent: rhinorrhea, nasal congestion, throat pain, throat swelling, difficulty swallowing, mouth swelling, ear pain, eye pain, visual changes CARDIOVASCULAR: Absent: chest pain, syncope, palpitations, irregular heart rate, lightheadedness , peripheral edema RESPIRATORY: Absent: cough, shortness of breath, dyspnea with exertion, orthopnea, wheezing, stridor, hemoptysis GASTROINTESTINAL: abdominal pain Absent: abdominal distension, nausea, vomiting, diarrhea, constipation, melena , hematochezia GENITOURINARY: Absent: dysuria, frequency, urgency, hesitancy, hematuria, flank pain, genital pain MUSCULOSKELETAL: Absent: myalgia, arthralgia, joint swelling, back pain, neck pain SKIN: Absent: rash, itching, pallor HEMATOLOGIC/IMMUNOLOGIC: Absent: easy bleeding, easy bruising, lymphadenopathy, frequent infections ENDOCRINE: Absent: unexplained weight gain, unexplained weight loss, heat intolerance, cold intolerance NEUROLOGIC: Absent: headache, focal weakness or paresthesias, dizziness, unsteady gait, seizure, mental status changes, bladder or bowel incontinence PSYCHIATRIC: Absent: anxiety, depression, suicidal or homicidal ideation, hallucinations. PHYSICAL EXAMINATION Vital Signs Temperature 99.9 F H 11/07/19 17:50 Pulse Rate 90 11/07/19 18:50 Respiratory Rate 18 11/07/19 18:50 Blood Pressure 119/79 11/07/19 18:50 O2 Sat by Pulse Oximetry (%) 99 11/07/19 18:50 GENERAL:lethargic, awake, A&O x3 HEAD: Normal with no signs of trauma. EYES: Pupils equal, round and reactive to light, EARS, NOSE, THROAT: Moist mucous membranes. LUNGS: Breath sounds equal, clear to auscultation bilaterally. No wheezes, and no crackles. No accessory muscle use. HEART: tachycadic, Regular and rhythm, normal S1 and S2 without murmur, rub or gallop. ABDOMEN: large dressing over middle of abdomen, champ drain to the left LOWER EXTREMITIES: 2+ pulses, warm, No peripheral edema. SKIN: Warm, dry, normal turgor, no rashes or lesions noted. Laboratory Results - last 24 hr 11/07/19 11/07/19 11/07/19 09:24 12:55 12:55 Serum , Qual Cancelled Negative Blood Type B POSITIVE Antibody Screen Negative Active Medications Acetaminophen (Tylenol -) 650 mg PO Q4H PRN PRN Reason: Pain-PACU ORDER X 2 DOSES ONLY Stop: 11/08/19 14:27 Diphenhydramine HCl (Benadryl Injection -) 12.5 mg IVPUSH ONCE PRN PRN Reason: FOR ITCHING Last Admin: 10/30/19 19:54 Dose: 12.5 mg Hydromorphone HCl (Dilaudid Vial -) 0.5 mg IVPUSH [id number] PRN PRN Reason: PAIN LEVEL 6-10 Stop: 11/08/19 14:27 Last Admin: 11/07/19 18:31 Dose: 0.5 mg Hydromorphone HCl (Hydromorphone 10 Mg/50 Ml-Ns) 10 mg HOSPITAL COORDINATOR HOSPITAL COORDINATOR PRASANNA; Protocol Stop: 11/08/19 17:59 Last Admin: 11/07/19 18:30 Dose: 10 mg Ampicillin Sodium/Sulbactam (Sodium 1.5 gm/ Sodium Chloride) 100 mls @ 200 mls/ hr IVPB Q6H-IV PRASANNA Last Admin: 11/07/19 09:32 Dose: 200 mls/hr Lactated Ringer's (Lactated Ringers Solution) 1,000 mls @ 125 mls/hr IV ASDIR PRASANNA Last Admin: 11/07/19 18:30 Dose: 0 mls Ondansetron HCl (Zofran Injection) 4 mg IVPUSH Q6H PRN PRN Reason: NAUSEA AND/OR VOMITING Stop: 11/08/19 14:27 Pantoprazole Sodium (Protonix Iv) 40 mg IVPUSH DAILY PRASANNA Last Admin: 11/07/19 09:32 Dose: 40 mg ASSESSMENT/PLAN: Patient is a 48 y/o with a history diverticulosis, hemorrhoids who underwent reanastamosis and now has an anastomic leak. #Neuro -A&O x3 #Cardio - stable, monitor for any hypovolemic changes #Pulm - would advise continuing incentive spirometer q1h, underwent ex lap - NC as needed to keep sats above 92 #GI - POD 9 reanastamosis - NPO - HOSPITAL COORDINATOR pump for pain - on LR - zofran and protonix - keep NG tube in #ID - continue Unasyn, Cefapime, and Flagyl - followed by infectious disease - one bcx bottle positive for enterococcus fecalis, latest 2 bottles negative #DVT ppx - SCDs ppx FEN - NPO Dispo: We will continue to follow the patient. Thank you for this consultative opportunity. Visit type - Emergency Visit Emergency Visit: No - New Patient This patient is new to me today: No - Critical Care Critical Care patient: Yes Total Critical Care Time (in minutes): 40 Critical Care Statement: The care of this patient involved high complexity decision making to prevent further life threatening deterioration of the patient 's condition and/or to evaluate & treat vital organ system(s) failure or risk of failure. ATTENDING PHYSICIAN STATEMENT I saw and evaluated the patient. I reviewed the resident's note and discussed the case with the resident. I agree with the resident's findings and plan as documented. SUBJECTIVE: OBJECTIVE: ASSESSMENT AND PLAN:
--- NOTE | 2019-11-07 20:49 | PN ---
Teaching Attending Note Name of Resident: Rebecca Esparza ATTENDING PHYSICIAN STATEMENT I saw and evaluated the patient. I reviewed the resident's note and discussed the case with the resident. I agree with the resident's findings and plan as documented. SUBJECTIVE: We have been consulted for medical management of Ms. Andreea Jaffe who had surgery today for anastamotic leak and also recent enteroccocus bacteremia. Patient is a 48 year old woman with a PMH of Diverticulosis, Erosive gastritis, Bladder lift, Colonic polyps, , Hemorrhoids and Colon perforation from a colonoscopy. Patient had a reanastamosis 10/29/2019, and on 11/07/19 the patient was found to have anastamonic leak. Patient went back for surgery today. Patient has post surgery pain. Denies fever, chills, chest pain, headache or SOB. Denies alcohol, tobacco or illicit drug use. No sick contacts or recent travels. OBJECTIVE: Somnolent but arousable Vital Signs Period Temp Pulse Resp BP Sys/Ren Pulse Ox Last 24 Hr 98.5 F-99.9 F 75-104 14-18 97-140/52-83 97-100 HEENT: No Jaundice, eye redness or discharge, PERRLA, EOMI. Normocephalic, atraumatic. NGT in place. External ears are normal and hearing is grossly intact. No nasal discharge. Neck: Supple, nontender. No palpable adenopathy or thyromegaly. No JVD Chest: Good effort. Clear to auscultation and percussion. Heart: Regular. No S3, rub or murmur Abdomen: Abdominal surgical wound dressed; SARAH BETH drain in place. Not distended, soft; tender and no HSM. Diminished bowel sounds. Ext: Peripheral pulses intact. No leg edema. Hoang in place. Skin: Warm and dry. No petechiae, rash or ecchymosis. Neuro: Somnolent but arousable. Oriented to person. CN 2-12 grossly intact. Sensation grossly intact in all four extremities and DTR are symmetric. Psych: Appropriate mood and affect. Good insight. Current Medications Generic Name Dose Route Start Last Admin Trade Name Freq PRN Reason Stop Dose Admin Acetaminophen 650 mg 11/07/19 14:28 Tylenol - PO 11/08/19 14:27 Q4H PRN Pain-PACU ORDER X 2 DOSES ONLY Chlorhexidine Gluconate 1 applic 11/07/19 22:00 11/07/19 22:33 Hibiclens For Decolonization - TP 1 applic HS PRASANNA Administration Diphenhydramine HCl 12.5 mg 10/29/19 11:02 10/30/19 19:54 Benadryl Injection - IVPUSH 12.5 mg ONCE PRN Administration FOR ITCHING Hydromorphone HCl 0.5 mg 11/07/19 14:28 11/07/19 18:31 Dilaudid Vial - IVPUSH 11/08/19 14:27 0.5 mg [id number] PRN Administration PAIN LEVEL 6-10 Hydromorphone HCl 10 mg 11/07/19 18:00 11/07/19 18:30 Hydromorphone 10 Mg/50 Ml-Ns ROAD COMMISSIONER 11/08/19 17:[address] COMMISSIONER PRASANNA Administration Protocol Lactated Ringer's 1,000 mls @ 125 mls/hr 11/07/19 17:02 11/07/19 18:30 Lactated Ringers Solution IV 300 mls ASDIR PRASANNA Administration Ampicillin Sodium 2 gm/ Sodium 100 mls @ 200 mls/hr 11/08/19 02:30 Chloride IVPB Q6H-IV PRASANNA Protocol Cefepime HCl 1 gm in 50 mls @ 100 mls/hr 11/07/19 21:30 Maxipime 1 Gm Premix Ivpb IVPB Q8H-IV PRASANNA Protocol Metronidazole 500 mg in 100 mls @ 100 mls/hr 11/07/19 21:30 11/07/19 21:52 Flagyl 500mg Premixed Ivpb - IVPB 100 mls/hr Q6H-IV PRASANNA Administration Cefepime HCl 1 gm/ Dextrose 100 mls @ 100 mls/hr 11/07/19 21:30 11/07/19 21: 53 IVPB 11/08/19 21:29 100 mls/hr Q8H-IV PRASANNA Administration Protocol Mupirocin 1 applic 11/07/19 22:00 11/07/19 22:33 Bactroban Ointment (For Decolonization) - NS 11/12/19 21:59 1 applic BID PRASANAN Administration Ondansetron HCl 4 mg 11/07/19 14:28 02/27/20 21:52 Zofran Injection IVPUSH 11/08/19 14:27 4 mg Q6H PRN Administration NAUSEA AND/OR VOMITING Pantoprazole Sodium 40 mg 10/30/19 10:00 11/07/19 09:32 Protonix Iv IVPUSH 40 mg DAILY PRASANNA Administration Home Medications Medication Instructions Recorded Pantoprazole Sodium [Protonix] 40 mg PO DAILY #30 tablet. 03/26/19 ASSESSMENT AND PLAN: 1. Post op Day 0 for repair of anastomotic leak - Will continue care according to the recommendations of the surgeon. ID instructional consultant reconsulted and patient now on IV Cefepime, Flagyl and Ampicillin. Monitor drain volume from SARAH BETH drain, monitor hoang output, continue IV fluid support and Dilaudid ROAD COMMISSIONER for pain control. On IV Protonix. Repeat CMP and CBC. Check magnesium level in view of recent hypokalemia. Will give IV KCL if repeat K+ is low. Will continue comprehensive care for all of patients comorbid conditions. 2. Hypoalbuminemia - Possibly due to combined effects of malnutrition and inflammation associated with comorbid chronic conditions. Will ensure adequate dietary protein intake and also consult associate director. 3. Obesity When clinically stable, will youth counselor patient on the risks associated with obesity. Will provide patient all the necessary assistance, counseling and positive reinforcement to facilitate weight loss. Consult associate director. 4. DVT prophylaxis - Lovenox 40 mg SQ q 24 hours. 5. Advance directives - Full code
--- NOTE | 2019-11-07 20:57 | CONSULT ---
Consultation: REQUESTING PROVIDER: CONSULT REQUEST: We have been asked to medically evaluate this patient for post- operative monitoring. HISTORY OF PRESENT ILLNESS: 49 yo. F PMH diverticulosis, hemorrhoids, gastric/ duodenal ulcers presented s/ p perf from colonoscopy polypectomy 07/2019; segmental transverse colon resection and end colostomy performed 07/12/2019. Now POD#9 s/p Hartmans reversal for transverse colon resection. On 11/02/2019 patient noted to be febrile, fluctuant fevers occurring since this time. Found to have pneumoperitonem w/ multiple intra-abdominal abscesses & enterococcal bacteremia. Taken back to OR today, now POD #0 s/p ex-lap, revision of transverse colon anastamosis w/ [id number] anastamosis w/ placement of SARAH BETH drain. S/p 2 doses vanc and remained on Unasyn today day #3. Given 1 dose ertapenem in OR today. Patient examined post operatively in PACU. Extubated, satting well on RA. Afebrile, vitals are being monitored closely. Pain controlled w/ EMPLOYMENT COACH pump. REVIEW OF SYSTEMS: limited due to patient drowsiness. Endorses mild abdominal discomfort, improving w/ [employer] team member PHYSICAL EXAMINATION Vital Signs - 24 hr 11/06/19 11/06/19 11/07/19 21:00 22:00 02:00 Temperature 98.9 F 98.8 F Pulse Rate 84 76 Respiratory 18 17 18 Rate Blood Pressure 131/68 115/60 O2 Sat by Pulse 98 Oximetry (%) 11/07/19 11/07/19 11/07/19 05:52 09:00 17:50 Temperature 99.2 F 98.5 F 99.9 F H Pulse Rate 75 80 95 H Respiratory 18 18 16 Rate Blood Pressure 121/83 140/79 109/61 O2 Sat by Pulse 98 100 Oximetry (%) 11/07/19 11/07/19 11/07/19 18:05 18:20 18:30 Temperature Pulse Rate 78 85 90 Respiratory 18 18 18 Rate Blood Pressure 98/52 L 97/76 121/81 O2 Sat by Pulse 98 97 99 Oximetry (%) 11/07/19 11/07/19 11/07/19 18:35 18:50 19:00 Temperature Pulse Rate 90 90 81 Respiratory 18 18 18 Rate Blood Pressure 121/81 119/79 121/73 O2 Sat by Pulse 99 99 99 Oximetry (%) 11/07/19 11/07/19 11/07/19 19:05 19:20 19:30 Temperature Pulse Rate 81 81 95 H Respiratory 18 18 18 Rate Blood Pressure 121/73 123/78 128/76 O2 Sat by Pulse 99 99 98 Oximetry (%) 11/07/19 11/07/19 11/07/19 19:35 19:50 20:05 Temperature Pulse Rate 95 H 96 H 98 H Respiratory 18 18 18 Rate Blood Pressure 128/76 121/82 119/82 O2 Sat by Pulse 98 98 98 Oximetry (%) 11/07/19 11/07/19 11/07/19 20:20 20:30 20:35 Temperature 99.0 F Pulse Rate 102 H 102 H 104 H Respiratory 14 14 14 Rate Blood Pressure 122/80 122/80 126/79 O2 Sat by Pulse 98 98 98 Oximetry (%) GENERAL: Somnolent, lying in bed, no acute distress HEENT: NGT in place. Pupils miosed LUNGS: CTABL no incr work of breathing HEART: Regular rate and rhythm, normal S1 and S2 without murmurs ABDOMEN: Soft, mildly distended, some tenderness to palpation surrounding surgical site. Midline abdominal dressing c/d/i, SARAH BETH drain in place draining minimal bright red blood. + bowel sounds. MUSCULOSKELETAL: Normal range of motion at all joints. No bony deformities or tenderness. No CVA tenderness. EXTREMITIES: 2+ pulses, warm, well-perfused. No calf tenderness. No peripheral edema. SKIN: no rashes or lesions noted. Laboratory Results - last 24 hr 11/07/19 11/07/19 11/07/19 09:24 12:55 12:55 Serum , Qual Cancelled Negative Blood Type B POSITIVE Antibody Screen Negative Active Medications Generic Name Dose Route Start Last Admin Trade Name Freq PRN Reason Stop Dose Admin Acetaminophen 650 mg 11/07/19 14:28 Tylenol - PO 11/08/19 14:27 Q4H PRN Pain-PACU ORDER X 2 DOSES ONLY Chlorhexidine Gluconate 1 applic 11/07/19 22:00 Hibiclens For Decolonization - TP HS PRASANNA Diphenhydramine HCl 12.5 mg 10/29/19 11:02 10/30/19 19:54 Benadryl Injection - IVPUSH 12.5 mg ONCE PRN Administration FOR ITCHING Hydromorphone HCl 0.5 mg 11/07/19 14:28 11/07/19 18:31 Dilaudid Vial - IVPUSH 11/08/19 14:27 0.5 mg [id number] PRN Administration PAIN LEVEL 6-10 Hydromorphone HCl 10 mg 11/07/19 18:00 11/07/19 18:30 Hydromorphone 10 Mg/50 Ml-Ns EMPLOYMENT COACH 11/08/19 17:59 10 mg EMPLOYMENT COACH PRASANNA Administration Protocol Ampicillin Sodium/Sulbactam 100 mls @ 200 mls/hr 11/05/19 18:00 11/07/19 20: 38 Sodium 1.5 gm/ Sodium Chloride IVPB 200 mls/hr Q6H-IV PRASANNA Administration Lactated Ringer's 1,000 mls @ 125 mls/hr 11/07/19 17:02 11/07/19 18:30 Lactated Ringers Solution IV 0 mls ASDIR PRASANNA Administration Mupirocin 1 applic 11/07/19 22:00 Bactroban Ointment (For Decolonization) - NS 11/12/19 21:59 BID PRASANNA Ondansetron HCl 4 mg 11/07/19 14:28 Zofran Injection IVPUSH 11/08/19 14:27 Q6H PRN NAUSEA AND/OR VOMITING Pantoprazole Sodium 40 mg 10/30/19 10:00 11/07/19 09:32 Protonix Iv IVPUSH 40 mg DAILY PRASANNA Administration ASSESSMENT/PLAN: 49 yo. F PMH diverticulosis, hemorrhoids, gastric/ duodenal ulcers s/p partial colectomy w/ colostomy, goodwin's reversal, now found to have pneumoperitonem. #Pneumoperitoneum -POD #0 s/p ex-lap, revision of transverse colon anastamosis w/ [id number] anastamosis w/ placement of SARAH BETH drain -post-op recs as per surgical team -NPO, IVF -NGT in place, SARAH BETH drain in place -abx coverage: s/p 1 dose ertapenem pre-op, 3 days unasyn -Spoke w/ ID Dr. Flores-- starting ampicillin 2g q6h, unasyn dose just given this evening post-op -adding cefepime 1g q8h, flagyl 500mg q6h -F/u CBC, CMP, mag #Pain control -EMPLOYMENT COACH pump #FEN -LR @125cc/hr -hypokalemic, improved on repeat bmp -NPO Dispo: We will continue to follow the patient. Thank you for this consultative opportunity. Visit type - Emergency Visit Emergency Visit: Yes ED Registration Date: 10/29/19 Care time: The patient presented to the Emergency Department on the above date and was hospitalized for further evaluation of their emergent condition. - New Patient This patient is new to me today: Yes Date on this admission: 11/08/19 - Critical Care Critical Care patient: No ATTENDING PHYSICIAN STATEMENT I saw and evaluated the patient. I reviewed the resident's note and discussed the case with the resident. I agree with the resident's findings and plan as documented. SUBJECTIVE: OBJECTIVE: ASSESSMENT AND PLAN:
--- NOTE | 2019-11-07 21:26 | OP ---
Operative Note - Note: Operative Date: 11/07/19 Pre-Operative Diagnosis: POD #9 s/p Laparotomy, lysis of adhesions, nondenominational of colonic continuity with primary anastamosis (end-to-end). Now with pneumoperitoneum, stool from superior pole of surgical wound. Operation: Exploratory laparotomy, revision of transverse colon anastamosis with [id number] anastamosis. Copious irrigation. Lysis of adhesions. Retention sutures Post-Operative Diagnosis: Same as Pre-op Surgeon: Silvano Child Documentation Nurse: Omar Cox (Tyrone Maddox) Anesthesiologist/MICA PATCHER: Preston Osborn Anesthesia: General Specimens Removed: segment of transverse colon anastamosis Estimated Blood Loss (mls): 150 Drains & Tubes with Location: NGT. SARAH BETH Drains, Volume Out (mls): 400 (Viera(clear)) Blood Volume Replaced (mls): 0 Fluid Volume Replaced (mls): 2,000 (LR) Operative Report Dictated: Yes
[2019-11-07] MEDS ORDERED: CEFEPIME HCL/D5W 1 GM/50 ML BAG IVPB SCH (21:30)
[2019-11-07] MEDS ORDERED: DEXTROSE 5%-WATER 100 ML IVPB ONE (21:46)
[2019-11-07] MEDS ORDERED: CEFEPIME HCL 1 GM VIAL (RESTRICTED TO ID) ONE (21:46)
[2019-11-07] MEDS: CEFEPIME 1 GM in DEXTROSE 5%-WATER 100 ML IVPB SCH (21:53)
[2019-11-07 22:00] LABS: HEMATOCRIT 35.1 % (32.4-45.2); HEMOGLOBIN 11.5 GM/dL (10.7-15.3); MCH 28.1 pg (25.7-33.7); MCHC 32.8 g/dl (32.0-36.0); MEAN CELL VOLUME 85.7 fl (80-96); MEAN PLT VOLUME 7.6 fl (7.5-11.1); PLATELET COUNT 607 K/MM3 (134-434); RDW 15.2 % (11.6-15.6); WHITE BLOOD COUNT 16.6 K/mm3 (4.0-10.0)
[2019-11-07 22:29] LABS: BILIRUBIN,TOTAL 0.3 mg/dL (0.2-1); BLOOD UREA NITROGEN 4.4 mg/dL (7-18); CALCIUM 7.7 mg/dL (8.5-10.1); CREATININE 0.5 mg/dL (0.55-1.3); MAGNESIUM 1.5 mg/dL (1.8-2.4); POTASSIUM 3.6 mmol/L (3.5-5.1); TOT PROT 5.1 g/dl (6.4-8.2)
[2019-11-07] MEDS: CHLORHEXIDINE GLUCONATE 4% CLEANSER FOR DECOLONIZATION TP SCH (22:33)
[2019-11-07] MEDS: MUPIROCIN 2% TOPICAL OINTMENT FOR DECOLONIZATION NS SCH (22:33)
[2019-11-08] MEDS ORDERED: SODIUM CHLORIDE 100 ML IVPB ONE ×4 (01:21→21:05)
[2019-11-08] MEDS ORDERED: AMPICILLIN SODIUM 2 GM VIAL ONE ×4 (01:21→21:05)
[2019-11-08] MEDS ORDERED: DEXTROSE 5%-WATER 100 ML IVPB ONE ×2 (01:22→08:31)
[2019-11-08] MEDS ORDERED: CEFEPIME HCL 1 GM VIAL (RESTRICTED TO ID) ONE ×2 (01:22→08:31)
[2019-11-08] MEDS ORDERED: CEFEPIME 1 GM in DEXTROSE 5%-WATER 100 ML IVPB SCH (02:00)
[2019-11-08] MEDS: CEFEPIME 1 GM in DEXTROSE 5%-WATER 100 ML IVPB SCH ×2 (02:54→09:36)
[2019-11-08] MEDS: AMPICILLIN - 2 GM in SODIUM CHLORIDE 100 ML IVPB SCH ×5 (02:55→21:07)
[2019-11-08 06:29] LABS: BASO % 0.2 % (0-2.0); EOS % 0.5 % (0-4.5); HEMATOCRIT 34.1 % (32.4-45.2); HEMOGLOBIN 11.2 GM/dL (10.7-15.3); LYMPH % 8.2 % (8-40); MCH 28.2 pg (25.7-33.7); MEAN CELL VOLUME 85.6 fl (80-96); MEAN PLT VOLUME 7.8 fl (7.5-11.1); MONO % 8.5 % (3.8-10.2); NEUT % 82.6 % (42.8-82.8); PLATELET COUNT 621 K/MM3 (134-434); RBC 3.98 M/mm3 (3.60-5.2); RDW 15.2 % (11.6-15.6); WHITE BLOOD COUNT 11.5 K/mm3 (4.0-10.0)
[2019-11-08] MEDS: HYDROmorphone *PCA* 10MG/50ML DISP.SYRIN PCA SCH ×3 (06:29→13:28)
[2019-11-08 06:53] LABS: BLOOD UREA NITROGEN 5.2 mg/dL (7-18); CALCIUM 7.6 mg/dL (8.5-10.1); CREATININE 0.5 mg/dL (0.55-1.3); MAGNESIUM 1.5 mg/dL (1.8-2.4); PHOSPHOROUS 3.7 mg/dL (2.5-4.9); POTASSIUM 3.8 mmol/L (3.5-5.1)
--- NOTE | 2019-11-08 08:13 | PN ---
Progress Note (short form) - Note Progress Note: POD#1 patient seen and examined at bed. Patient c/o pain but controlled with SENIOR EXECUTIVE ASSISTANT. NGT in place with minimal output overnight. Patient states her pain is controlled with the SENIOR EXECUTIVE ASSISTANT. She denies any CP, SOB, N/V, fever or chills. Vital Signs Temp 99 F 11/08/19 06:00 Pulse 114 H 11/08/19 06:00 Resp 14 11/08/19 06:00 BP 106/71 11/08/19 06:00 Pulse Ox 98 11/07/19 23:17 Intake & Output 11/07/19 11/07/19 11/08/19 11:59 23:59 11:59 Intake Total 600 3500 1550 Output Total 1840 400 Balance 600 1660 1150 Intake: IV 400 3300 1250 Lactated Ringers Solution 1250 1,000 ml @ 125 mls/hr IV ASDIR PRASANNA Rx#: [id number] Lactated Ringers Solution 400 1,000 ml @ 75 mls/hr IV ASDIR PRASANNA Rx#:[id number] IVPB 200 200 300 Output: Drainage 40 Urine 1650 400 Viera 400 Estimated Blood Loss 150 Other: Voiding Method Toilet Indwelling Catheter CBC, BMP 11/08/19 05:40 11/08/19 05:40 PE: A&Ox3, NAD unlabored resp on RA ABD: soft with diffuse TTP throughout, dressings c/d/i with surrounding tissue intact and no evidence of tracking erythema. B/L LE compartments soft, supple and non-tender with +2DP pulses. Problem List - Problems (1) History of colostomy reversal Assessment/Plan: POD #1 patient stable. -Continue strict NPO and NGT -IV abx per ID -Bedrest -pain control -surgery to change dressing later today. Evaluation and plan discussed with Dr Child Code(s): Z98.890 - OTHER SPECIFIED POSTPROCEDURAL STATES
--- NOTE | 2019-11-08 08:49 | PN ---
Progress Note (short form) - Note Progress Note: Post op dsay#1.S/P Exploratory lapratomy under GA uneventful.P118,BP 119/72 and Spo2 97 on O2 4L NC.Patient stable.No any anesthesia related problem.Patient DC from the anesthesia care.
[2019-11-08] MEDS ORDERED: MAGNESIUM SULF 50% (8.12 MEQ/2 ML-1 GM VIAL) IVPB ONE (08:50)
[2019-11-08] MEDS ORDERED: HYDROmorphone HCl 2 MG/ML VIAL IVPUSH PRN (09:21)
[2019-11-08] MEDS ORDERED: ONDANSETRON 4 MG/2 ML VIAL IVPUSH PRN (09:21)
[2019-11-08] MEDS: PANTOPRAZOLE SODIUM 40 MG VIAL IVPUSH SCH (09:36)
[2019-11-08] MEDS: KCL 10 MEQ IVPB 10 MEQ/100 ML INFUS.BAG IVPB SCH ×2 (09:36→11:41)
--- NOTE | 2019-11-08 10:47 | PN ---
Progress Note, Physician History of Present Illness: EVENTS NOTED NOW POD#1 REVISION OF TRANSVERSE COLON ANASTAMOSIS AWAKE, ALERT IN BED C/O THIRST NO C/O PAIN AFEBRILE - Current Medication List Current Medications: Active Medications Chlorhexidine Gluconate (Hibiclens For Decolonization -) 1 applic TP HS PRASANNA Last Admin: 11/07/19 22:33 Dose: 1 applic Diphenhydramine HCl (Benadryl Injection -) 12.5 mg IVPUSH ONCE PRN PRN Reason: FOR ITCHING Hydromorphone HCl (Hydromorphone 10 Mg/50 Ml-Ns) 10 mg TOPOGRAPHICAL ENGINEER TOPOGRAPHICAL ENGINEER PRASANNA; Protocol Stop: 11/08/19 17:59 Last Admin: 11/08/19 06:29 Dose: 10 mg Hydromorphone HCl (Dilaudid Vial -) 0.5 mg IVPUSH [id number] PRN PRN Reason: PAIN LEVEL 6-10 Stop: 11/08/19 14:27 Lactated Ringer's (Lactated Ringers Solution) 1,000 mls @ 125 mls/hr IV ASDIR PRASANNA Last Admin: 11/07/19 18:30 Dose: 300 mls Ampicillin Sodium 2 gm/ Sodium (Chloride) 100 mls @ 200 mls/hr IVPB Q6H-IV PRASANNA ; Protocol Last Admin: 11/08/19 08:40 Dose: 200 mls/hr Cefepime HCl (Maxipime 1 Gm Premix Ivpb) 1 gm in 50 mls @ 100 mls/hr IVPB Q8H- IV PRASANNA; Protocol Metronidazole (Flagyl 500mg Premixed Ivpb -) 500 mg in 100 mls @ 100 mls/hr IVPB Q6H-IV PRASANNA Last Admin: 11/08/19 08:40 Dose: 100 mls/hr Cefepime HCl 1 gm/ Dextrose 100 mls @ 100 mls/hr IVPB Q8H-IV PRASANNA; Protocol Stop: 11/08/19 21:29 Last Admin: 11/08/19 09:36 Dose: 100 mls/hr Potassium Chloride (Potassium Chloride 10 Meq Premix Ivpb -) 10 meq in 100 mls @ 100 mls/hr IVPB Q60M PRASANNA Stop: 11/08/19 10:59 Last Admin: 11/08/19 09:36 Dose: 100 mls/hr Mupirocin (Bactroban Ointment (For Decolonization) -) 1 applic NS BID [facility] Stop: 11/12/19 21:59 Last Admin: 11/07/19 22:33 Dose: 1 applic Ondansetron HCl (Zofran Injection) 4 mg IVPUSH Q6H PRN PRN Reason: NAUSEA AND/OR VOMITING Stop: 11/08/19 14:27 Pantoprazole Sodium (Protonix Iv) 40 mg IVPUSH DAILY [facility] Last Admin: 11/08/19 09:36 Dose: 40 mg - Objective Vital Signs: Vital Signs Temperature 99.1 F 11/08/19 09:25 Pulse Rate 112 H 11/08/19 09:25 Respiratory Rate 14 11/08/19 09:25 Blood Pressure 119/72 11/08/19 08:00 O2 Sat by Pulse Oximetry (%) 98 11/07/19 23:17 Constitutional: Yes: No Distress Eyes: Yes: Conjunctiva Clear Cardiovascular: Yes: Regular Rate and Rhythm, S1, S2 Respiratory: Yes: Diminished Gastrointestinal: Yes: Normal Bowel Sounds, Other (+ INCISIONAL TENDERNESS SARAH BETH DRAIN IN PLACE) Edema: No Labs: CBC, BMP 11/08/19 05:40 11/08/19 05:40 Assessment/Plan POD # 1 REVISION OF TRANSVERSE COLON ANASTAMOSIS ENTEROCOCCAL BACTEREMIA CONTINUE AMPICILLIN CEFTRIAXONE/ FLAGYL EMPIRIC COVERAGE BOWEL FRANCISCO J DISCUSSED WITH SURGERY
[2019-11-08] MEDS: ACETAMINOPHEN 1000 MG/100 ML VIAL (NON FORMULARY) IVPB PRN ×3 (11:00→23:31)
[2019-11-08] MEDS: MUPIROCIN 2% TOPICAL OINTMENT FOR DECOLONIZATION NS SCH ×2 (11:05→21:03)
--- NOTE | 2019-11-08 11:12 | PN ---
Teaching Attending Note Name of Resident: Gianni Boyer ATTENDING PHYSICIAN STATEMENT I saw and evaluated the patient. I reviewed the resident's note and discussed the case with the resident. I agree with the resident's findings and plan as documented. SUBJECTIVE: Patient seen and examined in the ICU. Awake and alert. Uncomfortable due to pain. 10. On Dilaudid SPOT WASHER. No CP or SOB. Seen by surgery this AM. Intake & Output 11/05/19 11/06/19 11/07/19 11/08/19 23:59 23:59 23:59 23:59 Intake Total 2350 2250 4100 1550 Output Total 1840 400 Balance 2350 2250 2260 1150 Weight 165 lb Last Vital Signs Temp Pulse Resp BP Pulse Ox 99.1 F 112 H 14 119/72 100 11/08/19 09:25 11/08/19 09:25 11/08/19 09:25 11/08/19 08:00 11/08/19 09:00 Active Medications Acetaminophen (Ofirmev Injection -) 1,000 mg IVPB Q6H PRN PRN Reason: fever or pain Stop: 11/09/19 10:53 Last Admin: 11/08/19 11:00 Dose: 1,000 mg Chlorhexidine Gluconate (Hibiclens For Decolonization -) 1 applic TP HS PRASANNA Last Admin: 11/07/19 22:33 Dose: 1 applic Diphenhydramine HCl (Benadryl Injection -) 12.5 mg IVPUSH ONCE PRN PRN Reason: FOR ITCHING Hydromorphone HCl (Hydromorphone 10 Mg/50 Ml-Ns) 10 mg SPOT WASHER SPOT WASHER PRASANNA; Protocol Stop: 11/08/19 17:59 Last Admin: 11/08/19 06:29 Dose: 10 mg Hydromorphone HCl (Dilaudid Vial -) 0.5 mg IVPUSH [id number] PRN PRN Reason: PAIN LEVEL 6-10 Stop: 11/08/19 14:27 Lactated Ringer's (Lactated Ringers Solution) 1,000 mls @ 125 mls/hr IV ASDIR PRASANNA Last Admin: 11/07/19 18:30 Dose: 300 mls Ampicillin Sodium 2 gm/ Sodium (Chloride) 100 mls @ 200 mls/hr IVPB Q6H-IV PRASANNA ; Protocol Last Admin: 11/08/19 08:40 Dose: 200 mls/hr Metronidazole (Flagyl 500mg Premixed Ivpb -) 500 mg in 100 mls @ 100 mls/hr IVPB Q6H-IV PRASANNA Last Admin: 11/08/19 08:40 Dose: 100 mls/hr Cefepime HCl (Maxipime 2gm Ivpb (Premix)) 2 gm in 50 mls @ 100 mls/hr IVPB Q8H- IV PRASANNA; Protocol Mupirocin (Bactroban Ointment (For Decolonization) -) 1 applic NS BID PRASANNA Stop: 11/12/19 21:59 Last Admin: 11/08/19 11:05 Dose: 1 applic Ondansetron HCl (Zofran Injection) 4 mg IVPUSH Q6H PRN PRN Reason: NAUSEA AND/OR VOMITING Stop: 11/08/19 14:27 Pantoprazole Sodium (Protonix Iv) 40 mg IVPUSH DAILY PRASANNA Last Admin: 11/08/19 09:36 Dose: 40 mg GENERAL: Awake and alert, Uncomfortable due to pain HEAD: Normal with no signs of trauma. EYES: Pupils equal, round and reactive to light, EARS, NOSE, THROAT: Moist mucous membranes. LUNGS: Breath sounds equal, clear to auscultation bilaterally. No wheezes, and no crackles. No accessory muscle use. HEART: tachycadic, Regular and rhythm, normal S1 and S2 without murmur, rub or gallop. ABDOMEN: large dressing over middle of abdomen, champ drain to the left LOWER EXTREMITIES: 2+ pulses, warm, No peripheral edema. SKIN: Warm, dry, normal turgor, no rashes or lesions noted. Laboratory Results - last 24 hr 11/07/19 11/07/19 11/07/19 09:24 12:55 12:55 WBC RBC Hgb Hct MCV MCH MCHC RDW Plt Count MPV Absolute Neuts (auto) Neutrophils % Lymphocytes % Monocytes % Eosinophils % Basophils % Nucleated RBC % Sodium Potassium Chloride Carbon Dioxide Anion Gap BUN Creatinine Est GFR (CKD-EPI)AfAm Est GFR (CKD-EPI)NonAf Random Glucose Calcium Phosphorus Magnesium Total Bilirubin AST ALT Alkaline Phosphatase Total Protein Albumin Serum , Qual Cancelled Negative Blood Type B POSITIVE Antibody Screen Negative 11/07/19 11/07/19 11/08/19 21:40 21:40 05:40 WBC 16.6 H 11.5 H RBC 4.10 3.98 Hgb 11.5 11.2 Hct 35.1 34.1 MCV 85.7 85.6 MCH 28.1 28.2 MCHC 32.8 33.0 RDW 15.2 15.2 Plt Count 607 H D 621 H MPV 7.6 7.8 Absolute Neuts (auto) 9.5 H Neutrophils % 82.6 Lymphocytes % 8.2 Monocytes % 8.5 Eosinophils % 0.5 D Basophils % 0.2 Nucleated RBC % 0 Sodium 142 Potassium 3.6 Chloride 106 Carbon Dioxide 25 Anion Gap 10 BUN 4.4 L Creatinine 0.5 L Est GFR (CKD-EPI)AfAm 131.72 Est GFR (CKD-EPI)NonAf 113.65 Random Glucose 194 H Calcium 7.7 L Phosphorus Magnesium 1.5 L Total Bilirubin 0.3 AST 12 L ALT 12 L Alkaline Phosphatase 52 Total Protein 5.1 L Albumin 2.0 L Serum , Qual Blood Type Antibody Screen 11/08/19 05:40 WBC RBC Hgb Hct MCV MCH MCHC RDW Plt Count MPV Absolute Neuts (auto) Neutrophils % Lymphocytes % Monocytes % Eosinophils % Basophils % Nucleated RBC % Sodium 141 Potassium 3.8 Chloride 106 Carbon Dioxide 30 Anion Gap 5 L BUN 5.2 L Creatinine 0.5 L Est GFR (CKD-EPI)AfAm 131.72 Est GFR (CKD-EPI)NonAf 113.65 Random Glucose 140 H Calcium 7.6 L Phosphorus 3.7 Magnesium 1.5 L Total Bilirubin AST ALT Alkaline Phosphatase Total Protein Albumin Serum , Qual Blood Type Antibody Screen ASSESSMENT/PLAN: POD#1: Exploratory laparotomy, revision of transverse colon anastamosis with [id number] anastamosis. Copious irrigation. Lysis of adhesions. Retention sutures POD#10 Laparotomy, lysis of adhesions, sikhism of colonic continuity with primary anastamosis (end-to-end). Now with pneumoperitoneum, stool from superior pole of surgical wound. Pain control with SPOT WASHER Incentive Spirometry Supplemental O2 to maintain saturation NGT in place ABX VTE prophylaxis Floor when cleared by surgery Dr Verdugo
--- NOTE | 2019-11-08 15:38 | PN ---
Physical Exam: SUBJECTIVE: Patient seen and examined NABetitoON Endorses 9 of 10 abd pain. Did not pass flatus OBJECTIVE: Vital Signs Period Temp Pulse Resp BP Sys/Ren Pulse Ox Last 24 Hr 98 F-99.9 F 78-116 11-28 97-128/52-82 97-100 GENERAL: The patient is awake, alert, and fully oriented HEAD: Normal with no signs of trauma. EYES: sclera anicteric, conjunctiva clear and w/o pallor ENT: Ears normal, nares patent, oropharynx clear without exudates, moist mucous membranes. NGT in place draining thick bilious fluid NECK: Trachea midline, full range of motion, supple. LUNGS: Breath sounds equal, weak inspiratory effor, clear to auscultation bilaterally, no wheezes, no crackles, no accessory muscle use. On NC 2L HEART: Regular rate and rhythm, S1, S2 without murmur, rub or gallop. ABDOMEN: Midline surgical dressing in place without strikethrough. Soft, nontender, nondistended, hypoactive bowel sounds, no guarding, no rebound. SARAH BETH with SS drainage EXTREMITIES: 2+ pulses, warm, well-perfused, no edema. NEUROLOGICAL: Normal speech, gait not observed. SKIN: Warm, dry, normal turgor, no rashes or lesions noted Laboratory Results - last 24 hr 11/07/19 11/07/19 11/07/19 12:55 21:40 21:40 WBC 16.6 H RBC 4.10 Hgb 11.5 Hct 35.1 MCV 85.7 MCH 28.1 MCHC 32.8 RDW 15.2 Plt Count 607 H D MPV 7.6 Absolute Neuts (auto) Neutrophils % Lymphocytes % Monocytes % Eosinophils % Basophils % Nucleated RBC % Sodium 142 Potassium 3.6 Chloride 106 Carbon Dioxide 25 Anion Gap 10 BUN 4.4 L Creatinine 0.5 L Est GFR (CKD-EPI)AfAm 131.72 Est GFR (CKD-EPI)NonAf 113.65 Random Glucose 194 H Calcium 7.7 L Phosphorus Magnesium 1.5 L Total Bilirubin 0.3 AST 12 L ALT 12 L Alkaline Phosphatase 52 Total Protein 5.1 L Albumin 2.0 L Blood Type B POSITIVE Antibody Screen Negative 11/08/19 11/08/19 05:40 05:40 WBC 11.5 H RBC 3.98 Hgb 11.2 Hct 34.1 MCV 85.6 MCH 28.2 MCHC 33.0 RDW 15.2 Plt Count 621 H MPV 7.8 Absolute Neuts (auto) 9.5 H Neutrophils % 82.6 Lymphocytes % 8.2 Monocytes % 8.5 Eosinophils % 0.5 D Basophils % 0.2 Nucleated RBC % 0 Sodium 141 Potassium 3.8 Chloride 106 Carbon Dioxide 30 Anion Gap 5 L BUN 5.2 L Creatinine 0.5 L Est GFR (CKD-EPI)AfAm 131.72 Est GFR (CKD-EPI)NonAf 113.65 Random Glucose 140 H Calcium 7.6 L Phosphorus 3.7 Magnesium 1.5 L Total Bilirubin AST ALT Alkaline Phosphatase Total Protein Albumin Blood Type Antibody Screen Active Medications Generic Name Dose Route Start Last Admin Trade Name Freq PRN Reason Stop Dose Admin Acetaminophen 1,000 mg 11/08/19 10:53 11/08/19 11:00 Ofirmev Injection - IVPB 11/09/19 10:53 1,000 mg Q6H PRN Administration fever or pain Chlorhexidine Gluconate 1 applic 11/07/19 22:00 11/07/19 22:33 Hibiclens For Decolonization - TP 1 applic HS PRASANNA Administration Diphenhydramine HCl 12.5 mg 11/08/19 09:21 Benadryl Injection - IVPUSH ONCE PRN FOR ITCHING Hydromorphone HCl 10 mg 11/07/19 18:00 11/08/19 06:29 Hydromorphone 10 Mg/50 Ml-Ns BOATHOUSE KEEPER 11/08/19 17:59 10 mg BOATHOUSE KEEPER PRASANNA Administration Protocol Lactated Ringer's 1,000 mls @ 125 mls/hr 11/07/19 17:02 11/07/19 18:30 Lactated Ringers Solution IV 300 mls ASDIR PRASANNA Administration Ampicillin Sodium 2 gm/ Sodium 100 mls @ 200 mls/hr 11/08/19 02:30 11/08/19 14:43 Chloride IVPB 200 mls/hr Q6H-IV PRASANNA Administration Protocol Metronidazole 500 mg in 100 mls @ 100 mls/hr 11/07/19 21:30 11/08/19 14:43 Flagyl 500mg Premixed Ivpb - IVPB 100 mls/hr Q6H-IV PRASANNA Administration Cefepime HCl 2 gm/ Dextrose 50 mls @ 100 mls/hr 11/08/19 18:00 IVPB Q8H-IV PRASANNA Protocol Mupirocin 1 applic 11/07/19 22:00 11/08/19 11:05 Bactroban Ointment (For Decolonization) - NS 11/12/19 21:59 1 applic BID PRASANNA Administration Pantoprazole Sodium 40 mg 11/08/19 10:00 11/08/19 09:36 Protonix Iv IVPUSH 40 mg DAILY PRASANNA Administration ASSESSMENT/PLAN: 49F w/ pmh of diverticulosis, hemorrhoids, colonic polyps, perforated colonoscopy([facility], 07/22/19) s/p exlap w/ end colostomy creation(Child, 07/22), s/p Ostomy take-down w/ end-end anastamosis ([facility], 10/29/19) with post- operative course complicated by anastomotic leak; now s/p ex-lap w/ colon anastamosis revision(side-side)((Child, 11/07/19). NEURO # Pain Control -pain regimen: acetaminophen, dPCA -A&O x3 CARDIO # tachycardia --possibly 2/2 post-op pain - monitor for post-op anastomotic leak RESPIR # at-risk for post-op atelectasis - IS q1h - suppl O2 PRN, to keep sats above 92 GI # at-risk for post-op ileus - monitor for flatus - monitor NGT output - strict NPO - zofran and protonix ID # anastomotic leak > BCX(11/03/19): E facaelis > BCX(11/05/19): NGTD - ID(Sky) Consult: --cw Ampicillin, Cefepime, Flagyl FEN - NPO #DVT ppx - SCDs ppx Dispo: We will continue to follow the patient. Thank you for this consultative opportunity. Visit type - Emergency Visit Emergency Visit: No - New Patient This patient is new to me today: Yes Date on this admission: 11/08/19 - Critical Care Critical Care patient: Yes Total Critical Care Time (in minutes): 36 Critical Care Statement: The care of this patient involved high complexity decision making to prevent further life threatening deterioration of the patient 's condition and/or to evaluate & treat vital organ system(s) failure or risk of failure. ATTENDING PHYSICIAN STATEMENT I saw and evaluated the patient. I reviewed the resident's note and discussed the case with the resident. I agree with the resident's findings and plan as documented. SUBJECTIVE: OBJECTIVE: ASSESSMENT AND PLAN:
--- NOTE | 2019-11-08 15:40 | PN ---
Progress Note (short form) - Note Progress Note: She is comfortable off the ventilator alert awake denies any shortness of breath fever chills. Status post revision of the colostomy. Vital Signs Period Temp Pulse Resp BP Sys/Ren Pulse Ox Last 24 Hr 98 F-99.9 F 78-116 11-28 97-128/52-82 97-100 Head no headache no dizziness Ear nose throat no epistaxis Cardiovascular no chest pain Pulmonary no wheezing no coughing GI no abdominal pain Endocrine no history of diabetes hypothyroidism Neuro no history of stroke Dermatology no history of stroke Locomotor no history of joint pain Rest of review of systems are negative Physical examination GENERAL: Somnolent, lying in bed, no acute distress HEENT: NGT in place. Pupils miosed LUNGS: CTABL no incr work of breathing HEART: Regular rate and rhythm, normal S1 and S2 without murmurs ABDOMEN: Soft, mildly distended, some tenderness to palpation surrounding surgical site. Midline abdominal dressing c/d/i, SARAH BETH drain in place draining minimal bright red blood. + bowel sounds. MUSCULOSKELETAL: Normal range of motion at all joints. No bony deformities or tenderness. No CVA tenderness. EXTREMITIES: 2+ pulses, warm, well-perfused. No calf tenderness. No peripheral edema. SKIN: no rashes or lesions noted. CBC, BMP 11/08/19 05:40 11/08/19 05:40 Assessment and plan ASSESSMENT/PLAN: 49 yo. F PMH diverticulosis, hemorrhoids, gastric/ duodenal ulcers s/p partial colectomy w/ colostomy, goodwin's reversal, now found to have pneumoperitonem. #Pneumoperitoneum -POD #1 s/p ex-lap, revision of transverse colon anastamosis w/ [id number] anastamosis w/ placement of SARAH BETH drain -post-op recs as per surgical team -NPO, IVF -NGT in place, SARAH BETH drain in place -abx coverage: s/p 1 dose ertapenem pre-op, 3 days unasyn -Spoke w/ ID Dr. Flores-- starting ampicillin 2g q6h, unasyn dose just given this evening post-op cefepime 1g q8h, flagyl 500mg q6h -F/u CBC, CMP, mag #Pain control -DOCUMENT ADVISOR pump #FEN -LR @125cc/hr - -NPO Dispo: We will continue to follow the patient. Thank you for this consultative opportunity. Visit type - Emergency Visit Emergency Visit: Yes ED Registration Date: 10/29/19 Care time: The patient presented to the Emergency Department on the above date and was hospitalized for further evaluation of their emergent condition. - New Patient This patient is new to me today: Yes Date on this admission: 11/08/19 - Critical Care Critical Care patient: No - Discharge Referral Referred to [facility] No
[2019-11-08] MEDS: LACTATED RINGERS SOLUTION 1,000 ML IV SCH (16:26)
[2019-11-08] MEDS ORDERED: PT OWN MED DRAWER 7, Y5N ONE (17:22)
[2019-11-08] MEDS: CEFEPIME 2 GM in DEXTROSE 5%-WATER - 50 ML IVPB SCH (17:28)
[2019-11-08] MEDS: CHLORHEXIDINE GLUCONATE 4% CLEANSER FOR DECOLONIZATION TP SCH (21:06)
[2019-11-09] MEDS ORDERED: AMPICILLIN SODIUM 2 GM VIAL ONE ×4 (01:31→20:04)
[2019-11-09] MEDS ORDERED: SODIUM CHLORIDE 100 ML IVPB ONE ×4 (01:31→20:04)
[2019-11-09] MEDS: CEFEPIME 2 GM in DEXTROSE 5%-WATER - 50 ML IVPB SCH ×2 (02:01→09:23)
[2019-11-09] MEDS: AMPICILLIN - 2 GM in SODIUM CHLORIDE 100 ML IVPB SCH ×4 (02:10→20:24)
[2019-11-09] MEDS ORDERED: HYDROmorphone *PCA* 10MG/50ML DISP.SYRIN PCA SCH (03:30)
[2019-11-09] MEDS: LACTATED RINGERS SOLUTION 1,000 ML IV SCH (04:00)
[2019-11-09] MEDS: ACETAMINOPHEN 1000 MG/100 ML VIAL (NON FORMULARY) IVPB PRN ×4 (06:16→23:43)
[2019-11-09 06:41] LABS: HEMATOCRIT 28.3 % (32.4-45.2); HEMOGLOBIN 9.5 GM/dL (10.7-15.3); MCH 28.6 pg (25.7-33.7); MCHC 33.5 g/dl (32.0-36.0); MEAN CELL VOLUME 85.4 fl (80-96); MEAN PLT VOLUME 7.7 fl (7.5-11.1); PLATELET COUNT 566 K/MM3 (134-434); RBC 3.31 M/mm3 (3.60-5.2); RDW 15.1 % (11.6-15.6); WHITE BLOOD COUNT 14.1 K/mm3 (4.0-10.0)
[2019-11-09 07:15] LABS: BLOOD UREA NITROGEN 7.3 mg/dL (7-18); CALCIUM 7.9 mg/dL (8.5-10.1); CREATININE 0.4 mg/dL (0.55-1.3); MAGNESIUM 2.1 mg/dL (1.8-2.4); PHOSPHOROUS 2.3 mg/dL (2.5-4.9); POTASSIUM 3.7 mmol/L (3.5-5.1)
[2019-11-09] MEDS ORDERED: PT OWN MED DRAWER 7, Y5N ONE (09:16)
[2019-11-09] MEDS: PANTOPRAZOLE SODIUM 40 MG VIAL IVPUSH SCH (09:17)
[2019-11-09] MEDS ORDERED: ONDANSETRON 4 MG/2 ML VIAL ONE (09:31)
[2019-11-09] MEDS ORDERED: LACTATED RINGERS SOLUTION 1,000 ML IV SCH (09:50)
--- NOTE | 2019-11-09 09:50 | PN ---
Progress Note (short form) - Note Progress Note: Attending Surgeon POD#2 Feels ok; no flatus; some nausea w/the NGT VSS AF abdo-soft; dressing in place; SARAH BETH w/serous output; wound dressing changes yesterday and open and clean w/o d/c; absent BS; o/w negative extremities-warm and w/o calf tenderness WBC 14.1 h/h/ noted Uo good IMP: improving PLAN: NGT d/c'ed/NPO/pulmonary toilet/xfer to regular floor/wound care/IVAB's/ OOB Silvano Child MD [facility]
[2019-11-09] MEDS ORDERED: ONDANSETRON 4 MG/2 ML VIAL IVPUSH PRN ×2 (09:51→14:16)
[2019-11-09] MEDS: MUPIROCIN 2% TOPICAL OINTMENT FOR DECOLONIZATION NS SCH (10:24)
--- NOTE | 2019-11-09 10:36 | PN ---
Teaching Attending Note Name of Resident: Gianni Boyer ATTENDING PHYSICIAN STATEMENT I saw and evaluated the patient. I reviewed the resident's note and discussed the case with the resident. I agree with the resident's findings and plan as documented. SUBJECTIVE: Patient seen and examined in the ICU. Awake and alert. Appears more comfortable but still reports pain is 9/10. No CP or SOB. No acute events overnight. Intake & Output 11/06/19 11/07/19 11/08/19 11/09/19 23:59 23:59 23:59 23:59 Intake Total 2250 4100 3750 2000 Output Total 1840 1020 1120 Balance 2250 2260 2730 880 Last Vital Signs Temp Pulse Resp BP Pulse Ox 98.5 F 82 14 116/76 100 11/09/19 02:00 11/09/19 10:18 11/09/19 10:18 11/09/19 10:18 11/09/19 07:36 Active Medications Acetaminophen (Ofirmev Injection -) 1,000 mg IVPB Q6H PRN PRN Reason: fever or pain Stop: 11/09/19 10:53 Last Admin: 11/09/19 06:16 Dose: 1,000 mg Chlorhexidine Gluconate (Hibiclens For Decolonization -) 1 applic TP HS PRASANNA Last Admin: 11/08/19 21:06 Dose: 1 applic Diphenhydramine HCl (Benadryl Injection -) 12.5 mg IVPUSH ONCE PRN PRN Reason: FOR ITCHING Hydromorphone HCl (Hydromorphone 10 Mg/50 Ml-Ns) 10 mg PUBLIC RELATIONS MANAGER PUBLIC RELATIONS MANAGER PRASANNA; Protocol Stop: 11/16/19 12:00 Last Admin: 11/09/19 03:36 Dose: 10 mg Ampicillin Sodium 2 gm/ Sodium (Chloride) 100 mls @ 200 mls/hr IVPB Q6H-IV PRASANNA ; Protocol Last Admin: 11/09/19 09:18 Dose: 200 mls/hr Metronidazole (Flagyl 500mg Premixed Ivpb -) 500 mg in 100 mls @ 100 mls/hr IVPB Q6H-IV PRASANNA Last Admin: 11/09/19 09:24 Dose: 100 mls/hr Cefepime HCl 2 gm/ Dextrose 50 mls @ 100 mls/hr IVPB Q8H-IV PRASANNA; Protocol Last Admin: 11/09/19 09:23 Dose: 100 mls/hr Lactated Ringer's (Lactated Ringers Solution) 1,000 mls @ 100 mls/hr IV ASDIR [facility] Last Admin: 11/09/19 10:23 Dose: 100 mls/hr Potassium Phosphate 30 mm/ (Dextrose) 260 mls @ 43.333 mls/hr IVPB ONCE ONE Stop: 11/09/19 16:59 Potassium Chloride (Potassium Chloride 10 Meq Premix Ivpb -) 10 meq in 100 mls @ 100 mls/hr IVPB Q60M [facility] Stop: 11/09/19 12:14 Mupirocin (Bactroban Ointment (For Decolonization) -) 1 applic NS BID [facility] Stop: 11/12/19 21:59 Last Admin: 11/09/19 10:24 Dose: 1 applic Ondansetron HCl (Zofran Injection) 4 mg IVPUSH Q6H PRN PRN Reason: NAUSEA Last Admin: 11/09/19 09:50 Dose: 4 mg Pantoprazole Sodium (Protonix Iv) 40 mg IVPUSH DAILY [facility] Last Admin: 11/09/19 09:17 Dose: 40 mg GENERAL: Awake and alert, Appears more comfortable HEAD: Normal with no signs of trauma. EYES: Pupils equal, round and reactive to light, EARS, NOSE, THROAT: Moist mucous membranes. LUNGS: Breath sounds equal, clear to auscultation bilaterally. No wheezes, and no crackles. No accessory muscle use. HEART: tachycadic, Regular and rhythm, normal S1 and S2 without murmur, rub or gallop. ABDOMEN: large dressing over middle of abdomen, champ drain to the left LOWER EXTREMITIES: 2+ pulses, warm, No peripheral edema. SKIN: Warm, dry, normal turgor, no rashes or lesions noted. Laboratory Results - last 24 hr 11/09/19 11/09/19 05:30 05:30 WBC 14.1 H RBC 3.31 L Hgb 9.5 L Hct 28.3 L D MCV 85.4 MCH 28.6 MCHC 33.5 RDW 15.1 Plt Count 566 H MPV 7.7 Sodium 138 Potassium 3.7 Chloride 102 Carbon Dioxide 30 Anion Gap 6 L BUN 7.3 Creatinine 0.4 L Est GFR (CKD-EPI)AfAm 141.75 Est GFR (CKD-EPI)NonAf 122.30 Random Glucose 109 H Calcium 7.9 L Phosphorus 2.3 L Magnesium 2.1 ASSESSMENT/PLAN: POD#2: Exploratory laparotomy, revision of transverse colon anastamosis with [id number] anastamosis. Copious irrigation. Lysis of adhesions. Retention sutures POD#11: Laparotomy, lysis of adhesions, restorationist of colonic continuity with primary anastamosis (end-to-end). Now with pneumoperitoneum, stool from superior pole of surgical wound. Pain control with PUBLIC RELATIONS MANAGER Incentive Spirometry Supplemental O2 to maintain saturation NGT in place ABX VTE prophylaxis Floor Dr Verdugo
[2019-11-09] MEDS ORDERED: POTASSIUM PHOSPHATE 30 MM in DEXTROSE 5%-WATER - 250 ML IVPB ONE (11:00)
[2019-11-09] MEDS: KCL 10 MEQ IVPB 10 MEQ/100 ML INFUS.BAG IVPB SCH ×2 (11:01→12:27)
--- NOTE | 2019-11-09 11:35 | PN ---
Progress Note, Physician History of Present Illness: NGT REMOVED C/O THIRST, NAUSEA NO C/O ABDOMINAL PAIN NO FLATUS POD# 2 REVISION OF TRANSVERSE COLON ANASTAMOSIS AFEBRILE - Current Medication List Current Medications: Active Medications Chlorhexidine Gluconate (Hibiclens For Decolonization -) 1 applic TP HS PRASANNA Last Admin: 11/08/19 21:06 Dose: 1 applic Diphenhydramine HCl (Benadryl Injection -) 12.5 mg IVPUSH ONCE PRN PRN Reason: FOR ITCHING Hydromorphone HCl (Hydromorphone 10 Mg/50 Ml-Ns) 10 mg SENIOR WEB APPLICATIONS DEVELOPER SENIOR WEB APPLICATIONS DEVELOPER PRASANNA; Protocol Stop: 11/16/19 12:00 Last Admin: 11/09/19 03:36 Dose: 10 mg Ampicillin Sodium 2 gm/ Sodium (Chloride) 100 mls @ 200 mls/hr IVPB Q6H-IV PRASANNA ; Protocol Last Admin: 11/09/19 09:18 Dose: 200 mls/hr Metronidazole (Flagyl 500mg Premixed Ivpb -) 500 mg in 100 mls @ 100 mls/hr IVPB Q6H-IV PRASANNA Last Admin: 11/09/19 09:24 Dose: 100 mls/hr Cefepime HCl 2 gm/ Dextrose 50 mls @ 100 mls/hr IVPB Q8H-IV PRASANNA; Protocol Last Admin: 11/09/19 09:23 Dose: 100 mls/hr Lactated Ringer's (Lactated Ringers Solution) 1,000 mls @ 100 mls/hr IV ASDIR PRASANNA Last Admin: 11/09/19 10:23 Dose: 100 mls/hr Potassium Phosphate 30 mm/ (Dextrose) 260 mls @ 43.333 mls/hr IVPB ONCE ONE Stop: 11/09/19 16:59 Last Admin: 11/09/19 11:24 Dose: 43.333 mls/hr Potassium Chloride (Potassium Chloride 10 Meq Premix Ivpb -) 10 meq in 100 mls @ 100 mls/hr IVPB Q60M PRASANNA Stop: 11/09/19 12:14 Last Admin: 11/09/19 11:01 Dose: 100 mls/hr Mupirocin (Bactroban Ointment (For Decolonization) -) 1 applic NS BID PRASANNA Stop: 11/12/19 21:59 Last Admin: 11/09/19 10:24 Dose: 1 applic Ondansetron HCl (Zofran Injection) 4 mg IVPUSH Q6H PRN PRN Reason: NAUSEA Last Admin: 11/09/19 09:50 Dose: 4 mg Pantoprazole Sodium (Protonix Iv) 40 mg IVPUSH DAILY PRASANNA Last Admin: 11/09/19 09:17 Dose: 40 mg - Objective Vital Signs: Vital Signs Temperature 98 F 11/09/19 10:18 Pulse Rate 82 11/09/19 10:18 Respiratory Rate 14 11/09/19 10:18 Blood Pressure 116/76 11/09/19 10:18 O2 Sat by Pulse Oximetry (%) 100 11/09/19 10:00 Constitutional: Yes: No Distress Eyes: Yes: Conjunctiva Clear Cardiovascular: Yes: Regular Rate and Rhythm, S1, S2 Respiratory: Yes: Diminished Gastrointestinal: Yes: Normal Bowel Sounds, Soft, Other (SARAH BETH WITH BLOODY DRAINAGE ). No: Tenderness Edema: No Labs: CBC, BMP 11/09/19 05:30 11/09/19 05:30 Assessment/Plan POD # 2 REVISION OF TRANSVERSE COLON ANASTAMOSIS ENTEROCOCCAL BACTEREMIA CONTINUE AMPICILLIN CEFTRIAXONE/ FLAGYL EMPIRIC COVERAGE BOWEL FRANCISCO J
[2019-11-09] MEDS ORDERED: D5-LR+20 MEQ KCL - 20 MEQ/1,000 ML INFUS.BAG IV SCH (12:15)
--- NOTE | 2019-11-09 13:16 | PN ---
Physical Exam: SUBJECTIVE: Patient seen and examined ROBEL Says pain is 9 of 10 in abd. Hasn't had flatus OBJECTIVE: Vital Signs Period Temp Pulse Resp BP Sys/Ren Pulse Ox Last 24 Hr 98 F-98.5 F 80-108 12-18 109-134/63-82 100-100 GENERAL: The patient is awake, alert, and fully oriented HEAD: Normal with no signs of trauma. EYES: sclera anicteric, conjunctiva clear and w/o pallor ENT: Ears normal, nares patent, oropharynx clear without exudates, moist mucous membranes. NGT in place draining thick bilious fluid NECK: Trachea midline, full range of motion, supple. LUNGS: Breath sounds equal, weak inspiratory effor, clear to auscultation bilaterally, no wheezes, no crackles, no accessory muscle use. On NC 2L HEART: Regular rate and rhythm, S1, S2 without murmur, rub or gallop. ABDOMEN: Midline surgical dressing in place without strikethrough. Soft, nontender, nondistended, hypoactive bowel sounds, no guarding, no rebound. SARAH BETH with SS drainage EXTREMITIES: 2+ pulses, warm, well-perfused, no edema. NEUROLOGICAL: Normal speech, gait not observed. SKIN: Warm, dry, normal turgor, no rashes or lesions noted Laboratory Results - last 24 hr 11/09/19 11/09/19 05:30 05:30 WBC 14.1 H RBC 3.31 L Hgb 9.5 L Hct 28.3 L D MCV 85.4 MCH 28.6 MCHC 33.5 RDW 15.1 Plt Count 566 H MPV 7.7 Sodium 138 Potassium 3.7 Chloride 102 Carbon Dioxide 30 Anion Gap 6 L BUN 7.3 Creatinine 0.4 L Est GFR (CKD-EPI)AfAm 141.75 Est GFR (CKD-EPI)NonAf 122.30 Random Glucose 109 H Calcium 7.9 L Phosphorus 2.3 L Magnesium 2.1 Active Medications Generic Name Dose Route Start Last Admin Trade Name Freq PRN Reason Stop Dose Admin Acetaminophen 1,000 mg 11/09/19 11:46 11/09/19 12:26 Ofirmev Injection - IVPB 11/10/19 11:47 1,000 mg Q6H PRN Administration PAIN LEVEL 4 - 6 Chlorhexidine Gluconate 1 applic 11/07/19 22:00 11/08/19 21:06 Hibiclens For Decolonization - TP 1 applic HS PRASANNA Administration Diphenhydramine HCl 12.5 mg 11/08/19 09:21 Benadryl Injection - IVPUSH ONCE PRN FOR ITCHING Hydromorphone HCl 10 mg 11/09/19 03:30 11/09/19 03:36 Hydromorphone 10 Mg/50 Ml-Ns VACUUM REPAIRER 11/16/19 12:00 10 mg VACUUM REPAIRER PRASANNA Administration Protocol Ampicillin Sodium 2 gm/ Sodium 100 mls @ 200 mls/hr 11/08/19 02:30 11/09/19 09:18 Chloride IVPB 200 mls/hr Q6H-IV PRASANNA Administration Protocol Metronidazole 500 mg in 100 mls @ 100 mls/hr 11/07/19 21:30 11/09/19 09:24 Flagyl 500mg Premixed Ivpb - IVPB 100 mls/hr Q6H-IV PRASANNA Administration Cefepime HCl 2 gm/ Dextrose 50 mls @ 100 mls/hr 11/08/19 18:00 11/09/19 09:23 IVPB 100 mls/hr Q8H-IV PRAASNNA Administration Protocol Potassium Phosphate 30 mm/ 260 mls @ 43.333 mls/hr 11/09/19 11:00 11/09/19 11 :24 Dextrose IVPB 11/09/19 16:59 43.333 mls/hr ONCE ONE Administration Dextrose/Lactated Ringer's 20 meq in 1,000 mls @ 100 mls/hr 11/09/19 12:15 12:19 D5-Lr+20 Meq Kcl - IV 100 mls/hr ASDIR PRASANNA Administration Mupirocin 1 applic 11/07/19 22:00 11/09/19 10:24 Bactroban Ointment (For Decolonization) - NS 11/12/19 21:59 1 applic BID PRASANNA Administration Ondansetron HCl 4 mg 11/09/19 09:51 11/09/19 09:50 Zofran Injection IVPUSH 4 mg Q6H PRN Administration NAUSEA Pantoprazole Sodium 40 mg 11/08/19 10:00 11/09/19 09:17 Protonix Iv IVPUSH 40 mg DAILY PRASANNA Administration ASSESSMENT/PLAN: 49F w/ pmh of diverticulosis, hemorrhoids, colonic polyps, perforated colonoscopy(Yuval, 07/22/19) s/p exlap w/ end colostomy creation(Child, 07/22), s/p Ostomy take-down w/ end-end anastamosis (Child, 10/29/19) with post- operative course complicated by anastomotic leak; now s/p ex-lap w/ colon anastamosis revision(side-side)((Child, 11/07/19). NEURO # Pain Control -pain regimen: acetaminophen, dPCA -A&O x3 CARDIO # tachycardia --possibly 10/13 post-op pain - monitor for post-op anastomotic leak RESPIR # at-risk for post-op atelectasis - IS q1h - suppl O2 PRN, to keep sats above 92 GI # at-risk for post-op ileus - monitor for flatus - monitor NGT output - strict NPO - zofran and protonix ID # anastomotic leak > BCX(11/03/19): E facaelis > BCX(11/05/19): NGTD - ID(Sky) Consult: --cw Ampicillin, Ceftriaxone, Flagyl FEN - NPO #DVT ppx - SCDs ppx Dispo: downgrade from ICU Visit type - Emergency Visit Emergency Visit: No - New Patient This patient is new to me today: No - Critical Care Critical Care patient: Yes Total Critical Care Time (in minutes): 36 Critical Care Statement: The care of this patient involved high complexity decision making to prevent further life threatening deterioration of the patient 's condition and/or to evaluate & treat vital organ system(s) failure or risk of failure. ATTENDING PHYSICIAN STATEMENT I saw and evaluated the patient. I reviewed the resident's note and discussed the case with the resident. I agree with the resident's findings and plan as documented. SUBJECTIVE: OBJECTIVE: ASSESSMENT AND PLAN:
[2019-11-09] MEDS: AMINO ACIDS 4.25%/D5W 1,000 ML IV SCH (15:42)
[2019-11-09] MEDS: HYDROmorphone *PCA* 10MG/50ML DISP.SYRIN PCA SCH ×2 (17:11→20:23)
--- NOTE | 2019-11-09 17:13 | PN ---
Progress Note (short form) - Note Progress Note: She is comfortable has no shortness of breath no fever afebrile 24 hours after the Surgery Vital Signs Period Temp Pulse Resp BP Sys/Ren Pulse Ox Last 24 Hr 98 F-98.5 F 80-108 12-18 108-139/60-86 100-100 Head no headache no dizziness Ear nose throat no epistaxis Cardiovascular no chest pain Pulmonary no wheezing no coughing GI no abdominal pain Endocrine no history of diabetes hypothyroidism Neuro no history of stroke Dermatology no history of stroke Locomotor no history of joint pain Rest of review of systems are negative Physical examination GENERAL: Somnolent, lying in bed, no acute distress HEENT: NGT in place. Pupils miosed LUNGS: CTABL no incr work of breathing HEART: Regular rate and rhythm, normal S1 and S2 without murmurs ABDOMEN: Soft, mildly distended, some tenderness to palpation surrounding surgical site. Midline abdominal dressing c/d/i, SARAH BETH drain in place draining minimal bright red blood. + bowel sounds. MUSCULOSKELETAL: Normal range of motion at all joints. No bony deformities or tenderness. No CVA tenderness. EXTREMITIES: 2+ pulses, warm, well-perfused. No calf tenderness. No peripheral edema. SKIN: no rashes or lesions noted. CBC, BMP 11/09/19 05:30 11/09/19 05:30 Assessment and plan ASSESSMENT/PLAN: 49 yo. F PMH diverticulosis, hemorrhoids, gastric/ duodenal ulcers s/p partial colectomy w/ colostomy, goodwin's reversal, now found to have pneumoperitonem. #Pneumoperitoneum -POD 2 s/p ex-lap, revision of transverse colon anastamosis w/ [id number] anastamosis w/ placement of SARAH BETH drain -post-op recs as per surgical team -NPO, IVF -NGT in place, SARAH BETH drain in place -abx coverage: s/p 1 dose ertapenem pre-op, 3 days unasyn -Spoke w/ ID Dr. Flores-- starting ampicillin 2g q6h, unasyn dose just given this evening post-op cefepime 1g q8h, flagyl 500mg q6h -F/u CBC, CMP, mag #Pain control #FEN -LR @125cc/hr - -NPO Patient can be transferred to the floor today Visit type - Emergency Visit Emergency Visit: Yes ED Registration Date: 10/29/19 Care time: The patient presented to the Emergency Department on the above date and was hospitalized for further evaluation of their emergent condition. - New Patient This patient is new to me today: No - Critical Care Critical Care patient: No - Discharge Referral Referred to [facility] Med P.C.: No
[2019-11-09] MEDS ORDERED: CEFEPIME 2 GM in DEXTROSE 5%-WATER 100 ML IVPB SCH (18:00)
[2019-11-09] MEDS ORDERED: CHLORHEXIDINE GLUCONATE 4% CLEANSER FOR DECOLONIZATION TP SCH (22:00)
[2019-11-09] MEDS ORDERED: MUPIROCIN 2% TOPICAL OINTMENT FOR DECOLONIZATION NS SCH (22:00)
[2019-11-10] MEDS ORDERED: AMPICILLIN SODIUM 2 GM VIAL ONE ×4 (02:12→20:59)
[2019-11-10] MEDS ORDERED: SODIUM CHLORIDE 100 ML IVPB ONE ×4 (02:12→20:59)
[2019-11-10] MEDS: AMPICILLIN - 2 GM in SODIUM CHLORIDE 100 ML IVPB SCH ×4 (02:23→21:04)
[2019-11-10] MEDS: ACETAMINOPHEN 1000 MG/100 ML VIAL (NON FORMULARY) IVPB PRN ×2 (06:37→13:09)
[2019-11-10] MEDS ORDERED: DEXTROSE 5%-WATER - 50 ML IVPB ONE (09:06)
[2019-11-10] MEDS ORDERED: cefTRIAXone SODIUM 1 GM VIAL ONE (09:06)
[2019-11-10] MEDS: PANTOPRAZOLE SODIUM 40 MG VIAL IVPUSH SCH (09:19)
[2019-11-10] MEDS: CEFTRIAXONE 1 GM in DEXTROSE 5%-WATER - 50 ML IVPB SCH (09:20)
--- NOTE | 2019-11-10 10:54 | PN ---
Progress Note (short form) - Note Progress Note: Attending Surgeon POD#3 c/o incisional pain; no flatus/no BM; on clinimix and IVABS VSS AF abdo-soft; wound care in progress; SARAH BETH minimal AM labs pending IMP: stable post op PLAN: Continue as per orders. Silvano Child MD FACS
[2019-11-10 13:30] LABS: BASO % 0.3 % (0-2.0); EOS % 1.1 % (0-4.5); HEMOGLOBIN 9.8 GM/dL (10.7-15.3); LYMPH % 10.6 % (8-40); MCH 28.8 pg (25.7-33.7); MCHC 33.9 g/dl (32.0-36.0); MEAN CELL VOLUME 85.1 fl (80-96); MEAN PLT VOLUME 7.5 fl (7.5-11.1); MONO % 6.6 % (3.8-10.2); NEUT % 81.4 % (42.8-82.8); PLATELET COUNT 698 K/MM3 (134-434); RBC 3.41 M/mm3 (3.60-5.2); RDW 15.2 % (11.6-15.6); WHITE BLOOD COUNT 8.7 K/mm3 (4.0-10.0)
[2019-11-10 13:51] LABS: BLOOD UREA NITROGEN 6.2 mg/dL (7-18); CALCIUM 7.6 mg/dL (8.5-10.1); CREATININE 0.3 mg/dL (0.55-1.3); POTASSIUM 3.6 mmol/L (3.5-5.1)
--- NOTE | 2019-11-10 14:41 | PN ---
Progress Note (short form) - Note Progress Note: She is comfortable has no shortness of breath no fever afebrile 24 hours after the Surgery Vital Signs Period Temp Pulse Resp BP Sys/Ren Pulse Ox Last 24 Hr 98.2 F-98.6 F 77-92 18-20 108-142/58-86 96-100 Head no headache no dizziness Ear nose throat no epistaxis Cardiovascular no chest pain Pulmonary no wheezing no coughing GI no abdominal pain Endocrine no history of diabetes hypothyroidism Neuro no history of stroke Dermatology no history of stroke Locomotor no history of joint pain Rest of review of systems are negative Physical examination GENERAL: Somnolent, lying in bed, no acute distress HEENT: NGT in place. Pupils miosed LUNGS: CTABL no incr work of breathing HEART: Regular rate and rhythm, normal S1 and S2 without murmurs ABDOMEN: Soft, mildly distended, some tenderness to palpation surrounding surgical site. Midline abdominal dressing c/d/i, SARAH BETH drain in place draining minimal bright red blood. + bowel sounds. MUSCULOSKELETAL: Normal range of motion at all joints. No bony deformities or tenderness. No CVA tenderness. EXTREMITIES: 2+ pulses, warm, well-perfused. No calf tenderness. No peripheral edema. SKIN: no rashes or lesions noted. CBC, BMP 11/10/19 12:55 11/10/19 12:55 Assessment and plan ASSESSMENT/PLAN: 49 yo. F PMH diverticulosis, hemorrhoids, gastric/ duodenal ulcers s/p partial colectomy w/ colostomy, goodwin's reversal, now found to have pneumoperitonem. #Pneumoperitoneum -POD 3 s/p ex-lap, revision of transverse colon anastamosis w/ [id number] anastamosis w/ placement of SARAH BETH drain -post-op recs as per surgical team -NPO, IVF -NGT in place, SARAH BETH drain in place -abx coverage: s/p 1 dose ertapenem pre-op, 3 days unasyn -Spoke w/ ID Dr. Flores-- starting ampicillin 2g q6h, unasyn dose just given this evening post-op cefepime 1g q8h, flagyl 500mg q6h -F/u CBC, CMP, mag #Pain control #FEN -LR @125cc/hr - -NPO Patient can be transferred to the floor today Visit type - Emergency Visit Emergency Visit: Yes ED Registration Date: 10/29/19 Care time: The patient presented to the Emergency Department on the above date and was hospitalized for further evaluation of their emergent condition. - New Patient This patient is new to me today: No - Critical Care Critical Care patient: No - Discharge Referral Referred to [facility] Med P.C.: No
[2019-11-10] MEDS: HYDROmorphone *PCA* 10MG/50ML DISP.SYRIN PCA SCH (15:01)
[2019-11-10] MEDS ORDERED: PT OWN MED DRAWER 7, Y5N ONE (17:59)
[2019-11-10] MEDS: AMINO ACIDS 4.25%/D5W 1,000 ML IV SCH (18:37)
[2019-11-11] MEDS ORDERED: SODIUM CHLORIDE 100 ML IVPB ONE ×4 (03:07→21:29)
[2019-11-11] MEDS ORDERED: AMPICILLIN SODIUM 2 GM VIAL ONE ×4 (03:07→21:29)
[2019-11-11] MEDS: AMPICILLIN - 2 GM in SODIUM CHLORIDE 100 ML IVPB SCH ×4 (03:11→21:46)
[2019-11-11] MEDS: AMINO ACIDS 4.25%/D5W 1,000 ML IV SCH (05:28)
[2019-11-11] MEDS ORDERED: DEXTROSE 5%-WATER - 50 ML IVPB ONE (08:56)
[2019-11-11] MEDS ORDERED: cefTRIAXone SODIUM 1 GM VIAL ONE (08:56)
[2019-11-11] MEDS: HYDROmorphone *PCA* 10MG/50ML DISP.SYRIN PCA SCH (08:59)
[2019-11-11] MEDS: PANTOPRAZOLE SODIUM 40 MG VIAL IVPUSH SCH (09:16)
[2019-11-11] MEDS: CEFTRIAXONE 1 GM in DEXTROSE 5%-WATER - 50 ML IVPB SCH (10:24)
--- NOTE | 2019-11-11 11:18 | PN ---
Progress Note (short form) - Note Progress Note: Surgery POD#4 mosque of colonic continuity with primary anastamosis (end-to-end). Patient seen and examined with Dr Child at bedside. Patient c/o pain but controlled with ULTRASONIC HAND SOLDERER. NGT removed over the weekend. She has not been OOB and is not passing flatus yet. She denies any CP, SOB, N/V, fever or chills. Vital Signs Temp 97.8 F 11/11/19 08:34 Pulse 101 H 11/11/19 08:59 Resp 14 11/11/19 08:59 BP 117/87 11/11/19 08:59 Pulse Ox 96 11/11/19 08:59 Intake & Output 11/10/19 11/10/19 11/11/19 11:59 23:59 11:59 Intake Total 200 1418 636 Output Total 755 1110 605 Balance -555 308 31 Weight 163 lb 4 oz 199 lb 6 oz Intake: IV 668 336 Clinimix 42cc/hr 518 336 SALINE LOCK 150 IVPB 200 750 300 Output: Drainage 5 10 5 Right Abdomen 5 10 5 Urine 750 1100 600 Viera 750 1100 Void 600 Other: Voiding Method Indwelling Catheter Bedpan Bedpan # Unmeasured Voids Void 1 Bowel Movement No No Weight Measurement Method Built in Bedscale Built in Bedscale CBC, BMP 11/10/19 12:55 11/10/19 12:55 PE: A&Ox3, NAD unlabored resp on RA ABD: soft with diffuse TTP throughout, dressings c/d/i with surrounding tissue intact and no evidence of tracking erythema. B/L LE compartments soft, supple and non-tender with +2DP pulses. Problem List - Problems (1) History of colostomy reversal Assessment/Plan: POD #4 patient stable. -Encourage OOB and ambulation, up to chair TID -Encourage IS -Continue strict NPO -IV abx per ID -pain control -dressing changes as ordered. Code(s): Z98.890 - OTHER SPECIFIED POSTPROCEDURAL STATES
--- NOTE | 2019-11-11 13:50 | PN ---
Physical Exam: SUBJECTIVE: Patient seen and examined. She is comfortable lying in bed. She says she has abdominal pain when she moves. Pain is controlled with Dilaudid SOCIAL SERVICE TECHNICIAN. She has not had BM or passed flatus. She denies nausea. OBJECTIVE: Vital Signs Period Temp Pulse Resp BP Sys/Ren Pulse Ox Last 24 Hr 97.8 F-98.7 F 87-101 14-20 117-148/69-87 96-96 GENERAL: The patient is awake, alert, and fully oriented, in no acute distress. LUNGS: Breath sounds equal, clear to auscultation bilaterally, no wheezes, no crackles, no accessory muscle use. HEART: Regular rate and rhythm, S1, S2 without murmur, rub or gallop. ABDOMEN: Obese, soft, (+) mild diffuse tenderness, nondistended, hypoactive bowel sounds, no guarding, no rebound, no hepatosplenomegaly, no masses. EXTREMITIES: 2+ pulses, warm, well-perfused, no edema. Laboratory Results - last 24 hr 11/10/19 12:55 Sodium 138 Potassium 3.6 Chloride 102 Carbon Dioxide 26 Anion Gap 10 BUN 6.2 L Creatinine 0.3 L Est GFR (CKD-EPI)AfAm 155.82 Est GFR (CKD-EPI)NonAf 134.44 Random Glucose 81 Calcium 7.6 L Active Medications Generic Name Dose Route Start Last Admin Trade Name Freq PRN Reason Stop Dose Admin Diphenhydramine HCl 12.5 mg 11/09/19 14:16 Benadryl Injection - IVPUSH ONCE PRN FOR ITCHING Hydromorphone HCl 10 mg 11/09/19 14:16 11/11/19 08:59 Hydromorphone 10 Mg/50 Ml-Ns SOCIAL SERVICE TECHNICIAN 11/16/19 12:00 10 mg SOCIAL SERVICE TECHNICIAN PRASANNA Administration Protocol Ampicillin Sodium 2 gm/ Sodium 100 mls @ 200 mls/hr 11/09/19 15:00 11/11/19 11:33 Chloride IVPB 200 mls/hr Q6H-IV PRASANNA Administration Protocol Metronidazole 500 mg in 100 mls @ 100 mls/hr 11/09/19 15:00 11/11/19 09:16 Flagyl 500mg Premixed Ivpb - IVPB 100 mls/hr Q6H-IV PRASANNA Administration Ceftriaxone Sodium 1 gm/ 50 mls @ 200 mls/hr 11/10/19 10:00 11/11/19 10:24 Dextrose IVPB 200 mls/hr DAILY PRASANNA Administration Protocol Amino Acids 1,000 mls @ 42 mls/hr 11/09/19 14:45 11/11/19 05:28 Clinimix - IV 42 mls/hr Q24H PRASANNA Administration Ondansetron HCl 4 mg 11/09/19 14:16 Zofran Injection IVPUSH Q6H PRN NAUSEA Pantoprazole Sodium 40 mg 11/10/19 10:00 11/11/19 09:16 Protonix Iv IVPUSH 40 mg DAILY PRASANNA Administration ASSESSMENT/PLAN: This is a 49 year old woman with a history of diverticulosis, hemorrhoids, colon polyps, transverse colon perforation during colonoscopy, transverse colon resection with end colostomy who presented on 10/29/19 for reversal of colostomy with end to end anastomosis complicated by anastomotic leak and underwent revision with side by side anastomosis on 11/07/19. 1. Sepsis secondary to Enterococcus bacteremia - Continue ampicillin, ceftriaxone, Flagyl - Repeat blood cultures negative 2. 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 History of colon perforation, transverse colon resection with end colostomy - s/p reversal of colostomy with end to end anastomosis 10/29 4. Nutrition - Maintain NPO - Continue PPN Visit type - Emergency Visit Emergency Visit: No - New Patient This patient is new to me today: Yes Date on this admission: 11/11/19 - Critical Care Critical Care patient: No - Discharge Referral Referred to [facility] Med P.C.: No
--- NOTE | 2019-11-11 15:58 | PATH ---
Surgical Pathology Report Patient Name: PATRICIO ANDRE [facility]. Rec. #: [id number] /Age/Gender: 1970 (Age: 49) / F Account: [id number] Location: [address] [place] [address]/[facility] Taken: 11/07/2019 Received: 11/08/2019 Reported: 11/11/2019 Physicians: MD Baylee Tillman M.D. Specimen(s) Received A: COLON B: OMENTUM C: COLON Clinical History Colostomy Final Diagnosis A. COLON, PARTIAL RESECTION: SEGMENT OF COLON WITH PROMINENT LYMPHOID AGGREGATES. SURGICAL MARGINS ARE VIABLE. B. OMENTUM, EXCISION: OMENTAL ADIPOSE TISSUE WITH MARKED ACUTE AND CHRONIC FIBRINOPURULENT EXUDATE AND ASSOCIATED REACTIVE CHANGES. C. COLON, ANASTOMOSIS, PARTIAL RESECTION: SEGMENT OF COLON WITH MARKED ACUTE AND CHRONIC TRANSMURAL INFLAMMATION AND ASSOCIATED DEFECT. PERICOLONIC ADIPOSE TISSUE WITH MARKED ACUTE AND CHRONIC FIBRINOPURULENT EXUDATE. ACUTE SEROSITIS. SURGICAL MARGINS ARE VIABLE. Electronically Signed Radha Gambino M.D. Gross Description A. Received in formalin labeled "colon," is a 2.0 cm in length portion of colon with 2 stapled mucosal margins and moderate attached pericolonic adipose tissue. The serosa is altamirano-romano and smooth. Sectioning reveals an unremarkable mucosa. Oil Painter sections are submitted in 2 cassettes as follows: 7-0-urblpuugbeho staple lines. B. Received in formalin labeled "omentum," is a 10.5 x 6.5 x 2.9 cm portion of yellow, lobulated adipose tissue, consistent with a portion of omentum. The specimen is partially surfaced by a altamirano-green exudate. Oil Painter sections are submitted in one cassette. C. Received in formalin labeled "anastomosis," is a 9 cm in length portion of bowel with 2 stapled mucosal margins and abundant attached pericolonic adipose tissue. The serosa is altamirano-morris with a large defect. There is inflammation and exudate surrounding the defect. The mucosa is focally green and necrotic surrounding the defect. The remaining mucosa is altamirano with normal folds. Oil Painter sections are submitted in 4 cassettes as follows: 3-8-rseyzuabdzis stapled mucosal margins; 6-2-qhdhrghy from defect. 11/08/[address] [facility]
[2019-11-11] MEDS: POTASSIUM CHLORIDE 40 MEQ in AMINO ACIDS 4.25%/D5W 1,000 ML IVPB SCH (17:42)
[2019-11-11] MEDS: MULTIVIT INJ. ADULT COMBO WITH VIT K 1 COMBO 10 ML VIAL IV SCH (17:43)
--- NOTE | 2019-11-11 20:41 | OP ---
DATE OF OPERATION: 11/07/2019 PREOPERATIVE DIAGNOSIS: Rule out anastomotic leak. POSTOPERATIVE DIAGNOSIS: Pneumoperitoneum, colocutaneous fistula, anastomotic dehiscence. PROCEDURE: Exploratory laparotomy, resection of previous end-to-end transverse colon anastomosis, mobilization of the splenic flexure of the colon and creation of [id number] transverse colon anastomosis. SURGEON: Silvano Child MD ABORIGINAL EDUCATION TEACHER: Omar Cox PA-C; Tyrone Maddox II, PA-C ANESTHESIA: General. OPERATIVE FINDINGS: There was stool coming from the upper pole of the previous laparotomy incision consistent with a colocutaneous fistula and more specifically an anastomotic breakdown. There was minimal intraabdominal contamination. There were adhesions from 2 previous laparotomies. The rest of the findings were unremarkable. DESCRIPTION OF PROCEDURE: The patient was placed on the operating table in the supine position. After the placement of the Viera catheter with sequential compression devices on the patient's lower extremities, the abdomen was prepped with betadine and draped in the sterile fashion. Timeout was taken and the peritoneal cavity entered just above the umbilicus, through the previous incision. The entire incision was opened up and the previously noted findings were observed. The previous anastomosis was resected proximally and distally by finding healthy transverse colon respectively on either side of the anastomosis and making a window in the mesentery and transecting it there with the ISIAH stapling device both proximally and distally. Included was mesentery, which was divided using the LigaSure device. The previous anastomosis was passed off of the operative field and sent for pathological examination. Next, copious irrigation was carried out and additional lysis of adhesions was carried out using blunt and sharp dissection. The splenic flexure was mobilized by taking down the ligaments between the spleen and the splenic flexure of the colon using a combination of cautery and sharp dissection. Similarly, the colon was mobilized along the white line of Toldt at the hepatic flexure. Next, the antimesenteric border of each end of the colon was excised and a ISIAH stapling device was placed. A 60-mm ISIAH stapling device was fired creating a [id number] anastomosis. The resultant defect that was present was then closed with a TA 60 stapling device. Redundant tissue above the staple line was excised and sent for pathological examination. The defect in the mesentery was closed using continuous 2-0 Vicryl. Again, copious irrigation was carried out until the return was clear and then a 10-mm Yobani-Stanley drain was placed through a separate stab wound in the abdominal wall in the depth of the mesentery of the transverse colon. The drain was secured to the skin with 2-0 silk suture. Next, the placement of the NG tube was verified in the stomach and the entire small bowel run to make sure there were no enterotomies made during the lysis of adhesions. Next, the abdomen was closed in a single layer using continuous 0 looped Maxon and interrupted number 2 Prolene retention sutures that were tied over Xeroform bolsters. The subcutaneous tissues were irrigated as was the old colostomy site and the skin around the umbilicus approximated with surgical miguelito. The remainder of the wound was packed with 1-inch Iodoform gauze and dry sterile dressings and Medipore tape was placed. The procedure terminated at this point. The patient was aroused from general anesthesia and transported to the postanesthesia care unit in stable condition, awake, and alert. ESTIMATED BLOOD LOSS: 150 mL. REPLACEMENTS: Crystalloid. DRAINS: One 10-mm Yobani-Stanley. SPECIMENS: Old anastomosis, portions of previous suture line, and adhesive bands. I, Silvano Child, was physically present in the operating room from the time the patient was placed on the operating table until she was transferred to the postanesthesia care unit in my accompaniment. MD DON Whittaker/[id number] MTDD
[2019-11-11] MEDS: FAT EMULSION/OLIVE/SOY/PHOSPHO 250 ML IV SCH (21:46)
[2019-11-11] MEDS ORDERED: FAT EMULSIONS 20% 250 ML PREMIX INFUS.BAG IV SCH (22:00)
[2019-11-12] MEDS ORDERED: SODIUM CHLORIDE 100 ML IVPB ONE ×4 (02:37→20:58)
[2019-11-12] MEDS ORDERED: AMPICILLIN SODIUM 2 GM VIAL ONE ×4 (02:37→20:58)
[2019-11-12] MEDS: AMPICILLIN - 2 GM in SODIUM CHLORIDE 100 ML IVPB SCH ×4 (02:56→21:15)
[2019-11-12] MEDS: POTASSIUM CHLORIDE 40 MEQ in AMINO ACIDS 4.25%/D5W 1,000 ML IVPB SCH ×2 (05:00→17:27)
[2019-11-12 08:11] LABS: BASO % 0.4 % (0-2.0); EOS % 1.1 % (0-4.5); HEMOGLOBIN 10.4 GM/dL (10.7-15.3); LYMPH % 12.8 % (8-40); MCH 28.2 pg (25.7-33.7); MCHC 33.5 g/dl (32.0-36.0); MEAN CELL VOLUME 84.1 fl (80-96); MEAN PLT VOLUME 7.3 fl (7.5-11.1); MONO % 7.7 % (3.8-10.2); PLATELET COUNT 845 K/MM3 (134-434); RBC 3.69 M/mm3 (3.60-5.2); RDW 15.4 % (11.6-15.6); WHITE BLOOD COUNT 8.3 K/mm3 (4.0-10.0)
[2019-11-12 08:20] LABS: ALBUMIN 2.1 g/dl (3.4-5.0); BILIRUBIN,TOTAL 0.2 mg/dL (0.2-1); BLOOD UREA NITROGEN 11.1 mg/dL (7-18); CALCIUM 8.5 mg/dL (8.5-10.1); CREATININE 0.4 mg/dL (0.55-1.3); MAGNESIUM 2.2 mg/dL (1.8-2.4); PHOSPHOROUS 3.1 mg/dL (2.5-4.9); POTASSIUM 3.7 mmol/L (3.5-5.1); TOT PROT 5.4 g/dl (6.4-8.2)
--- NOTE | 2019-11-12 10:22 | PN ---
Progress Note (short form) - Note Progress Note: Surgery POD#5 worship of colonic continuity with primary anastamosis (end-to-end). Patient seen and examined with Dr Child at bedside. Patient c/o of right arm pain 2/2 IV and subsequently has refused IVFs. She has been OOB and is passing flatus yet. She denies any CP, SOB, N/V, fever or chills. Vital Signs Temp 98.6 F 11/12/19 06:00 Pulse 94 H 11/12/19 06:00 Resp 18 11/12/19 06:00 BP 142/70 11/12/19 06:00 Pulse Ox 96 11/11/19 21:00 Intake & Output 11/11/19 11/11/19 11/12/19 11:59 23:59 11:59 Intake Total 936 500 Output Total 1305 605 Balance -369 -105 Weight 199 lb 6 oz 157 lb Intake: IV 336 Clinimix 42cc/hr 336 IVPB 600 TPN/PPN 500 Output: Drainage 5 5 Right Abdomen 5 5 Urine 1300 600 Void 1300 600 Other: Voiding Method Bedpan Bedpan Bedpan # Unmeasured Voids Void 2 Bowel Movement No No Weight Measurement Method Built in Bedscale Built in Bedscale CBC, BMP 11/12/19 06:40 11/12/19 06:40 PE: A&Ox3, NAD unlabored resp on RA ABD: soft, ND with diffuse mild TTP throughout-improving, dressings c/d/i with surrounding tissue intact and no evidence of tracking erythema. wounds clean and dry with clean margins and packing in place (changed last night) no foul odor or evidence of infection- no d/c. drain secure with scant drainage. Hypoactive bowel sound appropriate to status. B/L LE compartments soft, supple and non-tender with +2DP pulses. Problem List - Problems (1) History of colostomy reversal Assessment/Plan: POD #5 patient stable, afebrile and no elevated white count. Thrombocytosis- possibly 2/2 dehydration as patient refused IVF last night. -Start clear diet -Encourage OOB and ambulation, up to chair TID -Encourage IS -trend Labs-RPT CBC this evening- -IV abx per ID -pain control -dressing changes as ordered. Code(s): Z98.890 - OTHER SPECIFIED POSTPROCEDURAL STATES
[2019-11-12] MEDS ORDERED: DEXTROSE 5%-WATER - 50 ML IVPB ONE (10:47)
[2019-11-12] MEDS ORDERED: cefTRIAXone SODIUM 1 GM VIAL ONE (10:47)
[2019-11-12] MEDS: HEPARIN NA (PORCINE) 5,000 UNITS/ML 1ML VIAL SQ SCH ×3 (10:59→21:21)
[2019-11-12] MEDS ORDERED: SENNOSIDES 8.6MG TABLET (FP) PO PRN (12:16)
[2019-11-12] MEDS: PANTOPRAZOLE SODIUM 40 MG VIAL IVPUSH SCH (12:25)
[2019-11-12] MEDS ORDERED: DOCUSATE SODIUM 100 MG CAPSULE (FP) PO SCH (13:00)
--- NOTE | 2019-11-12 13:52 | PN ---
Physical Exam: Subjective: Patient seen and examined. She is comfortable lying in bed. Had BM today semi-formed no blood, ambulating with assistance, tolerating clear liquids /jello, afebrile, pain improving, VSS. Objective: GENERAL: The patient is awake, alert, and fully oriented, in no acute distress. Family at bedside LUNGS: Breath sounds equal, clear to auscultation bilaterally, no wheezes, no crackles, no accessory muscle use. HEART: Regular rate and rhythm, S1, S2 without murmur, rub or gallop. ABDOMEN: Obese, soft, (+) mild diffuse tenderness, non-distended, BS+, no guarding, no rebound, no hepatosplenomegaly, no masses. EXTREMITIES: 2+ pulses, warm, well-perfused, no edema. Vital Signs - 24 hr 11/11/19 11/11/19 11/11/19 15:00 15:12 19:00 Temperature 97.6 F 98.5 F Pulse Rate 92 H 94 H Respiratory 18 18 Rate Blood Pressure 134/79 135/74 O2 Sat by Pulse 96 Oximetry (%) 11/11/19 11/12/19 11/12/19 21:00 02:00 06:00 Temperature 98.0 F 98.6 F Pulse Rate 86 94 H Respiratory 18 18 18 Rate Blood Pressure 150/69 142/70 O2 Sat by Pulse 96 Oximetry (%) 11/12/19 11/12/19 09:00 13:47 Temperature 98.0 F Pulse Rate 104 H Respiratory 18 Rate Blood Pressure 138/84 O2 Sat by Pulse 96 Oximetry (%) Microbiology 11/05/19 11:42 Blood - Peripheral Venous Blood Culture - Final NO GROWTH AFTER 5 DAYS INCUBATION 11/05/19 11:50 Blood - Peripheral Venous Blood Culture - Final NO GROWTH AFTER 5 DAYS INCUBATION 11/03/19 08:00 Blood - Peripheral Venous Blood Culture - Final NO GROWTH AFTER 5 DAYS INCUBATION 11/03/19 07:55 Blood - Peripheral Venous Blood Culture - Final Enterococcus Faecalis Laboratory Results - last 24 hr 11/12/19 11/12/19 06:40 06:40 WBC 8.3 RBC 3.69 Hgb 10.4 L Hct 31.0 L MCV 84.1 MCH 28.2 MCHC 33.5 RDW 15.4 Plt Count 845 H D MPV 7.3 L Absolute Neuts (auto) 6.4 Neutrophils % 78.0 Lymphocytes % 12.8 D Monocytes % 7.7 Eosinophils % 1.1 Basophils % 0.4 Nucleated RBC % 0 Sodium 139 Potassium 3.7 Chloride 103 Carbon Dioxide 26 Anion Gap 10 BUN 11.1 Creatinine 0.4 L Est GFR (CKD-EPI)AfAm 141.75 Est GFR (CKD-EPI)NonAf 122.30 Random Glucose 97 Calcium 8.5 Phosphorus 3.1 Magnesium 2.2 Total Bilirubin 0.2 AST 15 ALT 12 L Alkaline Phosphatase 52 Total Protein 5.4 L Albumin 2.1 L Current Medications Generic Name Dose Route Start Last Admin Trade Name Freq PRN Reason Stop Dose Admin Diphenhydramine HCl 12.5 mg 11/09/19 14:16 Benadryl Injection - IVPUSH ONCE PRN FOR ITCHING Docusate Sodium 100 mg 11/12/19 13:00 Colace - PO DAILY PRASANNA Heparin Sodium (Porcine) 5,000 unit 11/12/19 10:00 11/12/19 10:59 Heparin - SQ 5,000 unit TID PRASANNA Administration Hydromorphone HCl 10 mg 11/09/19 14:16 11/11/19 08:59 Hydromorphone 10 Mg/50 Ml-Ns CLOTHING CONSULTANT 11/16/19 12:00 10 mg CLOTHING CONSULTANT PRASANNA Administration Protocol Ampicillin Sodium 2 gm/ Sodium 100 mls @ 200 mls/hr 11/09/19 15:00 11/12/19 10:56 Chloride IVPB 200 mls/hr Q6H-IV PRASANNA Administration Protocol Metronidazole 500 mg in 100 mls @ 100 mls/hr 11/09/19 15:00 11/12/19 09:18 Flagyl 500mg Premixed Ivpb - IVPB 100 mls/hr Q6H-IV PRASANNA Administration Ceftriaxone Sodium 1 gm/ 50 mls @ 200 mls/hr 11/10/19 10:00 11/11/19 10:24 Dextrose IVPB 200 mls/hr DAILY PRASANNA Administration Protocol Potassium Chloride 40 meq/ 1,020 mls @ 75 mls/hr 11/11/19 16:00 11/12/19 05: 00 Amino Acids IVPB Not Given Q13H PRASANNA Fat Emulsion-[place] Oil/Soybean Oil 250 mls @ 20.833 mls/hr 11/11/19 22:00 10/31 21:46 Clinolipid 20% Iv Fat Emulsion IV Not Given DAILY@2200 PRASANNA Multivitamins/Minerals 10 ml 11/11/19 16:00 11/11/19 17:43 Infuvite Adult - IV 10 ml Q24H PRASANNA Administration Ondansetron HCl 4 mg 11/09/19 14:16 Zofran Injection IVPUSH Q6H PRN NAUSEA Pantoprazole Sodium 40 mg 11/10/19 10:00 11/12/19 12:25 Protonix Iv IVPUSH 40 mg DAILY PRASANNA Administration Polyethylene Glycol 17 gm 11/12/19 13:00 Miralax (For Daily Use) - PO DAILY PRASANNA Senna 2 tab 11/12/19 12:16 Senna - PO HS PRN CONSTIPATION ASSESSMENT/PLAN: 49 F h/o chronic diverticulosis, hemorrhoids, colon polyps, transverse colon perforation during colonoscopy, transverse colon resection with end colostomy who presented on 10/29/19 for reversal of colostomy with end to end anastomosis complicated by anastomotic leak and underwent revision with side by side anastomosis on 11/07/19. Sepsis secondary to Enterococcus bacteremia Continue ampicillin, ceftriaxone, Flagyl Repeat blood cultures negative, cont. to follow ID consult: Dr Swanson Pneumoperitoneum secondary to anastomotic leak s/p revision of anastomosis with side by side anastomosis 11/07 Continue incentive spirometer, ambulation, HOB elevation Pain control with Dilaudid CLOTHING CONSULTANT Surgery consult: Dr Child History of colon perforation, transverse colon resection with end colostomy s/p reversal of colostomy with end to end anastomosis 10/29 Nutrition clear liquid diet as tolerated Med surg Heparin SC DVT ppx Visit type - Emergency Visit Emergency Visit: Yes ED Registration Date: 10/29/19 Care time: The patient presented to the Emergency Department on the above date and was hospitalized for further evaluation of their emergent condition. - New Patient This patient is new to me today: Yes Date on this admission: 11/12/19 - Critical Care Critical Care patient: No - Discharge Referral Referred to [facility] Med P.C.: No
[2019-11-12] MEDS: POLYETHYLENE GLYCOL 3350 119 GM BTL PO SCH (13:58)
[2019-11-12] MEDS: CEFTRIAXONE 1 GM in DEXTROSE 5%-WATER - 50 ML IVPB SCH (14:36)
[2019-11-12 15:12] LABS: BASO % 0.4 % (0-2.0); EOS % 0.9 % (0-4.5); HEMATOCRIT 32.2 % (32.4-45.2); HEMOGLOBIN 10.5 GM/dL (10.7-15.3); LYMPH % 12.6 % (8-40); MCH 27.8 pg (25.7-33.7); MCHC 32.7 g/dl (32.0-36.0); MEAN PLT VOLUME 7.1 fl (7.5-11.1); MONO % 7.9 % (3.8-10.2); NEUT % 78.2 % (42.8-82.8); PLATELET COUNT 829 K/MM3 (134-434); RBC 3.78 M/mm3 (3.60-5.2); RDW 15.3 % (11.6-15.6); WHITE BLOOD COUNT 9.3 K/mm3 (4.0-10.0)
[2019-11-12] MEDS: MULTIVIT INJ. ADULT COMBO WITH VIT K 1 COMBO 10 ML VIAL IV SCH (17:26)
[2019-11-12] MEDS: HYDROmorphone *PCA* 10MG/50ML DISP.SYRIN PCA SCH (18:33)
[2019-11-12] MEDS: FAT EMULSION/OLIVE/SOY/PHOSPHO 250 ML IV SCH (21:15)
--- NOTE | 2019-11-12 22:55 | PN ---
Progress Note, Physician History of Present Illness: NO C/O ABDOMINAL PAIN + SEMI FORMED BMS TOLERATING FULL LIQUID DIET POST OP REVISION OF TRANSVERSE COLON ANASTAMOSIS AFEBRILE WBC WNL - Current Medication List Current Medications: Active Medications Diphenhydramine HCl (Benadryl Injection -) 12.5 mg IVPUSH ONCE PRN PRN Reason: FOR ITCHING Docusate Sodium (Colace -) 100 mg PO DAILY [facility] Last Admin: 11/12/19 13:56 Dose: Not Given Heparin Sodium (Porcine) (Heparin -) 5,000 unit SQ TID [facility] Last Admin: 11/12/19 21:21 Dose: 5,000 unit Hydromorphone HCl (Hydromorphone 10 Mg/50 Ml-Ns) 10 mg GAME DESIGNER GAME DESIGNER PRASANNA; Protocol Stop: 11/16/19 12:00 Last Admin: 11/12/19 18:33 Dose: 10 mg Ampicillin Sodium 2 gm/ Sodium (Chloride) 100 mls @ 200 mls/hr IVPB Q6H-IV PRASANNA; Protocol Last Admin: 11/12/19 21:15 Dose: 200 mls/hr Metronidazole (Flagyl 500mg Premixed Ivpb -) 500 mg in 100 mls @ 100 mls/hr IVPB Q6H-IV PRASANNA Last Admin: 11/12/19 21:15 Dose: 100 mls/hr Ceftriaxone Sodium 1 gm/ (Dextrose) 50 mls @ 200 mls/hr IVPB DAILY [facility]; Protocol Last Admin: 11/12/19 14:36 Dose: 200 mls/hr Potassium Chloride 40 meq/ (Amino Acids) 1,020 mls @ 75 mls/hr IVPB Q13H [facility] Last Admin: 11/12/19 17:27 Dose: Not Given Fat Emulsion-[place] Oil/Soybean Oil (Clinolipid 20% Iv Fat Emulsion) 250 mls @ 20.833 mls/hr IV DAILY@2200 [facility] Last Admin: 11/12/19 21:15 Dose: Not Given Multivitamins/Minerals (Infuvite Adult -) 10 ml IV Q24H [facility] Last Admin: 11/12/19 17:26 Dose: Not Given Ondansetron HCl (Zofran Injection) 4 mg IVPUSH Q6H PRN PRN Reason: NAUSEA Pantoprazole Sodium (Protonix Iv) 40 mg IVPUSH DAILY [facility] Last Admin: 11/12/19 12:25 Dose: 40 mg Polyethylene Glycol (Miralax (For Daily Use) -) 17 gm PO DAILY PRASANNA Last Admin: 11/12/19 13:58 Dose: Not Given Senna (Senna -) 2 tab PO HS PRN PRN Reason: CONSTIPATION - Objective Vital Signs: Vital Signs Temperature 98.9 F 11/12/19 18:03 Pulse Rate 93 H 11/12/19 20:33 Respiratory Rate 18 11/12/19 20:33 Blood Pressure 142/99 11/12/19 20:33 O2 Sat by Pulse Oximetry (%) 97 11/12/19 20:33 Constitutional: Yes: No Distress Cardiovascular: Yes: Regular Rate and Rhythm, S1, S2 Respiratory: Yes: CTA Bilaterally Gastrointestinal: Yes: Normal Bowel Sounds, Soft. No: Tenderness Labs: CBC, BMP 11/12/19 15:00 11/12/19 06:40 Assessment/Plan POST OP REVISION OF TRANSVERSE COLON ANASTAMOSIS ENTEROCOCCAL BACTEREMIA CONTINUE ANTIBIOTICS
[2019-11-13] MEDS ORDERED: SODIUM CHLORIDE 100 ML IVPB ONE ×2 (02:41→08:15)
[2019-11-13] MEDS ORDERED: AMPICILLIN SODIUM 2 GM VIAL ONE ×2 (02:41→08:15)
[2019-11-13] MEDS: AMPICILLIN - 2 GM in SODIUM CHLORIDE 100 ML IVPB SCH ×2 (02:52→10:25)
[2019-11-13] MEDS: POTASSIUM CHLORIDE 40 MEQ in AMINO ACIDS 4.25%/D5W 1,000 ML IVPB SCH ×2 (06:00→20:45)
[2019-11-13] MEDS: HEPARIN NA (PORCINE) 5,000 UNITS/ML 1ML VIAL SQ SCH ×3 (06:01→21:51)
[2019-11-13 08:36] LABS: BASO % 0.4 % (0-2.0); EOS % 1.9 % (0-4.5); HEMATOCRIT 30.3 % (32.4-45.2); HEMOGLOBIN 10.2 GM/dL (10.7-15.3); LYMPH % 14.6 % (8-40); MCH 28.5 pg (25.7-33.7); MCHC 33.6 g/dl (32.0-36.0); MEAN PLT VOLUME 7.4 fl (7.5-11.1); MONO % 8.3 % (3.8-10.2); NEUT % 74.8 % (42.8-82.8); PLATELET COUNT 793 K/MM3 (134-434); RBC 3.57 M/mm3 (3.60-5.2); RDW 15.4 % (11.6-15.6); WHITE BLOOD COUNT 7.1 K/mm3 (4.0-10.0)
[2019-11-13] MEDS: traMADol HCL 50 MG TABLET PO PRN ×2 (08:53→17:18)
[2019-11-13] MEDS: SIMETHICONE 80 MG TAB.CHEW (FP) PO PRN ×3 (08:53→17:19)
[2019-11-13 09:01] LABS: ALBUMIN 2.2 g/dl (3.4-5.0); BILIRUBIN,TOTAL 0.3 mg/dL (0.2-1); BLOOD UREA NITROGEN 9.7 mg/dL (7-18); CALCIUM 8.2 mg/dL (8.5-10.1); CREATININE 0.4 mg/dL (0.55-1.3); MAGNESIUM 2.1 mg/dL (1.8-2.4); PHOSPHOROUS 3.4 mg/dL (2.5-4.9); POTASSIUM 3.7 mmol/L (3.5-5.1); TOT PROT 5.4 g/dl (6.4-8.2)
[2019-11-13 10:25] LABS: ANISOCYTOSIS 1+; MACROCYTOSIS 1+; PLATELET ESTIMATE INCREASED
[2019-11-13] MEDS: POLYETHYLENE GLYCOL 3350 119 GM BTL PO SCH (10:26)
[2019-11-13] MEDS: PANTOPRAZOLE SODIUM 40 MG VIAL IVPUSH SCH (10:26)
[2019-11-13] MEDS: CEFTRIAXONE 1 GM in DEXTROSE 5%-WATER - 50 ML IVPB SCH (10:26)
[2019-11-13] MEDS: ACETAMINOPHEN 325 MG TABLET (FP) PO PRN ×2 (11:29→18:51)
--- NOTE | 2019-11-13 11:32 | PN ---
Progress Note (short form) - Note Progress Note: General Surgery: Pt states that she had 2 liquid/soft stools yesterday and is passing flatus. OOB to chair and ambulated yesterday. Tolerating clears. Vital Signs Period Temp Pulse Resp BP Sys/Ren Pulse Ox Last 24 Hr 98.0 F-98.9 F 91-105 16-18 118-142/70-99 97-98 SARAH BETH: 15mg serosangrenous GEN: A&0x3, NAD ABD: soft, non-distended, inc tenderness. Midline incision dressing/ostomy site changed, wound irrigated with NS and replaced with wet to dry 4x4 gauze. clean granulation tissue at base. SARAH BETH stripped LE: no calf tenderness b/l CBC, BMP 11/13/19 06:56 11/13/19 06:56 A/p: 49 yo female s/p colostomy reversal with post-op anastomic break down and revision of colostomy Now tolerating clears, will continue with this diet for another day, pt passed flatus and had BM but still feels like she has gas Discontinued INSTITUTIONAL NUTRITION CONSULTANT, began oral pain meds and tylenol as needed OOB and ambulate IV recommendations for length of IV abx therapy Heparin SQ for DVT ppx D/w Dr. Child
--- NOTE | 2019-11-13 15:40 | PN ---
Teaching Attending Note Name of Resident: Andrea Strickland ATTENDING PHYSICIAN STATEMENT I saw and evaluated the patient. I reviewed the resident's note and discussed the case with the resident. I agree with the resident's findings and plan as documented. Subjective: Patient seen and examined at beside, passing flatus, tolerating clears, 2 loose BM today, VSS. Objective: GENERAL: The patient is awake, alert, and fully oriented, in no acute distress. Family at bedside LUNGS: Breath sounds equal, clear to auscultation bilaterally, no wheezes, no crackles, no accessory muscle use. HEART: Regular rate and rhythm, S1, S2 without murmur, rub or gallop. ABDOMEN: Obese, soft, (+) mild diffuse tenderness, non-distended, BS+, no guarding, no rebound, no hepatosplenomegaly, no masses. EXTREMITIES: 2+ pulses, warm, well-perfused, no edema. Vital Signs - 24 hr 11/12/19 11/12/19 11/12/19 18:03 18:33 19:31 Temperature 98.9 F Pulse Rate 105 H 104 H 104 H Respiratory 16 18 18 Rate Blood Pressure 118/70 138/84 138/84 O2 Sat by Pulse 98 98 Oximetry (%) 11/12/19 11/12/19 11/12/19 20:33 21:00 22:00 Temperature 98.6 F Pulse Rate 93 H 93 H Respiratory 18 18 Rate Blood Pressure 142/99 O2 Sat by Pulse 97 97 Oximetry (%) 11/13/19 11/13/19 11/13/19 00:33 02:00 06:00 Temperature 98.9 F 98.9 F Pulse Rate 94 H 91 H 92 H Respiratory 18 18 18 Rate Blood Pressure 133/75 128/73 135/79 O2 Sat by Pulse 97 Oximetry (%) 11/13/19 11/13/19 11/13/19 09:00 10:00 14:57 Temperature 98.7 F 98.3 F Pulse Rate 90 93 H Respiratory 18 18 Rate Blood Pressure 130/70 142/78 O2 Sat by Pulse 97 Oximetry (%) Microbiology 11/05/19 11:42 Blood - Peripheral Venous Blood Culture - Final NO GROWTH AFTER 5 DAYS INCUBATION 11/05/19 11:50 Blood - Peripheral Venous Blood Culture - Final NO GROWTH AFTER 5 DAYS INCUBATION 11/03/19 08:00 Blood - Peripheral Venous Blood Culture - Final NO GROWTH AFTER 5 DAYS INCUBATION 11/03/19 07:55 Blood - Peripheral Venous Blood Culture - Final Enterococcus Faecalis Laboratory Results - last 24 hr 11/13/19 11/13/19 06:56 06:56 WBC 7.1 RBC 3.57 L Hgb 10.2 L Hct 30.3 L MCV 85.0 MCH 28.5 MCHC 33.6 RDW 15.4 Plt Count 793 H MPV 7.4 L Absolute Neuts (auto) 5.3 Neutrophils % 74.8 Neutrophils % (Manual) 80.2 Band Neutrophils % 0.0 Lymphocytes % 14.6 Lymphocytes % (Manual) 8.5 D Monocytes % 8.3 Monocytes % (Manual) 4 D Eosinophils % 1.9 D Eosinophils % (Manual) 5.7 H Basophils % 0.4 Basophils % (Manual) 0.9 Myelocytes % (Man) 0 Promyelocytes % (Man) 0 Blast Cells % (Manual) 0 Nucleated RBC % 0 Metamyelocytes 0 Hypochromia 0 Platelet Estimate Increased Polychromasia 1+ Poikilocytosis 0 Anisocytosis 1+ Microcytosis 1+ Macrocytosis 1+ Sodium 140 Potassium 3.7 Chloride 105 Carbon Dioxide 28 Anion Gap 7 L BUN 9.7 Creatinine 0.4 L Est GFR (CKD-EPI)AfAm 141.75 Est GFR (CKD-EPI)NonAf 122.30 Random Glucose 103 Calcium 8.2 L Phosphorus 3.4 Magnesium 2.1 Total Bilirubin 0.3 AST 16 ALT 16 Alkaline Phosphatase 55 Total Protein 5.4 L Albumin 2.2 L Home Medications Medication Instructions Recorded Pantoprazole Sodium [Protonix] 40 mg PO DAILY #30 tablet. 03/26/19 Current Medications Generic Name Dose Route Start Last Admin Trade Name Freq PRN Reason Stop Dose Admin Acetaminophen 650 mg 11/13/19 08:17 11/13/19 11:29 Tylenol - PO 650 mg Q6H PRN Administration PAIN LEVEL 1-5 Alprazolam 0.25 mg 11/13/19 13:24 Xanax - PO Q8H PRN ANXIETY Amoxicillin/Clavulanate Potassium 1 tab 11/13/19 17:30 Augmentin - 875mg Tablet PO BID@0800,1730 PRASANNA Diphenhydramine HCl 12.5 mg 11/09/19 14:16 Benadryl Injection - IVPUSH ONCE PRN FOR ITCHING Heparin Sodium (Porcine) 5,000 unit 11/12/19 10:00 11/13/19 13:41 Heparin - SQ 5,000 unit TID PRASANNA Administration Potassium Chloride 40 meq/ 1,020 mls @ 75 mls/hr 11/11/19 16:00 11/13/19 06: 00 Amino Acids IVPB Not Given Q13H [facility] Fat Emulsion-[place] Oil/Soybean Oil 250 mls @ 20.833 mls/hr 11/11/19 22:00 11/28 21:15 Clinolipid 20% Iv Fat Emulsion IV Not Given DAILY@2200 [facility] Multivitamins/Minerals 10 ml 11/11/19 16:00 11/12/19 17:26 Infuvite Adult - IV Not Given Q24H [facility] Ondansetron HCl 4 mg 11/09/19 14:16 Zofran Injection IVPUSH Q6H PRN NAUSEA Pantoprazole Sodium 40 mg 11/10/19 10:00 11/13/19 10:26 Protonix Iv IVPUSH Not Given DAILY [facility] Polyethylene Glycol 17 gm 11/12/19 13:00 11/13/19 10:26 Miralax (For Daily Use) - PO Not Given DAILY [facility] Senna 2 tab 11/12/19 12:16 Senna - PO HS PRN CONSTIPATION Simethicone 80 mg 11/13/19 08:08 11/13/19 13:41 Mylicon - PO 80 mg QID PRN Administration GAS Tramadol HCl 50 mg 11/13/19 08:15 11/13/19 08:53 Ultram - PO 50 mg Q4H PRN Administration PAIN LEVEL 6-10 ASSESSMENT/PLAN: 49 F h/o chronic diverticulosis, hemorrhoids, colon polyps, transverse colon perforation during colonoscopy, transverse colon resection with end colostomy who presented on 10/29/19 for reversal of colostomy with end to end anastomosis complicated by anastomotic leak and underwent revision with side by side anastomosis on 11/07/19. Sepsis secondary to Enterococcus bacteremia Continue ampicillin, ceftriaxone, Flagyl ID consult: Dr Swanson Pneumoperitoneum secondary to anastomotic leak s/p revision of anastomosis with side by side anastomosis 11/07 Continue incentive spirometer, ambulation, HOB elevation FOOTBALL COACH DCed as per Surgery team Advance diet as tolerated Surgery consult: Dr Child History of colon perforation, transverse colon resection with end colostomy s/p reversal of colostomy with end to end anastomosis 10/29 Nutrition clear liquid diet as tolerated advance as needed as per Surgery recs Med surg Heparin SC DVT ppx
[2019-11-13] MEDS: MULTIVIT INJ. ADULT COMBO WITH VIT K 1 COMBO 10 ML VIAL IV SCH (16:12)
[2019-11-13] MEDS: AMOX TR/POT CLAV 875MG/125MG TABLETS (FP) PO SCH (17:19)
[2019-11-13] MEDS ORDERED: PANTOPRAZOLE 40 MG TABLET PO ONE (21:41)
[2019-11-13] MEDS: ALPRAZolam 0.25 MG TABLET PO PRN (21:51)
--- NOTE | 2019-11-13 22:41 | PN ---
Progress Note, Physician History of Present Illness: NO C/O ABDOMINAL PAIN POST OP REVISION OF TRANSVERSE COLON ANASTAMOSIS AFEBRILE - Current Medication List Current Medications: Active Medications Acetaminophen (Tylenol -) 650 mg PO Q6H PRN PRN Reason: PAIN LEVEL 1-5 Last Admin: 11/13/19 18:51 Dose: 650 mg Alprazolam (Xanax -) 0.25 mg PO Q8H PRN PRN Reason: ANXIETY Last Admin: 11/13/19 21:51 Dose: 0.25 mg Amoxicillin/Clavulanate Potassium (Augmentin - 875mg Tablet) 1 tab PO BID@0800,1730 [facility] Last Admin: 11/13/19 17:19 Dose: 1 tab Diphenhydramine HCl (Benadryl Injection -) 12.5 mg IVPUSH ONCE PRN PRN Reason: FOR ITCHING Heparin Sodium (Porcine) (Heparin -) 5,000 unit SQ TID [facility] Last Admin: 11/13/19 21:51 Dose: 5,000 unit Potassium Chloride 40 meq/ (Amino Acids) 1,020 mls @ 75 mls/hr IVPB Q13H [facility] Last Admin: 11/13/19 20:45 Dose: Not Given Multivitamins/Minerals (Infuvite Adult -) 10 ml IV Q24H [facility] Last Admin: 11/13/19 16:12 Dose: Not Given Ondansetron HCl (Zofran Injection) 4 mg IVPUSH Q6H PRN PRN Reason: NAUSEA Pantoprazole Sodium (Protonix Iv) 40 mg IVPUSH DAILY [facility] Last Admin: 11/13/19 10:26 Dose: Not Given Polyethylene Glycol (Miralax (For Daily Use) -) 17 gm PO DAILY [facility] Last Admin: 11/13/19 10:26 Dose: Not Given Senna (Senna -) 2 tab PO HS PRN PRN Reason: CONSTIPATION Simethicone (Mylicon -) 80 mg PO QID PRN PRN Reason: GAS Last Admin: 11/13/19 17:19 Dose: 80 mg Tramadol HCl (Ultram -) 50 mg PO Q4H PRN PRN Reason: PAIN LEVEL 6-10 Last Admin: 11/13/19 17:18 Dose: 50 mg - Objective Vital Signs: Vital Signs Temperature 98.4 F 03/04/20 18:00 Pulse Rate 84 11/13/19 18:00 Respiratory Rate 18 11/13/19 18:00 Blood Pressure 137/76 11/13/19 18:00 O2 Sat by Pulse Oximetry (%) 97 11/13/19 09:00 Constitutional: Yes: No Distress Eyes: Yes: Conjunctiva Clear Cardiovascular: Yes: Regular Rate and Rhythm, S1, S2 Respiratory: Yes: CTA Bilaterally Gastrointestinal: Yes: Normal Bowel Sounds, Soft. No: Tenderness Edema: No Labs: CBC, BMP 11/13/19 06:56 11/13/19 06:56 Assessment/Plan POST OP REVISION OF TRANSVERSE COLON ANASTAMOSIS ENTEROCOCCAL BACTEREMIA DAY #10 IV ANTIBIOTICS SUBSTITUTE AUGMENTIN 875MG PO BID
[2019-11-14 08:08] LABS: BASO % 0.7 % (0-2.0); EOS % 2.3 % (0-4.5); HEMATOCRIT 31.7 % (32.4-45.2); HEMOGLOBIN 10.7 GM/dL (10.7-15.3); LYMPH % 16.3 % (8-40); MCH 28.9 pg (25.7-33.7); MCHC 33.8 g/dl (32.0-36.0); MEAN CELL VOLUME 85.3 fl (80-96); MEAN PLT VOLUME 7.6 fl (7.5-11.1); MONO % 9.6 % (3.8-10.2); NEUT % 71.1 % (42.8-82.8); PLATELET COUNT 751 K/MM3 (134-434); RBC 3.71 M/mm3 (3.60-5.2); RDW 15.4 % (11.6-15.6); WHITE BLOOD COUNT 5.7 K/mm3 (4.0-10.0)
[2019-11-14 08:35] LABS: ALBUMIN 2.3 g/dl (3.4-5.0); BILIRUBIN,TOTAL 0.4 mg/dL (0.2-1); BLOOD UREA NITROGEN 7.8 mg/dL (7-18); CALCIUM 8.5 mg/dL (8.5-10.1); CREATININE 0.5 mg/dL (0.55-1.3); POTASSIUM 3.8 mmol/L (3.5-5.1); TOT PROT 5.6 g/dl (6.4-8.2)
[2019-11-14] MEDS: AMOX TR/POT CLAV 875MG/125MG TABLETS (FP) PO SCH ×2 (08:37→17:21)
[2019-11-14] MEDS: ACETAMINOPHEN 325 MG TABLET (FP) PO PRN ×2 (08:53→17:22)
[2019-11-14] MEDS: traMADol HCL 50 MG TABLET PO PRN ×4 (10:33→23:15)
--- NOTE | 2019-11-14 11:09 | PN ---
Progress Note, Physician History of Present Illness: NO C/O ABDOMINAL PAIN + SEMI FORMED BMS TOLERATING FULL LIQUID DIET POST OP DAY 7 REVISION OF TRANSVERSE COLON ANASTAMOSIS AFEBRILE WBC WNL - Current Medication List Current Medications: Active Medications Acetaminophen (Tylenol -) 650 mg PO Q6H PRN PRN Reason: PAIN LEVEL 1-5 Last Admin: 11/14/19 08:53 Dose: 650 mg Documented by: Alprazolam (Xanax -) 0.25 mg PO Q8H PRN PRN Reason: ANXIETY Last Admin: 11/13/19 21:51 Dose: 0.25 mg Documented by: Amoxicillin/Clavulanate Potassium (Augmentin - 875mg Tablet) 1 tab PO BID@0800,1730 [facility] Last Admin: 11/14/19 08:37 Dose: 1 tab Documented by: Diphenhydramine HCl (Benadryl Injection -) 12.5 mg IVPUSH ONCE PRN PRN Reason: FOR ITCHING Heparin Sodium (Porcine) (Heparin -) 5,000 unit SQ TID [facility] Last Admin: 11/13/19 21:51 Dose: 5,000 unit Documented by: Potassium Chloride 40 meq/ (Amino Acids) 1,020 mls @ 75 mls/hr IVPB Q13H [facility] Last Admin: 11/13/19 20:45 Dose: Not Given Documented by: Multivitamins/Minerals (Infuvite Adult -) 10 ml IV Q24H [facility] Last Admin: 11/13/19 16:12 Dose: Not Given Documented by: Ondansetron HCl (Zofran Injection) 4 mg IVPUSH Q6H PRN PRN Reason: NAUSEA Pantoprazole Sodium (Protonix Iv) 40 mg IVPUSH DAILY [facility] Last Admin: 11/13/19 10:26 Dose: Not Given Documented by: Polyethylene Glycol (Miralax (For Daily Use) -) 17 gm PO DAILY [facility] Last Admin: 11/13/19 10:26 Dose: Not Given Documented by: Senna (Senna -) 2 tab PO HS PRN PRN Reason: CONSTIPATION Simethicone (Mylicon -) 80 mg PO QID PRN PRN Reason: GAS Last Admin: 11/13/19 17:19 Dose: 80 mg Documented by: Tramadol HCl (Ultram -) 50 mg PO Q4H PRN PRN Reason: PAIN LEVEL 6-10 Last Admin: 11/14/19 10:33 Dose: 50 mg Documented by: - Objective Vital Signs: Vital Signs Temperature 98.4 F 11/13/19 18:00 Pulse Rate 84 11/13/19 18:00 Respiratory Rate 18 11/13/19 18:00 Blood Pressure 137/76 11/13/19 18:00 O2 Sat by Pulse Oximetry (%) 97 11/13/19 21:00 Constitutional: Yes: No Distress Cardiovascular: Yes: Regular Rate and Rhythm, S1, S2 Respiratory: Yes: CTA Bilaterally Gastrointestinal: Yes: Normal Bowel Sounds, Soft, Other (SURGICAL WOUNDS CLEAR) Extremities: No: Calf Tenderness Labs: CBC, BMP 11/14/19 07:10 11/14/19 07:10 Assessment/Plan POST OP REVISION OF TRANSVERSE COLON ANASTAMOSIS ENTEROCOCCAL BACTEREMIA CONTINUE AUGMENTIN 875MG PO BID
--- NOTE | 2019-11-14 11:50 | PN ---
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 Patient seen and examined bedside. Patient states she she is still having pain, but it is controlled with the medication and continues to improve. She has been OOB and has moved her bowels 4 times. She denies any CP, SOB, N/V, fever or chills. Platelets continue to trend down. Vital Signs Temp 98.1 F 11/14/19 10:00 Pulse 97 H 11/14/19 10:00 Resp 18 11/14/19 10:00 BP 125/72 11/14/19 10:00 Pulse Ox 97 11/13/19 21:00 Intake & Output 11/13/19 11/13/19 11/14/19 11:59 23:59 11:59 Intake Total 200 1250 Output Total 5 1415 Balance 195 -165 Weight 161 lb 2 oz 158 lb 6 oz Intake: IV 0 150 Clinimix 42cc/hr 0 0 SALINE LOCK 150 IVPB 100 Oral 200 500 TPN/PPN 500 Output: Gastric Drainage 300 Drainage 5 15 Right Abdomen 5 15 Urine 1100 Viera 1100 Other: Voiding Method Toilet Toilet Toilet # Unmeasured Voids Void 1 1 Bowel Movement No No # Bowel Movements 2 Weight Measurement Method Built in Bedscale Built in [facility] CBC, BMP 11/14/19 07:10 11/14/19 07:10 PE: A&Ox3, NAD unlabored resp on RA ABD: soft, ND with diffuse mild TTP throughout-improving, incisions cleaned with NS and repacked with iodoform packing. incisions c/d/i with surrounding tissue intact and no evidence of tracking erythema and clean margins. miguelito in situ. no foul odor or evidence of infection- no d/c. drain secure with scant drainage. B/L LE compartments soft, supple and non-tender with +2DP pulses. Problem List - Problems (1) History of colostomy reversal Assessment/Plan: POD #7 patient stable, afebrile and no elevated white count. Thrombocytosis with platelets tending down. Hematology consult pending. -Advance diet to regular diet -Encourage OOB and ambulation, up to chair TID -Encourage IS -trend Labs -IV abx per ID -pain control -dressing changes as ordered. Evaluation and plan discussed with Dr Child and Dr Ross. Code(s): Z98.890 - OTHER SPECIFIED POSTPROCEDURAL STATES
[2019-11-14] MEDS: POTASSIUM CHLORIDE 40 MEQ in AMINO ACIDS 4.25%/D5W 1,000 ML IVPB SCH ×2 (12:55→21:47)
[2019-11-14] MEDS: POLYETHYLENE GLYCOL 3350 119 GM BTL PO SCH (12:56)
[2019-11-14] MEDS: PANTOPRAZOLE 40 MG TABLET PO SCH (15:03)
[2019-11-14] MEDS: HEPARIN NA (PORCINE) 5,000 UNITS/ML 1ML VIAL SQ SCH ×2 (15:16→21:47)
--- NOTE | 2019-11-14 16:05 | CONSULT ---
Consultation: CONSULT SERVICE: Hematology/Oncology Resident HISTORY OF PRESENT ILLNESS: 48yo F with h/o hemorrhoids and bowel perforation 2/2 to colonoscopy involving cautery of polypectomy. Pt underwent resection of bowel with colostomy creation and proceeded to have take-down to primary anastamosis. Pt developed fevers and there was suspicion for primary anastomosis leak and returned to the OR on 11/07/2019. Since then patient has been continued on antibiotics and has been monitored by both surgical and medical teams. We were asked to medically evaluate the patient due to thrombocytosis. Currently pt has had multiple bowel movements over the past 2 days without any notable blood. Pt remains with mild diffuse abdominal pain currently being controlled by his pain medications. PMHx: As above PSHx: Bladdery surgery, , adenoidectomy SoHx: tobacco - Denies alcohol - Social Drugs - Denies REVIEW OF SYSTEMS: As per HPI PHYSICAL EXAMINATION Vital Signs - 24 hr 11/13/19 11/13/19 11/14/19 18:00 21:00 10:00 Temperature 98.4 F 98.1 F Pulse Rate 84 97 H Respiratory 18 18 Rate Blood Pressure 137/76 125/72 O2 Sat by Pulse 97 Oximetry (%) 11/14/19 15:09 Temperature 97.8 F Pulse Rate 89 Respiratory 18 Rate Blood Pressure 124/77 O2 Sat by Pulse Oximetry (%) GENERAL: Awake, alert, and fully oriented, in no acute distress. HEENT: NC/AT, EOMI, TONY, sclera anicteric, MMM LUNGS: CTA bilaterally. No wheezes, and no crackles. No accessory muscle use. HEART: RRR, normal S1 and S2 without murmur ABDOMEN: Soft, nondistended, mild diffuse TTP throughout all quadrants, bowel sounds normoactive, no guarind, no splenomegaly noted. EXTREMITIES: 2+ pulses, warm, well-perfused. No calf tenderness. No peripheral edema. PSYCHIATRIC: Cooperative. Good eye contact. Appropriate mood and affect. SKIN: Warm, dry, normal turgor, no rashes or lesions noted. Laboratory Results - last 24 hr 11/14/19 11/14/19 07:10 07:10 WBC 5.7 RBC 3.71 Hgb 10.7 Hct 31.7 L MCV 85.3 MCH 28.9 MCHC 33.8 RDW 15.4 Plt Count 751 H MPV 7.6 Absolute Neuts (auto) 4.1 Neutrophils % 71.1 Lymphocytes % 16.3 Monocytes % 9.6 Eosinophils % 2.3 Basophils % 0.7 Nucleated RBC % 0 Sodium 139 Potassium 3.8 Chloride 104 Carbon Dioxide 27 Anion Gap 7 L BUN 7.8 Creatinine 0.5 L Est GFR (CKD-EPI)AfAm 131.72 Est GFR (CKD-EPI)NonAf 113.65 Random Glucose 95 Calcium 8.5 Total Bilirubin 0.4 AST 10 L ALT 12 L Alkaline Phosphatase 53 Total Protein 5.6 L Albumin 2.3 L Active Medications Generic Name Dose Route Start Last Admin Trade Name Freq PRN Reason Stop Dose Admin Acetaminophen 650 mg 11/13/19 08:17 11/14/19 08:53 Tylenol - PO 650 mg Q6H PRN Administration PAIN LEVEL 1-5 Alprazolam 0.25 mg 11/13/19 13:24 11/13/19 21:51 Xanax - PO 0.25 mg Q8H PRN Administration ANXIETY Amoxicillin/Clavulanate Potassium 1 tab 11/13/19 17:30 11/14/19 08:37 Augmentin - 875mg Tablet PO 1 tab BID@0800,1730 PRASANNA Administration Heparin Sodium (Porcine) 5,000 unit 11/12/19 10:00 11/14/19 15:16 Heparin - SQ 5,000 unit TID PRASANNA Administration Potassium Chloride 40 meq/ 1,020 mls @ 75 mls/hr 11/11/19 16:00 11/14/19 12:55 Amino Acids IVPB Not Given Q13H PRASANNA Multivitamins/Minerals 10 ml 11/11/19 16:00 11/13/19 16:12 Infuvite Adult - IV Not Given Q24H PRASANNA Ondansetron HCl 4 mg 11/09/19 14:16 Zofran Injection IVPUSH Q6H PRN NAUSEA Pantoprazole Sodium 40 mg 11/14/19 12:45 11/14/19 15:03 Protonix - PO 40 mg DAILY PRASANNA Administration Polyethylene Glycol 17 gm 11/12/19 13:00 11/14/19 12:56 Miralax (For Daily Use) - PO Not Given DAILY PRASANNA Senna 2 tab 11/12/19 12:16 Senna - PO HS PRN CONSTIPATION Simethicone 80 mg 11/13/19 08:08 11/13/19 17:19 Mylicon - PO 80 mg QID PRN Administration GAS Tramadol HCl 50 mg 11/13/19 08:15 11/14/19 15:03 Ultram - PO 50 mg Q4H PRN Administration PAIN LEVEL 6-10 ASSESSMENT/PLAN: Thrombocytosis Sepsis 2/2 to enteroccoccus bacteremia (resolving) Pneumoperitoneum 2/2 to anastomotic leak (resolving) --Given patient's prior labs with normal finding highly suspicious that thrombocytosis is reactive related to acute processes --Would hold off on medical mgmt and further investigation for now --Monitor platelet count --Antibiotics and nutrition per primary and surgical teams Case discussed with Dr. Asha Garcia, DO - IM PGY-3 Visit type - Emergency Visit Emergency Visit: Yes ED Registration Date: 10/29/19 Care time: The patient presented to the Emergency Department on the above date and was hospitalized for further evaluation of their emergent condition. - New Patient This patient is new to me today: Yes Date on this admission: 11/14/19 - Critical Care Critical Care patient: No ATTENDING PHYSICIAN STATEMENT I saw and evaluated the patient. I reviewed the resident's note and discussed the case with the resident. I agree with the resident's findings and plan as documented. SUBJECTIVE: OBJECTIVE: ASSESSMENT AND PLAN:
[2019-11-14] MEDS: MULTIVIT INJ. ADULT COMBO WITH VIT K 1 COMBO 10 ML VIAL IV SCH (17:19)
[2019-11-14] MEDS: PANTOPRAZOLE SODIUM 40 MG VIAL IVPUSH SCH (18:52)
--- NOTE | 2019-11-14 18:57 | PN ---
Teaching Attending Note Name of Resident: Andrea Strickland ATTENDING PHYSICIAN STATEMENT I saw and evaluated the patient. I reviewed the resident's note and discussed the case with the resident. I agree with the resident's findings and plan as documented. Subjective: Patient seen and examined at beside, endorses improved abdominal discomfort, tolerating PO, ambulating, abx switched to PO. VSS. Afebrile. Objective: GENERAL: The patient is awake, alert, and fully oriented, in no acute distress. Family at bedside LUNGS: Breath sounds equal, clear to auscultation bilaterally, no wheezes, no crackles, no accessory muscle use. HEART: Regular rate and rhythm, S1, S2 without murmur, rub or gallop. ABDOMEN: Obese, soft, (+) mild tenderness, non-distended, BS+, no guarding, no rebound, no hepatosplenomegaly, no masses. EXTREMITIES: 2+ pulses, warm, well-perfused, no edema. Vital Signs - 24 hr 11/13/19 11/14/19 11/14/19 21:00 10:00 15:09 Temperature 98.1 F 97.8 F Pulse Rate 97 H 89 Respiratory 18 18 Rate Blood Pressure 125/72 124/77 O2 Sat by Pulse 97 Oximetry (%) 11/14/19 18:42 Temperature 98 F Pulse Rate 92 H Respiratory 19 Rate Blood Pressure 126/74 O2 Sat by Pulse Oximetry (%) Microbiology 11/05/19 11:42 Blood - Peripheral Venous Blood Culture - Final NO GROWTH AFTER 5 DAYS INCUBATION 11/05/19 11:50 Blood - Peripheral Venous Blood Culture - Final NO GROWTH AFTER 5 DAYS INCUBATION 11/03/19 08:00 Blood - Peripheral Venous Blood Culture - Final NO GROWTH AFTER 5 DAYS INCUBATION 11/03/19 07:55 Blood - Peripheral Venous Blood Culture - Final Enterococcus Faecalis Laboratory Results - last 24 hr 11/14/19 11/14/19 07:10 07:10 WBC 5.7 RBC 3.71 Hgb 10.7 Hct 31.7 L MCV 85.3 MCH 28.9 MCHC 33.8 RDW 15.4 Plt Count 751 H MPV 7.6 Absolute Neuts (auto) 4.1 Neutrophils % 71.1 Lymphocytes % 16.3 Monocytes % 9.6 Eosinophils % 2.3 Basophils % 0.7 Nucleated RBC % 0 Sodium 139 Potassium 3.8 Chloride 104 Carbon Dioxide 27 Anion Gap 7 L BUN 7.8 Creatinine 0.5 L Est GFR (CKD-EPI)AfAm 131.72 Est GFR (CKD-EPI)NonAf 113.65 Random Glucose 95 Calcium 8.5 Total Bilirubin 0.4 AST 10 L ALT 12 L Alkaline Phosphatase 53 Total Protein 5.6 L Albumin 2.3 L Home Medications Medication Instructions Recorded Pantoprazole Sodium [Protonix] 40 mg PO DAILY #30 tablet. 03/26/19 Alprazolam [Xanax] 0.25 mg PO Q8H PRN #15 tablet MDD 11/14/19 3 tabs traMADol HCL [Ultram -] 50 mg PO Q4H PRN #30 tablet MDD 6 11/14/19 Current Medications Generic Name Dose Route Start Last Admin Trade Name Freq PRN Reason Stop Dose Admin Acetaminophen 650 mg 11/13/19 08:17 11/14/19 17:22 Tylenol - PO 650 mg Q6H PRN Administration PAIN LEVEL 1-5 Alprazolam 0.25 mg 11/13/19 13:24 11/13/19 21:51 Xanax - PO 0.25 mg Q8H PRN Administration ANXIETY Amoxicillin/Clavulanate Potassium 1 tab 11/13/19 17:30 11/14/19 17:21 Augmentin - 875mg Tablet PO 1 tab BID@0800,1730 PRASANNA Administration Heparin Sodium (Porcine) 5,000 unit 11/12/19 10:00 11/14/19 15:16 Heparin - SQ 5,000 unit TID PRASANNA Administration Potassium Chloride 40 meq/ 1,020 mls @ 75 mls/hr 11/11/19 16:00 11/14/19 12:55 Amino Acids IVPB Not Given Q13H [facility] Multivitamins/Minerals 10 ml 11/11/19 16:00 11/14/19 17:19 Infuvite Adult - IV Not Given Q24H PRASANNA Ondansetron HCl 4 mg 11/09/19 14:16 Zofran Injection IVPUSH Q6H PRN NAUSEA Pantoprazole Sodium 40 mg 11/14/19 12:45 11/14/19 15:03 Protonix - PO 40 mg DAILY PRASANNA Administration Polyethylene Glycol 17 gm 11/12/19 13:00 11/14/19 12:56 Miralax (For Daily Use) - PO Not Given DAILY [facility] Senna 2 tab 11/12/19 12:16 Senna - PO HS PRN CONSTIPATION Simethicone 80 mg 11/13/19 08:08 11/13/19 17:19 Mylicon - PO 80 mg QID PRN Administration GAS Tramadol HCl 50 mg 11/13/19 08:15 11/14/19 15:03 Ultram - PO 50 mg Q4H PRN Administration PAIN LEVEL 6-10 ASSESSMENT/PLAN: 49 F h/o chronic diverticulosis, hemorrhoids, colon polyps, transverse colon perforation during colonoscopy, transverse colon resection with end colostomy who presented on 10/29/19 for reversal of colostomy with end to end anastomosis complicated by anastomotic leak and underwent revision with side by side anastomosis on 11/07/19. Sepsis secondary to Enterococcus bacteremia Switch IV abx to PO Augmentin as per ID recs ID consult: Dr Swanson Pneumoperitoneum secondary to anastomotic leak s/p revision of anastomosis with side by side anastomosis 11/07 Continue incentive spirometer, ambulation, HOB elevation [employer] DCed as per Surgery team Advance diet as tolerated Surgery consult: Dr Child History of colon perforation, transverse colon resection with end colostomy s/p reversal of colostomy with end to end anastomosis 10/29 Nutrition advance to full diet as tolerated advance as needed as per Surgery recs Med surg Heparin SC DVT ppx
[2019-11-14] MEDS: ALPRAZolam 0.25 MG TABLET PO PRN (21:48)
--- NOTE | 2019-11-14 22:14 | PN ---
Teaching Attending Note Name of Resident: Selvin Garcia ATTENDING PHYSICIAN STATEMENT I saw and evaluated the patient. I reviewed the resident's note and discussed the case with the resident. I agree with the resident's findings and plan as documented. ASSESSMENT AND PLAN: 49 y/o s/p Laparotomy, lysis of adhesions, religious of colonic continuity with primary anastamosis (end-to-end) developed pneumoperitoneum, stool from superior pole of surgical wound s/p Exploratory laparotomy, revision of transverse colon anastamosis with [id number] anastamosis. Copious irrigation. Lysis of adhesions. Retention sutures on 11/07/19 Enterococcal bacteremia thrombocytosis -- reactive anemia of chronic disease Normal platelet count on 11/05/19 On heparin for DVT prophylaxis will follow
[2019-11-15] MEDS: HEPARIN NA (PORCINE) 5,000 UNITS/ML 1ML VIAL SQ SCH (06:26)
[2019-11-15] MEDS: traMADol HCL 50 MG TABLET PO PRN ×3 (06:28→16:13)
--- NOTE | 2019-11-15 08:11 | PN ---
Progress Note (short form) - Note Progress Note: GENERAL SURGERY POD #8 s/p Ex-lap, revision of transverse colon anastamosis with [id number] anastamosis. Copious irrigation. VLADIMIR. Retention sutures POD #17 s/p Laparotomy, VLADIMIR, nondenominational of colonic continuity with primary anastamosis (end-to-end) Alert. Doing well. States she is getting oob and ambulating without assistance. Started on regualr diet yesterday and tolerating. Voiding spontaneously. Multiple bowel movements (formed stool). HemeOn consult note reviewed and appreciated. Denies n/v/f/c, CP, palpitations, SOB, ARRIAGA, melana or hematochazia Last Vital Signs Temp Pulse Resp BP Pulse Ox 98.4 F 86 18 101/72 97 11/15/19 06:00 11/15/19 06:00 11/15/19 06:00 11/15/19 06:00 11/14/19 21:00 24 Hour Output 11/14/19 11/14/19 11/15/19 15:00 23:00 06:00 SARAH BETH 15 10 10 Gen: alert. nad Pulm: unlabored respirations ABD: soft. nt. nd. midline incision and ruq wounds both remain open with packing (removed on rounds)...clean, + granulation tissue. SARAH BETH onbulb suction (serous) LE: all compartments soft, supple, nt, +2 DP pulses bilat Problem List - Problems (1) Perforation of colon as colonoscopy complication Assessment/Plan: POD #8 s/p Ex-lap, revision of transverse colon anastamosis with [id number] anastamosis. Copious irrigation. VLADIMIR. Retention sutures POD #17 s/p Laparotomy, VLADIMIR, nondenominational of colonic continuity with primary anastamosis (end-to-end) 1. VNS ordered for continued home wound management - pack wound daily after showering. 1/4" iodophor packing to midline incision and ruq wound. - pack a little less than previous day as to encourage wound contracture 2. Scripts for Tramadol and Xanax escribed 3. f/u with Dr. Child as outlined in dc plan tab section 4. SARAH BETH drain will be removed once patient is ready for discharge 5. Retention sutures will be removed by Dr. Child during her post-operative visit 6. Cont OOB and ambulating 7. Regular diet 8. Possible DC home today if VNS established Code(s): K63.1 - PERFORATION OF INTESTINE (NONTRAUMATIC); K91.71 - ACCIDENTAL PNCTR & LAC OF A DGSTV SYS ORG DUR DGSTV SYS PROC (2) S/P partial colectomy Code(s): Z90.49 - ACQUIRED ABSENCE OF OTHER SPECIFIED PARTS OF DIGESTIVE TRACT
[2019-11-15 08:29] LABS: BASO % 0.7 % (0-2.0); EOS % 3.1 % (0-4.5); HEMATOCRIT 30.8 % (32.4-45.2); HEMOGLOBIN 10.5 GM/dL (10.7-15.3); LYMPH % 12.8 % (8-40); MCH 29.1 pg (25.7-33.7); MCHC 34.3 g/dl (32.0-36.0); MEAN PLT VOLUME 7.5 fl (7.5-11.1); MONO % 7.4 % (3.8-10.2); PLATELET COUNT 735 K/MM3 (134-434); RBC 3.62 M/mm3 (3.60-5.2); RDW 15.4 % (11.6-15.6); WHITE BLOOD COUNT 7.5 K/mm3 (4.0-10.0)
[2019-11-15] MEDS: ACETAMINOPHEN 325 MG TABLET (FP) PO PRN (08:43)
[2019-11-15] MEDS: AMOX TR/POT CLAV 875MG/125MG TABLETS (FP) PO SCH (08:44)
[2019-11-15 08:53] LABS: ALBUMIN 2.4 g/dl (3.4-5.0); BILIRUBIN,TOTAL 0.9 mg/dL (0.2-1); BLOOD UREA NITROGEN 8.1 mg/dL (7-18); CALCIUM 8.7 mg/dL (8.5-10.1); CREATININE 0.5 mg/dL (0.55-1.3); POTASSIUM 3.9 mmol/L (3.5-5.1); TOT PROT 5.8 g/dl (6.4-8.2)
[2019-11-15] MEDS: SIMETHICONE 80 MG TAB.CHEW (FP) PO PRN (09:26)
[2019-11-15] MEDS: POLYETHYLENE GLYCOL 3350 119 GM BTL PO SCH (09:27)
[2019-11-15] MEDS: PANTOPRAZOLE 40 MG TABLET PO SCH (09:27)
[2019-11-15 12:08] VITALS: BP 139/79; PULSE 90; TEMP 98.1
[2019-11-15] MEDS: POTASSIUM CHLORIDE 40 MEQ in AMINO ACIDS 4.25%/D5W 1,000 ML IVPB SCH (13:18)
[2019-11-15] MEDS: ALPRAZolam 0.25 MG TABLET PO PRN (13:38)
--- NOTE | 2019-11-15 13:55 | DS ---
"Physical Exam: Subjective: Patient seen and examined at beside, endorses improved abdominal discomfort, tolerating PO, ambulating, abx switched to PO. VSS. Afebrile. Objective: GENERAL: The patient is awake, alert, and fully oriented, in no acute distress. Family at bedside LUNGS: Breath sounds equal, clear to auscultation bilaterally, no wheezes, no crackles, no accessory muscle use. HEART: Regular rate and rhythm, S1, S2 without murmur, rub or gallop. ABDOMEN: Obese, soft, (+) mild tenderness, non-distended, BS+, no guarding, no rebound, no hepatosplenomegaly, no masses. EXTREMITIES: 2+ pulses, warm, well-perfused, no edema. Vital Signs Period Temp Pulse Resp BP Sys/Ren Pulse Ox Last 24 Hr 97.8 F-98.4 F 86-92 18-19 101-139/72-79 97 LABS Laboratory Results - last 24 hr 11/15/19 11/15/19 07:26 07:26 WBC 7.5 RBC 3.62 Hgb 10.5 L Hct 30.8 L MCV 85.0 MCH 29.1 MCHC 34.3 RDW 15.4 Plt Count 735 H MPV 7.5 Absolute Neuts (auto) 5.7 Neutrophils % 76.0 Lymphocytes % 12.8 D Monocytes % 7.4 Eosinophils % 3.1 Basophils % 0.7 Nucleated RBC % 0 Sodium 139 Potassium 3.9 Chloride 104 Carbon Dioxide 28 Anion Gap 8 BUN 8.1 Creatinine 0.5 L Est GFR (CKD-EPI)AfAm 131.72 Est GFR (CKD-EPI)NonAf 113.65 Random Glucose 92 Calcium 8.7 Total Bilirubin 0.9 AST 11 L ALT 13 Alkaline Phosphatase 55 Total Protein 5.8 L Albumin 2.4 L Microbiology 11/05/19 11:42 Blood - Peripheral Venous Blood Culture - Final NO GROWTH AFTER 5 DAYS INCUBATION 11/05/19 11:50 Blood - Peripheral Venous Blood Culture - Final NO GROWTH AFTER 5 DAYS INCUBATION 11/03/19 08:00 Blood - Peripheral Venous Blood Culture - Final NO GROWTH AFTER 5 DAYS INCUBATION 11/03/19 07:55 Blood - Peripheral Venous Blood Culture - Final Enterococcus Faecalis Home Medications Medication Instructions Recorded Pantoprazole Sodium [Protonix] 40 mg PO DAILY #30 tablet. 03/26/19 Alprazolam [Xanax] 0.25 mg PO Q8H PRN #15 tablet MDD 11/14/19 3 tabs traMADol HCL [Ultram -] 50 mg PO Q4H PRN #30 tablet MDD 6 11/14/19 Current Medications Generic Name Dose Route Start Last Admin Trade Name Freq PRN Reason Stop Dose Admin Acetaminophen 650 mg 11/13/19 08:17 11/15/19 08:43 Tylenol - PO 650 mg Q6H PRN Administration PAIN LEVEL 1-5 Alprazolam 0.25 mg 11/13/19 13:24 11/15/19 13:38 Xanax - PO 0.25 mg Q8H PRN Administration ANXIETY Amoxicillin/Clavulanate Potassium 1 tab 11/13/19 17:30 11/15/19 08:44 Augmentin - 875mg Tablet PO 1 tab BID@0800,1730 PRAASNNA Administration Heparin Sodium (Porcine) 5,000 unit 11/12/19 10:00 11/15/19 06:26 Heparin - SQ 5,000 unit TID PRASANNA Administration Potassium Chloride 40 meq/ 1,020 mls @ 75 mls/hr 11/11/19 16:00 11/15/19 13:18 Amino Acids IVPB Not Given Q13H PRASANNA Multivitamins/Minerals 10 ml 11/11/19 16:00 11/14/19 17:19 Infuvite Adult - IV Not Given Q24H PRASANNA Ondansetron HCl 4 mg 11/09/19 14:16 Zofran Injection IVPUSH Q6H PRN NAUSEA Pantoprazole Sodium 40 mg 11/14/19 12:45 11/15/19 09:27 Protonix - PO 40 mg DAILY PRASANNA Administration Polyethylene Glycol 17 gm 11/12/19 13:00 11/15/19 09:27 Miralax (For Daily Use) - PO Not Given DAILY PRASANNA Senna 2 tab 11/12/19 12:16 Senna - PO HS PRN CONSTIPATION Simethicone 80 mg 11/13/19 08:08 11/15/19 09:26 Mylicon - PO 80 mg QID PRN Administration GAS Tramadol HCl 50 mg 11/13/19 08:15 11/15/19 11:34 Ultram - PO 50 mg Q4H PRN Administration PAIN LEVEL 6-10 HOSPITAL COURSE: 49 F h/o chronic diverticulosis, hemorrhoids, colon polyps, transverse colon perforation during colonoscopy, transverse colon resection with end colostomy who presented on 10/29/19 for reversal of colostomy with end to end anastomosis complicated by anastomotic leak and underwent revision with side by side anastomosis on 11/07/19. Patient was admitted to Medicine service, for IV abx and management of medical co-morbid conditions. Today she is POD #8 s/p Ex-lap, revision of transverse colon anastamosis with [id number] anastamosis and POD #17 s/p Laparotomy, VLADIMIR, rastafari of colonic continuity with primary anastamosis (end-to-end), tolerating PO, moving her bowels. SARAH BETH drained removed by surgery team today. As per Surgery she is surgically cleared for discharge with VNS services for dressing change and follow up with Dr Child in clinic on Monday. Patient to complete abx orally with Augmentin 875mg BID for 3 more days as per Dr. Sky CASTELLANOS and follow up with Surgery, ID and PCP clinics. Date of Admission:10/29/19 Date of Discharge: 11/15/19 Discharge medications: Tramadol 50mg Q4H PRN Augmentin 875mg BID x 3 more days Patient to continue all other home medications as prescribed. Dispo: DC home with VNS services. Patient given discharge plan, and was fully explained her treatment course and follow up by ALONSO Nelson from Surgery team and myself. Minutes to complete discharge: 40 Discharge Summary Problems reviewed: Yes Reason For Visit: COLOSTOMY Current Active Problems History of colostomy reversal (Acute) - Instructions Diet, Activity, Other Instructions: Dr. Child Discharge Instructions Dear PATRICIO ANDRE, Post Operative Instructions Physical activity Resume your normal everyday activity as tolerated no heavy lifting or exercise until seen by your surgeon. You may walk unlimited amounts of and climb stairs. You may resume driving the car when you feel safe and comfortable behind the wheel and are no longer taking narcotics. Wound care - VNS home established - Shower each day prior to VNS arrival. Wash all wounds with soap and water. - Do not apply lotion or ointments to incisions. - The miguelito & retention sutures will be removed by Dr. Child during your office visit Diet There are no dietary restrictions. Eat healthy, high-fiber foods. Drink 6 to 8 glasses of liquid each day. This will assist in keeping your bowels are regular. Pain management You may take Tylenol or acetaminophen or Ibuprofen (for example, Motrin, Advil etc.) Any pain prescription medication ordered should be taken as prescribed for moderate to severe pain. Call Dr. Child for any of the following: Severe pain not relieved by medication Fever of 101 or higher Excessive bleeding or drainage on dressing Inability to urinate If you experience any chest pain or shortness of breath please seek emergency treatment immediately. Call the office at [phone] for a post operative appointment. [facility] VENDING ROUTE DRIVER: This report was requested by: Omar Cox | Reference #: [id number] Scripts for Tramadol and Xanax were escribed. Referrals: Rg Swanson MD [Staff Physician] - Disposition: VNS/HOME HEALTH CARE - Home Medications Comprehensive Discharge Medication List: Ambulatory Orders Pantoprazole Sodium [Protonix] 40 mg PO DAILY #30 tablet. 03/26/19 Alprazolam [Xanax] 0.25 mg PO Q8H PRN #15 tablet MDD 3 tabs 11/14/19 traMADol HCL [Ultram -] 50 mg PO Q4H PRN #30 tablet MDD 6 11/14/19 This patient is new to me today: No Emergency Visit: No Critical Care patient: No - Discharge Referral Referred to [facility] Med P.C.: No"
[2019-11-15 16:37] VITALS: BMI 30.2
== END 2019-11-15 16:29 | disposition home health service (06) | DRG 329 ==
LOC: JASU-SURG 05:14 → EDSTATUS 08:00 → JSAMEDAYSX 11:32 → JICU 18:23 → J6S 10-30 18:45 → JICU 11-07 21:06 → J6S 11-09 14:02
PROVIDERS: ADMIT Surgery
PROC: 0DBL0ZZ Excision of Transverse Colon, Open Approach (ICD-10-PCS; 2019-10-29)
PROC: 0DNW0ZZ Release Peritoneum, Open Approach (ICD-10-PCS; 2019-10-29)
PROC: 0DBU0ZZ Excision of Omentum, Open Approach (ICD-10-PCS; 2019-10-29)
PROC: 0D1L0Z4 Bypass Transverse Colon to Cutaneous, Open Approach (ICD-10-PCS; 2019-10-29)
PROC: 0DCL0ZZ Extirpation of Matter from Transverse Colon, Open Approach (ICD-10-PCS; principal; 2019-10-29 08:00)
PROC: 0DSL0ZZ Reposition Transverse Colon, Open Approach (ICD-10-PCS; 2019-11-07)
PROC: 3E10X8Z Irrigation of Skin and Mucous Membranes using Irrigating Substance (ICD-10-PCS; 2019-11-07)
DX: Z43.3 Encounter for attention to colostomy (principal); A41.81 Sepsis due to Enterococcus; E46 Unspecified protein-calorie malnutrition; T81.49XA Infection following a procedure, other surgical site, initial encounter; T81.44XA Sepsis following a procedure, initial encounter; Z68.30 Body mass index [BMI] 30.0-30.9, adult; E66.9 Obesity, unspecified; E88.09 Other disorders of plasma-protein metabolism, not elsewhere classified; B95.2 Enterococcus as the cause of diseases classified elsewhere; E87.6 Hypokalemia; K57.90 Diverticulosis of intestine, part unspecified, without perforation or abscess without bleeding; K64.8 Other hemorrhoids; K63.5 Polyp of colon
CPT/HCPCS: 36415; 71045-TC-FY; 74177-TC; 80048; 80053; 81003; 83605; 83735; 84100; 84703; 85025; 85027; 86850; 86900; 86901; 87040; 87186; 88305-TC; 88307-TC; 94760; J0131; J1644; Q9967